=== PATIENT | male | born 1970 | race Caucasian/White ===

== ENCOUNTER 2023-09-22 14:09 | Outpatient (OUT) | payer OTHER, SELFPAY ==
[2023-09-22 15:26] LABS: Basophils Absolute Auto 0.1 10^3/uL (0.0-0.1); Basophils Percent Auto 1.6 % (0.2-2.0); Eosinophils Absolute Auto 0.1 10^3/uL (0.0-0.7); Hematocrit 41.6 % (42.0-54.0); Immature Granulocytes Abs Auto 0.01 10^3/uL (0.00-0.03); Immature Granulocytes Pct Auto 0.2 % (0.0-0.5); Lymphocytes Absolute Auto 1.7 10^3/uL (1.2-3.8); Lymphocytes Percent Auto 31.5 % (20.5-60.0); Mean Corpuscular HGB Conc 33.7 g/dL (29.9-35.2); Mean Corpuscular Volume 92.2 fL (80.0-94.0); Monocytes Absolute Auto 0.6 10^3/uL (0.3-0.8); Monocytes Percent Auto 10.1 % (1.7-12.0); Neutrophils Percent Auto 54.6 % (43.0-75.0); Platelet Count 180 10^3/uL (150-450); Red Blood Count 4.51 10^6/uL (4.70-6.10); White Blood Count 5.5 10^3/uL (4.0-11.0)
[2023-09-22 15:43] LABS: INR 1.05; Partial Thromboplastin Time 28.5 sec (22.3-36.2); Prothrombin Time 11.1 sec (9.0-11.6)
[2023-09-22 16:23] LABS: Anion Gap 13.4; BUN Creatinine Ratio 19.4; Calcium 9.2 mg/dL (8.5-10.1); Chloride 102 mmol/L (98-107); Estimated GFR (African America >60 (>=60); Estimated GFR (Non-African Ame >60 (>=60); Glucose 134 mg/dL (74-106); Potassium 4.4 mmol/L (3.5-5.1); Sodium 141 mmol/L (136-145)
== END 2023-09-22 14:10 | disposition home or self-care (01) ==
LOC: PST 14:12
PROVIDERS: PCP Nurse Practitioner Family; Visit Provider Urology
DX: Z01.812 Encounter for preprocedural laboratory examination (principal); N20.0 Calculus of kidney
CPT/HCPCS: 36415; 80048; 85025; 85610; 85730

== ENCOUNTER 2023-10-06 06:05 | Day surgery (SDC) | payer OTHER, SELFPAY ==
[2023-09-22 14:47] VITALS: BP 119/73; PULSE 74; TEMP 36.3; O2SAT 98; BMI 24.4
[2023-10-06] VITALS (15 sets, daily range): BP systolic 99–182; BP diastolic 46–88; PULSE 69–75; TEMP 36–36.2; O2SAT 95–100; BMI 24.3
--- OUTSIDE RECORDS SUMMARY | 2023-10-06 06:09 | XMS_ITS | CCD ---
Author Organization [facility] Care Team Providers Care Missing Persons Investigator Name Role Phone MARILIN, DR MARQUEZ Attending Unavailable MARILIN, DR MARQUEZ Admitting Unavailable REQUEST, NONE LISTED Primary Care Unavaila ble MARILIN, DR MARQUEZ Consulting Unavailable MARILIN, DR MARQUEZ Attending Unavailable MARILIN, DR MARQUEZ Admitting Unavailable REQUEST, NONE LISTED Primary Care Unavaila ble MARILIN, DR MARQUEZ Consulting Unavailable ZIEBER, DR YUDI Coyle Consulting Unavailable WALDEMARTIANA Consulting Unavailable JORDIN WEST Consulting Unavailable Elsy Cason Primary Care Physician Tawanna Bentley Primary Care Physician Jimmy GASTON Attending Unavailable Tawanna Bentley Attending Unavailab le Tawanna Bentley Attending Unavailab le Tawanna Bentley Attending Unavailab Cristina Madison Attending Unavailable Cristina Fan Admitting Unavailable Jimmy GSATON Attending Unavailable Jimmy GASTON Admitting Unavailable Tawanna Bentley Attending Unavailab le Tawanna Bentley Admitting Unavailab Jimmy Tinajero Admitting Unavailable Jimmy GASTON Attending Unavailable Rodrigo Gamboa Attending Unavailable Tawanna Bentley Attending Unavailab le Tawanna Bentley Attending Unavailab le Tawanna Bentley Referring Unavailab MD Geremias Gibbons Admitting Unavailable Geremias Jack Attending Unavailable Carmen Andrew Referring Unavailable Carmen Andrew Attending Unavailable Shirley Gaona Referring Unavailable Shirley Gaona Attending Unavailable Shirley Gaona Admitting Unavailable MD Geremias Jack Admitting Unavailable Geremias Jack Referring Unavailable Geremias Jack Attending Unavailable Geremias Jack Referring Unavailable Geremias Jack Attending Unavailable Geremias Jack Admitting Unavailable GASTON, Jimmy Coyle Attending Unavailable Andrew, Carmen Admitting Unavailable Andrew, Carmen Referring Unavailable Andrew, Carmen Attending Unavailable Missler, Tawanna Reilly Attending Unavailab le Missler, Tawanna Reilly Admitting Unavailab le Missler, Tawanna Reilly Attending Unavailab le Missler, Tawanna Reilly Admitting Unavailab le GASTON, Jimmy Coyle Attending Unavailable GASTON, Jimmy R Admitting Unavailable Missler, Tawanna Reilly Referring Unavailab le Andrew, Carmen Attending Unavailable Andrew, [place] Carmen Admitting Unavailabl e Missler, Tawanna Reilly Referring Unavailab le Andrew, Carmen Admitting Unavailable Andrew, Carmen Attending Unavailable Andrew, Carmen Attending Unavailable Missler, Tawanna Reilly Referring Unavailab le Andrew, [place] Carmen Admitting Unavailabl e Andrew, Carmen Attending Unavailable Missler, Tawanna Reilly Referring Unavailab le Andrew, [place] Morales Admitting Unavailabl e GASTON, Jimmy Coyle Attending Unavailable GASTON, Jimmy Coyle Admitting Unavailable Rodrigo Gamboa Attending Unavailable DO Elie Cueva Attending Unavailable Pocos, Shirley Workman Referring Unavailable Pocos, Shirley Workman Attending Unavailable GASTON, Jimmy Coyle Attending Unavailable GASTON, Jimmy Coyle Attending Unavailable GASTON, Jimmy Coyle Attending Unavailable POCOS, SHIRLEY Workman Attending Unavailable POCOS, SHIRLEY Workman Referring Unavailable POCOS, SHIRLEY Workman Attending Unavailable POCOS, SHIRLEY Workman Attending Unavailable POCOS, SHIRLEY Workman Attending Unavailable POCOS, SHIRLEY Workman Referring Unavailable POCOS, SHIRLEY Workman Attending Unavailable POCOS, SHIRLEY Workman Referring Unavailable POCOS, SHIRLEY Workman Referring Unavailable Medications Current Medications Medication Drug Class(es) Dates Sig (Normalized) Sig (Original) acetaminophen 325 mg / HYDROcodone bitartrate 5 mg oral tablet (1 source) Opioid Agonist Start: 04-06-2023 End: 04-09-2023 take 1 tablet by mouth every six hours for pain [place] 325 mg-5 mg oral tablet 1 tab(s), Oral, q6hr for pain for 3 day(s), 12 tab(s), Refill(s) 0, [facility], 165, cm, 04/06/23 6:51:00 EST, Height/Length Dosing, 67.4, kg, 04/06/23 6:51:00 EST, Weight Dosing Start Date: 04/06/23 Stop Date: 04/09/23 Status: Ordered acetaminophen 325 mg / oxyCODONE hydrochloride 5 mg oral tablet (1 source) Opioid Agonist Start: 06-29-2021 End: 07-02-2021 take 1 tablet by mouth every six hours as needed for pain Percocet 325 mg-5 mg Tab 1 tab(s), Oral, q6hr as needed for pain for 3 day(s), 15 tab(s), Refill(s) 0, [facility], 165, cm, 06/29/21 7:25:00 EDT, Height/Length Dosing, 72, kg, 06/29/21 7:25:00 EDT, Weight Dosing Start Date: 06/29/21 Stop Date: 07/02/21 Status: Ordered amitriptyline hydrochloride 50 mg oral tablet (20 sources) Tricyclic Antidepressant Start: 03-12-2023 take 1 tablet by mouth once daily at bedtime amitriptyline 50 mg Tab 50 mg = 1 tab(s), Oral, Once a day (at bedtime), # 30 tab(s), Refills(s) 5, Pharmacy: [facility], 165, cm, 03/09/23 11:01:00 EST, Height/Length Dosing, 60.8, kg, 03/09/23 11:01:00 EST, Weight Dosing Start Date: 03/12/23 Status: Ordered Start: 08-30-2022 take 1 tablet by allan th once daily at bedtime amitriptyline 50 mg Tab 50 mg = 1 tab(s), Oral, Once a day (at bedtime), # 30 tab(s), Refills(s) 5, Pharmacy: [facility] 1985, 165, cm, 08/27/22 14:08:00 EDT, Height/Length Dosing, 67.5, kg, 08/18/22 13:25:00 EDT, Weight Dosing Start Date: 08/30/22 Status: Ordered Start: 06-01-2022 take 1 tablet by allan th once daily at bedtime amitriptyline 50 mg Tab 50 mg = 1 tab(s), Oral, Once a day (at bedtime), # 30 tab(s), Refills(s) 2, Pharmacy: [facility] 1985, 165, cm, 05/07/22 14:50:00 EST, Height/Length Dosing, 69, kg, 03/22/22 14:06:00 EST, Weight Dosing Start Date: 06/01/22 Status: Ordered Start: 02-04-2022 take 1 tablet by allan th once daily at bedtime amitriptyline 50 mg Tab 50 mg = 1 tab(s), Oral, Once a day (at bedtime), # 30 tab(s), Refills(s) 2, Pharmacy: [facility] 1985, 165, cm, 02/04/22 14:49:00 EST, Height/Length Dosing, 69.2, kg, 02/04/22 14:49:00 EST, Weight Dosing Start Date: 02/04/22 Status: Ordered Start: 11-23-2021 amitriptyline 25 mg Tab 25 mg = 1 tab(s), Oral, Once a day (at bedtime), Titrate slowly. Max 150 mg/day. Taper slowly if discontinuing., # 90 tab(s), Refills(s) 3, Pharmacy: [facility] 1985, 165, cm, 08/19/21 14:35:00 EDT, Height/Length Dosing, 67.5, kg, 08/19/21 14:35... Start Date: 11/23/21 Status: Ordered Start: 12-24-2020 amitriptyline 25 mg Tab 25 mg = 1 tab(s), Oral, Once a day (at bedtime), Titrate slowly. Max 150 mg/day. Taper slowly if discontinuing., # 90 tab(s), Refills(s) 3, Pharmacy: [facility] 1985, 163, cm, 12/24/20 14:28:00 EDT, Height/Length Dosing, 66.3, kg, 12/24/20 14:28... Start Date: 12/24/20 Status: Ordered atorvastatin 20 mg oral tablet (20 sources) HMG-CoA Reductase Inhibitor Start: 02-26-2023 take 1 tablet by mouth at bedtime atorvastatin 20 mg Tab 20 mg = 1 tab(s), Oral, Bedtime, # 90 tab(s), Refills(s) 1, Pharmacy: [facility] 1985, 165, cm, 02/01/23 12:59:00 EST, Height/Length Dosing, 60.8, kg, 12/20/22 13:03:00 EDT, Weight Dosing Start Date: 02/26/23 Status: Ordered Start: 08-17-2022 take 1 tablet by allan th at bedtime atorvastatin 20 mg Tab 20 mg = 1 tab(s), Oral, Bedtime, # 30 tab(s), Refills(s) 5, Pharmacy: [facility] 1985, 165, cm, 07/27/22 12:50:00 EDT, Height/Length Dosing, 68.2, kg, 07/02/22 14:33:00 EDT, Weight Dosing Start Date: 08/17/22 Status: Ordered Start: 02-10-2022 take 1 tablet by allan th at bedtime atorvastatin 20 mg Tab 20 mg = 1 tab(s), Oral, Bedtime, # 30 tab(s), Refills(s) 5, Pharmacy: [facility] 1985, 165, cm, 02/04/22 14:49:00 EST, Height/Length Dosing, 69.2, kg, 02/04/22 14:49:00 EST, Weight Dosing Start Date: 02/10/22 Status: Ordered Start: 07-08-2021 take 1 tablet by allan th at bedtime atorvastatin 20 mg Tab 20 mg = 1 tab(s), Oral, Bedtime, # 30 tab(s), Refills(s) 6, Pharmacy: [facility] 1985, 165, cm, 06/29/21 7:25:00 EDT, Height/Length Dosing, 72, kg, 06/29/21 7:25:00 EDT, Weight Dosing Start Date: 07/08/21 Status: Ordered Start: 12-03-2020 take 1 tablet by allan th at bedtime atorvastatin 20 mg Tab 20 mg = 1 tab(s), Oral, Bedtime, # 30 tab(s), Refills(s) 6, Pharmacy: [facility] 1985, 163, cm, 12/01/20 13:45:00 EDT, Height/Length Dosing, 67.3, kg, 12/01/20 13:45:00 EDT, Weight Dosing Start Date: 12/03/20 Status: Ordered baclofen 10 mg oral tablet (5 sources) gamma-Aminobutyric Acid-ergic Agonist Start: 09-28-2022 End: 10-28-2022 take 5 mg by mouth three times daily baclofen 10 mg Tab 5 mg = 0.5 tab(s), Oral, TID, X 30 day(s), # 45 tab(s), Refills(s) 0, Pharmacy: [facility] 1985, 165, cm, 09/14/22 13:03:00 EDT, Height/Length Dosing, 66.7, kg, 09/14/22 13:03:00 EDT, Weight Dosing Start Date: 09/28/22 Stop Date: 10/28/22 Status: Ordered Start: 08-27-2022 take 5 mg by mouth t hree times daily baclofen 10 mg Tab 5 mg = 0.5 tab(s), Oral, TID, # 30 tab(s), Refills(s) 0, Pharmacy: [facility] 1985, 165, cm, 08/27/22 14:08:00 EDT, Height/Length Dosing, 67.5, kg, 08/18/22 13:25:00 EDT, Weight Dosing Start Date: 08/27/22 Status: Ordered cephalexin 500 mg oral capsule (6 sources) Cephalosporin Antibacterial Start: 03-09-2023 End: 03-16-2023 take 1 capsule by mouth every six hours cephalexin 500 mg Cap TAKE 1 CAPSULE BY MOUTH EVERY 6 HOURS FOR 7 DAYS Start Date: 03/16/23 Status: Ordered Start: 06-29-2021 End: 07-06-2021 take 1 capsule by mouth every twelve hours Keflex 500 mg Cap 500 mg = 1 cap(s), Oral, q12hr, X 7 day(s), # 14 cap(s), Refills(s) 0, Pharmacy: [facility] 1985, 165, cm, 06/29/21 7:25:00 EDT, Height/Length Dosing, 72, kg, 06/29/21 7:25:00 EDT, Weight Dosing Start Date: 06/29/21 Stop Date: 07/06/21 Status: Ordered cyclobenzaprine hydrochloride 10 mg oral tablet (20 sources) Muscle Relaxant Start: 04-04-2023 cyclobenzaprin e 10 mg Tab 10 mg = 1 tab(s), Oral, TID, PRN Spasm, If makes drowsy, cut in half and take [address] or work around heavy equipment nor ladders nor bathe if drowsy, # 30 tab(s), Refills(s) 0, Pharmacy: [facility], 165, cm, 03/28/23 13:42:00 EST, Height/Length Dosing, 63.8, kg, 03/28/23 13:42:00 EST, Weight Dosing Start Date: 04/04/23 Status: Ordered Start: 07-23-2022 cyclobenzaprin e 10 mg Tab 10 mg = 1 tab(s), Oral, TID, PRN Spasm, If makes drowsy, cut in half and take 5 mg[address] or work around heavy equipment nor ladders nor bathe if drowsy, # 30 tab(s), Refills(s) 0, Pharmacy: [facility] 1985, 165, cm, 03/16/23 13:10:00 EST, Height/Length Dosing, 67.6, kg, 03/16/23 13:10:00 EST, Weight Dosing Start Date: 03/16/23 Status: Ordered Start: 04-22-2022 cyclobenzaprin e 10 mg Tab 10 mg = 1 tab(s), Oral, TID, PRN Spasm, If makes drowsy, cut in half and take 5 mg[address] drive or work around heavy equipment nor ladders nor bathe if drowsy, # 30 tab(s), Refills(s) 0, Pharmacy: [facility] 1985, 165, cm, 04/20/22 13:17:0... Start Date: 04/22/22 Status: Ordered Start: 02-04-2022 End: 02-14-2022 cyclobenzaprine 10 mg Tab 10 mg = 1 tab(s), Oral, TID, If makes drowsy, cut in half and take 5 mg., X 10 day(s), # 30 tab(s), Refills(s) 0, Pharmacy: [facility] 1986, 165, cm, 02/04/22 14:49:00 EST, Height/Length Dosing, 69.2, kg, 02/04/22 14:49:00 EST, Weight Dosing Start Date: 02/04/22 Stop Date: 02/14/22 Status: Ordered Excedrin Migraine (20 sources) Start: 09-25-2020 take 2 tablets by mouth every eight hours Excedrin Migraine 2 tab(s), Oral, q8hr Headache, Refill(s) 0 Start Date: 09/25/20 Status: Ordered famotidine 20 mg oral tablet (7 sources) Histamine-2 Receptor Antagonist Start: 06-06-2023 End: 06-20-2023 take 1 tablet by mouth twice daily Pepcid 20 mg Tab 20 mg = 1 tab(s), Oral, BID, # 180 tab(s), Refills(s) 1, Pharmacy: [facility], alisa Lynne, 06/13/23 9:53:00 EDT, Height/Length Dosing, 67.8, kg, 06/13/23 9:53:00 EDT, Weight Dosing Start Date: 06/13/23 Status: Ordered gabapentin 600 mg oral tablet (12 sources) Anti-epileptic Agent Start: 06-13-2023 End: 09-25-2023 take 2 tablets by mouth three times daily gabapentin 600 mg Tab 1,200 mg = 2 tab(s), Oral, TID, X 30 day(s), # 180 tab(s), Refills(s) 2, Pharmacy: [facility], alisa Lynne, 06/13/23 9:53:00 EDT, Height/Length Dosing, 67.8, kg, 06/13/23 9:53:00 EDT, Weight Dosing Start Date: 06/27/23 Stop Date: 09/25/23 Status: Ordered Start: 03-28-2023 End: 05-27-2023 take 2 tablets by mouth three times daily gabapentin 600 mg Tab 1,200 mg = 2 tab(s), Oral, TID, increase as per tit[place] schedule given to pt, X 30 day(s), # 180 tab(s), Refills(s) 1, Pharmacy: [facility], alisa Lynne, 03/28/23 13:42:00 EST, Height/Length Dosing, 63.8, kg, 03/28/23 13:42:00 EST, Weight Dosing Start Date: 03/28/23 Stop Date: 05/27/23 Status: Ordered Glucometer (20 sources) Start: 09-24-2020 Glucometer Glucometer, Print Requisition, Supply Start Date: 09/24/20 Status: Ordered ibuprofen 600 mg oral tablet (20 sources) Nonsteroidal Anti-inflammatory Drug Start: 06-28-2022 take 1 tablet by mouth every six hours ibuprofen 600 mg Tab 600 mg = 1 tab(s), Oral, q6hr, # 40 tab(s), Refills(s) 0, Pharmacy: [facility], 165, cm, 10/01/22 14:13:00 EDT, Height/Length Dosing, 67.5, kg, 10/01/22 14:13:00 EDT, Weight Dosing Start Date: 11/04/22 Status: Ordered Start: 04-22-2022 take 1 tablet by allan th every six hours ibuprofen 600 mg Tab 600 mg = 1 tab(s), Oral, q6hr, # 40 tab(s), Refills(s) 0, Pharmacy: [facility] 1986, 165, cm, 04/20/22 13:17:00 EST, Height/Length Dosing, 69, kg, 03/22/22 14:06:00 EST, Weight Dosing Start Date: 04/22/22 Status: Ordered Start: 03-09-2022 take 1 tablet by allan th every six hours ibuprofen 600 mg Tab 600 mg = 1 tab(s), Oral, q6hr, # 40 tab(s), Refills(s) 0, Pharmacy: [facility] 1986, 165, cm, 03/09/22 13:48:00 EST, Height/Length Dosing, 69, kg, 03/09/22 13:48:00 EST, Weight Dosing Start Date: 03/09/22 Status: Ordered meloxicam 15 mg oral tablet (12 sources) Nonsteroidal Anti-inflammatory Drug Start: 03-28-2023 take 15 mg by mouth once daily meloxicam 15 mg, Oral, Daily, Refills(s) 0 Start Date: 03/28/23 Status: Ordered Start: 03-28-2023 meloxicam Refi lls(s) 0 Start Date: 03/28/23 Status: Ordered metFORMIN hydrochloride 1000 mg oral tablet (20 sources) Biguanide Start: 05-02-2023 take 1 tablet by mouth twice daily metformin 1000 mg Tab 1,000 mg = 1 tab(s), Oral, BID, # 180 tab(s), Refills(s) 3, Pharmacy: [facility], 165, cm, 04/29/23 14:03:00 EST, Height/Length Dosing, 63.6, kg, 04/29/23 14:03:00 EST, Weight Dosing Start Date: 05/02/23 Status: Ordered Start: 09-15-2022 [facility] 1000 mg Tab 1,000 mg = 1 tab(s), Oral, BID, # 180 tab(s), Refills(s) 3, Pharmacy: [facility] 1985, 165, cm, 09/14/22 13:03:00 EDT, Height/Length Dosing, 66.7, kg, 09/14/22 13:03:00 EDT, Weight Dosing Start Date: 09/15/22 Status: Ordered Start: 08-16-2022 take 2 tablets by [facility] once daily in the morning metformin 500 mg ER Tab 1,000 mg = 2 tab(s), Oral, qAM, # 180 tab(s), Refills(s) 0, Pharmacy: [facility], 165, cm, 07/27/22 12:50:00 EDT, Height/Length Dosing, 68.2, kg, 07/02/22 14:33:00 EDT, Weight Dosing Start Date: 08/16/22 Status: Ordered Start: 04-07-2022 take 2 tablets by [facility] once daily in the morning metformin 500 mg ER Tab 1,000 mg = 2 tab(s), Oral, qAM, # 90 tab(s), Refills(s) 2, Pharmacy: [facility] 1985, 165, cm, 03/22/22 14:06:00 EST, Height/Length Dosing, 69, kg, 03/22/22 14:06:00 EST, Weight Dosing Start Date: 04/07/22 Status: Ordered Start: 10-12-2021 take 2 tablets by [facility] once daily in the morning metformin 500 mg ER Tab 1,000 mg = 2 tab(s), Oral, qAM, # 60 tab(s), Refills(s) 5, Pharmacy: [facility], 165, cm, 08/19/21 14:35:00 EDT, Height/Length Dosing, 67.5, kg, 08/19/21 14:35:00 EDT, Weight Dosing Start Date: 10/12/21 Status: Ordered Start: 04-08-2021 take 2 tablets by [facility] once daily in the morning metformin 500 mg ER Tab 1,000 mg = 2 tab(s), Oral, qAM, # 60 tab(s), Refills(s) 5, Pharmacy: [facility] 1985, 165, cm, 03/09/21 14:18:00 EST, Height/Length Dosing, 69.7, kg, 03/09/21 14:18:00 EST, Weight Dosing Start Date: 04/08/21 Status: Ordered Multivitamin preparation (20 sources) Start: 03-22-2022 multivitamin See Instructions, Refill(s) 0, mens one a day Start Date: 03/22/22 Status: Ordered naproxen 500 mg oral tablet (13 sources) Nonsteroidal Anti-inflammatory Drug Start: 03-09-2023 take 1 tablet by mouth twice daily as needed for pain naproxen 500 mg Tab 500 mg = 1 tab(s), Oral, BID, PRN Pain, with food, # 20 tab(s), Refills(s) 0, Pharmacy: [facility] 1985, 165, cm, 03/09/23 11:01:00 EST, Height/Length Dosing, 60.8, kg, 03/09/23 11:01:00 EST, Weight Dosing Start Date: 03/09/23 Status: Ordered Start: 06-29-2021 take 1 tablet by [facility] twice daily as needed for pain Naprosyn 500 mg Tab 500 mg = 1 tab(s), Oral, BID, PRN for pain, # 20 tab(s), Refills(s) 0, Pharmacy: [facility], 165, cm, 06/29/21 7:25:00 EDT, Height/Length Dosing, 72, kg, 06/29/21 7:25:00 EDT, Weight Dosing Start Date: 06/29/21 Status: Ordered potassium bicarbonate 25 meq effervescent oral tablet (5 sources) Start: 08-24-2023 Klor-Con/EF 25 mEq oral tablet, effervescent Refills(s) 0 Start Date: 08/24/23 Status: Ordered Start: 08-19-2021 take 1 tablet by [facility] twice daily Effer-K 25 mEq oral tablet, effervescent 25 mEq = 1 tab(s), Oral, BID, # 60 tab(s), Refills(s) 11, Pharmacy: [facility], 165, cm, 08/19/21 14:35:00 EDT, Height/Length Dosing, 67.5, kg, 08/19/21 14:35:00 EDT, Weight Dosing Start Date: 08/19/21 Status: Ordered tamsulosin hydrochloride 0.4 mg oral capsule (13 sources) alpha-Adrenergic Sandi Start: 04-06-2023 take 1 capsule by mouth once daily Flomax 0.4 mg Cap 0.4 mg = 1 cap(s), Oral, Daily, # 30 cap(s), Refills(s) 0, Pharmacy: [facility] 1985, 165, cm, 04/06/23 6:51:00 EST, Height/Length Dosing, 67.4, kg, 04/06/23 6:51:00 EST, Weight Dosing Start Date: 04/06/23 Status: Ordered Start: 03-09-2023 take 1 capsule by [facility] once daily Flomax 0.4 mg Cap 0.4 mg = 1 cap(s), Oral, Daily, # 10 cap(s), Refills(s) 0, Pharmacy: [facility] 1985, 165, cm, 03/09/23 11:01:00 EST, Height/Length Dosing, 60.8, kg, 03/09/23 11:01:00 EST, Weight Dosing Start Date: 03/09/23 Status: Ordered Start: 06-29-2021 take 1 capsule by [facility] once daily Flomax 0.4 mg Cap 0.4 mg = 1 cap(s), Oral, Daily, # 10 cap(s), Refills(s) 0, Pharmacy: [facility] 1985, 165, cm, 06/29/21 7:25:00 EDT, Height/Length Dosing, 72, kg, 06/29/21 7:25:00 EDT, Weight Dosing Start Date: 06/29/21 Status: Ordered tiZANidine 4 mg oral tablet (4 sources) Central alpha-2 Adrenergic Agonist Start: 03-09-2022 take 1 tablet by mouth every six hours as needed for muscle spasms tiZANidine 4 mg Tab 4 mg = 1 tab(s), Oral, q6hr, PRN Spasm, # 30 tab(s), Refills(s) 0, Pharmacy: [facility] 1985, 165, cm, 03/09/22 13:48:00 EST, Height/Length Dosing, 69, kg, 03/09/22 13:48:00 EST, Weight Dosing Start Date: 03/09/22 Status: Ordered Zofran ODT 4 mg Tab-Dis (20 sources) Start: 06-13-2023 take 1 tablet by mouth every eight hours as needed for nausea Zofran ODT 4 mg Tab-Dis 4 mg = 1 tab(s), Oral, q8hr, PRN Nausea/Vomiting, # 30 tab(s), Refills(s) 0, Pharmacy: [facility], 165, cm, 06/13/23 9:53:00 EDT, Height/Length Dosing, 67.8, kg, 06/13/23 9:53:00 EDT, Weight Dosing Start Date: 06/13/23 Status: Ordered Start: 06-06-2023 take 1 tablet by allan th every eight hours as needed for nausea Zofran ODT 4 mg Tab-Dis 4 mg = 1 tab(s), Oral, q8hr, PRN Nausea/Vomiting, # 20 tab(s), Refills(s) 0, Pharmacy: [facility], 165, cm, 06/06/23 18:57:00 EDT, Height/Length Dosing, 64.8, kg, 06/06/23 18:57:00 EDT, Weight Dosing Start Date: 06/06/23 Status: Ordered Start: 04-06-2023 take 1 tablet by allan th every eight hours as needed for nausea Zofran ODT 4 mg Tab-Dis 4 mg = 1 tab(s), Oral, q8hr, PRN Nausea/Vomiting, # 12 tab(s), Refills(s) 0, Pharmacy: [facility] 1985, 165, cm, 04/06/23 6:51:00 EST, Height/Length Dosing, 67.4, kg, 04/06/23 6:51:00 EST, Weight Dosing Start Date: 04/06/23 Status: Ordered Start: 03-09-2023 take 1 tablet by allan th every eight hours as needed for nausea Zofran ODT 4 mg Tab-Dis 4 mg = 1 tab(s), Oral, q8hr, PRN Nausea/Vomiting, # 20 tab(s), Refills(s) 0, Pharmacy: [facility] 1985, 165, cm, 03/09/23 11:01:00 EST, Height/Length Dosing, 60.8, kg, 03/09/23 11:01:00 EST, Weight Dosing Start Date: 03/09/23 Status: Ordered Start: 06-29-2021 take 1 tablet by allan th three times daily Zofran ODT 4 mg Tab-Dis 4 mg = 1 tab(s), Oral, TID, # 15 tab(s), Refills(s) 0, Pharmacy: [facility], 165, cm, 06/29/21 7:25:00 EDT, Height/Length Dosing, 72, kg, 06/29/21 7:25:00 EDT, Weight Dosing Start Date: 06/29/21 Status: Ordered Completed/Discontinued Medications Medication Drug Class(es) Dates Sig (Normalized) Sig (Original) Effer-K 25 mEq oral tablet, effervescent (9 sources) Start: 08-19-2021 take 1 tablet by mouth twice daily Effer-K 25 mEq oral tablet, effervescent 25 mEq = 1 tab(s), Oral, BID, # 60 tab(s), Refills(s) 11, Pharmacy: [facility], 165, cm, 08/19/21 14:35:00 EDT, Height/Length Dosing, 67.5, kg, 08/19/21 14:35:00 EDT, Weight Dosing Start Date: 08/19/21 Status: Ordered K-Effervescent 25 mEq oral tablet, effervescent (20 sources) Start: 08-18-2022 End: 08-13-2023 take 1 tablet by mouth twice daily K-Effervescent 25 mEq oral tablet, effervescent 25 mEq = 1 tab(s), Oral, BID, X 90 day(s), # 180 tab(s), Refills(s) 3, Pharmacy: [facility] 1986, 165, cm, 08/18/22 13:25:00 EDT, Height/Length Dosing, 67.5, kg, 08/18/22 13:25:00 EDT, Weight Dosing Start Date: 08/18/22 Stop Date: 08/13/23 Status: Ordered Problems Problem Classification Problem Date Documented Date Episodic/Chronic Abdominal pain (1 source) Epigastric pain; Translations: [Epigastric pain] Onset: 06-06-2023 Episodic Calculus of urinary tract (20 sources) Calculus of kidney; Translations: [Calculus of ureter] Onset: 10-02-2020 Episodic Diabetes mellitus with complications (20 sources) Complication due to diabetes mellitus; Translations: [Type 2 diabetes mellitus with other specified complication] Onset: 06-08-2021 Chronic Diabetes mellitus without complication (20 sources) Type 2 diabetes mellitus without complications; Translations: [Diabetes mellitus] Onset: 10-06-2020 09-28-2020 Chronic Disorders of lipid metabolism (20 sources) Mixed hyperlipidemia; Translations: [Mixed hyperlipidemia] Onset: 06-08-2021 Chronic Esophageal disorders (11 sources) Gastroesophageal reflux disease 03-22-2022 Chronic Gastritis and duodenitis (7 sources) Gastritis; Translations: [Gastritis, unspecified, without bleeding] Onset: 06-12-2023 Episodic Genitourinary symptoms and ill-defined conditions (20 sources) Increased frequency of urination; Translations: [Nocturia] Onset: 08-18-2022 08-29-2019 Episodic Headache; including migraine (20 sources) Migraine 12-26-2017 Chronic Hyperplasia of prostate (20 sources) Benign prostatic hypertrophy without outflow obstruction; Translations: [Benign prostatic hyperplasia without lower urinary tract symptoms] Onset: 08-19-2021 02-18-2021 Chronic Immunizations and screening for infectious disease (1 source) Vaccination given; Translations: [Encounter for immunization] Onset: 12-20-2022 Episodic Nausea and vomiting (1 source) Nausea and vomiting; Translations: [Nausea with vomiting, unspecified] Onset: 06-06-2023 Episodic Osteoarthritis (1 source) Osteoarthritis of left acromioclavicular joint 07-13-2023 Chronic Other aftercare (1 source) long-term (current) use of oral hypoglycemic drugs; Translations: [ORE WASHER USE ORAL HYPOGLYCEMIC DX] Onset: 10-06-2020 Episodic Other aftercare (1 source) Other custodial (current) drug therapy; Translations: [OTH SKILLED NURSING CURRENT DRUG THERAPY] Onset: 10-06-2020 Episodic Other diseases of kidney and ureters (1 source) Urinary tract obstruction; Translations: [Other obstructive and reflux uropathy] Onset: 03-22-2023 Episodic Other nervous system disorders (20 sources) Bilateral carpal tunnel syndrome 08-12-2022 Chronic Other nervous system disorders (8 sources) Numbness 03-22-2022 Episodic Other non-traumatic joint disorders (1 source) Disorder of shoulder 07-13-2023 Episodic Other nutritional; endocrine; and metabolic disorders (20 sources) Overweight in adulthood with body mass index of 25 or more but less than 30; Translations: [Body mass index (BMI) 26.0-26.9, adult] Onset: 06-08-2021 Episodic Other nutritional; endocrine; and metabolic disorders (15 sources) Overweight; Translations: [Overweight] Onset: 06-08-2021 Episodic Residual codes; unclassified (3 sources) Patient encounter status; Translations: [Other specified health status] Onset: 06-08-2021 Episodic Residual codes; unclassified (4 sources) Body mass index 20-24 - normal; Translations: [Body mass index (BMI) 24.0-24.9, adult] Onset: 12-09-2021 Episodic Rheumatoid arthritis and related disease (20 sources) Rheumatoid arthritis; Translations: [Rheumatoid arthritis, unspecified] Onset: 09-07-2022 03-22-2022 Chronic Spondylosis; intervertebral disc disorders; other back problems (20 sources) Backache; Translations: [Dorsalgia, unspecified] Onset: 12-09-2021 Episodic Sprains and strains (15 sources) Lower back injury; Translations: [Strain of muscle, fascia and tendon of lower back, initial encounter] Onset: 03-09-2022 Episodic Unclassified (20 sources) Asymptomatic microscopic hematuria 08-29-2019 Unclassified (20 sources) Body mass index 20-24 - normal Onset: 12-09-2021 03-09-2021 Unclassified (20 sources) Non-smoker 12-01-2020 Unclassified (20 sources) Patient encounter status 12-01-2020 Unclassified (17 sources) Urine finding 08-18-2022 Unclassified (6 sources) Influenza vaccination given 12-20-2022 Urinary tract infections (1 source) Urinary tract infectious disease; Translations: [Urinary tract infection, site not specified] Onset: 03-09-2023 Episodic Results Test Name Value Interpretation Reference Range Facil ity Ambulatory Visit Summaryon 0 08-24-2023 Ambulatory Visit Summary CHRIS FREEMAN :1970 Visit Date:08/24/2023 Ambulatory Visit Instructions Your Diagnosis Kidney stones Hypocitraturia BPH with urinary obstruction Asymptomatic microscopic hematuria Your Care Team Attending Physician - Jimmy GASTON MD Primary Care Physician - Tawanna Rapp This Is Your Medications List Contact prescribing physician if questions or concerns Misc Prescription (lancets) Misc Prescription (test strips) amitriptyline (amitriptyline 50 mg Tab) atorvastatin (atorvastatin 20 mg Tab) famotidine (Pepcid 20 mg Tab) gabapentin (gabapentin 600 mg Tab) gabapentin (gabapentin 600 mg Tab) meloxicam metformin (metformin 1000 mg Tab) multivitamin ondansetron (Zofran ODT 4 mg Tab-Dis) potassium bicarbonate (Klor-Con/EF 25 mEq oral tablet, effervescent) Procedures Performed Epidural injection of cervical spine using fluoroscopic guidance (01/11/2023), Radiofrequency ablation of nerve root of lumbar spine using fluoroscopic guidance (08/10/2022), Injection of facet joint using fluoroscopic guidance (06/15/2022), Injection of facet joint using fluoroscopic guidance (04/20/2022), Cystoscopy (10/02/2020), ESWL - Extracorporeal shockwave lithotripsy for renal calculus (10/02/2020), Cystoscopy (09/23/2020), Cystoscopy (12/28/2017), Arthroscopy of shoulder. Discharge Vitals Heart Rate (Peripheral) 78 Respiratory Rate 18 Blood Pressure 132/88 Height 165 cm Height 65 in Weight 66.3 kg Weight 145.86 lb BMI 24.35 What to do next You Need to Schedule the Following Appointments Follow Up with MARILIN HINES, Jimmy Coyle, URL When: Where: [facility] [address] , [place] [address]- Medications What How Much When Why Instructions Unchanged amitriptyline (amitriptyline 50 mg Tab) 1 Tablets By Mouth Once a day (at bedtime) Neuropathy Contact prescribing physician if questions or concerns Unchanged atorvastatin (atorvastatin 20 mg Tab) 1 Tablets By Mouth At bedtime HLD (hyperlipidemia) Contact prescribing physician if questions or concerns Unchanged famotidine (Pepcid 20 mg Tab) 1 Tablets By Mouth 2 times a day Contact prescribing physician if questions or concerns Unchanged gabapentin (gabapentin 600 mg Tab) TAKE 2 TABLETS BY MOUTH THREE TIMES DAILY INCREASE PER TITRATION SCHEDULE GIVEN Contact prescribing physician if questions or concerns Unchanged gabapentin (gabapentin 600 mg Tab) 2 Tablets By Mouth 3 times a day Chronic pain Duration: 30 Days Contact prescribing physician if questions or concerns Unchanged meloxicam 15 Milligram By Mouth Every day Contact prescribing physician if questions or concerns Unchanged metformin (metformin 1000 mg Tab) 1 Tablets By Mouth 2 times a day Contact prescribing physician if questions or concerns Unchanged Misc Prescription (lancets) See instructions use to test BS BID dx E11.65 Contact prescribing physician if questions or concerns Unchanged Misc Prescription (test strips) See instructions use to test BS BID dx E11.65 Contact prescribing physician if questions or concerns Unchanged multivitamin See instructions mens one a day Contact prescribing physician if questions or concerns Unchanged ondansetron (Zofran ODT 4 mg Tab-Dis) 1 Tablets By Mouth Every 8 hours as needed for Nausea/Vomiting Contact prescribing physician if questions or concerns Unchanged potassium bicarbonate (Klor-Con/ EF 25 mEq oral tablet, effervescent) Contact prescribing physician if questions or concerns Allergies No Known Allergies Problems Ongoing - Any problem that you are currently receiving treatment for. 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 Please share your experience with us by completing your survey. We appreciate your feedback and thank you for choosing us for your care. Normal [facility] Urology Office/Clinic Noteon 08-24-2023 Urology Office/Clinic Note Chief Complaint 5 month follow up HPI Staff 5 month follow up w/PSA, metabolic work up, KUB Previous DX; Kidney stones * No prostate meds * . Hypocitraturia *Taking Effer-K 25 mEq BID PSA 08/10/21 - 0.3 Dysuria: denies pain or burning Incomplete bladder emptying: denies Hematuria: denies visible blood, UA shows LARGE Frequency: denies Urgency: denies Nocturia: denies Stream: denies hesitancy, denies weak stream Leaking: denies Post void dripping: denies Wearing pads/ Depends: denies Urge incontinence: denies Stress incontinence: denies Incontinence without Sensory Awareness: denies Abdominal pain: denies Flank pain: denies Sexual complaints: denies History of Present Illness Tests reviewed: reviewed UA, PSA, KUB, metabolic workup I have reviewed the previous health record information and history for this patient from Dr. Gaston. I have reviewed and verified the staff HPI to be accurate for this encounter. There have been no associated fever, chills, flank pain, or blood in the urine. Denies any urinary infections since last encounter. Review of Systems PHQ Score Initial Depression Screen Score: 0 SCORE ROS - Provider Constitutional: denies weight loss, denies hot flashes. Eyes: denies eye problems. Gastrointestinal: denies nausea, denies vomiting. Cardiovascular: denies chest pain or angina. Integumentary: no dryness Musculoskeletal: denies musculoskeletal symptoms. ENMT: denies otolaryngeal symptoms. Respiratory: no shortness of breath. Heme/Lymph: denies easy bleeding tendency, denies easy bruising tendency. Psychiatric: no confusion, no anxiety. Genitourinary: See HPI. Physical Exam Vitals & Measurements HR: 78(Peripheral) RR: 18 BP: 132/88 HT: 65 in HT: 165 cm WT: 66.3 kg WT: 145.86 lb BMI: 24.35 General Appearance: alert, no distress, well nourished, well developed male. Genitourinary: normal scrotum, normal testes, normal urethra, normal epididymis, normal vas deferens/spermatic cord. Flank Pain: none. Bladder: nonpalpable. Assessment/Plan 1. Kidney stones (N20.0: Calculus of kidney) Stone analyses: 12/11/20 - 90% [place] CaOx, 10% Di CaOx 09/08/21 - 100% [place] CaOx S/p ESWL 10/02/20. KUB 08/11/22 [facility] [place] - Tiny bilateral renal calculi are again identified and do not appear significantly changed. No definitive calculi identified along the expected course of either ureter. CT AP wo con 03/09/23 [facility] [place] - Multiple additional nonobstructing bilateral renal stones measuring 6mm at RLP, 5mm at LLP, and a few punctate 1-2 mm stones. KUB 03/15/23 [facility] [place] - Calcifications along R and L sides which may represent intrarenal stones. [facility] [place] ED 04/06/23 due to R flank pain radiating to lower abdomen. CT AP w con 06/06/23 [facility] [place] - 4 mm LLP stone. Punctate L interpolar stone. No hydro. KUB 06/23/23 [facility] [place] - Small stones L kidney largest 5 mm. Metabolic workup 06/24/23 - Volume 3,000 cc. U24 citrate 567 wnl. Reviewed metabolic workup and imaging with pt. Discussed proceeding with lithotripsy given largest stone size. Will schedule L Lithotrispy. The procedural risks, benefits, details, and treatment alternatives have been discussed with the patient. These include bleeding, infection, inability to break or retrieve all of the stone, injury to the ureter (the tube which connects the kidney to the bladder), injury to the kidney scarring of the ureter, and need for repeat procedures, among others. Full informed consent has been obtained. Will order General anesthesia. 2. 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 Metabolic workup 06/24/23 - U24 citrate 567 wnl. Taking Effer-K 25 mEq BID. Cont wo changes. 3. BPH with urinary obstruction (N40.1: Benign prostatic hyperplasia with lower urinary tract symptoms) PSA: 08/10/21 - 0.3 IPSS 6 (4). Voiding comfortably. No BPH meds. 4. Asymptomatic microscopic hematuria (R31.21: Asymptomatic microscopic hematuria) UA shows large blood, neg for infection. Denies gross hematuria. Has not passed any stones recently. Blood on UA likely from #2. Will cont to monitor UAs. Follow-up With When Contact Information MARILIN HINES, Jimmy Coyle, URL [facility] [address], [place] [address]- Additional Instructions: schedule L Lithotrispy Patient Education I, Jhoana Dias, personally scribed for Dr. Gaston on 08/24/2023 14:26:13. . Documentation recorded by the scribe, Jhoana Dias, accurately reflects the services(s) I performed and decisions made by me. Authenticated by Dr. Gaston on 08/24/2023 14:28:25. 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 Normal [facility] Comment on above: Result Comment: Elec tronically Signed By: Jimmy GASTON MD\.br\Date and Time Signed: 08/24/23 14:28 EDT\.br\Electronically Co-Signed By: Jhoana Dias.br\Date and Time Co-Signed: 08/24/23 14:26 EDT Consultation Noteon 07-13-19 Consultation Note [id number] Normal [facility] Outside Records Officeon Outside Records Office [id number]#1.00TIFF Normal [facility] U24 Calciumon 06-29-2023 Calcium (24H U) [Mass/Time] 96 mg/24hr Invalid Interpretation Code 0-320 [facility] Comment on above: Result Comment: Perf ormed at: [facility] [address] [id number] PhD An Medraon Performed By: #### 2 552176, 6541101, 6933323, 9744706, 8899165, 88228114, 5983027 #### [facility] [address] [place] [address] Calcium (24H U) [Mass/Vol] 3.2 mg/dL Invalid Interpretation Code Not Estab. [facility] Comment on above: Performed By: #### 2 914589, 9838379, 4807932, 4992616, 3770670, 43183186, 5669539 #### [facility] [address] [place] [address] U24 Citrateon 06-29-2023 Citrate (24H U) [Mass/Time] 567 mg/24hr Invalid Interpretation Code 320-1240 [facility] Comment on above: Result Comment: Perf ormed at: [facility] [id number] MD Kwabena Cabrera Performed By: #### 2 121269, 2273671, 2601498, 2353447, 4365531, 38099758, 8348825 #### [facility] [address] [place] [address] Citrate (24H U) [Mass/Vol] 189 mg/L Invalid Interpretation Code Undefined [facility] Comment on above: Result Comment: This test was developed and its performance characteristics determined by [facility] It has not been cleared or approved by the Food and Drug Administration. Performed By: #### 2 144454, 1691644, 6748391, 2523590, 1458651, 38359221, 7380646 #### [facility] [address] [place] [address] U24 Magnesiumon 06-29-2023 Magnesium (24H U) [Mass/Time] 120.0 mg/24hr Invalid Interpretation Code 12.0-293.0 [facility] Comment on above: Result Comment: Perf ormed at: [facility] [address] [id number] PhD An Medrano Performed By: #### 2 145645, 0351365, 5190435, 6711323, 4835541, 39204731, 4258367 #### [facility] [address] [place] [address] Magnesium (U) [Mass/Vol] 4.0 mg/dL Invalid Interpretation Code Not Estab. [facility] Comment on above: Performed By: #### 2 275354, 0354678, 0345908, 7208541, 2828645, 16563430, 8232853 #### [facility] [address] [place] [address] U24 Oxalateon 06-29-2023 Oxalate (24H U) [Mass/Time] 15 mg/24hr Invalid Interpretation Code [facility] Comment on above: Result Comment: Perf ormed at: [facility] [address] [id number] MD Kwabena Cabrera Performed By: #### 2 076284, 2550997, 9037989, 3834313, 0652129, 16413922, 5412592 #### [facility] [address] [place] [address] Oxalate (U) [Mass/Vol] 5 mg/L Invalid Interpretation Code Undefined [facility] Comment on above: Performed By: #### 2 920144, 2429901, 1357965, 9351101, 0832078, 38876103, 6067555 #### [facility] [address] [place] [address] U24 Phosphoruson 06-29-2023 Phosphate (24H U) [Mass/Time] 378 mg/24hr Low 390-1425 [facility] Comment on above: Result Comment: Perf ormed at: [facility] [address] [id number] PhD An Medrano Performed By: #### 2 031178, 9318460, 1183811, 0307620, 7489018, 01330264, 5122994 #### [facility] [address] [place] [address] Phosphate (U) [Mass/Vol] 12.6 mg/dL Invalid Interpretation Code Not Estab. [facility] Comment on above: Performed By: #### 2 857539, 5576665, 7512527, 7770508, 9951227, 51403987, 5105910 #### [facility] [address] [place] [address] U24 Uric Acidon 06-29-2023 Urate (24H U) [Mass/Time] 198.0 mg/24hr Invalid Interpretation Code 197.2-1078.7 [facility] Comment on above: Result Comment: Perf ormed at: [facility] [address] [id number] PhD An Medrano Performed By: #### 2 388076, 0993823, 5552457, 8899531, 8765576, 13462728, 9093669 #### [facility] [address] [place] [address] Urate (U) [Mass/Vol] 6.6 mg/dL Invalid Interpretation Code Not Estab. [facility] Comment on above: Performed By: #### 2 821615, 0058602, 1996801, 9494360, 4353338, 81847158, 7478211 #### [facility] [address] [place] [address] XR Abdomen 1 Viewon 06-25-19 24 XR Abdomen 1 View Exam Date/Time: 06/23/2023 11:40 EDT Reason for Exam: N20.0 Kidney stones Report IMPRESSION: Left-sided calculi, grossly unchanged. EXAMINATION/TECHNIQ UE: XR Abdomen 1 View HISTORY: Follow-up of kidney stones. COMPARISON: CT 06/06/2023. Radiographs 03/15/2023. RESULT: Small calcifications projecting over the left kidney with the largest measuring around 5 mm. Pelvic calcification near midline, probably phlebolith, unchanged. No distinct calcifications radiographically projecting over the ureters. Nonspecific nondilated bowel gas pattern. Feces throughout the colon. No acute osseous findings. Degenerative changes. No other significant abnormality. Ordering Provider: Jimmy GASTON FINAL REPORT Dictated: 06/25/2023 4:00 pm Richar Cornell MD. Signed (Electronic Signature): 06/25/2023 4:00 pm Signed by: Richar Cornell MD Transcribed by: SUSIE Technologist: JONEL Technical Comments Radiation Dose: Ka,r in mGy = na DAP = na Normal [facility] CHEMISTRYOrdered By: SYSTEM SYSTEM on 04-26-2024 Creatinine [Mass/Vol] 32.2 mg/dL Normal >=10.0mg/dL Re misol Chem CHEMISTRYOrdered By: Arline Nix on 06-24-2023 U24 Creatinine 966.0 mg/24hr Low 1000.0 - 200 0.0 mg/24hr [facility] [place] Chem S No Panel InformationOrdered By: Arline Nix on 06-24-2023 Hrs Tayo 24 1 Invalid Interpretation Code [facility] [place] Chem S Total Volume 3000 mL Invalid Interpretation Code [facility] [place] Chem S PTH Intacton 06-24-2023 Parathyrin.intact [Mass/Vol] 19 pg/mL Invalid Interpretation Code 15 [facility] Comment on above: Result Comment: Perf ormed at: [facility] [address] [id number] PhD An Medrano Performed By: #### 1 [id number] #### [facility] [address] [place] [address] Physician Orderon 06-24-2023 Physician Order [id number] Normal [facility] Reference Laboratory Testing Ordered By: Giselle Lynn on 06-24-2023 Hrs Tayo Ref Lab 24 h Invalid Interpretation Code [facility] [place] SendOutsSS U24 Creatinineon 06-24-2023 U24 Creatinine 966.0 mg/24hr Low 1000.0-2000.0 [facility] Comment on above: Performed By: #### 2 966523, [id number] ####[facility] [address] [place] [address] Creatinine [Mass/Vol] 32.2 mg/dL Normal >=10.0 [facility] Comment on above: Performed By: #### 2 456413, [id number] ####[facility] [address] [place] [address] U24 SodiumOrdered By: Rebeca Nix on 06-24-2023 U24 Sodium 129 mmol/24 hr Normal 40-220 [facility] [place] Chem S Comment on above: Performed By: #### 2 615010, 0923784, 8018560, 5940088, 8670785, 80602772, 1986922 #### [facility] [address] [place] [address] U24 SodiumOrdered By: SYSTEM SYSTEM on 06-24-2023 Sodium [Moles/Vol] 43 mmol/L Normal >=10 [facility] Comment on above: Performed By: #### 2 494735, 0086709, 9733687, 0235672, 3362950, 10675737, 9443706 #### [facility] [address] [place] [address] U24 Total Volon 06-24-2023 Hrs Tayo 24 Invalid Interpretation Code [facility] Comment on above: Order Comment: Order added by Discern Expert Performed By: #### 2 867398, [id number] ####[facility] [address] [place] [address] Total Volume 3000 mL Invalid Interpretation Code [facility] Comment on above: Order Comment: Order added by Discern Expert Performed By: #### 2 415253, [id number] ####[facility] [address] [place] [address] Hrs Tayo 24 Invalid Interpretation Code [facility] Comment on above: Order Comment: Order added by Discern Expert Performed By: #### 2 363416, 2784712, 9321323, 0965582, 4719558, 93694147, 3491686 #### [facility] [address] [place] [address] Total Volume 3000 mL Invalid Interpretation Code [facility] Comment on above: Order Comment: Order added by Discern Expert Performed By: #### 2 585274, 1263065, 9742450, 5945860, 1103570, 35797225, 6959602 #### [facility] [address] [place] [address] Urine Vol/Per Ref Labon 05-30 Hrs Tayo Ref Lab 24 hour(s) Invalid Interpretation Code [facility] Comment on above: Order Comment: Order added by Discern Expert Performed By: #### 2 581375, 4478117, 5183386, 8997220, 4457881, 61009302, 4798773 #### [facility] [address] [place] [address] Urine Vol/Per Ref LabOrdered By: Giselle Lynn on 06-24-2023 Specimen volume Unsp time (U) 3000 mL Invalid Interpretation Code [facility] [place] [employer] Comment on above: Order Comment: Order added by Discern Expert Performed By: #### 2 579953, 6639500, 9396563, 9960138, 7646250, 92153114, 5130471 #### [facility] [address] [place] [address] BUNon 06-23-2023 Urea nitrogen [Mass/Vol] 18 mg/dL Normal 5-21 [facility] Comment on above: Performed By: #### 2 609199, 7301022, 9048903, 1107619, 7909970, 79170069, 1824716 #### [facility] [address] [place] [address] CHEMISTRYOrdered By: SYSTEM SYSTEM on 06-23-2023 Anion gap [Moles/Vol] 10 mmol/L Normal 6 - 16 mEq/L R emisol Chem Calcium [Mass/Vol] 9.5 mg/dL Normal 8.9 - 11.1 mg/dL [facility] Chloride [Moles/Vol] 103 mmol/L Normal 101 - 111 mmol/ L [facility] Cholesterol [Mass/Vol] 127 mg/dL Normal 120 - 200 mg/dL [facility] Cholesterol in HDL [Mass/Vol] 44 mg/dL Invalid Interpretation Code [facility] Comment on above: Result Comment: '>= 60 LOW RISK' '<= 40 HIGH RISK' Cholesterol in LDL [Mass/Vol] 78 mg/dL Normal <=129mg/dL [facility] Cholesterol in VLDL [Mass/Vol] 23 mg/dL Normal 7 - 40 mg/dL [facility] CO2 [Moles/Vol] 29 mmol/L Normal 21 - 31 mmol/L [facility] Chem Creatinine [Mass/Vol] 1.0 mg/dL Normal 0.5 - 1.3 mg/d L [facility] eGFR 89 mL/min/1.73 m2 Normal >=59mL/min /1.73 m2 [facility] Phosphate [Mass/Vol] 3.4 mg/dL Normal 1.9 - 4.6 mg/dL [facility] Potassium [Moles/Vol] 4.3 mmol/L Normal 3.5 - 5.3 mmol /L [facility] Sodium [Moles/Vol] 138 mmol/L Normal 135 - 145 mmol/L [facility] Triglyceride [Mass/Vol] 115 mg/dL Normal <=149mg/dL [facility] Urate (U) [Mass/Vol] 4.2 mg/dL Normal 2.2 - 7.4 mg/dL [facility] Urea nitrogen [Mass/Vol] 18 mg/dL Normal 5 - 21 mg/dL [facility] CHEMISTRYOrdered By: Joanne Emmanuel on 06-23-2023 HbA1c (Bld) [Mass fraction] 6.2 % High <=5.9% [facility] [place] [facility]SS Calciumon 06-23-2023 Calcium [Mass/Vol] 9.5 mg/dL Normal 8.9-11.1 [facility] Comment on above: Performed By: #### 2 974505, 4766100, 9728886, 3974838, 6708346, 95592487, 2648813 #### [facility] [address] [place] [address] Consent for Treatmenton 05-30 Consent for Treatment [id number]#[id number] Normal [facility] [facility] Consent for Treatment [id number] FB#[id number] Normal [facility] Creatinineon 06-23-2023 Creatinine [Mass/Vol] 1.0 mg/dL Normal 0.5-1.3 [facility] Comment on above: Performed By: #### 2 042424, 1205581, 3632996, 7302089, 9675598, 45524531, 2751198 #### [facility] [address] [place] [address] [id number] 06-23-2023 HbA1c (Bld) [Mass fraction] 6.2 % High <=5.9 [facility] Comment on above: Performed By: #### 2 551016, 1733680, 4432227, 9139828, 6454830, 59385597, 5654713 #### [facility] [address] [place] [address] Lipid Panelon 06-23-2023 Cholesterol [Mass/Vol] 127 mg/dL Normal 120-200 [facility] Comment on above: Performed By: #### 2 493335, 9295378, 6283589, 9492611, 8658676, 06352998, 7058227 #### [facility] [address] [place] [address] Cholesterol in HDL [Mass/Vol] 44 mg/dL Invalid Interpretation Code [facility] Comment on above: Result Comment: '>= 60 LOW RISK' '<= 40 HIGH RISK' Performed By: #### 2 211147, 6806423, 7141150, 3099397, 9822907, 08960211, 5962832 #### [facility] [address] [place] [address] Cholesterol in LDL [Mass/Vol] 78 mg/dL Normal <=129 [facility] Comment on above: Performed By: #### 2 970194, 2952948, 1037296, 6127149, 5880063, 45874139, 2682409 #### [facility] [address] [place] [address] Cholesterol in VLDL [Mass/Vol] 23 mg/dL Normal 7-40 [facility] Comment on above: Performed By: #### 2 691882, 2391752, 3816958, 3804224, 5826763, 39962618, 1346083 #### [facility] [address] [place] [address] Triglyceride [Mass/Vol] 115 mg/dL Normal <=149 [facility] Comment on above: Performed By: #### 2 480201, 0715455, 5109351, 5615964, 5312592, 64736861, 3809380 #### [facility] [address] [place] [address] Lyteson 06-23-2023 Anion gap [Moles/Vol] 10 mmol/L Normal 6-16 [facility] Comment on above: Performed By: #### 2 220670, 8201762, 8289652, 0529232, 6344361, 37691392, 5604049 #### [facility] [address] [place] [address] Chloride [Moles/Vol] 103 mmol/L Normal 101-111 [facility] Comment on above: Performed By: #### 2 957716, 1556008, 2898704, 4910674, 2029079, 92701065, 6329556 #### [facility] [address] [place] [address] CO2 [Moles/Vol] 29 mmol/L Normal 21-31 [facility] Comment on above: Performed By: #### 2 736347, 4055104, 4786678, 9269217, 7459743, 73395184, 8875963 #### [facility] [address] [place] [address] Potassium [Moles/Vol] 4.3 mmol/L Normal 3.5-5.3 [facility] Comment on above: Performed By: #### 2 753799, 5717476, 4158101, 1963178, 6482015, 45505171, 6327348 #### [facility] [address] [place] [address] Sodium [Moles/Vol] 138 mmol/L Normal 135-145 [facility] Comment on above: Performed By: #### 2 252739, 0185758, 4212142, 4304264, 6821118, 38326186, 7717957 #### [facility] [address] [place] [address] Phosphoruson 06-23-2023 Phosphate [Mass/Vol] 3.4 mg/dL Normal 1.9-4.6 [facility] Comment on above: Performed By: #### 2 960859, 9981259, 5346371, 2170647, 0275185, 47470191, 9916454 #### [facility] [address] [place] [address] Physician Orderon 06-23-2023 Physician Order [id number] 60#1.00TIFF Normal [facility] Uric Acidon 06-23-2023 Urate (U) [Mass/Vol] 4.2 mg/dL Normal 2.2-7.4 [facility] Comment on above: Performed By: #### 2 505058, 5353838, 5201339, 7936395, 2503688, 00962950, 0252886 #### [facility] [address] [place] [address] eGFRon 06-23-2023 eGFR 89 mL/min/1.73 m2 Normal >=59 [facility] Comment on above: Order Comment: Order added by Discern Expert. Performed By: #### 2 875793, 5017907, 9552842, 9504514, 4934636, 86074100, 5190141 #### [facility] [address] [place] [address] Ambulatory Visit Summaryon 0 06-13-2023 Ambulatory Visit Summary CHRIS FREEMAN :1970 Visit Date:06/13/2023 Ambulatory Visit Instructions Your Diagnosis Gastritis DM type 2 with diabetic mixed hyperlipidemia Type 2 diabetes mellitus with diabetic neuropathy, without long-term current use of insulin Your Care Team Attending Physician - Tawanna Rapp Primary Care Physician - Tawanna Rapp This Is Your Medications List Mis Prescription (lancets) Mis Prescription (test strips) amitriptyline (amitriptyline 50 mg Tab) atorvastatin (atorvastatin 20 mg Tab) famotidine (Pepcid 20 mg Tab) gabapentin (gabapentin 600 mg Tab) meloxicam metformin (metformin 1000 mg Tab) multivitamin ondansetron (Zofran ODT 4 mg Tab-Dis) Procedures Performed Epidural injection of cervical spine using fluoroscopic guidance (01/11/2023), Radiofrequency ablation of nerve root of lumbar spine using fluoroscopic guidance (08/10/2022), Injection of facet joint using fluoroscopic guidance (06/15/2022), Injection of facet joint using fluoroscopic guidance (04/20/2022), Cystoscopy (10/02/2020), ESWL - Extracorporeal shockwave lithotripsy for renal calculus (10/02/2020), Cystoscopy (09/23/2020), Cystoscopy (12/28/2017), Arthroscopy of shoulder. Discharge Vitals Temperature (Oral) 36.4 ?C Heart Rate (Peripheral) 76 Blood Pressure 120/71 Height 165 cm Height 65 in Weight 67.8 kg Weight 149.16 lb BMI 24.9 What to do next Scheduled Follow-Up Appointments Tuesday 2:00 PM EDT With: Tawanna Rapp Where: [facility] Invalid Interpretation Code [address] [place] [address]- \.br\ You Need to Schedule the Following Appointments\.br\ Follow Up with Tawanna Rapp When: In 3 months\.br\ Comments:\.br\ f/u DM\.br\ Where:\.br\ [address]\ [place] [address]-\.br\ \.br\ You Need to Complete the Following\.br\ HgbA1c, Blood, Routine collect, *Est. 09/12/23 +/- 21 day(s), Order for future visit, Lab Collect, DM type 2 with diabetic mixed hyperlipidemia [facility] Family Medicine Office/Clini c Noteon 06-13-2023 Family Medicine Office/Clinic Note Chief Complaint pt here for ER f/u. HPI Staff Last routine labs: 06/06/23 smoker status: never colonoscopy/cologua rd (45-75yo): utd PSA (45-70yo): utd History of Present Illness Chris is a 53 yo male presenting today for ER f/u of abd pain, N/V CT abd pelvis shows no acute process. Pt treated with IVF, zofran and famotidine Dx with gastritis, d/c with Rx for Zofran and Pepcid. Today pt reports no further vomiting episodes and denies side effects with the Zofran or Pepcid Pt is also due for DM f/u Type 2 Diabetes follow up: Pt denies polydipsia, polyuria, polyphagia, vision changes, sexual dysfunction, n/v/d, bloating, lightheadedness, numbness/tingling (paresthesias), ulcerations/sore/no n-healing wounds, episodes of hypoglycemia at this time. Complications: Neuropathy, HLD Most Recent Diabetic Screenings: Hgb A1C %: 5.9 % (12/21/22 10:18:00) Hgb A1c POC: 5.2 % (03/16/23 13:26:00) UMACR: due now U protein/Cr: due now Foot Exam: due now Last Diabetic Eye Exam: pt due with ophthalmology Current regimen: Medications: Metformin 1000mg once daily BID Pt denies any medication side effects Pt uses simple glucose food followed by high protein food to correct for any hypoglycemia episodes - following 15:15 rule Diet/Exercise: Is having trouble sticking to diet and exercise as well as controlling weight. pumps/CGM: no Statin: yes Medical history includes: HLD - Pt is on atorvastatin 20 mg/d. Pt denies any muscle aches/cramps or dark urine. FLP WNL on 12/21/22. Due for recheck now RA -taking amitriptyline 50 mg once daily. Pt has pain in left shoulder and is going to PT for this and is seen by PM. Patient was referred to rheumatology on 09/14/2022. Pt is followed by PM and Dr. Jack did a cervical epidural for neck/arm pain. Migraines -taking Excedrin as needed Specialists: PM for back pain/muscle spasms PT for left shoulder pain Ortho - Dr. Saul Urology - Dr. Gaston Review of Systems PHQ Score Initial Depression Screen Score: 0 SCORE Physical Exam Vitals & Measurements T: 36.4 ?C(Oral) HR: 76(Peripheral) BP: 120/71 SpO2: 98% HT: 65 in HT: 165 cm WT: 67.8 kg WT: 149.16 lb BMI: 24.9 General: Well developed, well nourished, in no acute distress Eyes: Bilateral PERRLA, conjunctivae and sclerae wnl, EOMs intact, lids without stye, chalazion, ect/extropion, ptosis, xanthelasma, blepharitis. No discharge to inner canthi.Negative for corneal abrasion or foreign bodies. Ears: grossly normal hearing Nose: No deformity, discharge, inflammation, or lesions. No congestion, no erythema; pink & moist turbinates; clear rhinorrhea. Mouth: mucous membranes pink, moist and intact. Merom posterior oropharynx, no palatal inflammation, uvula midline, no cobble-stoning, no enlarged tonsils, no tonsillar exudate, no ulcers, no active post nasal drip. tongue midline and wnl. Good dentition. Neck: Neck supple. No lymphadenopathy. Trachea midline. No thyroid, masses, tenderness, or enlargement noted. No bruit. Lungs: Normal respiratory effort and clear to auscultation Cardio: Regular rate and rhythm, normal S1 and S2, no murmur, no rub Abdomen: not assessed Musculoskeletal: No deformity or scoliosis noted. No vertebral tenderness. Normal range of motion. No vertebral point tenderness. Joints normal. No erythema, edema, effusion, crepitus, or ecchymosis. Straight leg raise negative Extremity: No clubbing, cyanosis, edema, or deformity. Normal ROM with upper and lower extremities, bilaterally. Neurologic: Cranial nerves II-XII grossly intact. motor strength equal & normal bilaterally, sensation equal & normal bilaterally. Gait normal. Skin: No rashes, ulcerations, or suspicious lesions Mental Status: Alert and oriented x3. Normal mood and affect Assessment/Plan 1. Gastritis (K29.70: Gastritis, unspecified, without bleeding) continue zofran and pepcid stable Refilled Pepcid 20mg BID Encouraged to avoid large/late meals, hot/spicy foods, tight fitting clothing, excessive caffeine consumption and use of tobacco products. Discussed red flags/when to report to ED - pt verbalized understanding f/u PRN 2. DM type 2 with diabetic mixed hyperlipidemia (E11.69: Type 2 diabetes mellitus with other specified complication) The importance of the following were all reviewed with the patient: - Compliance with home glucose testing encouraged and using those readings to help improve diet or consider starting CGM - Consider ASA 81mg once daily - Continue BP control with medications as prescribed - Continue cholesterol control with statin therapy/diet/exerci se - Continue diet: low saturated fats/carbs - Exercise - 150min/wk - Eye exam (dilated) annually to prevent blindness - f/u with ophthalmology - Foot exam (self foot checks, protective foot behavior, sensory exam annually using a 10 g monofilament and vibration annually) to prevent sores/possible amputations - consider podiatry - annual monitoring o (more content not included)... Normal [facility] Comment on above: Result Comment: Elec tronically Signed By: Sheree REGALADO, Tawanna Reilly\.br\Date and Time Signed: 06/13/23 10:13 EDT Patient Educationon 06-13-19 Patient Education Endocrinology Blood Glucose Monitoring, Adult Monitoring your blood sugar (glucose) is an important part of managing your diabetes. Blood glucose monitoring involves checking your blood glucose as often as directed and keeping a log or record of your results over time. Checking your blood glucose regularly and keeping a blood glucose log can: ? Help you and your health care provider adjust your diabetes management plan as needed, including your medicines or insulin. ? Help you understand how food, exercise, illnesses, and medicines affect your blood glucose. ? Let you know what your blood glucose is at any time. You can quickly find out if you have low blood glucose (hypoglycemia) or high blood glucose (hyperglycemia). Your health care provider will set individualized treatment goals for you. Your goals will be based on your age, other medical conditions you have, and how you respond to diabetes treatment. Generally, the goal of treatment is to maintain the following blood glucose levels: ? Before meals (preprandial): 80?130 mg/dL (4.4?7.2 mmol/L). ? After meals (postprandial): below 180 mg/dL (10 mmol/L). ? A1C level: less than 7%. Supplies needed: ? Blood glucose meter. ? Test strips for your meter. Each meter has its own strips. You must use the strips that came with your meter. ? A needle to prick your finger (lancet). Do not use a lancet more than one time. ? A device that holds the lancet (lancing device). ? A journal or log book to write down your results. How to check your blood glucose Checking your blood glucose 1. Wash your hands for at least 20 seconds with soap and water. 2. Prick the side of your finger (not the tip) with the lancet. Do not use the same finger consecutively. 3. Gently rub the finger until a small drop of blood appears. 4. Follow instructions that come with your meter for inserting the test strip, applying blood to the strip, and using your blood glucose meter. 5. Write down your result and any notes in your log. Using alternative sites Some meters allow you to use areas of your body other than your finger (alternative sites) to test your blood. The most common alternative sites are the forearm, the thigh, and the palm of your hand. Alternative sites may not be as accurate as the fingers because blood flow is slower in those areas. This means that the result you get may be delayed, and it may be different from the result that you would get from your finger. Use the finger only, and do not use alternative sites, if: ? You think you have hypoglycemia. ? You sometimes do not know that your blood glucose is getting low (hypoglycemia unawareness). General tips and recommendations Blood glucose log ? Every time you check your blood glucose, write down your result. Also write down any notes about things that may be affecting your blood glucose, such as your diet and exercise for the day. This information can help you and your health care provider: ? Look for patterns in your blood glucose over time. ? Adjust your diabetes management plan as needed. ? Check if your meter allows you to download your records to a computer or if there is an amor for the meter. Most glucose meters store a record of glucose readings in the meter. If you have type 1 diabetes: ? Check your blood glucose 4 or more times a day if you are on intensive insulin therapy with multiple daily injections (MDI) or if you are using an insulin pump. Check your blood glucose: ? Before every meal and snack. ? Before bedtime. ? Also check your blood glucose: ? If you have symptoms of hypoglycemia. ? After treating low blood glucose. ? Before doing activities that create a risk for injury, like driving or using machinery. ? Before and after exercise. ? Two hours after a meal. ? Occasionally between 2:00 a.m. and 3:00 a.m., as directed. ? You may need to check your blood glucose more often, 6?10 times per day, if: ? You have diabetes that is not well controlled. ? You are ill. ? You have a history of severe hypoglycemia. ? You have hypoglycemia unawareness. If you have type 2 diabetes: ? Check your blood glucose 2 or more times a day if you take insulin or other diabetes medicines. ? Check your blood glucose 4 or more times a day if you are on intensive insulin therapy. Occasionally, you may also need to check your glucose between 2:00 a.m. and 3:00 a.m., as directed. ? Also check your blood glucose: ? Before and after exercise. ? Before doing activities that create a risk for injury, like driving or using machinery. ? You may need to check your blood glucose more often if: ? Your medicine is being adjusted. ? Your diabetes is not well controlled. ? You are ill. General tips ? Make sure you always have your supplies with you. ? After you use a few boxes of test strips, adjust (calibrate) your blood glucose meter by following in (more content not included)... Normal [facility] CT Abdomen/Pelvis w/ Contras ton 06-07-2023 CT Abdomen/Pelvis w/ Contrast Exam Date/Time: 06/06/2023 20:31 EDT Reason for Exam: Abdominal pain, acute, nonlocalized;Other (please specify) Report IMPRESSION: Mild diffuse nonspecific colitis, most likely infectious/inflamma tory etiology. Possible enteritis. No evidence for focal diverticulitis. No evidence for appendicitis. Nonobstructing left renal calculi. EXAMINATION: CT Abdomen/Pelvis w/ Contrast HISTORY: Abdominal pain, acute, nonlocalized. TECHNIQUE: CT of the abdomen and pelvis was performed using standard technique with intravenous contrast, scanning from just above the dome of the diaphragm to the symphysis pubis. Including delayed images through the kidneys. Including sagittal and coronal reconstructions on both phases. Unless otherwise stated, incidental findings identified in this report do not require routine follow-up imaging. All CT scans at this facility use dose modulation, iterative reconstruction, and/or weight based dosing when appropriate to reduce radiation dose to as low as reasonably achievable. COMPARISON: 04/06/2023. RESULT: Some limitations from motion. Liver: No mass or lesion. Biliary: Gallbladder unremarkable. No biliary ductal dilation. Pancreas: No mass or duct dilation. Spleen: No mass or splenomegaly. Adrenals: No mass. Kidneys: 4 mm left lower pole calculus. Punctate left interpolar calculus. No hydronephrosis. Subcentimeter lesion(s) that are too small to characterize but likely benign. Delayed phase imaging with normal excreted contrast in the renal collecting system, ureters, and bladder. GI tract: Fluid-filled loops of normal caliber small bowel. Normal appendix. Diffuse Report thickening throughout the colon, especially of the left colon, with mild areas of pericolonic stranding. No evidence for focal diverticulitis. Scattered colonic feces. No pneumatosis. Lymph nodes: No abdominal or pelvic lymphadenopathy. Mesentery/Peritoneu m/Retroperitoneum: No loculated collection. No pneumoperitoneum. Vasculature: The celiac axis and SMA are patent. The portal vein and branches, splenic vein, SMV, and hepatic veins are patent. Mild arterial atherosclerotic disease without aneurysm. Pelvis: No significant free fluid. Bladder partially decompressed. Trace periumbilical dehiscence containing fat. Bones: No acute osseous findings. Soft tissues: Unremarkable. Lower thorax: Unremarkable. Ordering Provider: Elie Cueva FINAL REPORT Dictated: 06/07/2023 9:02 am Richar Cornell MD Signed (Electronic Signature): 06/07/2023 9:02 am Signed by: Richar Cornell MD Transcribed by: SUSIE Technologist: MINDY Technical Comments GFR (mL/min/1/73m2) 101 Contrast: Isovue 300 Contrast amount in ml's: 100 Rectal Contrast Given? No Oral contrast amount in ml's: 0 Normal [facility] BMPon 06-06-2023 Anion gap [Moles/Vol] 21 mmol/L High 6-16 [facility] Comment on above: Performed By: #### 2 927525, 6992387, 9818056, 0259415, 7354329, 52861655, 1043821 #### [facility] [address] [place] [address] Calcium [Mass/Vol] 10.7 mg/dL Normal 8.9-11.1 [facility] Comment on above: Performed By: #### 2 829156, 2073308, 0185078, 6438085, 5514629, 15801138, 9906847 #### [facility] [address] [place] [address] Chloride [Moles/Vol] 100 mmol/L Low 101-111 [facility] Comment on above: Performed By: #### 2 239258, 1704238, 5495551, 0215627, 9983546, 79520751, 0290863 #### [facility] [address] [place] [address] CO2 [Moles/Vol] 22 mmol/L Normal 21-31 [facility] Comment on above: Performed By: #### 2 860005, 1715662, 7483036, 5349083, 3648510, 08940623, 4474829 #### [facility] [address] [place] [address] Creatinine [Mass/Vol] 0.9 mg/dL Normal 0.5-1.3 [facility] Comment on above: Performed By: #### 2 381264, 9312034, 6596638, 1110511, 9208517, 97293338, 9568524 #### [facility] [address] [place] [address] Glucose [Mass/Vol] 140 mg/dL Normal 55-199 [facility] Comment on above: Performed By: #### 2 465441, 9859431, 7106921, 4088041, 3723091, 93144063, 8817337 #### [facility] [address] [place] [address] Potassium [Moles/Vol] 4.0 mmol/L Normal 3.5-5.3 [facility] Comment on above: Performed By: #### 2 358305, 8457219, 8657887, 2929196, 4025944, 37355390, 4426080 #### [facility] [address] [place] [address] Sodium [Moles/Vol] 139 mmol/L Normal 135-145 [facility] Comment on above: Performed By: #### 2 819770, 5321482, 5309112, 8840760, 3283706, 33148481, 2713394 #### [facility] [address] [place] [address] Urea nitrogen [Mass/Vol] 21 mg/dL Normal 5-21 [facility] Comment on above: Performed By: #### 2 355859, 1923481, 0552768, 3985153, 1603395, 07290727, 8172150 #### [facility] [address] [place] [address] Urea nitrogen/Creatinine [Mass ratio] 23 No Units High 10-20 [facility] Comment on above: Performed By: #### 2 375433, 5688148, 4610510, 1775088, 5387526, 84249428, 4088376 #### [facility] [address] [place] [address] CBC w/ Auto Diffon 4 Basophils/100 WBC (Bld) 0.5 % Normal 0.0-2.0 [facility] Comment on above: Performed By: #### 2 620109, 6285231, 4118338, 5499447, 4727411, 70329888, 8623831 #### [facility] [address] [place] [address] Basophils/Leukocytes Auto (Bld) [Pure # fraction] 0.0 E9/L Normal 0.0-0.2 [facility] Comment on above: Performed By: #### 2 599699, 2487342, 5805165, 4958168, 5578838, 77320610, 8668709 #### [facility] [address] [place] [address] Eosinophils (Bld) [#/Vol] 0.1 E9/L Normal 0.0-0.5 [facility] Comment on above: Performed By: #### 2 163201, 1243677, 2666348, 4514364, 2272440, 75366265, 0803157 #### [facility] [address] [place] [address] Eosinophils/100 WBC (Bld) 0.8 % Normal 0.0-8.0 [facility] Comment on above: Performed By: #### 2 257297, 8696530, 7210041, 5030969, 1913899, 87630781, 4413084 #### [facility] [address] [place] [address] Erythrocyte distribution width (RBC) [Ratio] 13.2 % Normal 10.9-14.2 [facility] Comment on above: Performed By: #### 2 983035, 7734395, 5612035, 8933630, 3421728, 98178278, 0959291 #### [facility] [address] [place] [address] Hematocrit (Bld) [Volume fraction] 45.2 % Normal 37.7-49.0 [facility] Comment on above: Performed By: #### 2 975985, 7015872, 9296060, 2045170, 3251093, 86101962, 9536410 #### [facility] [address] [place] [address] Hemoglobin (Bld) [Mass/Vol] 14.8 g/dL Normal 13.5-17.5 [facility] Comment on above: Performed By: #### 2 969610, 0356911, 0424631, 1330985, 2195749, 07462581, 7000029 #### [facility] [address] [place] [address] Lymphocytes (Bld) [#/Vol] 1.6 E9/L Normal 1.0-4.0 [facility] Comment on above: Performed By: #### 2 143944, 0170014, 0493490, 7924497, [id number], [id number], [id number] #### [facility] [address] [place] [address] Lymphocytes/100 WBC (Bld) 15.2 % Normal 14.0-50.0 [facility] Comment on above: Performed By: #### 2 522228, 1648294, 1363986, 6266659, 1213735, [id number], [id number] #### [facility] [address] [place] [address] MCH (RBC) [Entitic mass] 29.6 pg Normal 27.0-34.0 [facility] Comment on above: Performed By: #### 2 348105, 9162870, 3830576, 2913313, 0123477, 14621555, 7312913 #### [facility] [address] [place] [address] MCHC (RBC) [Mass/Vol] 32.7 g/dL Normal 31.4-36.0 [facility] Comment on above: Performed By: #### 2 955467, 9948879, 0817331, 2881872, 9928845, 34413062, [id number] #### [facility] [address] [place] [address] MCV (RBC) [Entitic vol] 90.6 fL Normal 80.0-100.0 [facility] Comment on above: Performed By: #### 2 388124, 5404954, 4365258, 7201830, 1381108, 82952979, 1974997 #### [facility] [address] [place] [address] Monocytes (Bld) [#/Vol] 0.9 E9/L Normal 0.2-1.0 [facility] Comment on above: Performed By: #### 2 801985, 9485584, 0746572, 6725932, 2936503, 34266801, 0057296 #### [facility] [address] [place] [address] Neutrophils (Bld) [#/Vol] 7.7 E9/L High 2.0-7.5 [facility] Comment on above: Performed By: #### 2 216838, 2532910, 0853057, 7243793, 4489995, 85452308, 5773839 #### [facility] [address] [place] [address] Neutrophils/100 WBC (Bld) 75.2 % High 36.0-75.0 [facility] Comment on above: Performed By: #### 2 320711, 7995829, 1436747, 8722922, 0994284, 93660647, 3309074 #### [facility] [address] [place] [address] Platelet 249.0 E9/L Normal 150.0-500.0 [facility] Comment on above: Performed By: #### 2 564835, 1773517, 8785682, 5956746, 7516217, 06384016, 0557991 #### [facility] [address] [place] [address] Platelet mean volume (Bld) [Entitic vol] 8.0 fL Normal 6.4-10.8 [facility] Comment on above: Performed By: #### 2 484299, 4056287, 3468257, 4161176, 3282471, 99037457, 6477392 #### [facility] [address] [place], [place] [id number] RBC (Bld) [#/Vol] 5.0 E12/L Normal 4.3-5.9 [facility] Comment on above: Performed By: #### 2 177623, 0503713, 9128453, 8392603, 1648055, 97929995, 7845783 #### [facility] [address] [place] [address] WBC corrected for nucl RBC Auto (Bld) [#/Vol] 10.3 E9/L Normal 4.0-11.0 [facility] Comment on above: Performed By: #### 2 511405, 4221520, 3885221, 6405519, 9135327, 05895488, 1415161 #### [facility] [address] [place] [address] CHEMISTRYOrdered By: SYSTEM SYSTEM on 06-06-2023 Albumin [Mass/Vol] 5.4 g/dL High 3.3 - 5.0 gm/dL R emisol Chem Albumin/Globulin [Mass ratio] 1.9 {ratio} Normal 1.1 - 2.2 Remisol Chem ALP [Catalytic activity/Vol] 63 [iU]/d Normal 21 - 98 Int._Unit/L Remisol Chem ALT No additional P-5'-P [Catalytic activity/Vol] 27 [iU]/d Normal 6 - 46 Int._Unit/L Remisol Chem Anion gap [Moles/Vol] 21 mmol/L High 6 - 16 mEq/L R emisol Chem AST [Catalytic activity/Vol] 23 [iU]/d Normal 5 - 43 Int._Unit/L Remisol Chem Bilirubin [Mass/Vol] 1.6 mg/dL High 0.0 - 1.1 mg/dL Remisol Chem Bilirubin.direct [Mass/Vol] 0.3 mg/dL Normal 0.0 - 0.4 mg/dL Remisol Chem Bilirubin.indirect [Mass or moles/Vol] 1.3 mg/dL High 0.1 - 0.9 mg/dL Remisol Chem Calcium [Mass/Vol] 10.7 mg/dL Normal 8.9 - 11.1 mg/dL Remisol Chem Chloride [Moles/Vol] 100 mmol/L Low 101 - 111 mmol/ L Remisol Chem CO2 [Moles/Vol] 22 mmol/L Normal 21 - 31 mmol/L Remis ol Chem Creatinine [Mass/Vol] 0.9 mg/dL Normal 0.5 - 1.3 mg/d L Remisol Chem eGFR 101 mL/min/1.73 m2 Normal >=59mL/mi n/1.73 m2 Remisol Chem Globulin (S) [Mass/Vol] 2.9 g/dL Normal 1.4 - 4.0 gm/dL Remisol Chem Glucose [Mass/Vol] 140 mg/dL Normal 55 - 199 mg/dL Re misol Chem Lipase [Catalytic activity/Vol] 25 U/L Normal 13 - 58 unit/L Remisol Chem Potassium [Moles/Vol] 4.0 mmol/L Normal 3.5 - 5.3 mmol /L Remisol Chem Protein [Mass/Vol] 8.3 g/dL High 6.0 - 7.8 gm/dL R emisol Chem Sodium [Moles/Vol] 139 mmol/L Normal 135 - 145 mmol/L Remisol Chem Troponin 2.50 pg/mL Low 15.90 - 38.40 pg/mL Remisol Chem Comment on above: Interpretive Data: T he 95% CI (Confidence Interval) PPV (Positive Predictive Value) for myocardial infarction in females is 38 pg/mL, in males 51 pg/mL. The results should be used in conjunction with clinical conditions of myocardial infarction. (Access High Sensitivity Troponin I Instructions For Use, [employer], September 2017) Urea nitrogen [Mass/Vol] 21 mg/dL Normal 5 - 21 mg/dL Remisol Chem Urea nitrogen/Creatinine [Mass ratio] 23 mg/mg High 10 - 20 Remisol Chem Consent for Treatmenton Consent for Treatment [id number] Normal [facility] Discharge Instructionson Discharge Instructions [id number] Normal [facility] ED Clinical Summaryon 2023 ED Clinical Summary [place] [address] ED Clinical Summary Person Information Name: CHRIS FREEMAN [facility] Age: 53 Years : 1970 Sex: Male Language: Guamanian PCP: Tawanna Rapp Marital Status: Single Visit Id: Visit Reason: Vomiting; Epigastric Pain; Heartburn or indigestion; VOMITING Speciality: Acuity: 3 Enc Type: Emergency Med Service: Emergency Arrival: 06/06/2023 18:44:10 Discharge: 06/06/2023 21:28:59 LOS: 000 02:44 Checkin: 06/06/2023 18:44:10 Checkout: 06/06/2023 21:28:59 Dispo Type: Home (Routine DC) EVENTS: Event Name Event Status Request Date/Time Start Date/Time Complete Date/Time Arrive Complete 06/06/2023 18:44:10 06/06/2023 18:44:10 06/06/2023 18:44:10 Document Home Meds Request 06/06/2023 18:44:10 Triage Complete 06/06/2023 18:44:10 06/06/2023 18:57:05 06/06/2023 18:57:05 No Visitors Request 06/06/2023 18:49:20 Bed Assign Complete 06/06/2023 18:53:07 06/06/2023 18:53:07 06/06/2023 18:53:07 Dr Exam Complete 06/06/2023 18:53:07 06/06/2023 18:55:11 06/06/2023 18:55:11 RN Exam Complete 06/06/2023 18:53:07 06/06/2023 19:17:16 06/06/2023 19:17:16 Registration Complete 06/06/2023 18:55:11 06/06/2023 19:08:52 06/06/2023 19:08:52 EKG Complete 06/06/2023 18:55:59 06/06/2023 19:09:56 Meds Admin Complete 06/06/2023 18:59:49 06/06/2023 19:10:24 Pending Labs Complete 06/06/2023 18:59:49 06/06/2023 20:52:17 Lab Complete 06/06/2023 18:59:49 06/06/2023 19:29:45 Patient Care Complete 06/06/2023 18:59:49 06/06/2023 19:20:19 Reg Complete Request 06/06/2023 19:08:52 Reg Bed Request Complete 06/06/2023 19:08:52 06/06/2023 19:08:52 06/06/2023 19:08:52 Pending Labs Complete 06/06/2023 19:09:21 06/06/2023 19:09:21 06/06/2023 19:29:45 Lab Complete 06/06/2023 19:09:21 06/06/2023 19:09:21 06/06/2023 19:29:45 Meds Admin Complete 06/06/2023 19:12:31 06/06/2023 19:14:46 Meds Admin Request 06/06/2023 19:36:50 Pending Labs Complete 06/06/2023 20:04:02 06/06/2023 20:04:02 06/06/2023 20:04:03 Meds Admin Complete 06/06/2023 20:06:02 06/06/2023 20:38:21 CT Complete 06/06/2023 20:06:22 06/06/2023 20:07:54 06/06/2023 20:31:17 Discharge Complete 06/06/2023 21:19:21 06/06/2023 21:29:05 06/06/2023 21:29:05 Transfer Complete 06/06/2023 21:29:05 06/06/2023 21:29:05 06/06/2023 21:29:05 ADDRESS: [address] [place] [address] [address] [place] [id number] PHYS DOC NOTES: MEDICAL INFORMATION: Prescriptions Given: New Medications [facility], [address] [place], [place] [id number], [phone] famotidine (Pepcid 20 mg Tab) 1 Tablets By Mouth 2 times a day for 14 Days. Refills: 0. Medications to Continue Taking That Have Changed [facility], [address] [place], [place] [id number], [phone] START: ondansetron (Zofran ODT 4 mg Tab-Dis) 1 Tablets By Mouth every 8 hours as needed Nausea/Vomiting. Refills: 0. Other Medications START: ondansetron (Zofran ODT 4 mg Tab-Dis) 1 Tablets By Mouth every 8 hours as needed Nausea/Vomiting. Refills: 0. Medications to Continue with No Changes Other Medications amitriptyline (amitriptyline 50 mg Tab) 1 Tablets By Mouth once a day (at bedtime). Refills: 5. APAP/ASA/caffeine (Excedrin Migraine) 2 Tablets By Mouth every 8 hours as needed Headache. atorvastatin (atorvastatin 20 mg Tab) 1 Tablets By Mouth at bedtime. Refills: 1. cyclobenzaprine (cyclobenzaprine 10 mg Tab) 1 Tablets By Mouth 3 times a day as needed Spasm. If makes drowsy, cut in half and take [address] or work around heavy equipment nor ladders nor bathe if drowsy. Refills: 0. ibuprofen (ibuprofen 600 mg Tab) 1 Tablets By Mouth every 6 hours. Refills: 0. meloxicam 15 Milligram By Mouth every day. metformin (metformin 1000 mg Tab) 1 Tablets By Mouth 2 times a day. Refills: 3. Misc Prescription (Glucometer) 0. Refills: 0. Misc Prescription (lancets) use to test BS BID dx E11.65. Refills: 3. Misc Prescription (test strips) use to test BS BID dx E11.65. Refills: 2. multivitamin mens one a day. naproxen (naproxen 500 mg Tab) 1 Tablets By Mouth 2 times a day as needed Pain. with food. Refills: 0. potassium bicarbonate (K-Effervescent 25 mEq oral tablet, effervescent) 1 Tablets By Mouth 2 times a day for 90 Days. Refills: 3. tamsulosin (Flomax 0.4 mg Cap) 1 Capsules By Mouth every day. Refills: 0. PATIENT EDUCATION INFORMATION: Instructions: Nausea and Vomiting, Adult; Abdominal Pain, Adult Follow up: With: Address: When: Tawanna Bentley [address] [place] [address] [place] [id number] Business (1) In 3 days DIAGNOSIS: Abdominal pain, epigastric; N&V (nausea and vomiting) Normal [facility] ED Note-Physicianon 06-06-19 ED Note-Physician Basic Information Time Seen: Hammad Elie 06/06/2023 18:55 Chief Complaint pt to ED with c/o heartburn/acid reflux since yesterday. states hx of DM and is unable to keep anything down, concerned for food posioning. took Pepto with no relief. states mid epigastric pain. dry heaving in triage. History of Present Illness HPI: Patient is a 53-year-old male with past medical history of BPH, diabetes, kidney stones, hyperlipidemia, rheumatoid arthritis who presents the ED for abdominal pain nausea and vomiting. Patient states this for started yesterday has been continuous since then. He states that he has discomfort in his epigastric region of his abdomen that does not radiate. He states it feels like the worst heartburn he has ever had. He has also had nausea and vomiting and is unable to keep anything down even small amounts of liquids. He denies any constipation or diarrhea. He denies any urinary symptoms. He denies any fevers that he is aware of. ROS: Pertinent review of systems conducted and is negative except as noted above. Physical exam: General: nontoxic appearing and in no distress HEENT: Mucous membranes moist Neuro: awake and alert Neck: supple, trachea midline Card: Heart regular rate and rhythm no murmur Resp: Lungs clear to auscultation no wheeze or rhonchi Abd: Soft and nondistended. Tenderness across all areas of the upper abdomen. No rebound or guarding. Ext: No gross deformity or edema Physical Exam Vitals & Measurements T: 36.9 ?C(Tympanic) HR: 100(Peripheral) RR: 18 BP: 140/88 SpO2: 100% HT: 165 cm WT: 64.8 kg BMI: 23.8 Medical Decision Making MEDICAL DECISION MAKING Number and Complexity of Problems Differential Diagnosis: [] [facility] Data External documents reviewed: N/A My EKG interpretation: Noted in chart if applicable My CT interpretation: N/A My X-ray interpretation: Noted in chart if applicable My Ultrasound interpretation: N/A Decision rules/scores evaluated: N/A Discussed with: N/A Treatment and Disposition ED Course: Experienced no distress. Does have some significant upper abdominal tenderness will obtain a CT of the abdomen pelvis in addition to blood work and urinalysis. Patient was given IV fluids as well as Zofran and Pepcid. Blood work is significant for mild bump in his indirect bilirubin but is otherwise overall reassuring. On reassessment he is still having some abdominal discomfort so he was given a dose of Toradol as well as a GI cocktail. CT of the abdomen pelvis shows no acute process. On my reexam he does feel that the medications are now helping him. We discussed the results of his workup and that I suspect he may have a gastritis versus a upper gastro enteritis. We discussed the plan of discharge with prescriptions for Zofran and Pepcid. We discussed avoiding any spicy or acidic foods. We discussed the need for close follow-up with his primary care physician on outpatient basis. We discussed return precautions. Patient states understanding agreement's plan was discharged stable condition. Shared decision making: As above Code status: N/A Assessment/Plan Abdominal pain, epigastric (R10.13: Epigastric pain) N&V (nausea and vomiting) (R11.2: Nausea with vomiting, unspecified) Orders: Al hydroxide/Mg hydroxide/simethico ne, 30 mL, Susp-Oral, Oral, Once, Stop date 06/06/23 20:05:00 EDT, STAT, Start date 06/06/23 20:05:00 EDT famotidine, 20 mg = 1 tab(s), Oral, BID, X 14 day(s), # 28 tab(s), Refills(s) 0, Pharmacy: [facility], 165, cm, 06/06/23 18:57:00 EDT, Height/Length Dosing, 64.8, kg, 06/06/23 18:57:00 EDT, Weight Dosing famotidine, 20 mg = 2 mL, Soln-IV, IV Push, Once, Stop date 06/06/23 19:12:00 EDT, STAT, Start date 06/06/23 19:12:00 EDT, 06/06/23 19:12:00 EDT ketorolac, 15 mg = 1 mL, Injection, IV Push, Once, Stop date 06/06/23 20:05:00 EDT, STAT, Start date 06/06/23 20:05:00 EDT, 06/06/23 20:05:00 EDT lidocaine topical, 200 mg, 10 mL, Soln-Oral, Oral, Once, Stop date 06/06/23 20:05:00 EDT, STAT, Start date 06/06/23 20:05:00 EDT ondansetron, 4 mg = 1 tab(s), Oral, q8hr, PRN Nausea/Vomiting, # 20 tab(s), Refills(s) 0, Pharmacy: [facility], 165, cm, 06/06/23 18:57:00 EDT, Height/Length Dosing, 64.8, kg, 06/06/23 18:57:00 EDT, Weight Dosing ondansetron, 4 mg = 2 mL, Injection, IV Push, Once, Stop date 06/06/23 18:59:00 EDT, STAT, Start date 06/06/23 18:59:00 EDT, 06/06/23 18:59:00 EDT Sodium Chloride 0.9% intravenous solution, 1,000 mL, Soln-IV, IV, Once, Stop date 06/06/23 18:59:00 EDT, STAT, Start date 06/06/23 18:59:00 EDT, Infuse over 61, minute(s) Sodium Chloride 0.9% intravenous solution 500 mL, 500 mL, IV, 500 mL/hr, STAT, Start date 06/06/23 19:36:00 EDT, 1 hour(s), Total volume (mL): 500, Bolus Dose: 500 mL, 64.8 kg, 1.72, m2 Basic Metabolic Panel CBC w/ Auto Diff CT Abdomen/Pelvis w/ Contrast eGFR Extra Blue Tube Extra SST Tube Hepatic Function Panel Lipase Level Saline Lock Insert Troponin 0 Hr. UA w (more content not included)... Normal [facility] Comment on above: Result Comment: Elec tronically Signed By: Elie Cueva DO\.br\Date and Time Signed: 06/06/23 21:22 EDT\.br\Electronically Co-Signed By: Sheree REGALADO, Tawanna Reilly\.br\Date and Time Co-Signed: 06/13/23 09:09 EDT ED Patient Education Noteon 06-06-2023 ED Patient Education Note Gastroenterology Nausea and Vomiting, Adult Nausea is the feeling that you have an upset stomach or that you are about to vomit. As nausea gets worse, it can lead to vomiting. Vomiting is when stomach contents forcefully come out of your mouth as a result of nausea. Vomiting can make you feel weak and cause you to become dehydrated. Dehydration can make you feel tired and thirsty, cause you to have a dry mouth, and decrease how often you urinate. Older adults and people with other diseases or a weak disease-fighting system (immune system) are at higher risk for dehydration. It is important to treat your nausea and vomiting as told by your health care provider. Follow these instructions at home: Watch your symptoms for any changes. Tell your health care provider about them. Eating and drinking ? Take an oral rehydration solution (ORS). This is a drink that is sold at pharmacies and retail stores. ? Drink clear fluids slowly and in small amounts as you are able. Clear fluids include water, ice chips, low-calorie sports drinks, and fruit juice that has water added (diluted fruit juice). ? Eat bland, dyqd-xr-kxykpp foods in small amounts as you are able. These foods include bananas, applesauce, rice, lean meats, toast, and crackers. ? Avoid fluids that contain a lot of sugar or caffeine, such as energy drinks, sports drinks, and soda. ? Avoid alcohol. ? Avoid spicy or fatty foods. General instructions ? Take mgha-swr-dbygmkv and prescription medicines only as told by your health care provider. ? Drink enough fluid to keep your urine pale yellow. ? Wash your hands often using soap and water for at least 20 seconds. If soap and water are not available, use hand communications programmer. ? Make sure that everyone in your household washes their hands well and often. ? Rest at home while you recover. ? Watch your condition for any changes. ? Take slow and deep breaths when you feel nauseous. ? Keep all follow-up visits. This is important. Contact a health care provider if: ? Your symptoms get worse. ? You have new symptoms. ? You have a fever. ? You cannot drink fluids without vomiting. ? Your nausea does not go away after 2 days. ? You feel light-headed or dizzy. ? You have a headache. ? You have muscle cramps. ? You have a rash. ? You have pain while urinating. Get help right away if: ? You have pain in your chest, neck, arm, or jaw. ? You feel extremely weak or you faint. ? You have persistent vomiting. ? You have vomit that is bright red or looks like black coffee grounds. ? You have bloody or black stools (feces) or stools that look like tar. ? You have a severe headache, a stiff neck, or both. ? You have severe pain, cramping, or bloating in your abdomen. ? You have difficulty breathing, or you are breathing very quickly. ? Your heart is beating very quickly. ? Your skin feels cold and clammy. ? You feel confused. ? You have signs of dehydration, such as: ? Dark urine, very little urine, or no urine. ? Cracked lips. ? Dry mouth. ? Sunken eyes. ? Sleepiness. ? Weakness. These symptoms may be an emergency. Get help right away. Call 911. ? Do not wait to see if the symptoms will go away. ? Do not drive yourself to the hospital. Summary ? Nausea is the feeling that you have an upset stomach or that you are about to vomit. As nausea gets worse, it can lead to vomiting. Vomiting can make you feel weak and cause you to become dehydrated. ? Follow instructions from your health care provider about eating and drinking to prevent dehydration. ? Take jpqm-tep-iotivgf and prescription medicines only as told by your health care provider. ? Contact your health care provider if your symptoms get worse, or you have new symptoms. ? Keep all follow-up visits. This is important. This information is not intended to replace advice given to you by your health care provider. Make sure you discuss any questions you have with your health care provider. Document Revised: 08/21/2021 Document Reviewed: 08/21/2021 [employer] Patient Education ? 2022 [employer] Abdominal Pain, Adult Pain in the abdomen (abdominal pain) can be caused by many things. Often, abdominal pain is not serious and it gets better with no treatment or by being treated at home. However, sometimes abdominal pain is serious. Your health care provider will ask questions about your medical history and do a physical exam to try to determine the cause of your abdominal pain. Follow these instructions at home: Medicines ? Take pycm-nci-sqkiewp and prescription medicines only as told by your health care provider. ? Do not take a laxative unless told by your health care provider. General instructions ? Watch your condition for any changes. ? Drink enough fluid to keep your urine pale yellow. ? Keep all follow-up visits as told by your h (more content not included)... Normal [facility] ED Patient Summaryon 024 ED Patient Summary [place] [id number] Patient Discharge Instructions Person Information Name: CHRIS FREEMAN Age: 53 Years Arrival Date: 06/06/2023 18:44:10 Discharge Diagnosis: Abdominal pain, epigastric; N&V (nausea and vomiting) Primary Care Physician: Shreee REGALADO, Tawanna Reilly Provider Information Primary Provider: Elie Cueva DO Advanced Physician Recruiter:None The exam and treatment you received in the Emergency Department were for an urgent problem and are not intended as complete care. It is important that you follow up with a doctor, nurse practitioner, or physician?s miner assistant for ongoing care. If your symptoms become worse or you do not improve as expected and you are unable to reach your usual health care provider, you should return to the Emergency Department. We are available 24 hours a day. CHRIS FREEMAN has been given the following list of patient education materials, prescriptions and follow-up instructions: Follow-up Instructions: With: Address: When: Tawanna Bentley [address], [place] [address] Business (1) In 3 days In the event that this physician does not participate in your insurance network, please consult with your insurance company to find a nearby participating provider. Patient Education Materials: Nausea and Vomiting, Adult; Abdominal Pain, Adult A MESSAGE TO ALL PATIENTS REGARDING OPIOIDS PRESCRIPTION OPIOIDS: WHAT YOU NEED TO KNOW Prescription opioids can be used to help relieve ewfweqmr-ra-pouftd pain and are often prescribed following a surgery or injury, or for certain health conditions. These medications can be an important part of the treatment but also come with serious risks. It is important to work with your healthcare provider to make sure you are getting the safest, most effective care. WHAT ARE THE RISKS AND SIDE EFFECTS OF OPIOID USE? Prescription opioids carry serious risks of addiction and overdose, especially with prolonged use. An opioid overdose, often marked by slowed breathing, can cause sudden . The use of prescription opioids can have a number of side effects as well, even when taken as directed: ? Tolerance?meaning you might need to take more of the medication for the same pain relief ? Physical dependence?meaning you have symptoms of withdrawal when a medication is stopped ? Increased sensitivity to pain ? Constipation ? Nausea, vomiting, and dry mouth ? Sleepiness and dizziness ? Confusion ? Depression ? Low levels of testosterone that can result in lower sex drive, energy, and strength ? Itching and sweating RISKS ARE GREATER WITH: ? History of drug misuse, substance use disorder, or overdose ? Mental health conditions (such as depression or anxiety) ? Sleep apnea ? Older age (65 years and older) ? Avoid alcohol while taking prescription opioids. Also, unless specifically advised by your health care provider, medications to avoid include: ? Benzodiazepines (such as Xanax or Valium) ? Muscle relaxants (such as Soma or Flexeril) ? Hypnotics (such as Ambien or Lunesta) ? Other prescription opioids KNOW YOUR OPTIONS Talk to your health care provider about ways to manage your pain that don?t involve prescription opioids. Some of these options may actually work better and have fewer risks and side effects. Options may include: ? Pain relievers such as acetaminophen, ibuprofen, and naproxen ? Some medication that are also used for depression or seizures ? Physical therapy and exercise ? Cognitive behavioral therapy, a psychological, goal-directed approach, in which patients learn how to modify physical, behavioral, and emotional triggers of pain and stress. IF YOU ARE PRESCRIBED OPIOIDS FOR PAIN: ? Never take opioids in greater amounts or more often than prescribed. ? Follow up with your primary health care provider. o Work together to create a plan on how to manage your pain. o Talk about ways to help manage your pain that don?t involve prescription opioids. o Talk about any and all concerns and side effects. ? Help prevent misuse and abuse o Never sell or share prescription opioids. o Never use another person?s prescription opioids. ? Store prescription opioids in a secure place and out of reach of others (this may include visitors, children, friends, and family). ? Safely dispose of unused prescription opioids: Find your community drug take-back program or your pharmacy mail-back program, or flush them down the toilet, following guidance from the Food and Drug Administration (www.fda.gov/Drugs/ ResourcesForYou). ? Visit www.cdc.gov/drugove rdose to learn about the risks of opioids abuse and overdose. ? If you believe you may be struggling with addiction, tell your health health care technician and ask for guidance or call [facility]?S Na (more content not included)... Normal [facility] HEMATOLOGYOrdered By: SYSTEM SYSTEM on 06-06-2023 Basophils/100 WBC (Bld) 0.5 % Normal 0.0 - 2.0 % Remisol Heme Basophils/Leukocytes Auto (Bld) [Pure # fraction] 0.0 E9/L Normal 0.0 - 0.2 E9/L Rem[facility] Heme Eosinophils (Bld) [#/Vol] 0.1 E9/L Normal 0.0 - 0.5 E9/L [facility]e Eosinophils/100 WBC (Bld) 0.8 % Normal 0.0 - 8.0 % [facility] Heme Erythrocyte distribution width (RBC) [Ratio] 13.2 % Normal 10.9 - 14.2 % [facility] Hematocrit (Bld) [Volume fraction] 45.2 % Normal 37.7 - 49.0 % [facility] Hemoglobin (Bld) [Mass/Vol] 14.8 g/dL Normal 13.5 - 17.5 gm/dL [facility] Lymphocytes (Bld) [#/Vol] 1.6 E9/L Normal 1.0 - 4.0 E9/L [facility]e Lymphocytes/100 WBC (Bld) 15.2 % Normal 14.0 - 50.0 % Rem[facility] Heme MCH (RBC) [Entitic mass] 29.6 pg Normal 27.0 - 34.0 pg Remisol Heme MCHC (RBC) [Mass/Vol] 32.7 g/dL Normal 31.4 - 36.0 gm /dL [facility] Heme MCV (RBC) [Entitic vol] 90.6 fL Normal 80.0 - 100.0 fL [facility]e Monocytes (Bld) [#/Vol] 0.9 E9/L Normal 0.2 - 1.0 E9/L [facility] Heme Monocytes/100 WBC (Bld) 8.3 % Normal 4.0 - 14.0 % [facility] Heme Neutrophils (Bld) [#/Vol] 7.7 E9/L High 2.0 - 7.5 E9/L [facility] Neutrophils/100 WBC (Bld) 75.2 % High 36.0 - 75.0 % [facility] Heme Platelet 249.0 E9/L Normal 150.0 - 500.0 E9/L [facility] Platelet mean volume (Bld) [Entitic vol] 8.0 fL Normal 6.4 - 10.8 fL [facility] Heme RBC (Bld) [#/Vol] 5.0 E12/L Normal 4.3 - 5.9 E12/L Re misol Heme WBC corrected for nucl RBC Auto (Bld) [#/Vol] 10.3 E9/L Normal 4.0 - 11.0 E9/L [facility] Heme Hep Func Panelon 06-06-2023 Albumin [Mass/Vol] 5.4 g/dL High 3.3-5.0 [facility] Comment on above: Performed By: #### 2 447144, 8996682, 8607286, 2297324, 2291279, 35585264, 3019136 #### [facility] [address] [place] [address] Albumin/Globulin (S) [Mass conc ratio] 1.9 Normal 1.1-2.2 [facility] Comment on above: Performed By: #### 2 878812, 2123049, 9256060, 4138725, 8786764, 19365792, 1419977 #### [facility] [address] [place] [address] ALP [Catalytic activity/Vol] 63 Int._Unit/L Normal 21-98 [facility] Comment on above: Performed By: #### 2 279270, 6979644, 1609695, 6757470, 8150687, 57836301, 0045930 #### [facility] [address] [place], [place] [id number] ALT No additional P-5'-P [Catalytic activity/Vol] 27 Int._Unit/L Normal 6-46 [facility] Comment on above: Performed By: #### 2 204856, 3216058, 7737364, 5924010, 6997189, 68865970, 7130595 #### [facility] [address] [place] [address] 51815 AST [Catalytic activity/Vol] 23 Int._Unit/L Normal 5-43 [facility] Comment on above: Performed By: #### 2 095706, 3262823, 2135104, 7911129, 2103025, 01532455, 1472974 #### [facility] [address] [place] [address] 14584 Bilirubin [Mass/Vol] 1.6 mg/dL High 0.0-1.1 [facility] Comment on above: Performed By: #### 2 177855, 8480466, 4327295, 0460074, 1567162, 13009868, 8044075 #### [facility] [address] [place] [address] Bilirubin.direct [Mass/Vol] 0.3 mg/dL Normal 0.0-0.4 [facility] Comment on above: Performed By: #### 2 700898, 8784005, 9542317, 6718461, 0639226, 84544518, 8924999 #### [facility] [address] [place] [address] Bilirubin.indirect [Mass or moles/Vol] 1.3 mg/dL High 0.1-0.9 [facility] Comment on above: Performed By: #### 2 889538, 7231670, 1984951, 7906899, 6284128, 45835251, 7560431 #### [facility] [address] [place] [address] Globulin (S) [Mass/Vol] 2.9 g/dL Normal 1.4-4.0 [facility] Comment on above: Performed By: #### 2 619006, 4284651, 3758713, 0977566, 1100939, 62047681, 3043573 #### [facility] [address] [place] [address] Protein [Mass/Vol] 8.3 g/dL High 6.0-7.8 [facility] Comment on above: Performed By: #### 2 959684, 4706462, 5561760, 1739406, 3075822, 48598782, 2665254 #### [facility] [address] [place] [address] Lipase Levelon 06-06-2023 Lipase [Catalytic activity/Vol] 25 U/L Normal 13-58 [facility] Comment on above: Performed By: #### 2 464992, 1653920, 3203963, 5338849, 3780554, 43105489, 0892919 #### [facility] [address] [place] [address] Monitor Recordon 06-06-2023 Monitor Record [id number]#[id number] Normal [facility] Patient Educationon 06-06-19 24 Patient Education Endocrinology Diabetes Mellitus and Foot Care Foot care is an important part of your health, especially when you have diabetes. Diabetes may cause you to have problems because of poor blood flow (circulation) to your feet and legs, which can cause your skin to: ? Become thinner and drier and pulverizer tender. ? Break more easily. ? Heal more slowly. ? Peel and crack. You may also have nerve damage (neuropathy) in your legs and feet, causing decreased feeling in them. This means that you may not notice minor injuries to your feet that could lead to more serious problems. Noticing and addressing any potential problems early is the best way to prevent future foot problems. How to care for your feet Foot hygiene ? Wash your feet daily with warm water and mild soap. Do not use hot water. Then, pat your feet and the areas between your toes until they are completely dry. Do not soak your feet as this can dry your skin. ? Trim your toenails straight across. Do not dig under them or around the cuticle. File the edges of your nails with an emery board or nail file. ? Apply a moisturizing lotion or petroleum jelly to the skin on your feet and to dry, brittle toenails. Use lotion that does not contain alcohol and is unscented. Do not apply lotion between your toes. Shoes and socks ? Wear clean socks or stockings every day. Make sure they are not too tight. Do not wear knee-high stockings since they may decrease blood flow to your legs. ? Wear shoes that fit properly and have enough cushioning. Always look in your shoes before you put them on to be sure there are no objects inside. ? To break in new shoes, wear them for just a few hours a day. This prevents injuries on your feet. Wounds, scrapes, corns, and calluses ? Check your feet daily for blisters, cuts, bruises, sores, and redness. If you cannot see the bottom of your feet, use a mirror or ask someone for help. ? Do not cut corns or calluses or try to remove them with medicine. ? If you find a minor scrape, cut, or break in the skin on your feet, keep it and the skin around it clean and dry. You may clean these areas with mild soap and water. Do not clean the area with peroxide, alcohol, or iodine. ? If you have a wound, scrape, corn, or callus on your foot, look at it several times a day to make sure it is healing and not infected. Check for: ? Redness, swelling, or pain. ? Fluid or blood. ? Warmth. ? Pus or a bad smell. General tips ? Do not cross your legs. This may decrease blood flow to your feet. ? Do not use heating pads or hot water bottles on your feet. They may burn your skin. If you have lost feeling in your feet or legs, you may not know this is happening until it is too late. ? Protect your feet from hot and cold by wearing shoes, such as at the beach or on hot pavement. ? Schedule a complete foot exam at least once a year (annually) or more often if you have foot problems. Report any cuts, sores, or bruises to your health care provider immediately. Where to find more information ? [place] [employer]: www.diabetes.org ? Association of Diabetes [employer] Education Specialists: www.diabeteseducato r.org Contact a health care provider if: ? You have a medical condition that increases your risk of infection and you have any cuts, sores, or bruises on your feet. ? You have an injury that is not healing. ? You have redness on your legs or feet. ? You feel burning or tingling in your legs or feet. ? You have pain or cramps in your legs and feet. ? Your legs or feet are numb. ? Your feet always feel cold. ? You have pain around any toenails. Get help right away if: ? You have a wound, scrape, corn, or callus on your foot and: ? You have pain, swelling, or redness that gets worse. ? You have fluid or blood coming from the wound, scrape, corn, or callus. ? Your wound, scrape, corn, or callus feels warm to the touch. ? You have pus or a bad smell coming from the wound, scrape, corn, or callus. ? You have a fever. ? You have a red line going up your leg. Summary ? Check your feet every day for blisters, cuts, bruises, sores, and redness. ? Apply a moisturizing lotion or petroleum jelly to the skin on your feet and to dry, brittle toenails. ? Wear shoes that fit properly and have enough cushioning. ? If you have foot problems, report any cuts, sores, or bruises to your health care provider immediately. ? Schedule a complete foot exam at least once a year (annually) or more often if you have foot problems. This information is not intended to replace advice given to you by your health care provider. Make sure you discuss any questions you have with your health care provider. Document Revised: 09/04/2020 Document Reviewed: 09/04/2020 [employer] Patient Education ? 2022 [employer]. Diabetes Mellitus and Sick Day Management Blood sugar (glucose) can be difficult to control when you are sick (more content not included)... Normal [facility] RAD - Preliminary Cat Scan R eporton 06-06-2023 RAD - Preliminary Cat Scan Report [id number]#1.00TIFF Normal [facility] Troponin 0 Hr.on 06-06-2023 Troponin 2.50 pg/mL Low 15.90-38.40 [facility] Comment on above: Result Comment: The 95% CI (Confidence Interval) PPV (Positive Predictive Value) for myocardial infarction in females is 38 pg/mL, in males 51 pg/mL. The results should be used in conjunction with clinical conditions of myocardial infarction. (Access High Sensitivity Troponin I Instructions For Use, [place], September 2017) Performed By: #### 2 197912, 6345727, 1362314, 5428963, 3353183, 70365994, 2657466 #### [facility] [address] [place] [address] UA with Cult Rflxon 06-06-19 24 Color (U) Light-Yellow Normal Yellow [facility] Comment on above: Result Comment: Micr oscopic readings are only performed on those samples that meet specific criteria set forth by [facility]. Performed By: #### 4 [id number] ####[facility] [address] [place] [address] Glucose (U) [Mass/Vol] Negative Normal Negative [facility] Comment on above: Performed By: #### 4 [id number] ####[facility] [address] [place] [address] Ketones Ql (U) 3+ mg/dL Abnormal Negative [facility] Comment on above: Performed By: #### 4 [id number] ####[facility] [address] [place] [address] UA Blood Negative Normal Negative [facility] Comment on above: Performed By: #### 4 [id number] ####[facility] [address] [place] [address] UA Clarity Clear Normal Clear [facility] Comment on above: Performed By: #### 4 [id number] ####[facility] [address] [facility] [place] [address] UA Leuk Est Negative Normal Negative [facility] Comment on above: Performed By: #### 4 [id number] ####[facility] [address] [place] [address] UA Nitrite Negative Normal Negative [facility] Comment on above: Performed By: #### 4 [id number] ####[facility] [address] [place] [address] UA pH 6.0 Invalid Interpretation Code 5.0-9.0 [facility] Comment on above: Performed By: #### 4 [id number] ####[facility] [address] [place] [address] UA Protein Trace Abnormal Negative [facility] Comment on above: Performed By: #### 4 [id number] ####[facility] [address] [place] [address] UA Spec Grav 1.039 Invalid Interpretation Code 1.005-1.030 [facility] Comment on above: Performed By: #### 4 [id number] ####[facility] [address] [place] [address] UA Urobilinogen Negative Normal Negative [facility] Comment on above: Performed By: #### 4 [id number] ####[facility] [address] [place] [address] Urobilinogen (U) [Mass/Vol] Negative Normal Negative [facility] Comment on above: Performed By: #### 4 [id number] ####[facility] [address] [place] [address] UA Spec Desc Clean Catch Normal [facility] Comment on above: Performed By: #### 4 [id number] ####[facility] [address] [place] [address] URINALYSISOrdered By: SYSTEM SYSTEM on 06-06-2023 Color (U) Light-Yellow 1 (06/06/23 8:38 PM) Normal Yellow [facility] UA Auto SS Comment on above: Interpretive Data: M icroscopic readings are only performed on those samples that meet specific criteria set forth by [facility]. Glucose (U) [Mass/Vol] Negative Normal Negativemg/dL FT UA Auto SS Ketones Ql (U) 3+ mg/dL Invalid Interpretation Code Negativemg/dL FT UA Auto SS UA Blood Negative Normal Negativemg/dL FT UA Aut o SS UA Clarity Clear (06/06/23 8:38 PM) Normal Clear [facility] UA Auto SS UA Leuk Est Negative Normal NegativeLeu/uL [facility] UA A uto SS UA Nitrite Negative Normal Negativemg/dL FT UA Aut o SS UA pH 6.0 *NA* (06/06/23 8:38 PM) Invalid Interpretation Code 5.0 - 9.0 [facility] UA Auto SS UA Protein Trace mg/dL Invalid Interpretation Code Negativemg/dL [facility] UA Auto SS UA Spec Grav 1.039 *NA* (06/06/23 8:38 PM) Invalid Interpretation Code 1.005 - 1.030 [facility] UA Auto SS UA Urobilinogen Negative Normal Negativemg/dL [facility] U A Auto SS Urobilinogen (U) [Mass/Vol] Negative Normal Negativemg/dL [facility] UA Auto SS URINALYSISOrdered By: Elie wilhelm on 06-06-2023 UA Spec Desc Clean Catch (06/06/23 8:38 PM) Normal [facility] UA Auto SS Work Phone: eGFRon 06-06-2023 eGFR 101 mL/min/1.73 m2 Normal >=59 [facility] Comment on above: Order Comment: Order added by Discern Expert. Performed By: #### 2 499517, 4600158, 7794192, 8608480, 4962503, 58228411, 8028966 #### [facility] [address] [place] [address] PT - Assessmentson 4 PT - Assessments [id number]#1.00TIFF Normal [facility] JHON w/Reflex if POSon 2023 Nuclear Ab Ql (S) Negative Invalid Interpretation Code Negative [facility] Comment on above: Result Comment: Perf ormed at: [address] [id number] PhD An Medrano Performed By: #### 2 238623, 0715897, 8231722, 4013414, 9554928, 91547026, 3272444 #### [facility] [address] [place] [address] RF Quanton 05-20-2023 Rheumatoid factor Qn [IU]/mL Invalid Interpretation Code <14.0 [facility] Comment on above: Result Comment: Perf ormed at: [address] [id number] PhD An Medrano Performed By: #### 2 941887, 5388216, 1808414, 0388883, 3442956, 62151527, 2156912 #### [facility] [address] [place] [address] BMPon 05-19-2023 Anion gap [Moles/Vol] 12 mmol/L Normal 6-16 [facility] Comment on above: Performed By: #### 2 923622, 5934117, 8070475, 8002841, 8958531, 25204945, 7876184 #### [facility] [address] [place] [address] Calcium [Mass/Vol] 9.5 mg/dL Normal 8.9-11.1 [facility] Comment on above: Performed By: #### 2 992919, 4665483, 1397156, 6447769, 7034906, 77813378, 2912187 #### [facility] [address] [place] [address] Chloride [Moles/Vol] 103 mmol/L Normal 101-111 [facility] Comment on above: Performed By: #### 2 732631, 3412928, 4331763, 8145482, 8987331, 33310381, 8676880 #### [facility] [address] [place] [address] CO2 [Moles/Vol] 29 mmol/L Normal 21-31 [facility] Comment on above: Performed By: #### 2 622334, 4566139, 4187478, 0853047, 4034995, 46725278, 0995657 #### [facility] [address] [place] [address] Creatinine [Mass/Vol] 0.9 mg/dL Normal 0.5-1.3 [facility] Comment on above: Performed By: #### 2 594292, 1219383, 1957938, 0706073, 9273918, 79228717, 6645452 #### [facility] [address] [place] [address] Glucose [Mass/Vol] 91 mg/dL Normal 55-199 [facility] Comment on above: Performed By: #### 2 362537, 3496617, 1364310, 6569902, 0348357, 36868039, 5231034 #### [facility] [address] [place] [address] Potassium [Moles/Vol] 4.7 mmol/L Normal 3.5-5.3 [facility] Comment on above: Performed By: #### 2 653623, 4983588, 2410795, 6602266, 4510863, 71627277, 5370431 #### [facility] [address] [place] [address] Sodium [Moles/Vol] 139 mmol/L Normal 135-145 [facility] Comment on above: Performed By: #### 2 176538, 2370721, 3708468, 6705078, 2957454, 53566193, 8418452 #### [facility] [address] [place] [address] Urea nitrogen [Mass/Vol] 23 mg/dL High 5-21 [facility] Comment on above: Performed By: #### 2 294280, 8254517, 5137738, 8445473, 0703464, 75517345, 4113359 #### [facility] [address] [place] [address] Urea nitrogen/Creatinine [Mass ratio] 26 No Units High 10-20 [facility] Comment on above: Performed By: #### 2 961744, 7762648, 9827596, 6556426, 4943549, 38294136, 7969294 #### [facility] [address] [place] [address] CBC w/ Auto Diffon 4 Basophils/100 WBC (Bld) 1.2 % Normal 0.0-2.0 [facility] Comment on above: Performed By: #### 2 948926, 7765466, 6972073, 4932249, 9284555, 67149205, 1406142 #### [facility] [address] [place] [address] Basophils/Leukocytes Auto (Bld) [Pure # fraction] 0.1 E9/L Normal 0.0-0.2 [facility] Comment on above: Performed By: #### 2 015326, 6981532, 1679606, 9222417, 2820505, 65986524, 8676316 #### [facility] [address] [place] [address] Eosinophils (Bld) [#/Vol] 0.3 E9/L Normal 0.0-0.5 [facility] Comment on above: Performed By: #### 2 217084, 9487893, 7610841, 2521972, 7844527, 00690826, 4680490 #### [facility] [address] [place] [address] Eosinophils/100 WBC (Bld) 4.0 % Normal 0.0-8.0 [facility] Comment on above: Performed By: #### 2 820527, 1533450, 2462172, 5771242, 5921779, 95733980, 7028127 #### [facility] [address] [place] [address] Erythrocyte distribution width (RBC) [Ratio] 12.9 % Normal 10.9-14.2 [facility] Comment on above: Performed By: #### 2 364722, 0449051, 6542597, 9610819, 7215900, 70659243, 0089608 #### [facility] [address] [place] [address] Hematocrit (Bld) [Volume fraction] 40.5 % Normal 37.7-49.0 [facility] Comment on above: Performed By: #### 2 187207, 1094004, 8456331, 5749524, 6460714, 16705089, 0472874 #### [facility] [address] [place] [address] Hemoglobin (Bld) [Mass/Vol] 13.6 g/dL Normal 13.5-17.5 [facility] Comment on above: Performed By: #### 2 177632, 4066838, 1436108, 7031454, 2460076, 46065352, 6479987 #### [facility] [address] [place] [address] Lymphocytes (Bld) [#/Vol] 2.1 E9/L Normal 1.0-4.0 [facility] Comment on above: Performed By: #### 2 179489, 2504724, 0794289, 5342948, 8748433, 10993597, 6766887 #### [facility] [address] [place] [address] Lymphocytes/100 WBC (Bld) 24.5 % Normal 14.0-50.0 [facility] Comment on above: Performed By: #### 2 982808, 5206074, 9088871, 8558891, 8140735, 56788728, 3163008 #### [facility] [address] [place] [address] MCH (RBC) [Entitic mass] 30.3 pg Normal 27.0-34.0 [facility] Comment on above: Performed By: #### 2 179231, 3301155, 4118770, 0674049, 3434143, 07078912, 0154136 #### [facility] [address] [place] [address] MCHC (RBC) [Mass/Vol] 33.6 g/dL Normal 31.4-36.0 [facility] Comment on above: Performed By: #### 2 243636, 7115564, 1136036, 4986316, 9165001, 65752569, 2296521 #### [facility] [address] [place] [address] MCV (RBC) [Entitic vol] 90.2 fL Normal 80.0-100.0 [facility] Comment on above: Performed By: #### 2 172765, 5186525, 0336662, 6965568, 4281622, 48342017, 3345553 #### [facility] [address] [place] [address] Monocytes (Bld) [#/Vol] 0.8 E9/L Normal 0.2-1.0 [facility] Comment on above: Performed By: #### 2 445364, 8427568, 8062331, 3028624, 9966823, 22639529, 6210016 #### [facility] [address] [place] [address] Neutrophils (Bld) [#/Vol] 5.1 E9/L Normal 2.0-7.5 [facility] Comment on above: Performed By: #### 2 365259, 2553781, 2897077, 9584329, 9094922, 91354345, 9743053 #### [facility] [address] [place] [address] Neutrophils/100 WBC (Bld) 60.3 % Normal 36.0-75.0 [facility] Comment on above: Performed By: #### 2 476246, 1570463, 0290790, 4355322, 6596386, 53070589, 9747398 #### [facility] [address] [place] [address] Platelet mean volume (Bld) [Entitic vol] 8.4 fL Normal 6.4-10.8 [facility] Comment on above: Performed By: #### 2 589030, 6875679, 1765519, 2239543, 0961296, 67210162, 6971320 #### [facility] [address] [place] [address] Platelets (Bld) [#/Vol] 202.0 E9/L Normal 150.0-500.0 [facility] Comment on above: Performed By: #### 2 738717, 4286159, 8695351, 5013869, 7258344, 14759921, 8660212 #### [facility] [address] [place] [address]393 RBC (Bld) [#/Vol] 4.5 E12/L Normal 4.3-5.9 [facility] Comment on above: Performed By: #### 2 422908, 1435968, 0246026, 8022254, 7390572, 37895745, 4587158 #### [facility] [address] [place] [address] 36362 WBC corrected for nucl RBC Auto (Bld) [#/Vol] 8.4 E9/L Normal 4.0-11.0 [facility] Comment on above: Performed By: #### 2 830402, 1605731, 7640911, 0695367, 2768603, 37712841, 6655307 #### [facility] [address] [place] [address]999 CHEMISTRYOrdered By: SYSTEM SYSTEM on 05-19-2023 Anion gap [Moles/Vol] 12 mmol/L Normal 6 - 16 mEq/L R emisol Chem Calcium [Mass/Vol] 9.5 mg/dL Normal 8.9 - 11.1 mg/dL Remisol Chem Chloride [Moles/Vol] 103 mmol/L Normal 101 - 111 mmol/ L Remisol Chem CO2 [Moles/Vol] 29 mmol/L Normal 21 - 31 mmol/L Remis ol Chem Creatinine [Mass/Vol] 0.9 mg/dL Normal 0.5 - 1.3 mg/d L Remisol Chem CRP [Mass/Vol] mg/dL Normal <=1.9mg/dL Remisol Ch em eGFR 101 mL/min/1.73 m2 Normal >=59mL/mi n/1.73 m2 Remisol Chem Glucose [Mass/Vol] 91 mg/dL Normal 55 - 199 mg/dL Re misol Chem Potassium [Moles/Vol] 4.7 mmol/L Normal 3.5 - 5.3 mmol /L Remisol Chem Sodium [Moles/Vol] 139 mmol/L Normal 135 - 145 mmol/L Remisol Chem Urea nitrogen [Mass/Vol] 23 mg/dL High 5 - 21 mg/dL Remisol Chem Urea nitrogen/Creatinine [Mass ratio] 26 mg/mg High 10 - 20 Remisol Chem CRPon 05-19-2023 CRP [Mass/Vol] mg/L Normal <=1.9 [facility] Comment on above: Performed By: #### 2 849481, 3977298, 7466389, 7097550, 5197135, 94114851, 9795306 #### [facility] [address] [place] [address] Consent for Treatmenton 04-29 Consent for Treatment [id number] CD#1.00TIFF Normal [facility] HEMATOLOGYOrdered By: SYSTEM SYSTEM on 05-19-2023 Basophils/100 WBC (Bld) 1.2 % Normal 0.0 - 2.0 % Remisol Heme Basophils/Leukocytes Auto (Bld) [Pure # fraction] 0.1 E9/L Normal 0.0 - 0.2 E9/L Remisol Heme Eosinophils (Bld) [#/Vol] 0.3 E9/L Normal 0.0 - 0.5 E9/L Remisol Heme Eosinophils/100 WBC (Bld) 4.0 % Normal 0.0 - 8.0 % Remisol Heme Erythrocyte distribution width (RBC) [Ratio] 12.9 % Normal 10.9 - 14.2 % Remisol Heme Hematocrit (Bld) [Volume fraction] 40.5 % Normal 37.7 - 49.0 % Remisol Heme Hemoglobin (Bld) [Mass/Vol] 13.6 g/dL Normal 13.5 - 17.5 gm/dL Remisol Heme Lymphocytes (Bld) [#/Vol] 2.1 E9/L Normal 1.0 - 4.0 E9/L Remisol Heme Lymphocytes/100 WBC (Bld) 24.5 % Normal 14.0 - 50.0 % Remisol Heme MCH (RBC) [Entitic mass] 30.3 pg Normal 27.0 - 34.0 pg Remisol Heme MCHC (RBC) [Mass/Vol] 33.6 g/dL Normal 31.4 - 36.0 gm /dL Remisol Heme MCV (RBC) [Entitic vol] 90.2 fL Normal 80.0 - 100.0 fL Remisol Heme Monocytes (Bld) [#/Vol] 0.8 E9/L Normal 0.2 - 1.0 E9/L Remisol Heme Monocytes/100 WBC (Bld) 10.0 % Normal 4.0 - 14.0 % Remisol Heme Neutrophils (Bld) [#/Vol] 5.1 E9/L Normal 2.0 - 7.5 E9/L Remisol Heme Neutrophils/100 WBC (Bld) 60.3 % Normal 36.0 - 75.0 % Remisol Heme Platelet mean volume (Bld) [Entitic vol] 8.4 fL Normal 6.4 - 10.8 fL Remisol Heme Platelets (Bld) [#/Vol] 202.0 E9/L Normal 150.0 - 500.0 E9/L Remisol Heme RBC (Bld) [#/Vol] 4.5 E12/L Normal 4.3 - 5.9 E12/L Re misol Heme WBC corrected for nucl RBC Auto (Bld) [#/Vol] 8.4 E9/L Normal 4.0 - 11.0 E9/L Remisol Heme HEMATOLOGYOrdered By: Rebeca Nix on 05-19-2023 ESR (Bld) [Velocity] 9 mm/h Normal 0 - 19 mm/hr [facility] HemeAutoSS Physician Orderon 05-19-2023 Physician Order [id number]#1.00TIFF Normal [facility] Physician Order [id number] 14#1.00TIFF Normal [facility] Sed Rate Automatedon 024 ESR (Bld) [Velocity] 9 mm/h Normal 0-19 [facility] Comment on above: Performed By: #### 2 486446, 8789736, 5378356, 6803086, 6333991, 62721004, 5549549 #### [facility] [address] [place] [address] eGFRon 05-19-2023 eGFR 101 mL/min/1.73 m2 Normal >=59 [facility] Comment on above: Order Comment: Order added by Discern Expert. Performed By: #### 2 386614, 3020481, 7169800, 5781265, 6216176, 10248360, 1287671 #### [facility] [address] [place] [address] Consent for Treatmenton Consent for Treatment [id number] 99#1.00TIFF Normal [facility] Consultation Noteon 04-29-19 24 Consultation Note Patient: CHRIS FREEMAN Age: 53 years Sex: Male : 1970 Associated Diagnoses: None Author: Carmen Andrew PA-C Subjective Chief complaint 04/29/2023 13:56 EST low back pain . Patient is a 53-year-old male. He has a past medical history significant for shoulder pain, cervical neuritis, chronic pain, and lumbar spondylosis. At this time, patient has pain in multiple places. He rates it a 5/10 but he is somewhat confused today about his medications. He states that he does have some new medications and he cannot member the names any Member when he supposed to take him and he is not sure if he is taking the gabapentin. He originally stated he was not sure if he was taking it at all. Then he stated he was taking it twice a day. Then he said that maybe he is taking it 3 times a day. He states that he has a list at home and he forgot it today. At this time, he jackson his neck, mid back, lower back and hands on his visual analog scale. He did start some therapy for his shoulder and has an upcoming appointment with Ortho as well as his primary care but he is not sure when these are either. Health Status Allergies: Allergic Reactions (Selected) No Known Allergies, Allergies (1) Active Severity Reaction No Known Allergies None Documented Current medications: (Selected) Prescriptions Prescribed Flomax 0.4 mg Cap: 0.4 mg = 1 cap(s), Oral, Daily, # 30 cap(s), Refills(s) 0, Pharmacy: [facility], 165, cm, 04/06/23 6:51:00 EST, Height/Length Dosing, 67.4, kg, 04/06/23 6:51:00 EST, Weight Dosing Glucometer: Glucometer, Print Requisition, Supply K-Effervescent 25 mEq oral tablet, effervescent: 25 mEq = 1 tab(s), Oral, BID, X 90 day(s), # 180 tab(s), Refills(s) 3, Pharmacy: [facility], 165, cm, 08/18/22 13:25:00 EDT, Height/Length Dosing, 67.5, kg, 08/18/22 13:25:00 EDT, Weight Dosing Zofran ODT 4 mg Tab-Dis: 4 mg = 1 tab(s), Oral, q8hr, PRN Nausea/Vomiting, # 12 tab(s), Refills(s) 0, Pharmacy: [facility], 165, cm, 04/06/23 6:51:00 EST, Height/Length Dosing, 67.4, kg, 04/06/23 6:51:00 EST, Weight Dosing amitriptyline 50 mg Tab: 50 mg = 1 tab(s), Oral, Once a day (at bedtime), # 30 tab(s), Refills(s) 5, Pharmacy: [place] [address], 165, cm, 03/09/23 11:01:00 EST, Height/Length Dosing, 60.8, kg, 03/09/23 11:01:00 EST, Weight Dosing atorvastatin 20 mg Tab: 20 mg = 1 tab(s), Oral, Bedtime, # 90 tab(s), Refills(s) 1, Pharmacy: [place] [address], 165, cm, 02/01/23 12:59:00 EST, Height/Length Dosing, 60.8, kg, 12/20/22 13:03:00 EDT, Weight Dosing cyclobenzaprine 10 mg Tab: 10 mg = 1 tab(s), Oral, TID, PRN Spasm, If makes drowsy, cut in half and take [address] or work around heavy equipment nor ladders nor bathe if drowsy, # 30 tab(s), Refills(s) 0, Pharmacy: [place] [address], 165, cm, 03/28/23 13:42:0... gabapentin 600 mg Tab: 1,200 mg = 2 tab(s), Oral, TID, increase as per titraton schedule given to pt, X 30 day(s), # 180 tab(s), Refills(s) 1, Pharmacy: [place] [address], 165, cm, 03/28/23 13:42:00 EST, Height/Length Dosing, 63.8, kg, 03/28/23 13:42:00 EST, Weight Dosing... ibuprofen 600 mg Tab: 600 mg = 1 tab(s), Oral, q6hr, # 40 tab(s), Refills(s) 0, Pharmacy: [place] [address], 165, cm, 10/01/22 14:13:00 EDT, Height/Length Dosing, 67.5, kg, 10/01/22 14:13:00 EDT, Weight Dosing lancets: lancets, See Instructions, 200 EA, 3, use to test BS BID dx E11.65, [facility], Supply, 165, cm, 08/18/22 13:25:00 EDT, Height/Length Dosing, 67.5, kg, 08/18/22 13:25:00 EDT, Weight Dosing metformin 1000 mg Tab: 1,000 mg = 1 tab(s), Oral, BID, # 180 tab(s), Refills(s) 3, Pharmacy: [facility], 165, cm, 09/14/22 13:03:00 EDT, Height/Length Dosing, 66.7, kg, 09/14/22 13:03:00 EDT, Weight Dosing naproxen 500 mg Tab: 500 mg = 1 tab(s), Oral, BID, PRN Pain, with food, # 20 tab(s), Refills(s) 0, Pharmacy: [facility], 165, cm, 03/09/23 11:01:00 EST, Height/Length Dosing, 60.8, kg, 03/09/23 11:01:00 EST, Weight Dosing test strips: test strips, See Instructions, 100 EA, 2, use to test BS BID dx E11.65, [facility], Supply, 165, cm, 04/06/23 6:51:00 EST, Height/Length Dosing, 67.4, kg, 04/06/23 6:51:00 EST, Weight Dosing Documented Medications Documented Excedrin Migraine: 2 tab(s), Oral, q8hr Headache, Refill(s) 0 meloxicam: Refills(s) 0 multivitamin: See Instructions, Refill(s) 0, mens one a day Problem list: All Problems Migraines / SNOMED CT 48489872 / Confirmed DM type 2 with diabetic mixed hyperlipidemia / SNOMED CT 9612732574 / Confirmed Non-smoker / SNOMED CT 61788630 / Confirmed Type 2 diabetes mellitus with diabetic neuropathy, without long-term current use of insulin / SNOMED CT 394034100 / Confirmed Lumbar radiculopathy / SNOMED CT 781011003 / Confirmed Rheumatoid arthritis / SNOMED CT 163712897 / Confirmed Mixed hyperlipidemia / SNOMED CT 593676667 / Confirmed Bilateral carpal tunnel syndrome / SNOMED CT 7 (more content not included)... Normal [facility] Comment on above: Result Comment: Elec tronically Signed By: Lorrie PERRY, Carmen\.br\Date and Time Signed: 04/29/23 14:59 EST Office/Clinic Note-Physician on 04-29-2023 Office/Clinic Note-Physician [id number] 779#1.00TIFF Normal [facility] Patient Correspondenceon Patient Correspondence [id number]#1.00TIFF Normal [facility] Patient Correspondence [id number] 595#1.00TIFF Normal [facility] Patient History Officeon Patient History Office [id number] 735#1.00TIFF [facility] Consent for Treatmenton 04-01 Consent for Treatment [id number] EB#1.00TIFF Normal [facility] Outside Recordson 04-28-2023 Outside Records [id number] 501#1.00TIFF [facility] PT - Assessmentson PT - Assessments [id number] 95#1.00TIFF Normal [facility] PT - Consentson 04-28-2023 PT - Consents [id number] 73#1.00TIFF [facility] PT - Home Exercise Programon 04-28-2023 PT - Home Exercise Program [id number] 43#1.00TIFF [facility] PT - Orderson 04-28-2023 PT - Orders [id number] 693#1.00TIFF [facility] Calculus Analysison 04-23-19 Calcium oxalate monohydrate (Stone) [Mass fraction] 100 % Invalid Interpretation Code [facility] Comment on above: Performed By: #### 1 [id number] ####[facility] [address] [place] [address] Color (Stone) Brown Invalid Interpretation Code [facility] Comment on above: Performed By: #### 1 [id number] ####[facility] [address] [place] [address] Composition Comment Invalid Interpretation Code [facility] Comment on above: Result Comment: Perc entage (Represents the % composition) Performed By: #### 1 [id number] ####[address] [address] Disclaimer: Comment Invalid Interpretation Code [facility] Comment on above: Result Comment: This test was developed and its performance characteristics determined by [employer]. It has not been cleared or approved by the Food and Drug Administration. Performed at: [facility] [employer] [employer] [id number] Melyssa Everett Performed By: #### 1 [id number] ####[facility] [address] [place] [address] Laboratory comment René (Report) Comment Invalid Interpretation Code [facility] Comment on above: Result Comment: Didier callahan questions regarding Calculi Analysis contact [employer] at: [phone]. Performed By: #### 1 7420764 ####[facility] [address] [place] [address] Please Note: Comment Invalid Interpretation Code [facility] Comment on above: Result Comment: Calc mustapha report will follow via computer, mail or incident coordinator delivery. Performed By: #### 1 [id number] ####[facility] [address] [place] [address] Size (Stone) [Entitic vol] 4x5 Invalid Interpretation Code [facility] Comment on above: Result Comment: Mult iple pieces received. Dimensions of the largest piece reported. Performed By: #### 1 [id number] ####[facility] [address] [place] [address] Specimen source subject Nom Comment Invalid Interpretation Code [facility] Comment on above: Result Comment: Not provided Performed By: #### 1 [id number] ####[facility] [address] [place] [address] Stone Photo Comment Invalid Interpretation Code [facility] Comment on above: Result Comment: Phot ograph will follow under a separate cover Performed By: #### 1 8763226 ####[facility] [address] [place] [address] Weight (Stone) 77 mg Invalid Interpretation Code [facility] Comment on above: Performed By: #### 1 [id number] ####[facility] [address] [place] [address] BMPon 04-06-2023 Anion gap [Moles/Vol] 11 mmol/L Normal 6-16 [facility] Comment on above: Performed By: #### 2 691597, 3007611, 3439734, 4731800, 6707055, 89680584, 6052416 #### [facility] [address] [place] [address] BUN/Creat Ratio 20 No Units Normal 10-20 [facility] Comment on above: Performed By: #### 2 940332, 6021809, 5368698, 8454318, 2033839, 18307528, 3711551 #### [facility] [address] [place] [address] Calcium [Mass/Vol] 9.4 mg/dL Normal 8.9-11.1 [facility] Comment on above: Performed By: #### 2 619200, 1456064, 6696911, 9405042, 9258124, 21614642, 3663700 #### [facility] [address] [place] [address] Chloride [Moles/Vol] 104 mmol/L Normal 101-111 [facility] Comment on above: Performed By: #### 2 418783, 9025983, 3572571, 2959701, 3590771, 24630868, 2933355 #### [facility] [address] [place] [address] CO2 [Moles/Vol] 29 mmol/L Normal 21-31 [facility] Comment on above: Performed By: #### 2 924664, 4551059, 8676886, 7308236, 0138119, 25644541, 0239108 #### [facility] [address] [place] [address] Creatinine [Mass/Vol] 1.0 mg/dL Normal 0.5-1.3 [facility] Comment on above: Performed By: #### 2 934071, 1923945, 7154882, 5645279, 6453108, 27008506, 3716182 #### [facility] [address] [place] [address] Glucose [Mass/Vol] 130 mg/dL Normal 55-199 [facility] Comment on above: Performed By: #### 2 961620, 0027441, 8511072, 5501176, 7421887, 62596181, 7299944 #### [facility] [address] [place] [address] Potassium [Moles/Vol] 4.5 mmol/L Normal 3.5-5.3 [facility] Comment on above: Performed By: #### 2 651636, 6328012, 8029455, 4643533, 5687471, 49702679, 1916632 #### [facility] [address] [place] [address] Sodium [Moles/Vol] 139 mmol/L Normal 135-145 [facility] Comment on above: Performed By: #### 2 927852, 4580226, 8418327, 0941819, 0181988, 03975783, 5246557 #### [facility] [address] [place] [address] Urea nitrogen [Mass/Vol] 20 mg/dL Normal 5-21 [facility] Comment on above: Performed By: #### 2 708991, 6364883, 4876531, 4319099, 7960422, 42458271, 6281010 #### [facility] [address] [place] [address] CBC w/ Auto Diffon 4 Basophil Absolute 0.1 E9/L Normal 0.0-0.2 [facility] Comment on above: Performed By: #### 2 433308, 6555038, 3391789, 9661371, 7007201, 82530021, 4682721 #### [facility] [address] [place] [address] Basophils/100 WBC (Bld) 0.8 % Normal 0.0-2.0 [facility] Comment on above: Performed By: #### 2 026403, 1592960, 9280322, 0185008, 6271104, 84412602, 6893972 #### [facility] [address] [place] [address] Eos Absolute 0.2 E9/L Normal 0.0-0.5 [facility] Comment on above: Performed By: #### 2 518426, 2435911, 4584241, 2409608, 5238037, 01765776, 3361369 #### [facility] [address] [place] [address] Eosinophils/100 WBC (Bld) 1.5 % Normal 0.0-8.0 [facility] Comment on above: Performed By: #### 2 171159, 3513719, 1885717, 3967350, 1888779, 41681746, 8763117 #### [facility] [address] [place] [address] Erythrocyte distribution width (RBC) [Ratio] 13.6 % Normal 10.9-14.2 [facility] Comment on above: Performed By: #### 2 478790, 9391931, 0388769, 8980388, 6247610, 73321910, 8768321 #### [facility] [address] [place] [address] Hematocrit (Bld) [Volume fraction] 41.0 % Normal 37.7-49.0 [facility] Comment on above: Performed By: #### 2 788503, 9116410, 9454279, 1320929, 1417350, 11195591, 8137837 #### [facility] [address] [place] [address] Hemoglobin (Bld) [Mass/Vol] 13.8 g/dL Normal 13.5-17.5 [facility] Comment on above: Performed By: #### 2 212570, 9624586, 8039613, 2395364, 7795641, 12880395, 5589708 #### [facility] [address] [place] [address] Lymph Absolute 1.4 E9/L Normal 1.0-4.0 [facility] Comment on above: Performed By: #### 2 228754, 8785925, 2753910, 3087834, 5273148, 64566808, 4128830 #### [facility] [address] [place] [address] Lymphocytes/100 WBC (Bld) 13.7 % Low 14.0-50.0 [facility] Comment on above: Performed By: #### 2 620749, 9061042, 8474778, 8705848, 5766904, 12937453, 2467254 #### [facility] [address] [place] [address] MCH (RBC) [Entitic mass] 30.4 pg Normal 27.0-34.0 [facility] Comment on above: Performed By: #### 2 573629, 7574513, 1506248, 7776049, 6934523, 71333848, 2689840 #### [facility] [address] [place] [address] MCHC (RBC) [Mass/Vol] 33.5 g/dL Normal 31.4-36.0 [facility] Comment on above: Performed By: #### 2 725721, 8047784, 0134458, 7327800, 5400456, 09142289, 0510674 #### [facility] [address] [place] [address] MCV (RBC) [Entitic vol] 90.7 fL Normal 80.0-100.0 [facility] Comment on above: Performed By: #### 2 857368, 4916573, 8968562, 0307853, 9804466, 95417319, 1212715 #### [facility] [address] [place] [address] [place] Absolute 0.7 E9/L Normal 0.2-1.0 [facility] Comment on above: Performed By: #### 2 729283, 7764413, 7666918, 7608593, 7007344, 72148297, 9951392 #### [facility] [address] [place] [address] Monocytes/100 WBC (Bld) 6.5 % Normal 4.0-14.0 [facility] Comment on above: Performed By: #### 2 096139, 5474846, 4491962, 7992063, 7407353, 13627891, 7091696 #### [facility] [address] [place] [address] Neutro Absolute 8.1 E9/L High 2.0-7.5 [facility] Comment on above: Performed By: #### 2 022137, 8814262, 3053095, 5083741, 9830538, 47858242, 3610845 #### [facility] [address] [place] [address] Neutro Auto 77.5 % High 36.0-75.0 [facility] Comment on above: Performed By: #### 2 129416, 5640669, 8357921, 8258027, 0297412, 49271892, 6995251 #### [facility] [address] [place] [address] Platelet 197.0 E9/L Normal 150.0-500.0 [facility] Comment on above: Performed By: #### 2 878650, 0698331, 6873181, 0895883, 0981998, 23030381, 5509229 #### [facility] [address] [place] [address] Platelet mean volume (Bld) [Entitic vol] 8.4 fL Normal 6.4-10.8 [facility] Comment on above: Performed By: #### 2 605150, 1598820, 2615115, 5407127, 3536881, 91776123, 5214832 #### [facility] [address] [place] [address] RBC 4.6 E12/L Normal 4.3-5.9 [facility] Comment on above: Performed By: #### 2 117838, 0882872, 9726754, 7069859, 5377508, 99126609, 1304462 #### [facility] [address] [place] [address] WBC 10.4 E9/L Normal 4.0-11.0 [facility] Comment on above: Performed By: #### 2 521230, 0103562, 4960168, 1195551, 9794221, 17185650, 1354561 #### [facility] [address] [place] [address] CHEMISTRYOrdered By: SYSTEM SYSTEM on 04-06-2023 Albumin [Mass/Vol] 4.6 g/dL Normal 3.3 - 5.0 gm/dL R emisol Chem Albumin/Globulin [Mass ratio] 2.1 {ratio} Normal 1.1 - 2.2 Remisol Chem Alk Phos 61 [iU]/d Normal 21 - 98 Int._Unit/L Remisol Chem ALT 21 [iU]/d Normal 6 - 46 Int._Unit/L Remisol Chem Anion gap [Moles/Vol] 11 mmol/L Normal 6 - 16 mEq/L R emisol Chem AST 17 [iU]/d Normal 5 - 43 Int._Unit/L Remisol Chem Bili Direct 0.1 mg/dL Normal 0.0 - 0.4 mg/dL Remisol Chem Bili Indirect 0.4 mg/dL Normal 0.1 - 0.9 mg/dL Remiso l Chem Bili Total 0.5 mg/dL Normal 0.0 - 1.1 mg/dL Remisol C hem Calcium [Mass/Vol] 9.4 mg/dL Normal 8.9 - 11.1 mg/dL Remisol Chem Chloride [Moles/Vol] 104 mmol/L Normal 101 - 111 mmol/ L Remisol Chem CO2 [Moles/Vol] 29 mmol/L Normal 21 - 31 mmol/L Remis ol Chem Creatinine [Mass/Vol] 1.0 mg/dL Normal 0.5 - 1.3 mg/d L Remisol Chem eGFR 89 mL/min/1.73 m2 Normal >=59mL/min /1.73 m2 Remisol Chem Globulin (S) [Mass/Vol] 2.2 g/dL Normal 1.4 - 4.0 gm/dL Remisol Chem Glucose [Mass/Vol] 130 mg/dL Normal 55 - 199 mg/dL Re misol Chem Lipase Lvl 23 unit/L Normal 13 - 58 unit/L Remisol Ch em Potassium [Moles/Vol] 4.5 mmol/L Normal 3.5 - 5.3 mmol /L Remisol Chem Protein [Mass/Vol] 6.8 g/dL Normal 6.0 - 7.8 gm/dL R emisol Chem Sodium [Moles/Vol] 139 mmol/L Normal 135 - 145 mmol/L Remisol Chem Urea nitrogen [Mass/Vol] 20 mg/dL Normal 5 - 21 mg/dL Remisol Chem Urea nitrogen/Creatinine [Mass ratio] 20 mg/mg Normal 10 - [address] Abdomen/Pelvis w/o Contra ston 04-06-2023 CT Abdomen/Pelvis w/o Contrast Exam Date/Time: 04/06/2023 08:06 EST Reason for Exam: Right flank pain;Other (please specify) Report IMPRESSION: MODERATELY OBSTRUCTING APPROXIMATELY 5 MM UVJ CALCULUS. A FEW OTHER BILATERAL RENAL CALCULI AND OTHER CHRONIC FINDINGS. CLINICAL HISTORY: Right flank pain. COMPARISON: 03/09/2023. TECHNIQUE: Spiral unenhanced images were obtained from above the kidneys through the urinary bladder without contrast. All CT scans at this facility use dose modulation, iterative reconstruction, and/or weight based dosing when appropriate to reduce radiation dose to as low as reasonably achievable. Unless otherwise stated, incidental findings identified in this report do not require routine follow-up imaging. FINDINGS: Liver: No enlargement, fatty infiltration, or suspicious lesion identified without contrast. Biliary: The gallbladder is unremarkable. No bile duct dilation. Pancreas: Unremarkable. No mass or duct dilation identified without contrast. Spleen: Not enlarged. No mass identified without contrast. Adrenals: Unremarkable. Kidneys: 5 mm UVJ calculus with right hydronephrosis and ill-defined surrounding perinephric edema. A few other bilateral renal calculi, measuring up to approximately 6 to 7 mm within the left lower pole. No left hydronephrosis, left ureteral or bladder calculi. Both unenhanced kidneys are otherwise unremarkable. GI tract: No abnormal dilation or wall thickening. Normal appendix. Lymph nodes: No pathologically enlarged lymph nodes. Mesentery/peritoneu m: No organized fluid collection, ascites, focal inflammatory changes, or mass. Retroperitoneum: No organized fluid collection, focal inflammatory changes or mass. Vasculature: No aneurysm. Mild atherosclerotic plaquing. Pelvis: The urinary bladder is unremarkable. No mass, organized fluid collection, or ascites. Bones/soft tissue: No acute osseous findings identified. Lower thorax: Noncontributory. Report Ordering Provider: Rodrigo Gamboa FINAL REPORT Dictated: 04/06/2023 8:30 am Timo Cottrell MD Signed (Electronic Signature): 04/06/2023 8:30 am Signed by: Timo Cottrell MD Transcribed by: SUSIE Technologist: SANDRO Technical Comments Rectal Contrast Given? No Oral contrast amount in ml's: 0 Normal [facility] Consent for Treatmenton Consent for Treatment [id number] Normal [facility] Discharge Instructionson Discharge Instructions [id number]#[id number] Normal [facility] ED Clinical Summaryon 2023 ED Clinical Summary [address] [address] ED Clinical Summary Person Information Name: CHRIS FREEMAN Allison/[facility] Age: 53 Years : 1970 Sex: Male Language: Guamanian PCP: Tawanan Rapp Marital Status: Single Visit Id: Visit Reason: Flank pain; Abdominal pain; lower back pain, Speciality: Acuity: 3 Enc Type: Emergency Med Service: Emergency Arrival: 04/06/2023 06:39:53 Discharge: 04/06/2023 09:29:53 LOS: 000 02:50 Checkin: 04/06/2023 06:39:53 Checkout: 04/06/2023 09:29:53 Dispo Type: Home (Routine DC) EVENTS: Event Name Event Status Request Date/Time Start Date/Time Complete Date/Time Arrive Complete 04/06/2023 06:39:53 04/06/2023 06:39:53 04/06/2023 06:39:53 Document Home Meds Request 04/06/2023 06:39:53 Triage Complete 04/06/2023 06:39:53 04/06/2023 06:51:48 04/06/2023 06:51:48 Bed Assign Complete 04/06/2023 06:48:10 04/06/2023 06:48:10 04/06/2023 06:48:10 Dr Exam Complete 04/06/2023 06:48:10 04/06/2023 07:06:16 04/06/2023 07:06:16 RN Exam Complete 04/06/2023 06:48:10 04/06/2023 06:53:22 04/06/2023 06:53:22 Registration Complete 04/06/2023 07:06:16 04/06/2023 07:12:54 04/06/2023 08:38:06 Meds Admin Complete 04/06/2023 07:11:41 04/06/2023 07:34:08 Pending Labs Complete 04/06/2023 07:11:41 04/06/2023 09:07:24 Lab Complete 04/06/2023 07:11:41 04/06/2023 09:07:24 Urine Collect Complete 04/06/2023 07:11:41 04/06/2023 09:07:24 Patient Care Request 04/06/2023 07:11:41 CT Complete 04/06/2023 07:11:41 04/06/2023 07:53:25 04/06/2023 08:06:43 Pending Labs Complete 04/06/2023 07:29:40 04/06/2023 07:29:40 04/06/2023 07:57:45 Lab Complete 04/06/2023 07:29:40 04/06/2023 07:29:40 04/06/2023 07:57:45 Pending Labs Complete 04/06/2023 07:30:13 04/06/2023 07:30:13 04/06/2023 07:30:13 Reg Complete Request 04/06/2023 08:38:06 Reg Bed Request Complete 04/06/2023 08:38:06 04/06/2023 08:38:06 04/06/2023 08:38:06 Discharge Complete 04/06/2023 09:20:58 04/06/2023 09:32:08 04/06/2023 09:32:08 Patient Care Complete 04/06/2023 09:22:44 04/06/2023 09:30:14 Transfer Complete 04/06/2023 09:32:08 04/06/2023 09:32:08 04/06/2023 09:32:08 ADDRESS: [address] [place] [address] [address] [facility] [phone] PHYS DOC NOTES: MEDICAL INFORMATION: Prescriptions Given: New Medications [facility], [address] [facility] [place], [place] [id number], [phone] acetaminophen-hydro codone ([place] 325 mg-5 mg oral tablet) 1 Tablets By Mouth every 6 hours as needed for pain for 3 Days. Refills: 0. ondansetron (Zofran ODT 4 mg Tab-Dis) 1 Tablets By Mouth every 8 hours as needed Nausea/Vomiting. Refills: 0. tamsulosin (Flomax 0.4 mg Cap) 1 Capsules By Mouth every day. Refills: 0. Medications to Continue with No Changes Other Medications amitriptyline (amitriptyline 50 mg Tab) 1 Tablets By Mouth once a day (at bedtime). Refills: 5. atorvastatin (atorvastatin 20 mg Tab) 1 Tablets By Mouth at bedtime. Refills: 1. cyclobenzaprine (cyclobenzaprine 10 mg Tab) 1 Tablets By Mouth 3 times a day as needed Spasm. If makes drowsy, cut in half and take [address] or work around heavy equipment nor ladders nor bathe if drowsy. Refills: 0. gabapentin (gabapentin 600 mg Tab) 2 Tablets By Mouth 3 times a day for 30 Days. increase as per titraton schedule given to pt. Refills: 1. ibuprofen (ibuprofen 600 mg Tab) 1 Tablets By Mouth every 6 hours. Refills: 0. meloxicam metformin (metformin 1000 mg Tab) 1 Tablets By Mouth 2 times a day. Refills: 3. Misc Prescription (Glucometer) 0. Refills: 0. Misc Prescription (lancets) use to test BS BID dx E11.65. Refills: 3. Misc Prescription (test strips) use to test BS BID dx E11.65. Refills: 2. multivitamin mens one a day. naproxen (naproxen 500 mg Tab) 1 Tablets By Mouth 2 times a day as needed Pain. with food. Refills: 0. potassium bicarbonate (K-Effervescent 25 mEq oral tablet, effervescent) 1 Tablets By Mouth 2 times a day for 90 Days. Refills: 3. PATIENT EDUCATION INFORMATION: Instructions: Renal Colic Follow up: With: Address: When: Jimmy GASTON [facility], [address], [place] [address] Business (1) In 3 days 04/09/2023 Comments: Call Dr for diagnosis based follow up With: Address: When: Tawanna Bentley [address] [facility] [place] [id number] [facility] (1) In 3 days 04/09/2023 Comments: Call the office of your primary care doctor to arrange for follow-up within the above-stated timeframe. Follow-up with your primary care doctor about this ED visit. You should review your labs, imaging, and diagnoses from this ED visit with your primary care physician. There are occasionally non-emergent findings that require additional follow-up after your ED visit. If you were prescribed medications you should discuss possible side-effects and drug interactions with your pharmacist. Call 911 or go to the nearest Emergency Department if you develop any new or worsening symptoms. Seek immedi (more content not included)... Normal [facility] ED Note-Physicianon 04-06-19 ED Note-Physician Basic Information Time Seen: Cooper RICO Rodrigo CabelloRamesh 04/06/2023 07:06 Chief Complaint Pt states known kidney stones, c/o abd pain and flank pain on the right side. Denies nausea, fever, chills. Been taking at home medications. History of Present Illness 53-year-old male to the emergency department chief complaint of right-sided flank pain rating into his lower abdomen. He reports similar to past kidney stone. Denies any fever, sweats, chills. Denies any nausea or vomiting. Increased pain at site. Denies any hematuria or dysuria. Otherwise at baseline health. Follows with Dr. Gaston. Review of Systems A 10 point review of systems is negative except as noted above. Medical and Surgical History: Reviewed and noted Social history: Lives at home Tobacco: Denies Physical Exam Vitals & Measurements T: 36.2 ?C(Tympanic) HR: 97(Monitored) RR: 18 BP: 167/100 SpO2: 98% HT: 165 cm WT: 67.4 kg BMI: 24.76 VITALS: I have reviewed the triage vital signs. GENERAL: Well developed, well appearing adult in no acute distress. NEURO: Alert and oriented. Moves all extremities. Face is symmetric and expressive. EYES: PERRL. No scleral icterus or conjunctival injection. No discharge. HENT: Normocephalic, atraumatic. Hearing is grossly intact. Nares grossly patent and without discharge. Mucous membranes moist. NECK: No JVD. Patient moves neck without restriction. CARDIO: Rhythm regular. Normal rate. No murmur, rub, or gallop. Pulses equal bilaterally in the upper and lower extremity. No lower extremity edema. PULM: Lungs clear to auscultation in all fowler. No wheezes, rales, or rhonchi. No conversational dyspnea. No splinting, stridor, or accessory muscle use. GI/: Abdomen is soft and non-tender. Normoactive bowel sounds. Mild right flank tenderness. EXTREMITIES: Symmetric muscle bulk. No joint swelling. No clubbing, cyanosis, or deformity. SKIN: Warm and dry. Normal turgor. No rash or lesions appreciated. PSYCH: Mood, affect, and interaction is appropriate to the setting. Medical Decision Making 53-year-old male with right flank pain similar to past kidney stones. Vital stable, the patient is afebrile. Lab work is unremarkable. He has normal renal function. Urinalysis without evidence of infection. His pain was controlled with Toradol. He is able to tolerate oral intake. CT scan showed a 5 mm obstructing stone at the right UVJ. Flomax, [place] for acute pain, Zofran. Urine strainer to go. Follow-up with his established urologist. Return precautions were discussed. All questions were answered. Patient agrees with this plan. Patient was discharged home. Assessment/Plan Colic, ureteral (N23: Unspecified renal colic) Ordered: acetaminophen-hydro codone, 1 tab(s), Oral, q6hr for pain for 3 day(s), 12 tab(s), Refill(s) 0, [facility], 165, cm, 04/06/23 6:51:00 EST, Height/Length Dosing, 67.4, kg, 04/06/23 6:51:00 EST, Weight Dosing Kidney stone on right side (N20.0: Calculus of kidney) Orders: ketorolac, 30 mg = 1 mL, Injection, IV Push, Once, Stop date 04/06/23 7:11:00 EST, STAT, Start date 04/06/23 7:11:00 EST, 04/06/23 7:11:00 EST ondansetron, 4 mg = 2 mL, Injection, IV Push, Once, Stop date 04/06/23 7:11:00 EST, STAT, Start date 04/06/23 7:11:00 EST, 04/06/23 7:11:00 EST ondansetron, 4 mg = 1 tab(s), Oral, q8hr, PRN Nausea/Vomiting, # 12 tab(s), Refills(s) 0, Pharmacy: [facility] 1985, 165, cm, 04/06/23 6:51:00 EST, Height/Length Dosing, 67.4, kg, 04/06/23 6:51:00 EST, Weight Dosing Sodium Chloride 0.9% intravenous solution, 1,000 mL, Soln-IV, IV, Once, Stop date 04/06/23 7:11:00 EST, STAT, Start date 04/06/23 7:11:00 EST, Infuse over 61, minute(s) tamsulosin, 0.4 mg = 1 cap(s), Oral, Daily, # 30 cap(s), Refills(s) 0, Pharmacy: [facility] 1986, 165, cm, 04/06/23 6:51:00 EST, Height/Length Dosing, 67.4, kg, 04/06/23 6:51:00 EST, Weight Dosing Basic Metabolic Panel CBC w/ Auto Diff CT Abdomen/Pelvis w/o Contrast eGFR Extra Blue Tube Extra SST Tube Hepatic Function Panel Lipase Level Saline Lock Insert UA With Cult Reflex Urine Strainer to go Medications Administered Given ketorolac 30 mg/mL Inj 1 mL, 30 mg, IV Push NS 1000 ml Bolus, 1000 mL, IV ondansetron 4 mg/2 mL Inj, 4 mg, IV Push Disposition Plan Patient Discharge Condition Stable Discharge Disposition Home Discharge Prescription List Prescriptions Flomax 0.4 mg Cap, 0.4 mg= 1 cap(s), Oral, Daily [place] 325 mg-5 mg oral tablet, 1 tab(s), Oral, q6hr, PRN Zofran ODT 4 mg Tab-Dis, 4 mg= 1 tab(s), Oral, q8hr, PRN Follow-up With When Contact Information Jimmy MARILIN In 3 days 04/09/2023 EST [facility] [address], [place] [address]- Business (1) Additional Instructions: Follow-up with urology. Strain urine. Take pain medication as prescribed. Tawanna Misslivia In 3 days 04/09/2023 EST [address], [place] [address]- Business (1) Additional Instructions: Call (more content not included)... Normal [facility] Comment on above: Result Comment: Elec tronically Signed By: Rodrigo Gamboa DO.br\Date and Time Signed: 04/06/23 09:31 EST ED Patient Education Noteon 04-06-2023 ED Patient Education Note Urology Renal Colic Renal colic is pain that is caused by passing a kidney stone. The pain can be sharp and severe. It may be felt in the back, abdomen, side (flank), or groin. It can cause nausea. Renal colic can come and go. Follow these instructions at home: Watch your condition for any changes. The following actions may help to lessen any discomfort that you are feeling: Medicines ? Take upsq-sxd-hjdwsjd and prescription medicines only as told by your health care provider. ? Do not drive or use heavy machinery while taking prescription pain medicine. Eating and drinking ? Drink enough fluid to keep your urine pale yellow. You may be instructed to drink at least 8?10 glasses of water each day. Follow instructions from your health care provider. ? If directed, change your diet. This may include: ? Limiting how much sodium you eat. You may need to eat less than 2 grams (2,000 mg) per day. ? Eating more fruits and vegetables. ? Limiting how much animal protein, such as red meat, poultry, fish, and eggs, you eat. ? Avoiding foods such as spinach, rhubarb, sweet potatoes, and nuts. These make kidney stones more likely to form. ? Follow instructions from your health care provider about eating or drinking restrictions. General instructions ? Keep all follow-up visits as told by your health care provider. This is important. ? Collect urine samples as told by your health care provider. You may need to collect a urine sample: ? 24 hours after you pass the stone. ? 8?12 weeks after passing the kidney stone, and every 6?12 months after that. ? Strain your urine every time you urinate, for as long as directed. Use the strainer that your health care provider recommends. ? Do not throw out the kidney stone after passing it. Keep the stone so it can be tested by your health care provider. Testing the makeup of your kidney stone may help understand how to prevent you from getting kidney stones in the future. Contact a health care provider if: ? You have a fever or chills. ? Your urine smells bad or looks cloudy. ? You have pain or burning when you pass urine. Get help right away if: ? Your flank pain or groin pain suddenly worsens. ? You become confused or disoriented or you lose consciousness. Summary ? Renal colic is pain that is caused by passing a kidney stone. ? Take ufhi-hgn-avdarpa and prescription medicines only as told by your health care provider. ? Drink enough fluid to keep your urine pale yellow. You may be instructed to drink at least 8?10 glasses of water each day. Follow instructions from your health care provider. ? Strain your urine every time you urinate, for as long as directed. Use the strainer that your health care provider recommends. ? Do not throw out the kidney stone after passing it. Keep the stone so it can be tested by your health care provider. This information is not intended to replace advice given to you by your health care provider. Make sure you discuss any questions you have with your health care provider. Document Revised: 10/19/2021 Document Reviewed: 10/19/2021 Elsevier Patient Education ? 2022 Soundtracker. Normal [facility] ED Patient Summaryon 024 ED Patient Summary [address] [address] Patient Discharge Instructions Person Information Name: CHRIS FREEMAN Age: 53 Years Arrival Date: 04/06/2023 06:39:53 Discharge Diagnosis: Colic, ureteral; Kidney stone on right side Primary Care Physician: Sheree REGALADO, Tawanna Reilly Provider Information Primary Provider: Rodrigo Gamboa DO Advanced Physician Recruiter:None The exam and treatment you received in the Emergency Department were for an urgent problem and are not intended as complete care. It is important that you follow up with a doctor, nurse practitioner, or physician?s miner assistant for ongoing care. If your symptoms become worse or you do not improve as expected and you are unable to reach your usual health care provider, you should return to the Emergency Department. We are available 24 hours a day. CHRIS FREEMAN has been given the following list of patient education materials, prescriptions and follow-up instructions: Follow-up Instructions: With: Address: When: Jimmy GASTON [facility], [address] , [place] [address] [facility] (1) In 3 days 04/09/2023 Comments: Call for diagnosis based follow up With: Address: When: Tawanna Bentley [address] [facility], [place] [address] Business (1) In 3 days 04/09/2023 Comments: Call the office of your primary care doctor to arrange for follow-up within the above-stated timeframe. Follow-up with your primary care doctor about this ED visit. You should review your labs, imaging, and diagnoses from this ED visit with your primary care physician. There are occasionally non-emergent findings that require additional follow-up after your ED visit. If you were prescribed medications you should discuss possible side-effects and drug interactions with your pharmacist. Call 911 or go to the nearest Emergency Department if you develop any new or worsening symptoms. Seek immediate medical attention if you develop: worsening abdominal pain, new or worsening nausea, new or worsening vomiting, new or worsening diarrhea, chest pain, shortness of breath, pain with urination, problems urinating, fever, chills, weakness, or any new or worsening symptoms. In the event that this physician does not participate in your insurance network, please consult with your insurance company to find a nearby participating provider. Patient Education Materials: Renal Colic A MESSAGE TO ALL PATIENTS REGARDING OPIOIDS PRESCRIPTION OPIOIDS: WHAT YOU NEED TO KNOW Prescription opioids can be used to help relieve amgscixe-nl-lrwutt pain and are often prescribed following a surgery or injury, or for certain health conditions. These medications can be an important part of the treatment but also come with serious risks. It is important to work with your healthcare provider to make sure you are getting the safest, most effective care. WHAT ARE THE RISKS AND SIDE EFFECTS OF OPIOID USE? Prescription opioids carry serious risks of addiction and overdose, especially with prolonged use. An opioid overdose, often marked by slowed breathing, can cause sudden . The use of prescription opioids can have a number of side effects as well, even when taken as directed: ? Tolerance?meaning you might need to take more of the medication for the same pain relief ? Physical dependence?meaning you have symptoms of withdrawal when a medication is stopped ? Increased sensitivity to pain ? Constipation ? Nausea, vomiting, and dry mouth ? Sleepiness and dizziness ? Confusion ? Depression ? Low levels of testosterone that can result in lower sex drive, energy, and strength ? Itching and sweating RISKS ARE GREATER WITH: ? History of drug misuse, substance use disorder, or overdose ? Mental health conditions (such as depression or anxiety) ? Sleep apnea ? Older age (65 years and older) ? Avoid alcohol while taking prescription opioids. Also, unless specifically advised by your health care provider, medications to avoid include: ? Benzodiazepines (such as Xanax or Valium) ? Muscle relaxants (such as Soma or Flexeril) ? Hypnotics (such as Ambien or Lunesta) ? Other prescription opioids KNOW YOUR OPTIONS Talk to your health care provider about ways to manage your pain that don?t involve prescription opioids. Some of these options may actually work better and have fewer risks and side effects. Options may include: ? Pain relievers such as acetaminophen, ibuprofen, and naproxen ? Some medication that are also used for depression or seizures ? Physical therapy and exercise ? Cognitive behavioral therapy, a psychological, goal-directed approach, in which patients learn how to modify physical, behavioral, and emotional triggers of pain and stress. IF YOU ARE PRESCRIBED OPIOIDS FOR PAIN: ? Never take opi (more content not included)... Normal [facility] HEMATOLOGYOrdered By: SYSTEM SYSTEM on 04-06-2023 Basophil Absolute 0.1 E9/L Normal 0.0 - 0.2 E9/L Rem isol Heme Basophils/100 WBC (Bld) 0.8 % Normal 0.0 - 2.0 % Remisol Heme Eos Absolute 0.2 E9/L Normal 0.0 - 0.5 E9/L Remisol Heme Eosinophils/100 WBC (Bld) 1.5 % Normal 0.0 - 8.0 % Remisol Heme Erythrocyte distribution width (RBC) [Ratio] 13.6 % Normal 10.9 - 14.2 % Remisol Heme Hematocrit (Bld) [Volume fraction] 41.0 % Normal 37.7 - 49.0 % Remisol Heme Hemoglobin (Bld) [Mass/Vol] 13.8 g/dL Normal 13.5 - 17.5 gm/dL Remisol Heme Lymph Absolute 1.4 E9/L Normal 1.0 - 4.0 E9/L Remiso l Heme Lymphocytes/100 WBC (Bld) 13.7 % Low 14.0 - 50.0 % Remisol Heme MCH (RBC) [Entitic mass] 30.4 pg Normal 27.0 - 34.0 pg Remisol Heme MCHC (RBC) [Mass/Vol] 33.5 g/dL Normal 31.4 - 36.0 gm /dL Remisol Heme MCV (RBC) [Entitic vol] 90.7 fL Normal 80.0 - 100.0 fL Remisol Heme [place] Absolute 0.7 E9/L Normal 0.2 - 1.0 E9/L Remisol Heme Monocytes/100 WBC (Bld) 6.5 % Normal 4.0 - 14.0 % Remisol Heme Neutro Absolute 8.1 E9/L High 2.0 - 7.5 E9/L Remis ol Heme Neutro Auto 77.5 % High 36.0 - 75.0 % Remisol He me Platelet 197.0 E9/L Normal 150.0 - 500.0 E9/L Remisol Heme Platelet mean volume (Bld) [Entitic vol] 8.4 fL Normal 6.4 - 10.8 fL Remisol Heme RBC 4.6 E12/L Normal 4.3 - 5.9 E12/L Remisol H clarence WBC 10.4 E9/L Normal 4.0 - 11.0 E9/L Remisol H clarence Hep Func Panelon 04-06-2023 Albumin [Mass/Vol] 4.6 g/dL Normal 3.3-5.0 [facility] Comment on above: Performed By: #### 2 [id number], [id number], 5152857, 8676543, 2325413, [id number], [id number] #### [facility] [address] [place] [address] Albumin/Globulin [Mass ratio] 2.1 {ratio} Normal 1.1-2.2 [facility] Comment on above: Performed By: #### 2 624644, 9249678, 2473200, 5657320, 2111387, [id number], [id number] #### [facility] [address] [place] [address] Alk Phos 61 Int._Unit/L Normal 21-98 [facility] Comment on above: Performed By: #### 2 601014, 6957259, 2621887, 2900844, 6009592, 74330277, 7326395 #### [facility] [address] [place] [address] ALT 21 Int._Unit/L Normal 6-46 [facility] Comment on above: Performed By: #### 2 464298, 6844751, 2997355, 3540725, 9800354, [id number], [id number] #### [facility] [address] [place] [address] AST 17 Int._Unit/L Normal 5-43 [facility] Comment on above: Performed By: #### 2 120166, 6122287, 8019744, 8188734, 9336916, 80974685, 5110161 #### [facility] [address] [place] [address] Bili Direct 0.1 mg/dL Normal 0.0-0.4 [facility] Comment on above: Performed By: #### 2 415355, 2602340, 5518680, 8045043, 8192807, [id number], 7953131 #### [facility] [address] [place] [address] Bili Indirect 0.4 mg/dL Normal 0.1-0.9 [facility] Comment on above: Performed By: #### 2 888222, 9846265, 2486718, 6201538, 8425032, 50125951, 3014147 #### [facility] [address] [place] [address] Bili Total 0.5 mg/dL Normal 0.0-1.1 [facility] Comment on above: Performed By: #### 2 846850, 9647785, 2998204, 0132495, 4569918, 86924174, 6492079 #### [facility] [address] [place] [address] Globulin (S) [Mass/Vol] 2.2 g/dL Normal 1.4-4.0 [facility] Comment on above: Performed By: #### 2 490556, 0854523, 2004560, 6381606, 1128612, 83040114, 2936419 #### [facility] [address] [place] [address] Protein [Mass/Vol] 6.8 g/dL Normal 6.0-7.8 [facility] Comment on above: Performed By: #### 2 596796, 0461985, 0651547, 5478036, 8877993, 01174344, 1464363 #### [facility] [address] [place] [address] Lipase Levelon 04-06-2023 Lipase Lvl 23 unit/L Normal 13-58 [facility] Comment on above: Performed By: #### 2 931374, 2181392, 4174404, 0278352, 3402008, 89766290, 2748123 #### [facility] Laboratory [address] [place] [address] UA With Cult Reflexon 2023 Bilirubin Ql (U) Negative Normal Negative [facility] Comment on above: Performed By: #### 2 283049, 8600421, 8964314, 4000580, 9516561, 90086424, 6375455 #### [facility] Laboratory [address] [place] [address] Clarity (U) CLEAR Normal Clear [facility] Comment on above: Performed By: #### 2 809694, 3384823, 8664991, 6889372, 5123901, 91823821, 7932137 #### [facility] Laboratory [address] [place] [address] Color (U) YELLOW Normal Yellow [facility] Comment on above: Performed By: #### 2 653343, 9544371, 2512445, 7181059, 6543823, 47237055, 5242087 #### [facility] Laboratory [address] [place] [address] Epithelial cells.squamous LM.HPF (Urine sed) [#/Area] 0-2 Normal 0-2 [facility] Comment on above: Performed By: #### 2 714993, 5503037, 1404410, 6318638, 0104319, 24378437, 9092887 #### [facility] Laboratory [address] [place] [address] Glucose Test strip (U) [Mass/Vol] Negative Normal Negative [facility] Comment on above: Performed By: #### 2 628745, 0033599, 8189939, 9837702, 9777788, 28648460, 1436259 #### [facility] Laboratory [address] [place] [address] Hemoglobin Ql (U) 2+ Abnormal Negative [facility] Comment on above: Performed By: #### 2 782505, 9988761, 1395991, 0880802, 9984595, 30493282, 5956713 #### [facility] Laboratory [address] [place] [address] Ketones (U) [Mass/Vol] Negative Normal Negative [facility] Comment on above: Performed By: #### 2 895322, 3311410, 2584183, 9740061, 9541533, 46442547, 9369369 #### [facility] Laboratory [address] [place] [address] 13378 [place].plasma/Lithiu m.RBC (Bld) [Mass ratio] 4-20 Normal 0-3 [facility] Comment on above: Performed By: #### 2 147984, 6897720, 0816968, 1179484, 6907850, 66835007, 6487944 #### [facility] [address] [place] [address] Nitrite Ql (U) Negative Normal Negative [facility] Comment on above: Performed By: #### 2 781063, 7534010, 7283092, 3607218, 8141521, 66656269, 7894386 #### [facility] Laboratory [address] [place] [address] pH (U) 7.5 [pH] Invalid Interpretation Code 5.0-9.0 [facility] Comment on above: Performed By: #### 2 551570, 8752318, 1723816, 5324721, 6067021, 01217891, 0275155 #### [facility] [address] [place] [address] Protein (U) [Mass/Vol] Negative Normal Negative [facility] Comment on above: Performed By: #### 2 725291, 9612386, 9165131, 5379548, 3216648, 28921758, 7118383 #### [facility] [address] [place] [address] Specific gravity (U) [Rel density] 1.015 Invalid Interpretation Code 1.005-1.030 [facility] Comment on above: Performed By: #### 2 759268, 4233019, 0895123, 5062543, 4739379, 56812371, 9110623 #### [facility] Laboratory [address] [place] [address] Type of Urine collection method Clean Catch Normal [facility] Comment on above: Performed By: #### 2 437378, 0850823, 2636808, 6318121, 3547758, 13763083, 0291053 #### [facility] [address] [place] [address] Urobilinogen Qn (U) 0.2 {Alexi'U}/dL Normal 0.0-1.0 [facility] Comment on above: Performed By: #### 2 534859, 4899762, 8480455, 3032425, 2743941, 60177847, 2057391 #### [facility] Laboratory [address] [place] [address] WBC Auto Ql (U) Negative Normal Negative [facility] Comment on above: Performed By: #### 2 077079, 5969944, 4890605, 3950165, 9103430, 01862261, 3228242 #### [facility] Laboratory [address] [place] [address] 13376 WBC LM.HPF (Urine sed) [#/Area] 0-5 Normal 0-5 [facility] Comment on above: Performed By: #### 2 479148, 0453743, 6541603, 2112527, 4690551, 60830222, 4040400 #### [facility] [address] [place] [address] URINALYSISOrdered By: Han Rodriguez on 04-06-2023 Bilirubin Ql (U) Negative (04/06/23 8:45 AM) Normal Negative [facility] UA Auto SS Clarity (U) Clear (04/06/23 8:45 AM) Normal Clear [facility] UA Auto SS Color (U) Yellow (04/06/23 8:45 AM) Normal Yellow [facility] UA Auto SS Epithelial cells.squamous LM.HPF (Urine sed) [#/Area] 0-2 /HPF Normal 0-2/HPF [facility] UA Aut o SS Glucose Test strip (U) [Mass/Vol] Negative (04/06/23 8:45 AM) Normal Negative [facility] UA Auto SS Hemoglobin Ql (U) 2+ *ABN* (04/06/23 8:45 AM) Invalid Interpretation Code Negative [facility] UA Auto SS Ketones (U) [Mass/Vol] Negative (04/06/23 8:45 AM) Normal Negative [facility] UA Auto SS [place].plasma/Lithiu m.RBC (Bld) [Mass ratio] 4-20 /HPF Normal 0-3/HPF [facility] UA Auto SS Nitrite Ql (U) Negative (04/06/23 8:45 AM) Normal Negative [facility] UA Auto SS pH (U) 7.5 *NA* (04/06/23 8:45 AM) Invalid Interpretation Code 5.0 - 9.0 [facility] UA Auto SS Protein (U) [Mass/Vol] Negative (04/06/23 8:45 AM) Normal Negative [facility] UA Auto SS Specific gravity (U) [Rel density] 1.015 *NA* (04/06/23 8:45 AM) Invalid Interpretation Code 1.005 - 1.030 [facility] UA Auto SS UA Spec Desc Clean Catch (04/06/23 8:45 AM) Normal [facility] UA Auto SS Urobilinogen Qn (U) 0.6875121 {Alexi'U}/dL Normal 0.0 - 1.0 EU/dL [facility] UA Auto SS WBC Auto Ql (U) Negative (04/06/23 8:45 AM) Normal Negative [facility] UA Auto SS WBC LM.HPF (Urine sed) [#/Area] 0-5 /HPF Normal 0-5/HPF [facility] UA Auto SS eGFRon 04-06-2023 eGFR 89 mL/min/1.73 m2 Normal >=59 [facility] Comment on above: Order Comment: Order added by Discern Expert. Performed By: #### 2 578650, 6256892, 9897896, 3394613, 7979043, 52055068, 6556894 #### [facility] Laboratory [address] [place] [address] Outside Records Officeon Outside Records Office [id number] 364#1.00TIFF Normal [facility] Calculus Analysison 03-30-19 24 Calcium oxalate monohydrate (Stone) [Mass fraction] 100 % Invalid Interpretation Code [facility] Comment on above: Performed By: #### 2 117467, 4605893, 5489938, 6472845, 7153881, 04015014, 5665773 #### [facility] Laboratory [address] [place] [address] Color (Stone) Brown Invalid Interpretation Code [facility] Comment on above: Performed By: #### 2 381700, 9014755, 7206306, 1491897, 8181853, 46713649, 1985738 #### [facility] Laboratory [address] [place] [address] Composition Comment Invalid Interpretation Code [facility] Comment on above: Result Comment: Perc entage (Represents the % composition) Performed By: #### 2 575542, 0198746, 7627961, 7479006, 7726302, 04116908, 1347276 #### [facility] Laboratory [address] [place] [address] Disclaimer: Comment Invalid Interpretation Code [facility] Comment on above: Result Comment: This test was developed and its performance characteristics determined by [employer]. It has not been cleared or approved by the Food and Drug Administration. Performed at: [address] [id number] PhD An Medrano Performed By: #### 2 092464, 3277165, 3903448, 4796716, 2991997, 63557043, 8693444 #### [facility] Laboratory [address] [place] [address] Laboratory comment René (Report) Comment Invalid Interpretation Code [facility] Comment on above: Result Comment: Didier callahan questions regarding Calculi Analysis contact [facility] at: [phone]. Performed By: #### 2 845453, 3135378, 5757987, 8938481, 3538944, 92341618, 1190626 #### [facility] Laboratory [address] [place] [address] Please Note: Comment Invalid Interpretation Code [facility] Comment on above: Result Comment: Calc mustapha report will follow via computer, mail or incident coordinator delivery. Performed By: #### 2 777651, 7230786, 0491702, 2301228, 9075385, 57618181, 3684629 #### [facility] Laboratory [address] [place] [address] Size (Stone) [Entitic vol] 3x3 Invalid Interpretation Code [facility] Comment on above: Result Comment: Sing le piece received. Performed By: #### 2 088823, 8049128, 4449646, 2083956, 3124215, 03236524, 3328143 #### [facility] Laboratory [address] [place] [address] Specimen source subject Nom Comment Invalid Interpretation Code [facility] Comment on above: Result Comment: Not provided Performed By: #### 2 409125, 8315466, 5509661, 0454542, 9193686, 19065496, 4015643 #### [facility] Laboratory [address] [place] [address] Stone Photo Comment Invalid Interpretation Code [facility] Comment on above: Result Comment: Phot ograph will follow under a separate cover Performed By: #### 2 868911, 4393010, 3200749, 0865695, 1418071, 51822340, 3482673 #### [facility] Laboratory [address] [place] [address] Weight (Stone) 25 mg Invalid Interpretation Code [facility] Comment on above: Performed By: #### 2 927082, 2924434, 4071199, 3923729, 4544421, 52446298, 1716418 #### [facility] Laboratory [address] [place] [address] Consent for Treatmenton 03-01 Consent for Treatment [id number] 105#1.00TIFF Normal [facility] Consultation Noteon 03-28-19 24 Consultation Note Patient: CHRIS FREEMAN Age: 53 years Sex: Male : 1970 Associated Diagnoses: None Author: Carmen Andrew PA-C Subjective Chief complaint 03/28/2023 13:27 EST Shoulder pain . Patient is a 53-year-old male. He has a past medical history significant for shoulder pain, cervical neuritis, chronic pain, and lumbar spondylosis. Patient states that he just has aches and pains all over his body. If he is up on his feet too much things just hurt him. This affects his quality of life. This affects his activities. This affects his ability to do things he wants to do. Unfortunately, patient does not feel that the injections have given him any long-term relief. He states that the RFA helped for maybe a day or 2 and the epidural also help for short period of time but nothing long-term like he wants. He states that he just wants a fix for all of this. In regards to his shoulder he saw Dr. Gaona. 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 He was started on meloxicam. He is using this. Patient has a history of ibuprofen, Excedrin and naproxen use. He uses Flexeril given to him by his PCP. Health Status Allergies: Allergic Reactions (Selected) No Known Allergies, Allergies (1) Active Reaction No Known Allergies None Documented Current medications: (Selected) Prescriptions Prescribed Glucometer: Glucometer, Print Requisition, Supply K-Effervescent 25 mEq oral tablet, effervescent: 25 mEq = 1 tab(s), Oral, BID, X 90 day(s), # 180 tab(s), Refills(s) 3, Pharmacy: [facility], 165, cm, 08/18/22 13:25:00 EDT, Height/Length Dosing, 67.5, kg, 08/18/22 13:25:00 EDT, Weight Dosing amitriptyline 50 mg Tab: 50 mg = 1 tab(s), Oral, Once a day (at bedtime), # 30 tab(s), Refills(s) 5, Pharmacy: [place] [address], 165, cm, 03/09/23 11:01:00 EST, Height/Length Dosing, 60.8, kg, 03/09/23 11:01:00 EST, Weight Dosing atorvastatin 20 mg Tab: 20 mg = 1 tab(s), Oral, Bedtime, # 90 tab(s), Refills(s) 1, Pharmacy: [place] [address], 165, cm, 02/01/23 12:59:00 EST, Height/Length Dosing, 60.8, kg, 12/20/22 13:03:00 EDT, Weight Dosing cyclobenzaprine 10 mg Tab: 10 mg = 1 tab(s), Oral, TID, PRN Spasm, If makes drowsy, cut in half and take [address] or work around heavy equipment nor ladders nor bathe if drowsy, # 30 tab(s), Refills(s) 0, Pharmacy: [place] [address], 165, cm, 03/16/23 13:10:0... gabapentin 600 mg Tab: 1,200 mg = 2 tab(s), Oral, TID, increase as per titraton schedule given to pt, X 30 day(s), # 180 tab(s), Refills(s) 1, Pharmacy: [facility], 165, cm, 03/28/23 13:42:00 EST, Height/Length Dosing, 63.8, kg, 03/28/23 13:42:00 EST, Weight Dosing... ibuprofen 600 mg Tab: 600 mg = 1 tab(s), Oral, q6hr, # 40 tab(s), Refills(s) 0, Pharmacy: [facility], 165, cm, 10/01/22 14:13:00 EDT, Height/Length Dosing, 67.5, kg, 10/01/22 14:13:00 EDT, Weight Dosing lancets: lancets, See Instructions, 200 EA, 3, use to test BS BID dx E11.65, [facility], Supply, 165, cm, 08/18/22 13:25:00 EDT, Height/Length Dosing, 67.5, kg, 08/18/22 13:25:00 EDT, Weight Dosing metformin 1000 mg Tab: 1,000 mg = 1 tab(s), Oral, BID, # 180 tab(s), Refills(s) 3, Pharmacy: [facility], 165, cm, 09/14/22 13:03:00 EDT, Height/Length Dosing, 66.7, kg, 09/14/22 13:03:00 EDT, Weight Dosing naproxen 500 mg Tab: 500 mg = 1 tab(s), Oral, BID, PRN Pain, with food, # 20 tab(s), Refills(s) 0, Pharmacy: [facility], 165, cm, 03/09/23 11:01:00 EST, Height/Length Dosing, 60.8, kg, 03/09/23 11:01:00 EST, Weight Dosing test strips: test strips, See Instructions, 100 EA, 2, use to test BS BID dx E11.65, [facility], Supply, 165, cm, 10/01/22 14:13:00 EDT, Height/Length Dosing, 67.5, kg, 10/01/22 14:13:00 EDT, Weight Dosing Documented Medications Documented Excedrin Migraine: 2 tab(s), Oral, q8hr Headache, Refill(s) 0 meloxicam: Refills(s) 0 multivitamin: See Instructions, Refill(s) 0, mens one a day Problem list: All Problems Migraines / SNOMED CT 32189638 / Confirmed DM type 2 with diabetic mixed hyperlipidemia / SNOMED CT 6304429853 / Confirmed Non-smoker / SNOMED CT 72647282 / Confirmed Type 2 diabetes mellitus with diabetic neuropathy, without long-term current use of insulin / SNOMED CT 977005416 / Confirmed Lumbar radiculopathy / SNOMED CT 876270800 / Confirmed Rheumatoid arthritis / SNOMED CT 402316211 / Confirmed Mixed hyperlipidemia / SNOMED CT 442649612 / Confirmed Bilateral carpal tunnel syndrome / SNOMED CT 293527563191774 / Confirmed BPH with urinary obstruction / SNOMED CT 6282021041 / Confirmed BMI 24.0-24.9, adult / SNOMED CT 8791098373 / Confirmed Kidney stones / SNOMED CT 986694575 / Confirmed 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 Normal [facility] Comment on above: Result Comment: Elec tronically Signed By: Lorrie PERRY, Carmen\.br\Date and Time Signed: 03/28/23 14:07 EST Legal Correspondence Officeo n 03-28-2023 Legal Correspondence Office [id number]#1.00TIFF Normal [facility] Office/Clinic Note-Physician on 03-28-2023 Office/Clinic Note-Physician [id number]#1.00TIFF Normal [facility] Office/Clinic Note-Physician [id number]#1.00TIFF Normal [facility] Patient Correspondenceon Patient Correspondence [id number]#1.00TIFF Normal [facility] Patient Correspondence [id number]#1.00TIFF Normal [facility] Patient Correspondence [id number]#1.00TIFF Normal [facility] Patient Correspondence [id number]#1.00TIFF Normal [facility] Patient History Officeon Patient History Office [id number]#1.00TIFF Normal [facility] Screenson 03-23-2023 Screens [id number]#1.00TIFF [facility] Ambulatory Visit Summaryon 0 03-22-2023 Ambulatory Visit Summary CHRIS FREEMAN :1970 Visit Date:03/22/2023 Ambulatory Visit Instructions Your Diagnosis Ureteral stone Kidney stones Hypocitraturia BPH with urinary obstruction Tests Performed XR Abdomen 1 View -- Results Pending -- Please visit your patient portal for your results or contact your primary care physician. Your Care Team Attending Physician - MARILIN HINES, Jimmy Coyle Primary Care Physician - Sheree REGALADO, Tawanna Reilly This Is Your Medications List Contact prescribing physician if questions or concerns APAP/ASA/caffeine (Excedrin Migraine) Misc Prescription (Glucometer) Misc Prescription (lancets) Misc Prescription (test strips) amitriptyline (amitriptyline 50 mg Tab) atorvastatin (atorvastatin 20 mg Tab) cephalexin (cephalexin 500 mg Cap) cyclobenzaprine (cyclobenzaprine 10 mg Tab) ibuprofen (ibuprofen 600 mg Tab) metformin (metformin 1000 mg Tab) multivitamin naproxen (naproxen 500 mg Tab) ondansetron (Zofran ODT 4 mg Tab-Dis) potassium bicarbonate (K-Effervescent 25 mEq oral tablet, effervescent) tamsulosin (Flomax 0.4 mg Cap) Procedures Performed Epidural injection of cervical spine using fluoroscopic guidance (01/11/2023), Radiofrequency ablation of nerve root of lumbar spine using fluoroscopic guidance (08/10/2022), Injection of facet joint using fluoroscopic guidance (06/15/2022), Injection of facet joint using fluoroscopic guidance (04/20/2022), Cystoscopy (10/02/2020), ESWL - Extracorporeal shockwave lithotripsy for renal calculus (10/02/2020), Cystoscopy (09/23/2020), Cystoscopy (12/28/2017), Arthroscopy of shoulder. Discharge Vitals Blood Pressure 122/84 Height 165 cm Height 65 in Weight 68.3 kg Weight 150.26 lb BMI 25.09 What to do next Scheduled Follow-Up Appointments Tuesday 1:15 PM EST With: Carmen Andrew PA-C Where: [facility] Tuesday 1:45 PM EDT With: Jimmy GASTON MD Where: [facility] Raman Baldwin [facility] Patient Educationon 03-22-19 Patient Education Nephrology Dietary Guidelines to Help Prevent Kidney Stones Kidney stones are deposits of minerals and salts that form inside your kidneys. Your risk of developing kidney stones may be greater depending on your diet, your lifestyle, the medicines you take, and whether you have certain medical conditions. Most people can lower their risks of developing kidney stones by following these dietary guidelines. Your dietitian may give you more specific instructions depending on your overall health and the type of kidney stones you tend to develop. What are tips for following this plan? Reading food labels ? Choose foods with no salt added or low-salt labels. Limit your salt (sodium) intake to less than 1,500 mg a day. ? Choose foods with calcium for each meal and snack. Try to eat about 300 mg of calcium at each meal. Foods that contain 200?500 mg of calcium a serving include: ? 8 oz (237 mL) of milk, calcium-fortifiedno n-dairy milk, and calcium-fortifiedfr uit juice. Calcium-fortified means that calcium has been added to these drinks. ? 8 oz (237 mL) of kefir, yogurt, and soy yogurt. ? 4 oz (114 g) of tofu. ? 1 oz (28 g) of cheese. ? 1 cup (150 g) of dried figs. ? 1 cup (91 g) of cooked broccoli. ? One 3 oz (85 g) can of sardines or mackerel. Most people need 1,000?1,500 mg of calcium a day. Talk to your dietitian about how much calcium is recommended for you. Shopping ? Buy plenty of fresh fruits and vegetables. Most people do not need to avoid fruits and vegetables, even if these foods contain nutrients that may contribute to kidney stones. ? When shopping for convenience foods, choose: ? Whole pieces of fruit. ? Pre-made salads with dressing on the side. ? Low-fat fruit and yogurt smoothies. ? Avoid buying frozen meals or prepared deli foods. These can be high in sodium. ? Look for foods with live cultures, such as yogurt and kefir. ? Choose high-fiber grains, such as whole-wheat breads, oat bran, and wheat cereals. Cooking ? Do not add salt to food when cooking. Place a salt shaker on the table and allow each person to add their own salt to taste. ? Use vegetable protein, such as beans, textured vegetable protein (TVP), or tofu, instead of meat in pasta, casseroles, and soups. Meal planning ? Eat less salt, if told by your dietitian. To do this: ? Avoid eating processed or pre-made food. ? Avoid eating fast food. ? Eat less animal protein, including cheese, meat, poultry, or fish, if told by your dietitian. To do this: ? Limit the number of times you have meat, poultry, fish, or cheese each week. Eat a diet free of meat at least 2 days a week. ? Eat only one serving each day of meat, poultry, fish, or seafood. ? When you prepare animal proteins, cut pieces into small portion sizes. For most meat and fish, one serving is about the size of the palm of your hand. ? Eat at least five servings of fresh fruits and vegetables each day. To do this: ? Keep fruits and vegetables on hand for snacks. ? Eat one piece of fruit or a handful of berries with breakfast. ? Have a salad and fruit at lunch. ? Have two kinds of vegetables at dinner. ? You may be told to limit foods that are high in a substance called oxalate. These include: ? Spinach (cooked), rhubarb, beets, sweet potatoes, and German chard. ? Peanuts. ? Potato chips, zambian fries, and baked potatoes with skin on. ? Nuts and nut products. ? Chocolate. ? If you regularly take a diuretic medicine, make sure to eat at least 1 or 2 servings of fruits or vegetables that are high in potassium each day. These include: ? Avocado. ? Banana. ? Zapata, prune, carrot, or tomato juice. ? Baked potato. ? Cabbage. ? Beans and split peas. Lifestyle ? Drink enough fluid to keep your urine pale yellow. This is the most important thing you can do. Spread your fluid intake throughout the day. ? If you drink alcohol: ? Limit how much you have to: ? 0?1 drink a day for women who are not . ? 0?2 drinks a day for men. ? Know how much alcohol is in your drink. In the [place] one drink equals one 12 oz bottle of beer (355 mL), one 5 oz glass of wine (148 mL), or one 1? oz glass of hard liquor (44 mL). ? Lose weight if told by your health care provider. Work with your dietitian to find an eating plan and weight loss strategies that work best for you. General information ? Talk to your health care provider and dietitian about taking daily supplements. Depending on your health and the cause of your kidney stones, you may be told: ? Do not take high-dose supplements of vitamin C (1,000 mg a day or more). ? To take a calcium supplement. ? To take a daily probiotic supplement. ? To take other supplements such as magnesium, fish oil, or vitamin B6. ? Take azsm-oxy-mxwqfqu and prescription medicines only as told by your health care provider. These include supplements. What foods sh (more content not included)... Normal [facility] Urology Office/Clinic Noteon 03-22-2023 Urology Office/Clinic Note Chief Complaint F/U to kidney stone HPI Staff Pt is here for a F/U to [facility] [place] on 03/09/23 for kidney stones KUB done @ [facility] [place] on 03/15/23 Last OV was 08/18/22 Previous DX; Kidney stones KUB 08/11/22 [facility] [place] - Tiny bilateral renal calculi are again identified and do not appear significantly changed. No definitive calculi identified along the expected course of either ureter. BPH * No prostate meds * . Hypocitraturia * Taking Effer-K 25 mEq BID- He is still taking no issues with this IPSS 4 He did bring his stone with him- He passed this 1-2 days after the ER Dysuria: _denies Incomplete bladder emptying: denies Hematuria: denies visible blood Frequency: every couple hours Urgency: denies Nocturia: once nightly Stream: denies hesitation, normal stream Leaking: _denies Post void dripping: denies Wearing pads/ Depends: denies Urge incontinence: denies Stress incontinence: denies Incontinence without Sensory Awareness: denies Abdominal pain: denies Flank pain: denies Sexual complaints: denies History of Present Illness Tests reviewed: reviewed UA, ER notes, KUB, CT scan I have reviewed the previous health record information and history for this patient from Dr. Gaston. I have reviewed and verified the staff HPI to be accurate for this encounter. Review of Systems PHQ Score Initial Depression Screen Score: 0 SCORE ROS - Provider Constitutional: denies weight loss, denies hot flashes. Eyes: denies eye problems. Gastrointestinal: denies nausea, denies vomiting. Cardiovascular: denies chest pain or angina. Integumentary: no dryness Musculoskeletal: denies musculoskeletal symptoms. ENMT: denies otolaryngeal symptoms. Respiratory: no shortness of breath. Heme/Lymph: denies easy bleeding tendency, denies easy bruising tendency. Psychiatric: no confusion, no anxiety. Genitourinary: See HPI. Physical Exam Vitals & Measurements BP: 122/84 HT: 65 in HT: 165 cm WT: 68.3 kg WT: 150.26 lb BMI: 25.09 General Appearance: alert, no distress, well nourished, well developed male. Genitourinary: normal scrotum, normal testes, normal urethra, normal epididymis, normal vas deferens/spermatic cord. Flank Pain: none. Bladder: nonpalpable. Assessment/Plan 1. Ureteral stone (N20.1: Calculus of ureter) [facility] [place] visit 03/09/23 due to dysuria and gross hematuria. Was given Flomax and Keflex. Had ureteral stone CT AP wo con 03/09/23 [facility] [place] - mildly obstructing 4mm L UVJ stone with mild L hydroureteronephros is. Multiple additional nonobstructing bilateral renal stones measuring 6mm at RLP, 5mm at LLP, and a few punctate 1-2 mm stones. Passed the L UVJ stone 2 days after ER visit. Brought stone in with him today. Will send this for analysis. 2. Kidney stones (N20.0: Calculus of kidney) S/p ESWL 10/02/20. Stone analyses: 12/11/20 - 90% [place] CaOx, 10% Di CaOx 09/08/21 - 100% [place] CaOx KUB 08/11/22 [facility] – [place] - Tiny bilateral renal calculi are again identified and do not appear significantly changed. No definitive calculi identified along the expected course of either ureter. CT AP wo con 03/09/23 [facility] – [place] - Multiple additional nonobstructing bilateral renal stones measuring 6mm at RLP, 5mm at LLP, and a few punctate 1-2 mm stones. KUB 03/15/23 [facility] – [place] - calcifications along R and L sides which may represent intrarenal stones. Discussed imaging results with pt, has bilateral stones. States he drinks about one glass of gatorade at each meal. Discussed this is likely contributing to continued stone formation. Recommended pt to increase fluid intake to ten to twelve 16oz bottles a day; preferably water, clear pop, and sugar free lemonade. -KUB and repeat metabolic workup in 6 mos -Increase fluid intake 3. 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 Taking Effer-K 25 mEq bid. We discussed the etiology of kidney stone formation, including genetic predisposition, dietary factors, and different metabolism in patients. Due to continued stone formation, will order repeat 24 hour urine for analysis, as well as repeat blood work. Follow-up will then be arranged to discuss the results and, perhaps, recommend either dietary changes or medical management. -Repeat metabolic workup prior to next appt 08/24/23 4. BPH with urinary obstruction (N40.1: Benign prostatic hyperplasia with lower urinary tract symptoms) IPSS 4 (4). Not currently taking any BPH meds. UA today negative for blood and infection. Denies any bothersome urinary habits at this time. PSA 08/10/21 - 0.3 -Has f/u scheduled 08/24/23 for PSA f/u Follow-up With When Contact Information MARILIN HINES, Jimmy Coyle, [facility] [address], [place] [address]- [phone] Additional Instructions: f/u scheduled 08/24/23 w/ PSA, metabolic workup, and KUB Patient Education Dietary Guidelines to Help Prevent Kidney Stones I, Sandra Thompson, personally scribed for Dr. Gaston on 03/22/2023 11:41:56. Electron (more content not included)... Normal [facility] Comment on above: Result Comment: Elec tronically Signed By: Jimmy GASTON MD\.br\Date and Time Signed: 03/22/23 11:46 EST\.br\Electronically Co-Signed By: Sandra Thompson\.br\Date and Time Co-Signed: 03/22/23 11:42 EST Family Medicine Office/Clini c Noteon 03-16-2023 Family Medicine Office/Clinic Note Chief Complaint pt here for 6 month f/u. HPI Staff Last routine labs: 03/09/23 smoker status: never colonoscopy/cologua rd (45-75yo): utd PSA (45-70yo): utd flu vaccine status: utd covid vaccine: utd History of Present Illness Chris is a 53 yo male presenting today for f/u Type 2 Diabetes follow up: Pt denies polydipsia, polyuria, polyphagia, vision changes, sexual dysfunction, n/v/d, bloating, lightheadedness, numbness/tingling (paresthesias), ulcerations/sore/no n-healing wounds, episodes of hypoglycemia at this time. Complications: Neuropathy, HLD Most Recent Diabetic Screenings: Hgb A1C %: 5.9 % (12/21/22 10:18:00) UMACR: due now U protein/Cr: due now Foot Exam: due now Last Diabetic Eye Exam: pt due with ophthalmology Current regimen: Medications: Metformin 1000mg once daily BID (increased to BID after last appt) Pt denies any medication side effects Pt uses simple glucose food followed by high protein food to correct for any hypoglycemia episodes - following 15:15 rule Diet/Exercise: Is having trouble sticking to diet and exercise as well as controlling weight. pumps/CGM: no Statin: yes Medical history includes: HLD - Pt is on atorvastatin 20 mg/d. Pt denies any muscle aches/cramps or dark urine. RA -taking amitriptyline 50 mg once daily. Pt has pain in left shoulder and is going to PT for this and is seen by PM. Patient was referred to rheumatology on 09/14/2022. Pt is followed by PM and Dr. Jack did a cervical epidural for neck/arm pain. Migraines -taking Excedrin as needed Specialists: PM for back pain/muscle spasms PT for left shoulder pain Ortho - Dr. Saul [facility] - Dr. Gaston Review of Systems PHQ Score Initial Depression Screen Score: 0 SCORE Physical Exam Vitals & Measurements T: 36.4 ?C(Oral) HR: 73(Peripheral) BP: 128/72 SpO2: 98% HT: 65 in HT: 165 cm WT: 67.6 kg WT: 148.72 lb BMI: 24.83 General: Well developed, well nourished, in no acute distress Eyes: Bilateral PERRLA, conjunctivae and sclerae wnl, EOMs intact, lids without stye, chalazion, ect/extropion, ptosis, xanthelasma, blepharitis. No discharge to inner canthi.Negative for corneal abrasion or foreign bodies. Ears: grossly normal hearing Nose: No deformity, discharge, inflammation, or lesions. No congestion, no erythema; pink & moist turbinates; clear rhinorrhea. Mouth: mucous membranes pink, moist and intact. Merom posterior oropharynx, no palatal inflammation, uvula midline, no cobble-stoning, no enlarged tonsils, no tonsillar exudate, no ulcers, no active post nasal drip. tongue midline and wnl. Good dentition. Neck: Neck supple. No lymphadenopathy. Trachea midline. No thyroid, masses, tenderness, or enlargement noted. No bruit. Lungs: Normal respiratory effort and clear to auscultation Cardio: Regular rate and rhythm, normal S1 and S2, no murmur, no rub Abdomen: not assessed Musculoskeletal: No deformity or scoliosis noted. No vertebral tenderness. Normal range of motion. No vertebral point tenderness. Joints normal. No erythema, edema, effusion, crepitus, or ecchymosis. Straight leg raise negative Extremity: No clubbing, cyanosis, edema, or deformity. Normal ROM with upper and lower extremities, bilaterally. Neurologic: Cranial nerves II-XII grossly intact. motor strength equal & normal bilaterally, sensation equal & normal bilaterally. Gait normal. Skin: No rashes, ulcerations, or suspicious lesions Mental Status: Alert and oriented x3. Normal mood and affect Assessment/Plan 1. Type 2 diabetes mellitus with diabetic neuropathy, without long-term current use of insulin (E11.40: Type 2 diabetes mellitus with diabetic neuropathy, unspecified) The importance of the following were all reviewed with the patient: - Compliance with home glucose testing encouraged and using those readings to help improve diet or consider starting CGM - Consider ASA 81mg once daily - Continue BP control with medications as prescribed - Continue cholesterol control with statin therapy/diet/exerci se - Continue diet: low saturated fats/carbs - Exercise - 150min/wk - Eye exam (dilated) annually to prevent blindness - f/u with ophthalmology - Foot exam (self foot checks, protective foot behavior, sensory exam annually using a 10 g monofilament and vibration annually) to prevent sores/possible amputations - consider podiatry - annual monitoring of urine microalbumin regularly to check for kidney damage. - adherence to medications as prescribed to keep glucose levels under control. A1c POC today: 5.2% Continue medications: Metformin 1000mg BID Pt due for labwork: A1c q3mo, lipids f/u 3 mo Ordered: A1c POC 05031 2. DM type 2 with diabetic mixed hyperlipidemia (E11.69: Type 2 diabetes mellitus with other specified complication) see #1 and 3 Ordered: A1c POC 63804 3. Mixed hyperlipidemia (E78.2: Mixed hyperlipidemia) Chol: 120 mg/dL (12/21/22 10:18:00) HDL: 31 mg/dL (12/21/22 10:18:00) LDL Direc (more content not included)... Normal [facility] Comment on above: Result Comment: Elec tronically Signed By: Sheree REGALADO, Tawanna Reilly\.br\Date and Time Signed: 03/16/23 13:37 EST Consent for Treatmenton 02-28 Consent for Treatment [id number] #[id number] Normal [facility] XR Abdomen 1 Viewon 03-15-19 24 XR Abdomen 1 View Exam Date/Time: 03/15/2023 12:24 EST Reason for Exam: N20.0 Calculus of kidney;Kidney stone Report IMPRESSION: THERE ARE NO ACUTE CHANGES CLINICAL HISTORY: Kidney stone, N20.0 Calculus of kidney COMPARISON: KUB from 08/10/2022 KUB FINDINGS: There are no distended loops of bowel. There is no evidence of obstruction. There are calcifications along both right and left sides which may represent intrarenal stones. There are no acute osseous changes. Ordering Provider: Jimmy GASTON FINAL REPORT Dictated: 03/15/2023 2:47 pm PalacioLeonardo sandoval MD, V. Signed (Electronic Signature): 03/15/2023 2:47 pm Signed by: Leonardo Palacio MD, V. Transcribed by: SUSIE Technologist: LUX Technical Comments Radiation Dose: kelechi Obrien in mGy = na DAP = na Normal [facility] Patient Educationon 03-12-19 Patient Education Endocrinology Blood Glucose Monitoring, Adult Monitoring your blood sugar (glucose) is an important part of managing your diabetes. Blood glucose monitoring involves checking your blood glucose as often as directed and keeping a log or record of your results over time. Checking your blood glucose regularly and keeping a blood glucose log can: ? Help you and your health care provider adjust your diabetes management plan as needed, including your medicines or insulin. ? Help you understand how food, exercise, illnesses, and medicines affect your blood glucose. ? Let you know what your blood glucose is at any time. You can quickly find out if you have low blood glucose (hypoglycemia) or high blood glucose (hyperglycemia). Your health care provider will set individualized treatment goals for you. Your goals will be based on your age, other medical conditions you have, and how you respond to diabetes treatment. Generally, the goal of treatment is to maintain the following blood glucose levels: ? Before meals (preprandial): 80?130 mg/dL (4.4?7.2 mmol/L). ? After meals (postprandial): below 180 mg/dL (10 mmol/L). ? A1C level: less than 7%. Supplies needed: ? Blood glucose meter. ? Test strips for your meter. Each meter has its own strips. You must use the strips that came with your meter. ? A needle to prick your finger (lancet). Do not use a lancet more than one time. ? A device that holds the lancet (lancing device). ? A journal or log book to write down your results. How to check your blood glucose Checking your blood glucose 1. Wash your hands for at least 20 seconds with soap and water. 2. Prick the side of your finger (not the tip) with the lancet. Do not use the same finger consecutively. 3. Gently rub the finger until a small drop of blood appears. 4. Follow instructions that come with your meter for inserting the test strip, applying blood to the strip, and using your blood glucose meter. 5. Write down your result and any notes in your log. Using alternative sites Some meters allow you to use areas of your body other than your finger (alternative sites) to test your blood. The most common alternative sites are the forearm, the thigh, and the palm of your hand. Alternative sites may not be as accurate as the fingers because blood flow is slower in those areas. This means that the result you get may be delayed, and it may be different from the result that you would get from your finger. Use the finger only, and do not use alternative sites, if: ? You think you have hypoglycemia. ? You sometimes do not know that your blood glucose is getting low (hypoglycemia unawareness). General tips and recommendations Blood glucose log ? Every time you check your blood glucose, write down your result. Also write down any notes about things that may be affecting your blood glucose, such as your diet and exercise for the day. This information can help you and your health care provider: ? Look for patterns in your blood glucose over time. ? Adjust your diabetes management plan as needed. ? Check if your meter allows you to download your records to a computer or if there is an amor for the meter. Most glucose meters store a record of glucose readings in the meter. If you have type 1 diabetes: ? Check your blood glucose 4 or more times a day if you are on intensive insulin therapy with multiple daily injections (MDI) or if you are using an insulin pump. Check your blood glucose: ? Before every meal and snack. ? Before bedtime. ? Also check your blood glucose: ? If you have symptoms of hypoglycemia. ? After treating low blood glucose. ? Before doing activities that create a risk for injury, like driving or using machinery. ? Before and after exercise. ? Two hours after a meal. ? Occasionally between 2:00 a.m. and 3:00 a.m., as directed. ? You may need to check your blood glucose more often, 6?10 times per day, if: ? You have diabetes that is not well controlled. ? You are ill. ? You have a history of severe hypoglycemia. ? You have hypoglycemia unawareness. If you have type 2 diabetes: ? Check your blood glucose 2 or more times a day if you take insulin or other diabetes medicines. ? Check your blood glucose 4 or more times a day if you are on intensive insulin therapy. Occasionally, you may also need to check your glucose between 2:00 a.m. and 3:00 a.m., as directed. ? Also check your blood glucose: ? Before and after exercise. ? Before doing activities that create a risk for injury, like driving or using machinery. ? You may need to check your blood glucose more often if: ? Your medicine is being adjusted. ? Your diabetes is not well controlled. ? You are ill. General tips ? Make sure you always have your supplies with you. ? After you use a few boxes of test strips, adjust (calibrate) your blood glucose meter by following in (more content not included)... Normal [facility] C Urineon 03-11-2023 Bacteria identified Cx Nom (U) Microbiology PROCEDURE: Urine Culture [R1] SOURCE: U CleanCatch BODY SITE: COLLECTED DATE/TIME: 03/09/2023 11:47 EST RECEIVED DATE/TIME: 03/09/2023 12:11 EST START DATE/TIME: 03/09/2023 12:11 EST FREE TEXT SOURCE: Jemal PERRY, Tono Petty. Jemal PERRY, Tono Petty. FINAL REPORTS Final Report [] Verified Date/Time: 03/11/2023 10:59 EST No growth at 2 days. Performing Locations R1: This test was performed at: [facility], [address] [place] [address], [facility]- , , [facility] Comment on above: Performed By: #### 2 [id number], [id number] ####[facility] [address] [place] [address] Auto Diffon 03-09-2023 Basophils/100 WBC (Bld) 1.2 % Normal 0.0-2.0 [facility] Comment on above: Order Comment: Order Added by Discern Expert. Performed By: #### 2 [id number], 5578599, 4721524, 7100192, 6074326, 84786843, 3713940 #### [facility] [address] [place] [address] Basophils/Leukocytes Auto (Bld) [Pure # fraction] 0.1 E9/L Normal 0.0-0.2 [facility] Comment on above: Order Comment: Order Added by Discern Expert. Performed By: #### 2 456566, 0454849, 6730445, 1814930, 6687373, 63847220, 5659865 #### [facility] [address] [place] [address] Eosinophils/100 WBC (Bld) 2.9 % Normal 0.0-8.0 [facility] Comment on above: Order Comment: Order Added by Discern Expert. Performed By: #### 2 163069, 3544349, 5811828, 8995759, 2328508, 53783638, 5056376 #### [facility] [address] [place] [address] Eosinophils/Leukocyte s Auto (Bld) [Pure # fraction] 0.2 E9/L Normal 0.0-0.5 [facility] Comment on above: Order Comment: Order Added by Discern Expert. Performed By: #### 2 076110, 7664021, 1846027, 7937068, 5507367, 69247767, 3201449 #### [facility] [address] [place] [address] Lymphocytes/100 WBC (Bld) 23.4 % Normal 14.0-50.0 [facility] Comment on above: Order Comment: Order Added by Discern Expert. Performed By: #### 2 590812, 3358658, 0491363, 2751949, 5953453, 55080491, 8509265 #### [facility] [address] [place] [address] Lymphocytes/Leukocyte s Auto (Bld) [Pure # fraction] 1.9 E9/L Normal 1.0-4.0 [facility] Comment on above: Order Comment: Order Added by Discern Expert. Performed By: #### 2 460465, 2237351, 4119417, 7185501, 6718553, 49167341, 0548895 #### [facility] [address] [place] [address] Monocytes/100 WBC (Bld) 8.3 % Normal 4.0-14.0 [facility] Comment on above: Order Comment: Order Added by Discern Expert. Performed By: #### 2 824592, 7038498, 9704200, 7224815, 7472003, 20650278, 6412354 #### [facility] [address] [place] [address] Monocytes/Leukocytes Auto (Bld) [Pure # fraction] 0.7 E9/L Normal 0.2-1.0 [facility] Comment on above: Order Comment: Order Added by Discern Expert. Performed By: #### 2 034180, 4192479, 3412042, 2282176, 7637328, 72408135, 6479584 #### [facility] [address] [place] [address] Neutrophils/100 WBC (Bld) 64.2 % Normal 36.0-75.0 [facility] Comment on above: Order Comment: Order Added by Discern Expert. Performed By: #### 2 803271, 8894301, 2035003, 0200382, 9653189, 90666245, 0511753 #### [facility] [address] [place] [address] Neutrophils/Leukocyte s Auto (Bld) [Pure # fraction] 5.3 E9/L Normal 2.0-7.5 [facility] Comment on above: Order Comment: Order Added by Discern Expert. Performed By: #### 2 127277, 4849914, 8685148, 9165084, 4958798, 33665353, 8316559 #### [facility] [address] [place] [address] BMPon 03-09-2023 Anion gap [Moles/Vol] 12 mmol/L Normal 6-16 [facility] Comment on above: Performed By: #### 2 817254, 7247853, 8456359, 9043319, 8932658, 06951479, 8373516 #### [facility] [address] [place] [address] BUN/Creat Ratio 19 No Units Normal 10-20 [facility] Comment on above: Performed By: #### 2 178561, 6177477, 8539602, 2024616, 6925487, 76941182, 0198660 #### [facility] [address] [place] [address] Calcium [Mass/Vol] 10.0 mg/dL Normal 8.9-11.1 [facility] Comment on above: Performed By: #### 2 947200, 7050384, 9671411, 5554510, 8758226, 26018509, 7789024 #### [facility] [address] [place] [address] Chloride [Moles/Vol] 101 mmol/L Normal 101-111 [facility] Comment on above: Performed By: #### 2 090271, 2604467, 7534076, 8482884, 4607939, 93113094, 5965785 #### [facility] [address] [place] [address] CO2 [Moles/Vol] 31 mmol/L Normal 21-31 [facility] Comment on above: Performed By: #### 2 068999, 2490052, 2607525, 8929340, 6583328, 10589108, 5233556 #### [facility] [address] [place] [address] Creatinine [Mass/Vol] 0.8 mg/dL Normal 0.5-1.3 [facility] Comment on above: Performed By: #### 2 284518, 1744384, 6392620, 8596152, 9759969, 59937218, 9330090 #### [facility] [address] [place] [address] Glucose [Mass/Vol] 192 mg/dL Normal 55-199 [facility] Comment on above: Performed By: #### 2 921579, 8021979, 1352445, 6084425, 6006518, 68365039, 8558767 #### [facility] [address] [place] [address] Potassium [Moles/Vol] 4.5 mmol/L Normal 3.5-5.3 [facility] Comment on above: Performed By: #### 2 537941, 2138568, 0452453, 4061196, 0166629, 56159919, 5037416 #### [facility] [address] [place] [address] Sodium [Moles/Vol] 139 mmol/L Normal 135-145 [facility] Comment on above: Performed By: #### 2 858673, 4112140, 8242156, 8168095, 0951249, 23726804, 3186210 #### [facility] [address] [place] [address] Urea nitrogen [Mass/Vol] 15 mg/dL Normal 5-21 [facility] Comment on above: Performed By: #### 2 536535, 4497633, 5201338, 8289748, 5047668, 57216341, 9643554 #### [facility] [address] [id number] CBC w/ Auto Diffon 4 Erythrocyte distribution width (RBC) [Ratio] 13.6 % Normal 10.9-14.2 [facility] Comment on above: Performed By: #### 2 992669, 0421388, 4744323, 5706017, 5914797, 35594066, 4426400 #### [facility] [address] [place] [address] Hematocrit (Bld) [Volume fraction] 44.8 % Normal 37.7-49.0 [facility] Comment on above: Performed By: #### 2 215431, 9757415, 5601770, 5037585, 6050578, 50150023, 5560929 #### [facility] [address] [place] [address] Hemoglobin (Bld) [Mass/Vol] 14.9 g/dL Normal 13.5-17.5 [facility] Comment on above: Performed By: #### 2 459721, 7235905, 5414500, 1906252, 5604340, 92700227, 4644677 #### [facility] [address] [place] [address] MCH (RBC) [Entitic mass] 30.2 pg Normal 27.0-34.0 [facility] Comment on above: Performed By: #### 2 436825, 0129427, 9211562, 2889107, 5285723, 84706080, 9681149 #### [facility] [address] [place], [place] [address] MCHC (RBC) [Mass/Vol] 33.3 g/dL Normal 31.4-36.0 [facility] Comment on above: Performed By: #### 2 775833, 7233209, 4481713, 0788326, 1388283, 80090828, 7946256 #### [facility] [address] [place] [address] MCV (RBC) [Entitic vol] 90.7 fL Normal 80.0-100.0 [facility] Comment on above: Performed By: #### 2 849867, 2739140, 2222898, 4606853, 0591804, 09308070, 4227088 #### [facility] [address] [place] [id number] Platelet mean volume (Bld) [Entitic vol] 8.0 fL Normal 6.4-10.8 [facility] Comment on above: Performed By: #### 2 [id number], [id number], [id number], [id number], [id number], [id number], [id number] #### [facility] [address] [place] [address] Platelets (Bld) [#/Vol] 234.0 E9/L Normal 150.0-500.0 [facility] Comment on above: Performed By: #### 2 [id number], [id number], [id number], [id number], [id number], [id number], [id number] #### [facility] [address] [place] [address] RBC (Bld) [#/Vol] 5.0 E12/L Normal 4.3-5.9 [facility] Comment on above: Performed By: #### 2 [id number], [id number], [id number], [id number], [id number], [id number], [id number] #### [facility] [address] [place] [address] WBC corrected for nucl RBC Auto (Bld) [#/Vol] 8.2 E9/L Normal 4.0-11.0 [facility] Comment on above: Performed By: #### 2 [id number], [id number], [id number], [id number], [id number], [id number], [id number] #### [facility] [address] [place] [address] CHEMISTRYOrdered By: SYSTEM SYSTEM on 03-09-2023 Albumin [Mass/Vol] 5.0 g/dL Normal 3.3 - 5.0 gm/dL R emisol Chem Albumin/Globulin [Mass ratio] 1.8 {ratio} Normal 1.1 - 2.2 Remisol Chem Alk Phos 74 [iU]/d Normal 21 - 98 Int._Unit/L Remisol Chem ALT 25 [iU]/d Normal 6 - 46 Int._Unit/L Remisol Chem Anion gap [Moles/Vol] 12 mmol/L Normal 6 - 16 mEq/L R emisol Chem AST 19 [iU]/d Normal 5 - 43 Int._Unit/L Remisol Chem Bili Direct 0.1 mg/dL Normal 0.0 - 0.4 mg/dL Remisol Chem Bili Indirect 0.5 mg/dL Normal 0.1 - 0.9 mg/dL Remiso l Chem Bili Total 0.6 mg/dL Normal 0.0 - 1.1 mg/dL Remisol C hem Calcium [Mass/Vol] 10.0 mg/dL Normal 8.9 - 11.1 mg/dL Remisol Chem Chloride [Moles/Vol] 101 mmol/L Normal 101 - 111 mmol/ L Remisol Chem CO2 [Moles/Vol] 31 mmol/L Normal 21 - 31 mmol/L Remis ol Chem Creatinine [Mass/Vol] 0.8 mg/dL Normal 0.5 - 1.3 mg/d L Remisol Chem eGFR mL/min/1.73 m2 Normal >=59mL/min/1. 73 m2 Remisol Chem Globulin (S) [Mass/Vol] 2.8 g/dL Normal 1.4 - 4.0 gm/dL Remisol Chem Glucose [Mass/Vol] 192 mg/dL Normal 55 - 199 mg/dL Re misol Chem Lipase Lvl 32 unit/L Normal 13 - 58 unit/L Remisol Ch em Potassium [Moles/Vol] 4.5 mmol/L Normal 3.5 - 5.3 mmol /L Remisol Chem Protein [Mass/Vol] 7.8 g/dL Normal 6.0 - 7.8 gm/dL R emisol Chem Sodium [Moles/Vol] 139 mmol/L Normal 135 - 145 mmol/L Remisol Chem Urea nitrogen [Mass/Vol] 15 mg/dL Normal 5 - 21 mg/dL Remisol Chem Urea nitrogen/Creatinine [Mass ratio] 19 mg/mg Normal 10 - [address] Abdomen/Pelvis w/o Contra ston 03-09-2023 CT Abdomen/Pelvis w/o Contrast Exam Date/Time: 03/09/2023 11:46 EST Reason for Exam: Abdominal pain, acute, nonlocalized;Other (please specify) Report IMPRESSION: Mildly obstructing 4 mm calculus at the left ureterovesicular junction. Additional nonobstructing bilateral renal calculi. EXAMINATION: CT Abdomen/Pelvis w/o Contrast HISTORY: Abdominal pain, acute, nonlocalized. Hematuria. Burning with urination. History of kidney stones. History of cystoscopy and stent. TECHNIQUE: Non-IV contrast imaging of the abdomen and pelvis was performed using standard technique, scanning from just above the dome of the diaphragm to the symphysis pubis. Unenhanced imaging is limited for the evaluation of some intra-abdominal and pelvic pathology. All CT scans at this facility use dose modulation, iterative reconstruction, and/or weight based dosing when appropriate to reduce radiation dose to as low as reasonably achievable. COMPARISON: CT from 06/29/2021. RESULT: Abdomen / Pelvis: Liver: Visualized liver unremarkable. Biliary: Gallbladder unremarkable. Pancreas: Unremarkable. Spleen: No splenomegaly. Adrenals: No mass. Kidneys: 4 mm calculus at the left ureterovesicular junction with mild upstream left hydroureteronephros is. Multiple additional nonobstructing bilateral renal calculi including 6 mm calculus right lower pole, 5 mm calculus left lower pole, and a few additional punctate 1 to 2 mm calculi. No right hydronephrosis. No suspicious lesions in the unenhanced kidneys. GI Tract: No bowel dilation. Appendix unremarkable. Scattered colonic feces. No evidence for diverticulitis. Report Lymph Nodes: No lymphadenopathy. Mesentery/peritoneu m/retroperitoneum: No ascites or mass. Vasculature: Mild arterial atherosclerotic disease without aneurysm. Pelvis: No significant free fluid. Bladder partially decompressed. Trace fat in the inguinal rings bilaterally. Trace periumbilical dehiscence containing fat. Left UVJ calculus as above. Bones/Soft Tissues: No acute osseous findings. Degenerative changes. Lower thorax: Bibasilar atelectasis/scarrin g. Ordering Provider: Tono Joaquin FINAL REPORT Dictated: 03/09/2023 11:59 am Richar Cornell MD Signed (Electronic Signature): 03/09/2023 11:59 am Signed by: Richar Cornell MD Transcribed by: SUSIE Technologist: SANDRO Technical Comments Rectal Contrast Given? No Oral contrast amount in ml's: 0 Normal [facility] Consent for Treatmenton 02-28 Consent for Treatment [id number]#1.00TIFF [facility] Discharge Instructionson Discharge Instructions [id number]#[id number] Normal [facility] ED Clinical Summaryon 2023 ED Clinical Summary [place] [id number] ED Clinical Summary Person Information Name: CHRIS FREEMAN[place] Age: 53 Years : 1970 Sex: Male Language: Guamanian PCP: Tawanna Rapp Marital Status: Single Phone: [phone] Visit Id: Visit Reason: Hematuria; Dysuria; BLOOD IN URINE Speciality: Acuity: 3 Enc Type: Emergency Med Service: Emergency Arrival: 03/09/2023 10:54:05 Discharge: 03/09/2023 13:20:31 LOS: 000 02:26 Checkin: 03/09/2023 10:54:05 Checkout: 03/09/2023 13:20:31 Dispo Type: Home (Routine DC) EVENTS: Event Name Event Status Request Date/Time Start Date/Time Complete Date/Time Arrive Complete 03/09/2023 10:54:05 03/09/2023 10:54:05 03/09/2023 10:54:05 Document Home Meds Request 03/09/2023 10:54:05 Triage Complete 03/09/2023 10:54:05 03/09/2023 11:01:34 03/09/2023 11:01:34 Bed Assign Complete 03/09/2023 10:57:33 03/09/2023 10:57:33 03/09/2023 10:57:33 Dr Exam Complete 03/09/2023 10:57:33 03/09/2023 11:00:52 03/09/2023 11:00:52 RN Exam Complete 03/09/2023 10:57:33 03/09/2023 12:01:41 03/09/2023 12:01:41 Registration Complete 03/09/2023 11:00:52 03/09/2023 11:35:11 03/09/2023 11:35:11 Meds Admin Complete 03/09/2023 11:13:15 03/09/2023 11:51:49 Pending Labs Complete 03/09/2023 11:13:15 03/09/2023 13:07:56 Lab Complete 03/09/2023 11:13:15 03/09/2023 13:07:56 Urine Collect Complete 03/09/2023 11:13:15 03/09/2023 12:08:39 CT Complete 03/09/2023 11:13:15 03/09/2023 11:32:52 03/09/2023 11:46:18 Dr Exam Complete 03/09/2023 11:13:18 03/09/2023 11:13:18 03/09/2023 11:13:18 Pending Labs Complete 03/09/2023 11:34:41 03/09/2023 11:34:41 03/09/2023 12:03:47 Lab Complete 03/09/2023 11:34:41 03/09/2023 11:34:41 03/09/2023 12:03:47 Pending Labs Complete 03/09/2023 11:35:00 03/09/2023 11:35:00 03/09/2023 11:35:01 Reg Complete Request 03/09/2023 11:35:11 Reg Bed Request Complete 03/09/2023 11:35:11 03/09/2023 11:35:11 03/09/2023 11:35:11 Pending Labs Complete 03/09/2023 11:38:44 03/09/2023 11:38:44 03/09/2023 11:38:51 Lab Complete 03/09/2023 11:38:44 03/09/2023 11:38:44 03/09/2023 11:38:51 Pending Labs Inlab 03/09/2023 11:57:01 03/09/2023 11:57:01 Lab Inlab 03/09/2023 11:57:01 03/09/2023 11:57:01 Meds Admin Complete 03/09/2023 12:16:22 03/09/2023 12:23:22 Discharge Complete 03/09/2023 12:18:59 03/09/2023 13:20:42 03/09/2023 13:20:42 Transfer Complete 03/09/2023 13:20:42 03/09/2023 13:20:42 03/09/2023 13:20:42 ADDRESS: [address] [place] [address] [address] [place] [id number] PHYS DOC NOTES: MEDICAL INFORMATION: Prescriptions Given: New Medications [facility], [address] [place], [place] [id number], [phone] cephalexin (Keflex 500 mg Cap) 1 Capsules By Mouth every 6 hours for 7 Days. Refills: 0. naproxen (naproxen 500 mg Tab) 1 Tablets By Mouth 2 times a day as needed Pain. with food. Refills: 0. ondansetron (Zofran ODT 4 mg Tab-Dis) 1 Tablets By Mouth every 8 hours as needed Nausea/Vomiting. Refills: 0. tamsulosin (Flomax 0.4 mg Cap) 1 Capsules By Mouth every day. Refills: 0. Medications to Continue with No Changes Other Medications amitriptyline (amitriptyline 50 mg Tab) 1 Tablets By Mouth once a day (at bedtime). Refills: 5. APAP/ASA/caffeine (Excedrin Migraine) 2 Tablets By Mouth every 8 hours as needed Headache. atorvastatin (atorvastatin 20 mg Tab) 1 Tablets By Mouth at bedtime. Refills: 1. cyclobenzaprine (cyclobenzaprine 10 mg Tab) 1 Tablets By Mouth 3 times a day as needed Spasm. If makes drowsy, cut in half and take [address] or work around heavy equipment nor ladders nor bathe if drowsy. Refills: 0. ibuprofen (ibuprofen 600 mg Tab) 1 Tablets By Mouth every 6 hours. Refills: 0. metformin (metformin 1000 mg Tab) 1 Tablets By Mouth 2 times a day. Refills: 3. Misc Prescription (Glucometer) 0. Refills: 0. Misc Prescription (lancets) use to test BS BID dx E11.65. Refills: 3. Misc Prescription (test strips) use to test BS BID dx E11.65. Refills: 2. multivitamin mens one a day. potassium bicarbonate (K-Effervescent 25 mEq oral tablet, effervescent) 1 Tablets By Mouth 2 times a day for 90 Days. Refills: 3. PATIENT EDUCATION INFORMATION: Instructions: Urosepsis, Adult; Urinary Tract Infection, Adult, Yren-yo-Ifrl; Kidney Stones, Tvas-dv-Aamk Follow up: With: Address: When: Jimmy GASTON [address], [address], [facility] [address] [place] [address] Business (1) [facility], [address] [place] [address] Business (1) In 3 days 03/12/2023 Comments: Follow-up immediately with urology for further evaluation of your kidney stones. With: Address: When: Tawanna Bentley [address], [place] [address] Business (1) In 3 days 03/12/2023 Comments: Follow-up with your primary care provider in 3 to 5 days. If symptoms worsen, do not improve, or new symptoms arise please report back to emergency department (more content not included)... Normal [facility] ED Note-Physicianon 03-09-19 ED Note-Physician Basic Information Time Seen: Tono Joaquin PA-C 03/09/2023 11:00 Chief Complaint Pt believes has another kidney stone. States burning and pain with urination. Blood in urine. States looks like tea. Denies any flank pain. History of Present Illness 53-year-old male reports to the emergency department with chief complaint of dysuria, as well as blood in his urine. He reports that looks like tea. He reports every time he has this happen, he has a kidney stone. He states he is not in any pain. States that at this time he is not having any pain with the symptoms. Reports that otherwise has been doing well. Reports low bit nausea. Denies any known allergies. States he does follow-up with urology. Denies any fevers chills or vomiting. Review of Systems A 10 point review of systems is negative except as noted above. Medical and Surgical History: Reviewed and noted Social history: Lives at home Family History: Reviewed. Tobacco: denies. Physical Exam Vitals & Measurements T: 36.4 ?C(Oral) HR: 89(Peripheral) RR: 16 BP: 153/92 SpO2: 98% HT: 165 cm WT: 60.8 kg BMI: 22.33 General: The patient appears well and in no apparent distress. Patient is resting comfortably on bed. Afebrile Skin: Warm, dry, no pallor noted. Head: Normocephalic, atraumatic Neck: No JVD Eye: PERRLA, EOMI ENT: Moist mucus membranes Cardiovascular: Regular rate normal peripheral perfusion Respiratory: No respiratory distress no accessory muscle use no obvious audible wheezing Chest Wall: no deformity Musculoskeletal: normal ROM, no deformity, no swelling GI: No obvious distention soft nontender nondistended no guarding rebounding or rigidity. No CVA tenderness Neurological: A&O moves all extremities equal strength and symmetry Psychiatric: Cooperative and appropriate Medical Decision Making MEDICAL DECISION MAKING Number and Complexity of Problems Differential Diagnosis: [] [facility] Data External documents reviewed: [] My EKG interpretation: [] My CT interpretation: Reviewed My X-ray interpretation: [] My Ultrasound interpretation: [] Decision rules/scores evaluated: [] Discussed with: [] Treatment and Disposition ED Course: 53-year-old male reports to the emergency department with chief complaint of possible kidney stone. He reports that he is having blood in his urine, as well as burning with urination. Reports has happened before with kidney stones. States he does follow-up with Dr. Gaston. Denies any fevers chills vomiting or belly pain. Denies any back pain. Physical exam the patient is rather benign. No acute findings. Due to concerns we did do lab work as well as a CT of his abdomen. Lab work reviewed and noted. No white count elevation, no elevation of his creatinine. Patient was nitrate positive UTI. CT of the abdomen did show a mildly obstructing 4 mm calculus at the left UVJ. Patient is not ill-appearing, and no elevation of his white blood cell count, as well as no elevation of his creatinine. Patient has not having any pain. Not ill-appearing. Due to this, discussed that we can send him home on antibiotics. We did give him a dose of IV Rocephin here. Patient also started on Keflex. Discussed strict return precautions. Will be given naproxen for pain as well as Zofran for nausea and Flomax. Discussed follow-up with urology. Discussed strict return precautions, including increasing pain, unable to tolerate fluids, or fevers that arise. Follow-up with your primary care provider in 3 to 5 days. If symptoms worsen, do not improve, or new symptoms arise please report back to emergency department for further evaluation. The patient was understanding and agreeable to plan moving forward. Shared decision making: [] Code status: [] Assessment/Plan Kidney stone on left side (N20.0: Calculus of kidney) UTI (urinary tract infection) (N39.0: Urinary tract infection, site not specified) Orders: ceftriaxone + Sodium Chloride 0.9% intravenous solution 50 mL, 1,000 mg = 1 EA, IV Piggyback, Once, Stop date 03/09/23 12:16:00 EST, STAT, Start date 03/09/23 12:16:00 EST, 100 mL/hr, Infuse over 30 minute(s), 03/09/23 12:16:00 EST cephalexin, 500 mg = 1 cap(s), Oral, q6hr, X 7 day(s), # 28 cap(s), Refills(s) 0, Pharmacy: [facility] 1985, 165, cm, 03/09/23 11:01:00 EST, Height/Length Dosing, 60.8, kg, 03/09/23 11:01:00 EST, Weight Dosing ketorolac, 30 mg = 1 mL, Injection, IV Push, Once, Stop date 03/09/23 11:12:00 EST, STAT, Start date 03/09/23 11:12:00 EST, 03/09/23 11:12:00 EST naproxen, 500 mg = 1 tab(s), Oral, BID, PRN Pain, with food, # 20 tab(s), Refills(s) 0, Pharmacy: [facility] 1985, 165, cm, 03/09/23 11:01:00 EST, Height/Length Dosing, 60.8, kg, 03/09/23 11:01:00 EST, Weight Dosing ondansetron, 4 mg = 1 tab(s), Oral, q8hr, PRN Nausea/Vomiting, # 20 tab(s), Refills(s) 0, Pharmacy: [facility], 165, cm, 03/09/23 11:01:00 EST, Height/Length Dosing, 60.8, kg, 03/09/23 11:01:00 EST, Weight Dosi (more content not included)... Normal [facility] Comment on above: Result Comment: Elec tronically Signed By: Tono Joaquin PA-C\.br\Date and Time Signed: 03/09/23 14:55 EST\.br\Electronically Co-Signed By: Rodrigo Gamboa DO\.br\Date and Time Co-Signed: 03/09/23 15:55 EST ED Patient Education Noteon 03-09-2023 ED Patient Education Note Infectious Disease Urosepsis, Adult Urosepsis is a type of sepsis. Sepsis is a severe bodily reaction to an infection. Urosepsis is caused by a bacterial infection that starts in the urinary tract and spreads to the blood. The urinary tract is the system where urine is made, stored, and passed out of the body. It includes the kidneys, ureters, bladder, and urethra. This may also be called the urinary system. In severe cases, sepsis can lead to septic shock. Septic shock can weaken your heart and cause your blood pressure to drop. This can make the body's central nervous system and other organs stop working. Urosepsis is a medical emergency that requires immediate treatment in a hospital. What are the causes? Common causes of this condition include: ? A urinary tract infection (UTI) that spreads to your blood. ? A urinary tract blockage due to kidney stones. ? Swelling and inflammation of the prostate (prostatitis) or prostate infection, in males. What increases the risk? You are more likely to develop this condition if you: ? Are female, especially if you are sexually active. ? Are age 65 or older. ? Have a long-term disease, such as kidney disease or diabetes. ? Have a weak disease-fighting system (immune system). ? Have a condition that lessens or changes urine flow, such as a kidney or bladder stone, prostate disease, or a tumor in the urinary tract. ? Have had surgery in an area of the urinary tract. ? Have a small, thin tube in your urethra that drains urine from your bladder for a period of time (indwelling urinary catheter). ? Have lost feeling below the waist or are in a wheelchair. What are the signs or symptoms? Early symptoms of this condition are similar to symptoms of a severe UTI. They include: ? Pain in your side, back, or lower abdomen. ? Fever and chills. ? Nausea and vomiting. ? Frequent need to pass urine. ? Burning pain when passing urine. ? Bloody or cloudy urine. ? Bad-smelling urine. ? Trouble passing urine or not being able to pass urine at all. ? Fatigue. Once the infection has spread to the blood and a sepsis reaction starts, symptoms may include: ? Chills with shaking. ? Cold and clammy skin. ? A fever of 101.3?F (38.5?C) or higher. ? Low body temperature of 96.8?F (36?C) or lower. ? Fast breathing or trouble breathing. ? Fast heartbeat. ? Severe pain in the abdomen. ? Muscle aches. ? Anxiety or confusion. ? Problems staying awake. ? Fainting. How is this diagnosed? This condition is diagnosed based on your symptoms, your medical history, and a physical exam. You may also have: ? Urine tests or blood tests to check kidney function and to look for infection. ? Imaging tests such as a CT scan or ultrasound to check for blockages in the urinary system. How is this treated? This condition is a medical emergency that needs to be treated right away in the hospital. This condition may be treated with: ? An IV so that you can quickly receive: ? Antibiotic medicines. ? Fluids. ? Medicines to support your blood pressure. ? Oxygen and breathing support, if needed. ? Removing a urinary catheter, if you have one, if it is the source of the infection, if this applies. ? Filtering your blood with a machine (dialysis). This process cleans your blood if your kidneys have failed. ? Surgery to drain infected areas or restore urine flow. This is rare. Follow these instructions at home: Medicines ? Take lboz-kev-wprqdml and prescription medicines only as told by your health care provider. ? If you were prescribed an antibiotic medicine, take it as told by your health care provider. Do not stop using the antibiotic even if you start to feel better. General instructions ? Drink enough fluid to keep your urine pale yellow. ? Return to your normal activities as told by your health care provider. Ask your health care provider what activities are safe for you. ? Keep all follow-up visits. This is important. Contact a health care provider if: ? You have symptoms that get worse or do not get better with treatment. ? You have new UTI symptoms. Get help right away if: ? You have new or continued symptoms of sepsis after hospitalization, such as: ? A fever of 101.3?F (38.5?C) or higher. ? Low body temperature of 96.8?F (36?C) or lower. ? Chills. ? Severe pain. ? Difficulty breathing. ? Confusion. ? Sleepiness. ? Nausea and vomiting. These symptoms may represent a serious problem that is an emergency. Do not wait to see if the symptoms will go away. Get medical help right away. Call your local emergency services (911 in the [place] Do not drive yourself to the hospital. Summary ? Urosepsis is a type of sepsis. Sepsis is a severe bodily reaction to an infection. ? Urosepsis is a medical emergency that requires immediate treatment in a hospital. ? Possible causes of urosepsis includ (more content not included)... Normal [facility] ED Patient Summaryon 024 ED Patient Summary [address] [address] Patient Discharge Instructions Person Information Name: CHRIS FREEMAN Age: 53 Years Arrival Date: 03/09/2023 10:54:05 Discharge Diagnosis: Kidney stone on left side; UTI (urinary tract infection) Primary Care Physician: Sheree REGALADO, Tawanna Reilly Provider Information Primary Provider: Rodrigo Gamboa DO Advanced Physician Recruiter:None The exam and treatment you received in the Emergency Department were for an urgent problem and are not intended as complete care. It is important that you follow up with a doctor, nurse practitioner, or physician?s miner assistant for ongoing care. If your symptoms become worse or you do not improve as expected and you are unable to reach your usual health care provider, you should return to the Emergency Department. We are available 24 hours a day. CHRIS FREEMAN has been given the following list of patient education materials, prescriptions and follow-up instructions: Follow-up Instructions: With: Address: When: Jimmy GASTON [address], [address] [address] [place] [address] Business (1) [facility], [address] [place] [address] Business (1) In 3 days 03/12/2023 Comments: Follow-up immediately with urology for further evaluation of your kidney stones. With: Address: When: Tawanna Bentley [address] [place] [address] Business (1) In 3 days 03/12/2023 Comments: Follow-up with your primary care provider in 3 to 5 days. If symptoms worsen, do not improve, or new symptoms arise please report back to emergency department for further evaluation. In the event that this physician does not participate in your insurance network, please consult with your insurance company to find a nearby participating provider. Patient Education Materials: Urosepsis, Adult; Urinary Tract Infection, Adult, Ogeh-rx-Ugjk; Kidney Stones, Lrfy-xk-Wpnr A MESSAGE TO ALL PATIENTS REGARDING OPIOIDS PRESCRIPTION OPIOIDS: WHAT YOU NEED TO KNOW Prescription opioids can be used to help relieve nycpmggx-lh-trqish pain and are often prescribed following a surgery or injury, or for certain health conditions. These medications can be an important part of the treatment but also come with serious risks. It is important to work with your healthcare provider to make sure you are getting the safest, most effective care. WHAT ARE THE RISKS AND SIDE EFFECTS OF OPIOID USE? Prescription opioids carry serious risks of addiction and overdose, especially with prolonged use. An opioid overdose, often marked by slowed breathing, can cause sudden . The use of prescription opioids can have a number of side effects as well, even when taken as directed: ? Tolerance?meaning you might need to take more of the medication for the same pain relief ? Physical dependence?meaning you have symptoms of withdrawal when a medication is stopped ? Increased sensitivity to pain ? Constipation ? Nausea, vomiting, and dry mouth ? Sleepiness and dizziness ? Confusion ? Depression ? Low levels of testosterone that can result in lower sex drive, energy, and strength ? Itching and sweating RISKS ARE GREATER WITH: ? History of drug misuse, substance use disorder, or overdose ? Mental health conditions (such as depression or anxiety) ? Sleep apnea ? Older age (65 years and older) ? Avoid alcohol while taking prescription opioids. Also, unless specifically advised by your health care provider, medications to avoid include: ? Benzodiazepines (such as Xanax or Valium) ? Muscle relaxants (such as Soma or Flexeril) ? Hypnotics (such as Ambien or Lunesta) ? Other prescription opioids KNOW YOUR OPTIONS Talk to your health care provider about ways to manage your pain that don?t involve prescription opioids. Some of these options may actually work better and have fewer risks and side effects. Options may include: ? Pain relievers such as acetaminophen, ibuprofen, and naproxen ? Some medication that are also used for depression or seizures ? Physical therapy and exercise ? Cognitive behavioral therapy, a psychological, goal-directed approach, in which patients learn how to modify physical, behavioral, and emotional triggers of pain and stress. IF YOU ARE PRESCRIBED OPIOIDS FOR PAIN: ? Never take opioids in greater amounts or more often than prescribed. ? Follow up with your primary health care provider. o Work together to create a plan on how to manage your pain. o Talk about ways to help manage your pain that don?t involve prescription opioids. o Talk about any and all concerns and side effects. ? Help prevent misuse and abuse o Never sell or share prescription opioids. o Never use another person?s prescription opioids. ? Store prescription opio (more content not included)... Normal [facility] HEMATOLOGYOrdered By: onefinestay SYSTEM on 03-09-2023 Basophils/100 WBC (Bld) 1.2 % Normal 0.0 - 2.0 % [facility]eAutoSS Basophils/Leukocytes Auto (Bld) [Pure # fraction] 0.1 E9/L Normal 0.0 - 0.2 E9/L [facility] Eosinophils/100 WBC (Bld) 2.9 % Normal 0.0 - 8.0 % [facility] Eosinophils/Leukocyte s Auto (Bld) [Pure # fraction] 0.2 E9/L Normal 0.0 - 0.5 E9/L [facility] Lymphocytes/100 WBC (Bld) 23.4 % Normal 14.0 - 50.0 % [facility] Lymphocytes/Leukocyte s Auto (Bld) [Pure # fraction] 1.9 E9/L Normal 1.0 - 4.0 E9/L [facility] Monocytes/100 WBC (Bld) 8.3 % Normal 4.0 - 14.0 % [facility] Monocytes/Leukocytes Auto (Bld) [Pure # fraction] 0.7 E9/L Normal 0.2 - 1.0 E9/L [facility] Neutrophils/100 WBC (Bld) 64.2 % Normal 36.0 - 75.0 % [facility] Neutrophils/Leukocyte s Auto (Bld) [Pure # fraction] 5.3 E9/L Normal 2.0 - 7.5 E9/L [facility] HEMATOLOGYOrdered By: Shanna Wright on 03-09-2023 Erythrocyte distribution width (RBC) [Ratio] 13.6 % Normal 10.9 - 14.2 % [facility] Hematocrit (Bld) [Volume fraction] 44.8 % Normal 37.7 - 49.0 % [facility] Hemoglobin (Bld) [Mass/Vol] 14.9 g/dL Normal 13.5 - 17.5 gm/dL [facility] MCH (RBC) [Entitic mass] 30.2 pg Normal 27.0 - 34.0 pg [facility] MCHC (RBC) [Mass/Vol] 33.3 g/dL Normal 31.4 - 36.0 gm /dL [facility] MCV (RBC) [Entitic vol] 90.7 fL Normal 80.0 - 100.0 fL [facility] Platelet mean volume (Bld) [Entitic vol] 8.0 fL Normal 6.4 - 10.8 fL [facility] Platelets (Bld) [#/Vol] 234.0 E9/L Normal 150.0 - 500.0 E9/L [facility] RBC (Bld) [#/Vol] 5.0 E12/L Normal 4.3 - 5.9 E12/L [facility] WBC corrected for nucl RBC Auto (Bld) [#/Vol] 8.2 E9/L Normal 4.0 - 11.0 E9/L [facility] [place] Heme[facility] Hep Func Panelon 03-09-2023 Albumin/Globulin [Mass ratio] 1.8 {ratio} Normal 1.1-2.2 [facility] Comment on above: Performed By: #### 2 214528, 6265721, 1989434, 4590033, 6557123, 76697041, 5940724 #### [facility] [address] [place] [address] Globulin (S) [Mass/Vol] 2.8 g/dL Normal 1.4-4.0 [facility] Comment on above: Performed By: #### 2 329230, 5181969, 7915186, 4437970, 9191558, 12362523, 1219369 #### [facility] [address] [place] [address] Protein [Mass/Vol] 7.8 g/dL Normal 6.0-7.8 [facility] Comment on above: Performed By: #### 2 823711, 9383303, 9821079, 3280389, 7612137, 29013813, 4974412 #### [facility] [address] [place] [address] Albumin [Mass/Vol] 5.0 g/dL Normal 3.3-5.0 [facility] Comment on above: Performed By: #### 2 402623, 5423689, 3879230, 2431649, 2564640, 37660955, 3069003 #### [facility] [address] [place], [place] [address] Alk Phos 74 Int._Unit/L Normal 21-98 [facility] Comment on above: Performed By: #### 2 507732, 9108592, 5969580, 6098586, 5900690, 58500012, 7764690 #### [facility] [address] [place], [place] [address] ALT 25 Int._Unit/L Normal 6-46 [facility] Comment on above: Performed By: #### 2 036658, 1481579, 5521762, 1260469, 2253472, 78511695, 4322710 #### [facility] [address] [place], [place] [address] AST 19 Int._Unit/L Normal 5-43 [facility] Comment on above: Performed By: #### 2 773422, 9018956, 6051521, 5398216, 0076794, 28391550, 6872832 #### [facility] [address] [place] [address] Bili Direct 0.1 mg/dL Normal 0.0-0.4 [facility] Comment on above: Performed By: #### 2 697580, 6740943, 9418887, 7632590, 0634496, 16852810, 6079430 #### [facility] [address] [place] [address] Bili Indirect 0.5 mg/dL Normal 0.1-0.9 [facility] Comment on above: Performed By: #### 2 342711, 7218380, 0907223, 2548237, 7283021, 26323539, 3640419 #### [facility] [address] [place] [address] Bili Total 0.6 mg/dL Normal 0.0-1.1 [facility] Comment on above: Performed By: #### 2 873230, 0618188, 9754715, 7391856, 7169656, 79646372, 5449997 #### [facility] [address] [place] [address] Lipase Levelon 03-09-2023 Lipase Lvl 32 unit/L Normal 13-58 [facility] Comment on above: Performed By: #### 2 160430, 2270922, 2677274, 9671289, 3548872, 97422268, 7468902 #### [facility] [address] [place] [address] UA With Cult Reflexon 2023 Bacteria LM Ql (Urine sed) 1+ /HPF Abnormal Trace [facility] Comment on above: Performed By: #### 2 070131, 59960222 ####[facility] [address] [place] [address] Bilirubin Ql (U) 1+ Abnormal Negative [facility] Comment on above: Performed By: #### 2 837890, 92684625 ####[facility] [address] [place] [address] Clarity (U) CLOUDY Abnormal Clear [facility] Comment on above: Performed By: #### 2 637402, 30171074 ####[facility] [address] [place] [address] Color (U) BROWN Abnormal Yellow [facility] Comment on above: Performed By: #### 2 307277, 40481756 ####[facility] [address] [place] [address] Epithelial cells.squamous LM.HPF (Urine sed) [#/Area] 3-4 Normal 0-2 [facility] Comment on above: Performed By: #### 2 464263, 85330678 ####[facility] [address] [place] [address] Glucose Test strip (U) [Mass/Vol] Negative Normal Negative [facility] Comment on above: Performed By: #### 2 071110, 10526919 ####[facility] [address] [place] [address] Hemoglobin Ql (U) 3+ Abnormal Negative [facility] Comment on above: Performed By: #### 2 694289, 74546536 ####[facility] [address] [place] [address] Ketones (U) [Mass/Vol] TRACE Abnormal Negative [facility] Comment on above: Performed By: #### 2 432292, 79370412 ####[facility] [address] [place] [address] [place].plasma/Lithiu m.RBC (Bld) [Mass ratio] >75 Abnormal 0-3 [facility] Comment on above: Performed By: #### 2 572179, 27101490 ####[facility] [address] [place] [address] Nitrite Ql (U) Positive Abnormal Negative [facility] Comment on above: Performed By: #### 2 479776, 62325940 ####[facility] [address] [place] [address] pH (U) 6.5 [pH] Invalid Interpretation Code 5.0-9.0 [facility] Comment on above: Performed By: #### 2 559191, 43495984 ####[facility] [address] [place] [address] Protein (U) [Mass/Vol] 2+ Abnormal Negative [facility] Comment on above: Performed By: #### 2 113086, 27009633 ####[facility] [address] [place] [address] Specific gravity (U) [Rel density] 1.025 Invalid Interpretation Code 1.005-1.030 [facility] Comment on above: Performed By: #### 2 754800, 36298945 ####[facility] [address] [place] [address] Type of Urine collection method Clean Catch Normal [facility] Comment on above: Performed By: #### 2 621179, 65000187 ####[facility] [address] [place] [address] Urobilinogen Qn (U) 1.0 {Alexi'U}/dL Normal 0.0-1.0 [facility] Comment on above: Performed By: #### 2 804083, 86994499 ####[facility] [address] [place] [address] WBC Auto Ql (U) Negative Normal Negative [facility] Comment on above: Performed By: #### 2 847023, 79073223 ####[facility] [address] [place] [address] WBC LM.HPF (Urine sed) [#/Area] 6-15 Abnormal 0-5 [facility] Comment on above: Performed By: #### 2 632453, 40548883 ####[facility] [address] [place], [place] [address] URINALYSISOrdered By: Umer Zeng on 03-09-2023 Bacteria LM Ql (Urine sed) 1+ /HPF Invalid Interpretation Code Trace/HPF [facility]A Auto SS Bilirubin Ql (U) 1+ *ABN* (03/09/23 11:47 AM) Invalid Interpretation Code Negative [facility] Auto SS Clarity (U) Cloudy *ABN* (03/09/23 11:47 AM) Invalid Interpretation Code Clear [facility] Color (U) Brown *ABN* (03/09/23 11:47 AM) Invalid Interpretation Code Yellow [facility]A Auto [facility] Epithelial cells.squamous LM.HPF (Urine sed) [#/Area] 3-4 /HPF Normal 0-2/HPF [facility] UA Aut o SS Glucose Test strip (U) [Mass/Vol] Negative (03/09/23 11:47 AM) Normal Negative [facility]A Auto SS Hemoglobin Ql (U) 3+ *ABN* (03/09/23 11:47 AM) Invalid Interpretation Code Negative [facility]A Auto SS Ketones (U) [Mass/Vol] Trace *ABN* (03/09/23 11:47 AM) Invalid Interpretation Code Negative [facility] UA Auto SS [place].plasma/Lithiu m.RBC (Bld) [Mass ratio] >75 /HPF Invalid Interpretation Code 0-3/HPF [facility] Auto SS Nitrite Ql (U) Positive *ABN* (03/09/23 11:47 AM) Invalid Interpretation Code Negative [facility]A Auto SS pH (U) 6.5 *NA* (03/09/23 11:47 AM) Invalid Interpretation Code 5.0 - 9.0 [facility]A Auto SS Protein (U) [Mass/Vol] 2+ *ABN* (03/09/23 11:47 AM) Invalid Interpretation Code Negative [facility]A Auto SS Specific gravity (U) [Rel density] 1.025 *NA* (03/09/23 11:47 AM) Invalid Interpretation Code 1.005 - 1.030 [facility]A Auto SS UA Spec Desc Clean Catch (03/09/23 11:47 AM) Normal [facility]A Auto SS Urobilinogen Qn (U) 1.5107350 {Alexi'U}/dL Normal 0.0 - 1.0 EU/dL [facility]A Auto SS WBC Auto Ql (U) Negative (03/09/23 11:47 AM) Normal Negative [facility]A Auto SS WBC LM.HPF (Urine sed) [#/Area] 6-15 /HPF Invalid Interpretation Code 0-5/HPF [facility]A Auto SS eGFRon 03-09-2023 GFR/1.73 sq M.predicted among non-blacks MDRD (S/P/Bld) [Vol rate/Area] mL/min/{1.73_m2} Normal >=59 [facility] Comment on above: Order Comment: Order added by Discern Expert. Performed By: #### 2 994769, 1800735, 7351283, 4163192, 0011539, 47389406, 7515886 #### [facility] [address] [place] [address] Referrals Officeon 4 Referrals Office [id number] 280#1.00TIFF Normal [facility] MRI Shoulder w/o Contrast [place] f[place] 03-03-2023 MRI Shoulder w/o Contrast Left Exam Date/Time: 03/02/2023 14:25 EST Reason for Exam: M75.10 Report IMPRESSION: Rotator cuff tendinosis, without tear. Findings associated with adhesive capsulitis. Benign-appearing 1.5 cm cystic lesion within the proximal humerus with differential including simple bone cyst, enchondroma, fibrous dysplasia, etc. No associated pathologic fracture or suspicious features. EXAMINATION: MRI Shoulder w/o Contrast Left HISTORY: Left shoulder pain with limited range of motion. No recent injury. TECHNIQUE: Routine non-contrast MRI of the shoulder , left side COMPARISON: Radiographs 08/27/2022. RESULT: Rotator Cuff Tendons: Mild tendinosis of supraspinatus, infraspinatus, and subscapularis, without tear. Teres minor appears intact. Long Head Biceps Tendon: Appears intact with appropriate location. Muscle: Muscle bulk and signal intensity are within normal limits. Labrum: Diffuse fraying and/or tearing. Bones and Marrow: Rounded well-circumscribed cystic appearing lesion within the proximal humerus near the head neck junction, measuring approximately 1.5 x 1.5 x 1.5 cm. No associated pathologic fracture, cortical breakthrough, or other suspicious features. No evidence for fracture elsewhere. Glenohumeral Joint: Osteophytes without measurable full-thickness chondral defect. Thickening of the joint capsule with increased signal, associated with adhesive capsulitis. No joint effusion. Acromioclavicular Joint: Mild to moderate degenerative changes. Other: Mild subacromial-subdelt oid bursal thickening/fluid. Report Ordering Provider: Geremias Jack FINAL REPORT Dictated: 03/03/2023 10:40 am Richar Cornell MD Signed (Electronic Signature): 03/03/2023 10:40 am Signed by: Richar Cornell MD Transcribed by: SUSIE Technologist: USHA Technical Comments None Normal [facility] Consent for Treatmenton Consent for Treatment [id number] 78#1.00TIFF Normal [facility] RAD - MRI Screening Formon 0 03-02-2023 RAD - MRI Screening Form [id number] 63#1.00TIFF [facility] Physician Orderon 02-17-2023 Physician Order [id number] DD#1.00TIFF [facility] Insurance Correspondence Off iceon 02-15-2023 Insurance Correspondence Office [id number] 407#2.00TIFF [facility] Physician Orderon 02-15-2023 Physician Order [id number] 142#1.00TIFF [facility] Consent for Treatmenton Consent for Treatment [id number] 521#1.00TIFF [facility] Consultation Noteon 02-02-20 Consultation Note Patient: CHRIS FREEMAN Age: 53 years Sex: Male : 1970 Associated Diagnoses: None Author: Guero HINES, Geremias Mosquera Subjective Chief complaint 02/01/2023 12:51 EST neck pain . 53-year-old gentleman with a history of cervical radiculopathy following up from cervical epidural steroid injection 01/11/2023 at C6-7. He reports 70% relief directly following the procedure for 2 to 3 days. Majority of his pain now is in the left shoulder and bicep region. He has some achiness in his neck, but it is not too terrible. He rates the left arm pain as an 8 out of 10 on the visual analog scale. He can hardly move his arm at times. STEPHANIE is 46. He uses ibuprofen and Excedrin. These are of mild benefit. He does have a history of right shoulder issues with the rotator cuff. He recently had shoulder arthroscopy on the right. He has had x-ray of the left shoulder with, which was negative. No advanced imaging of the left shoulder. Health Status Allergies: Allergic Reactions (All) No Known Allergies Current medications: (Selected) Prescriptions Prescribed Glucometer: Glucometer, Print Requisition, Supply K-Effervescent 25 mEq oral tablet, effervescent: 25 mEq = 1 tab(s), Oral, BID, X 90 day(s), # 180 tab(s), Refills(s) 3, Pharmacy: [facility], 165, cm, 08/18/22 13:25:00 EDT, Height/Length Dosing, 67.5, kg, 08/18/22 13:25:00 EDT, Weight Dosing amitriptyline 50 mg Tab: 50 mg = 1 tab(s), Oral, Once a day (at bedtime), # 30 tab(s), Refills(s) 5, Pharmacy: [place] [address], 165, cm, 08/27/22 14:08:00 EDT, Height/Length Dosing, 67.5, kg, 08/18/22 13:25:00 EDT, Weight Dosing atorvastatin 20 mg Tab: 20 mg = 1 tab(s), Oral, Bedtime, # 30 tab(s), Refills(s) 5, Pharmacy: [facility], 165, cm, 07/27/22 12:50:00 EDT, Height/Length Dosing, 68.2, kg, 07/02/22 14:33:00 EDT, Weight Dosing cyclobenzaprine 10 mg Tab: 10 mg = 1 tab(s), Oral, TID, PRN Spasm, If makes drowsy, cut in half and take [address] or work around heavy equipment nor ladders nor bathe if drowsy, # 30 tab(s), Refills(s) 0, Pharmacy: [facility], 165, cm, 10/01/22 14:13:0... ibuprofen 600 mg Tab: 600 mg = 1 tab(s), Oral, q6hr, # 40 tab(s), Refills(s) 0, Pharmacy: [facility], 165, cm, 10/01/22 14:13:00 EDT, Height/Length Dosing, 67.5, kg, 10/01/22 14:13:00 EDT, Weight Dosing lancets: lancets, See Instructions, 200 EA, 3, use to test BS BID dx E11.65, [facility], Supply, 165, cm, 08/18/22 13:25:00 EDT, Height/Length Dosing, 67.5, kg, 08/18/22 13:25:00 EDT, Weight Dosing metformin 1000 mg Tab: 1,000 mg = 1 tab(s), Oral, BID, # 180 tab(s), Refills(s) 3, Pharmacy: [facility], 165, cm, 09/14/22 13:03:00 EDT, Height/Length Dosing, 66.7, kg, 09/14/22 13:03:00 EDT, Weight Dosing test strips: test strips, See Instructions, 100 EA, 2, use to test BS BID dx E11.65, [facility], Supply, 165, cm, 10/01/22 14:13:00 EDT, Height/Length Dosing, 67.5, kg, 10/01/22 14:13:00 EDT, Weight Dosing Documented Medications Documented Excedrin Migraine: 2 tab(s), Oral, q8hr Headache, Refill(s) 0 multivitamin: See Instructions, Refill(s) 0, mens one a day Problem list: All Problems Bilateral carpal tunnel syndrome / SNOMED CT 724102388022396 / Confirmed BMI 22.0-22.9, adult / SNOMED CT 0723528310 / Confirmed BPH with urinary obstruction / SNOMED CT 8916214649 / Confirmed Diabetes mellitus / SNOMED CT 976293675 / Confirmed DM type 2 with diabetic mixed hyperlipidemia / SNOMED CT 5476809753 / Confirmed Influenza vaccine administered / SNOMED CT 8973273995 / Confirmed Lumbar radiculopathy / SNOMED CT 069145895 / Confirmed Migraines / SNOMED CT 47473495 / Confirmed Mixed hyperlipidemia / SNOMED CT 364668458 / Confirmed Non-smoker / SNOMED CT 81128754 / Confirmed Rheumatoid arthritis / SNOMED CT 110372148 / Confirmed Type 2 diabetes mellitus with diabetic neuropathy, without long-term current use of insulin / SNOMED CT 831427045 / Confirmed Objective Vital Signs 02/01/2023 12:51 EST Peripheral Pulse Rate 86 bpm Respiratory Rate 14 br/min Systolic Blood Pressure 104 mmHg Diastolic Blood Pressure 62 mmHg Mean Arterial Pressure, Cuff 76 mmHg General: No acute distress. Alert and oriented x 3. Well-nourished. Well-developed. Musculoskeletal: Pain with abduction of the left arm. He can only abduct the left arm approximately 30 degrees. There is some tenderness in the left shoulder girdle. No gross deformity or asymmetry. There is full range of motion of the cervical spine with mild pain on extension of the cervical spine. Spurling's test negative bilaterally. Neuro: 5/5 strength distal upper extremities. There is giveaway weakness in the left deltoid. Noelle sign negative bilaterally. Normal gait. Impression and Plan 53-year-old gentleman with severe left-sided shoulder pain, likely rotator cuff related based on physical exam and history. I recommend an MRI of the left shoulder con (more content not included)... Normal [facility] Comment on above: Result Comment: Elec tronically Signed By: Guero HINES, Geremias Mosquera\.br\Date and Time Signed: 02/01/23 13:27 EST Office/Clinic Note-Physician on 02-01-2023 Office/Clinic Note-Physician [id number] 751#1.00TIFF Normal [facility] Patient Correspondenceon Patient Correspondence [id number] 274#1.00TIFF Normal [facility] Patient Correspondence [id number]#1.00TIFF Normal [facility] Patient History Officeon Patient History Office [id number]#1.00TIFF Normal [facility] CHEMISTRYOrdered By: Lab ROP User on 01-11-2023 Glucose [Mass/Vol] 69 mg/dL Normal 55 - 99 mg/dL [facility] C POC Subsection POC Device SN [id number] Invalid Interpretation Code [facility] [place] POC Subsection POC Username SHENA PATTEN Invalid Interpretation Code [facility] [place] POC Subsection Sodium [Moles/Vol] 392400233 mmol/L Invalid Interpretation Code [facility] [place] POC Subsection Capillary Glucose POCon 12-29 Glucose [Mass/Vol] 69 mg/dL Normal 55-99 [facility] Comment on above: Performed By: #### 2 627922, 1204651, 5274341, 1113215, 5032582, 91966243, 1520991 #### [facility] [address] [place] [address] Consent for Procedure/Surger yon 01-11-2023 Consent for Procedure/Surgery [id number] 32#1.00TIFF Normal [facility] Consent for Treatmenton 12-29 Consent for Treatment [id number] 142#1.00TIFF Normal [facility] Discharge Instructionson Discharge Instructions [id number] 63#1.00TIFF Normal [facility] IntraOperative Documentson 03-13-2022 IntraOperative Documents [id number] 07#1.00TIFF Normal [facility] Main OR Intraoperative Recor don 01-11-2023 Main OR Intraoperative Record IntraOp Document Type [facility] Summary Primary Physician: Geremias Jack MD Finalized Date/Time: 01/11/23 15:06:45 Pt. Name: CHRIS FREEMAN D.O.B./Sex: 1970 Male Med Rec #: [id number] Physician: Geremias Jack MD Financial #: [id number] Pt. Type: P Room/Bed: / Admit/Disch: 01/11/23 14:14:04 - Institution: Case Times FT[facility] Entry 1 Patient Times In Room 01/11/23 15:01:00 Out Room 01/11/23 15:07:00 Procedure Times Start 01/11/23 15:04:00 Stop 01/11/23 15:06:00 Anesthesia Times Last Modified By: Zakia Oro RN 01/11/23 15:06:39 Case Attendance [facility] Entry 1 Entry 2 Entry 3 Case Attendee Guero HINES, Geremias Oro RN, Zakia Jacobo RN, Margarita Role Performed Surgeon - Primary Software Consultant - Primary Scrub - Primary Time In 01/11/23 15:01:00 01/11/23 15:01:00 01/11/23 15:01:00 Time Out 01/11/23 15:07:00 01/11/23 15:07:00 01/11/23 15:07:00 Procedure CERVICAL EPIDURAL CERVICAL EPIDURAL CERVICAL EPIDURAL STEROID INJECTION(.) STEROID INJECTION(.) STEROID INJECTION(.) Comments Last Modified By: Zakia Oro RN, RN, Zakia Anaya RN 01/11/23 15:06:40 01/11/23 15:06:40 01/11/23 15:06:40 Entry 4 Case Attendee Shavonne Juarez (R) Role Performed Bag Shop Worker Time In 01/11/23 15:01:00 Time Out 01/11/23 15:07:00 Procedure CERVICAL EPIDURAL STEROID INJECTION(.) Comments Last Modified By: Zakia Oro RN 01/11/23 15:06:40 Perioperative Protocols [facility] Pre-Care Text: Implements protective measures prior to operative or invasive procedure, confirms identity before the operative or invasive procedure, verifies operative procedure, surgical site, and laterality Entry 1 Procedure(s) CERVICAL EPIDURAL Patient Identity Birthday, ID Band STEROID INJECTION(.) Verified (select at Check, Patient least 2): Participation Consents / H and P HandP, Surgery/Procedure Operative Site Present Verified Consent Marking Verified Surgical Site Yes Laterality Verified Yes Verified Procedure Verified Yes Correct Patient Yes Position Verified Availability Equipment, Medication, Prep Dry Yes Verified (If X-ray Applicable) PreOp Antibiotic No Time Out Zakia Oro RN, Given Participants Donnell MARTINI, Guero Avila MD, Isis Sim Carrie (R) Time Out Complete 01/11/23 15:01:00 Outcomes Met? Yes Last Modified By: Zakia Oro RN 01/11/23 15:03:06 Post-Care Text: The patient is free from signs and symptoms of injury caused by extraneous objects Allergy Information [facility] Pre-Care Text: Verifies allergies Entry 1 Allergies Reviewed? Yes Allergies Reviewed Self/Patient With Outcomes Met? Yes Last Modified By: Zakia Oro RN 01/11/23 15:02:42 Post-Care Text: The patient received appropriate medication(s) safely administered during the perioperative period Surgical Procedures [facility] Entry 1 Procedure Description Procedure CERVICAL EPIDURAL Modifiers . STEROID INJECTION Surgeon Description C5-6 KELLEY Primary Procedure Yes Primary Surgeon Geremias Jack MD Start 01/11/23 15:04:00 Stop 01/11/23 15:06:00 Anesthesia Type None Surgical Service Pain Management Wound Class 1 - Clean Last Modified By: Zakia Oro RN 01/11/23 15:06:42 General Case Data [facility] Pre-Care Text: Classifies surgical wound, implements aseptic technique, initiates traffic control Entry 1 Case Information OR Pain Proc Room Case Level Level 2 Wound Class 1 - Clean Specialty Pain Management Preop Diagnosis M54.2 Postop Same As Preop Yes Postop Diagnosis M54.2 Outcomes Met? Yes Last Modified By: Zakia Oro RN 01/11/23 15:03:19 Post-Care Text: The patient is free from signs and symptoms of infection Skin Assessment (Pre Procedure) [facility] Pre-Care Text: Implements protective measures to prevent skin/ tissue injury due to thermal or mechanical sources Evaluates for signs and symptoms of physical injury to skin and tissue Entry 1 Skin Integrity Intact, Merom, Warm, and Skin Abnormality No Dry Outcomes Met? Yes Last Modified By: Zakia Oro RN 01/11/23 15:03:55 Post-Care Text: The patient is free from signs and symptoms of injury caused by extraneous objects Patient Positioning [facility] Pre-Care Text: Identifies physical alterations that require additional precautions for procedure-specific positioning, verifies presence of prosthetics or corrective devices, positions the patient, evaluates the patient for signs and symptoms of injury as a result of positioning Entry 1 Procedure CERVICAL EPIDURAL Body Position Prone STEROID INJECTION(.) Feet Uncrossed? Yes Left Arm Position Resting at Side Right Arm Position Resting at Side Left Leg Position Extended Right Leg Position Extended Positioning Device Pillow Under Head Large, Safety Strap, Pillow Large Under Knees Press Points Checked Yes By Zakia Oro RN Outcomes Met? Yes Last Modified By: (more content not included)... Normal [facility] Main OR Preoperative Recordo n 01-11-2023 Main OR Preoperative Record Holding Area Document Type FT Summary Primary Physician: Geremias Jack MD Finalized Date/Time: 01/11/23 14:38:31 Pt. Name: CHRIS FREEMANO.B./Sex: 1970 Male [facility] Rec #: [id number] Physician: Geremias Jack MD Financial #: [id number] Pt. Type: P Room/Bed: / Admit/Disch: 01/11/23 14:14:04 - Institution: Case Times Holding [facility] Pre-Care Text: Verifies consent for planned procedure, identifies individual values and wishes concerning care, includes family members in perioperative teaching Secures patient's records' belongings, and valuables, maintains patient's dignity and privacy, and maintains patient confidentiality Entry 1 In Holding 01/11/23 14:36:00 Outcomes Met? Yes Last Modified By: Sasha Walker RN 01/11/23 14:37:01 Post-Care Text: The patient participates in decisions affecting his or her perioperative plan of care The patient's right to privacy is maintained Surgery Checklist FT[facility] Entry 1 Patient Birthday, ID Band Procedure History and Physical, Identification: Check, Patient Verification: Surgical Consent, With Participation Patient NPO after Midnight: No Date/Time: 01/11/23 14:37:00 Results Reviewed 0900 bowl of cereal Personal Items: Jewelry Comments: Personal Items Pt. wearing a watch. Complaints of Pain: Yes Comment: Pain Comment: 11/07 left shoulder Operative Site Yes Marking: Marked By: Dr. Jack Location: C5-C6 Availability Equipment, X-Ray Verified: Does Patient Smoke No Patient states Yes Comment - Adult friend-Shirley postop adult Supervision supervision available Case Cancelled in No Holding Area see comments below for reason Last Modified By: Sasha Walker RN 01/11/23 14:38:27 Finalized By: Sasha Walker RN Document Signatures Signed By: Sasha Walker RN 01/11/23 14:38 Normal [facility] Operative Reporton 3 Operative Report Patient: CHRIS FREEMAN Age: 53 years Sex: Male : 1970 Associated Diagnoses: None Author: Geremias Jack MD Procedure Procedure: Cervical Epidural Steroid Injection with Fluoroscopic Guidance at C6/7 Diagnosis: Cervical Radiculitis Anesthesia: local The patient was identified in the pre-op area. The procedure, including risks benefits and alternatives was discussed with the patient. The patient agreed to proceed. Informed consent was obtained and the site(s) marked. The patient was brought to the procedure room and placed in the prone position with the neck flexed. Time out was taken. The neck was prepped and draped in sterile fashion with Chloraprep. Skin and subcutaneous tissues were anesthetized with 6 mL of Lidocaine 2% through a 25G needle. An 18G Touhy needle was then advanced under fluoroscopic guidance (AP and contralateral oblique views) to the inferior lamina and then advanced cephalad into the C6/7 epidural space using loss of resistance technique with a plastic KAMERON syringe. Isovue 2mL was injected under live fluoroscopy which demonstrated appropriate epidural spread without vascular uptake. After confirmation of negative aspiration, 4 mL of PF normal saline, and 10mg (in 1 mL) of PF dexamethasone were injected. The needle was removed and a bandage applied. The patient was brought to the recovery area in stable condition and then monitored for an appropriate period of time. The patient was discharged home in good condition with post-procedure instructions. No apparent complications. Epidural injection procedure Physical Exam: vital signs. Normal [facility] Comment on above: Result Comment: Elec tronically Signed By: Guero HINES, Geremias Mosquera\.br\Date and Time Signed: 01/11/23 15:06 EST CHEMISTRYOrdered By: SYSTEM SYSTEM on 12-21-2022 Albumin [Mass/Vol] 4.3 g/dL Normal 3.3 - 5.0 gm/dL [facility] Albumin/Globulin [Mass ratio] 1.3 {ratio} Normal 1.1 - 2.2 [facility] ALP [Catalytic activity/Vol] 66 [iU]/d Normal 21 - 98 Int._Unit/L [facility] ALT No additional P-5'-P [Catalytic activity/Vol] 30 [iU]/d Normal 6 - 46 Int._Unit/L [facility] Anion gap [Moles/Vol] 13 mmol/L Normal 6 - 16 mEq/L [facility] AST [Catalytic activity/Vol] 28 [iU]/d Normal 5 - 43 Int._Unit/L [facility] Bilirubin [Mass/Vol] 0.8 mg/dL Normal 0.0 - 1.1 mg/dL [facility] Calcium [Mass/Vol] 9.6 mg/dL Normal 8.9 - 11.1 mg/dL [facility] Chloride [Moles/Vol] 102 mmol/L Normal 101 - 111 mmol/ L [facility] Cholesterol [Mass/Vol] 120 mg/dL Normal 120 - 200 mg/dL [facility] Cholesterol in HDL [Mass/Vol] 31 mg/dL Invalid Interpretation Code [facility] Comment on above: Interpretive Data: H DL > or equal to 60 mg/dL: Low cardiovascular risk HDL < 40 mg/dL : High cardiovascular risk Cholesterol in LDL [Mass/Vol] 72 mg/dL Normal <=129mg/dL [facility] Cholesterol in VLDL [Mass/Vol] 24 mg/dL Normal 7 - 40 mg/dL [facility] CO2 [Moles/Vol] 29 mmol/L Normal 21 - 31 mmol/L [facility] Creatinine [Mass/Vol] 0.9 mg/dL Normal 0.5 - 1.3 mg/d L [facility] Remisol GFR/1.73 sq M.predicted among non-blacks MDRD (S/P/Bld) [Vol rate/Area] 102 mL/min/1.73 m2 Normal >=59mL/min/1.73 m2 [facility] [place] Chem S Comment on above: Interpretive Data: C hronic kidney disease could be indicated at eGFR's of less than 60 mL/min/1.73m2. Kidney failure is indicated at less than 15 mL/min/1.73m2. Globulin (S) [Mass/Vol] 3.4 g/dL Normal 1.4 - 4.0 gm/dL [facility] Glucose [Mass/Vol] 111 mg/dL Normal 55 - 199 mg/dL [facility] Comment on above: Interpretive Data: I f this glucose result represents a fasting glucose, interpretation should refer to the following reference range: 55-99 mg/dL Potassium [Moles/Vol] 4.2 mmol/L Normal 3.5 - 5.3 mmol /L [facility] Protein [Mass/Vol] 7.7 g/dL Normal 6.0 - 7.8 gm/dL F C Remisol Sodium [Moles/Vol] 140 mmol/L Normal 135 - 145 mmol/L [facility] Triglyceride [Mass/Vol] 120 mg/dL Normal <=149mg/dL [facility] [place] Remisol Urea nitrogen [Mass/Vol] 30 mg/dL High 5 - 21 mg/dL [facility] [place] Remisol Urea nitrogen/Creatinine [Mass ratio] 33 mg/mg High 10 - 20 [facility] [place] [facility] CHEMISTRYOrdered By: Joanne Gonzalez on 12-21-2022 HbA1c (Bld) [Mass fraction] 5.9 % Normal <=5.9% [facility] [place] ChemAutoSS CMPon 12-21-2022 Albumin [Mass/Vol] 4.3 g/dL Normal 3.3-5.0 [facility] Comment on above: Performed By: #### 2 168031, 8746850, 9982795, 0139907, 2627619, 55235530, 5051256 #### [facility] [address] [place] [address] Albumin/Globulin (S) [Mass conc ratio] 1.3 Normal 1.1-2.2 [facility] Comment on above: Performed By: #### 2 618675, 3584378, 6651855, 7165589, 2548539, 28831249, 7585456 #### [facility] [address] [place] [address] ALP [Catalytic activity/Vol] 66 Int._Unit/L Normal 21-98 [facility] Comment on above: Performed By: #### 2 402908, 8301886, 5660701, 7073972, 5043537, 08130043, 7735121 #### [facility] [address] [place] [address] ALT No additional P-5'-P [Catalytic activity/Vol] 30 Int._Unit/L Normal 6-46 [facility] Comment on above: Performed By: #### 2 565569, 3546018, 7485415, 4820246, 3418259, 93095142, 5130655 #### [facility] [address] [place] [address] Anion gap [Moles/Vol] 13 mmol/L Normal 6-16 [facility] Comment on above: Performed By: #### 2 630806, 3638388, 8548753, 9853527, 2706671, 10208137, 3776899 #### [facility] [address] [place] [address] AST [Catalytic activity/Vol] 28 Int._Unit/L Normal 5-43 [facility] Comment on above: Performed By: #### 2 375543, 3633654, 6427797, 6400658, 1288731, 40838754, 3590129 #### [facility] [address] [place] [address] Bilirubin [Mass/Vol] 0.8 mg/dL Normal 0.0-1.1 [facility] Comment on above: Performed By: #### 2 576010, 4837438, 4397949, 0395395, 5447601, 72798140, 4637579 #### [facility] [address] [place] [address] Calcium [Mass/Vol] 9.6 mg/dL Normal 8.9-11.1 [facility] Comment on above: Performed By: #### 2 791710, 6950937, 5655322, 3667691, 3947311, 12461122, 9914089 #### [facility] [address] [place] [address] Chloride [Moles/Vol] 102 mmol/L Normal 101-111 [facility] Comment on above: Performed By: #### 2 432390, 8621019, 0777676, 5542198, 2374805, 99369403, 3520374 #### [facility] [address] [place] [address] CO2 [Moles/Vol] 29 mmol/L Normal 21-31 [facility] Comment on above: Performed By: #### 2 576077, 2024791, 4815866, 7643410, 2646324, 90192926, 7288942 #### [facility] [address] [place] [address] Creatinine [Mass/Vol] 0.9 mg/dL Normal 0.5-1.3 [facility] Comment on above: Performed By: #### 2 988355, 1327776, 0630271, 5891790, 1990575, 62820651, 9206816 #### [facility] [address] [place] [address] Globulin (S) [Mass/Vol] 3.4 g/dL Normal 1.4-4.0 [facility] Comment on above: Performed By: #### 2 588788, 6836024, 4143338, 9606211, 2541250, 22441209, 8738888 #### [facility] [address] [place] [address] Glucose [Mass/Vol] 111 mg/dL Normal 55-199 [facility] Comment on above: Result Comment: If t his glucose result represents a fasting glucose, interpretation should refer to the following reference range: 55-99 mg/dL Performed By: #### 2 826047, 5477339, 9320465, 0807096, 4851855, 50266421, 8698281 #### [facility] [address] [place] [address] Potassium [Moles/Vol] 4.2 mmol/L Normal 3.5-5.3 [facility] Comment on above: Performed By: #### 2 943088, 1536673, 5601304, 1557695, 9425867, 92644418, 4340899 #### [facility] [address] [place] [address] Protein [Mass/Vol] 7.7 g/dL Normal 6.0-7.8 [facility] Comment on above: Performed By: #### 2 186649, 9236543, 8644830, 6291277, 1272555, 80026451, 2032718 #### [facility] [address] [place] [address] Sodium [Moles/Vol] 140 mmol/L Normal 135-145 [facility] Comment on above: Performed By: #### 2 829110, 7919920, 1579083, 9566824, 6833755, 90279317, 1305361 #### [facility] [address] [place] [address] Urea nitrogen [Mass/Vol] 30 mg/dL High 5- [facility] Comment on above: Performed By: #### 2 750792, 3144597, 5940583, 3650192, 1732338, 29895201, 8386817 #### [facility] [address] [place] [address] Urea nitrogen/Creatinine [Mass ratio] 33 No Units High - [facility] Comment on above: Performed By: #### 2 784777, 6667118, 1407637, 9123215, 0790287, 71640240, 6971797 #### [facility] [address] [place] [address] Consent for Treatmenton 11-29 Consent for Treatment [id number] Normal [facility] [id number] 12-21-2022 HbA1c (Bld) [Mass fraction] 5.9 % Normal <=5.9 [facility] Comment on above: Performed By: #### 2 650084, 0885739, 9024048, 0572591, 6208022, 80632676, 6161392 #### [facility] [address] [place] [address] Lipid Panelon 12-21-2022 Cholesterol [Mass/Vol] 120 mg/dL Normal 120-200 [facility] Comment on above: Performed By: #### 2 175488, 0680472, 3392911, 9487336, 4270499, 53934666, 8880592 #### [facility] [address] [place] [address] Cholesterol in HDL [Mass/Vol] 31 mg/dL Invalid Interpretation Code [facility] Comment on above: Result Comment: HDL > or equal to 60 mg/dL: Low cardiovascular risk HDL < 40 mg/dL : High cardiovascular risk Performed By: #### 2 736366, 2641315, 6475415, 0427625, 4160120, 35514787, 8861884 #### [facility] [address] [place] [address] Cholesterol in LDL [Mass/Vol] 72 mg/dL Normal <=129 [facility] Comment on above: Performed By: #### 2 481105, 3074812, 2124120, 9795939, 5657865, 37563635, 0924902 #### [facility] [address] [place] [address] Cholesterol in VLDL [Mass/Vol] 24 mg/dL Normal 7-40 [facility] Comment on above: Performed By: #### 2 620655, 6611389, 4882981, 4055580, 3231888, 41119711, 2315270 #### [facility] [address] [place] [address] Triglyceride [Mass/Vol] 120 mg/dL Normal <=149 [facility] Comment on above: Performed By: #### 2 756834, 6161384, 1782146, 8748203, 7265272, 19251974, 2537006 #### [facility] [address] [place] [address] eGFRon 12-21-2022 GFR/1.73 sq M.predicted among non-blacks MDRD (S/P/Bld) [Vol rate/Area] 102 mL/min/1.73 m2 Normal >=59 [facility] Comment on above: Order Comment: Order added by Discern Expert. Result Comment: Chief Load Dispatcher willem kidney disease could be indicated at eGFR's of less than 60 mL/min/1.73m2. Kidney failure is indicated at less than 15 mL/min/1.73m2. Performed By: #### 2 180157, 8713394, 1921778, 4495912, 9540441, 19064598, 6240536 #### [facility] [address] [place] [address] Ambulatory Visit Summaryon Ambulatory Visit Summary CHRIS FREEMAN :1970 Visit Date:12/20/2022 Ambulatory Visit Instructions Your Diagnosis Diabetes mellitus BMI 22.0-22.9, adult Influenza vaccine administered Your Care Team Attending Physician - Tawanna Rapp Primary Care Physician - Tawanna Rapp This Is Your Medications List APAP/ASA/caffeine (Excedrin Migraine) Misc Prescription (Glucometer) Misc Prescription (lancets) Misc Prescription (test strips) amitriptyline (amitriptyline 50 mg Tab) atorvastatin (atorvastatin 20 mg Tab) cyclobenzaprine (cyclobenzaprine 10 mg Tab) ibuprofen (ibuprofen 600 mg Tab) metformin (metformin 1000 mg Tab) multivitamin potassium bicarbonate (K-Effervescent 25 mEq oral tablet, effervescent) Procedures Performed Radiofrequency ablation of nerve root of lumbar spine using fluoroscopic guidance (08/10/2022), Injection of facet joint using fluoroscopic guidance (06/15/2022), Injection of facet joint using fluoroscopic guidance (04/20/2022), Cystoscopy (10/02/2020), ESWL - Extracorporeal shockwave lithotripsy for renal calculus (10/02/2020), Cystoscopy (09/23/2020), Cystoscopy (12/28/2017), Arthroscopy of shoulder. Discharge Vitals Temperature (Oral) 36.7 ?C Heart Rate (Peripheral) 87 Blood Pressure 130/78 Height 165 cm Height 65 in Weight 60.8 kg Weight 133.76 lb BMI 22.33 What to do next Scheduled Follow-Up Appointments Tuesday 3:30 PM EST With: Where: [facility] Pain Management Tuesday 1:00 PM EST With: Geremias Jack MD Where: [facility] Tuesday 1:40 PM EST With: Tawanna Rapp Where: [facility] Primary Care Normal [address] [place] [address]- \.br\ You Need to Schedule the Following Appointments\.br\ Follow Up with Tawanna Rapp When: In 3 months\.br\ Comments:\.br\ f/u DM, HLD\.br\ Where:\.br\ [address], [address]\.br\ [place] [address]-\.br\ \.br\ You Need to Complete the Following\.br\ Comprehensive Metabolic Panel, Blood, Routine collect, 12/20/22, Order for future visit, Lab Collect, Diabetes mellitus, Print Label By Order Location\.br\ HgbA1c, Blood, Routine collect, 12/20/22, Order for future visit, Lab Collect, Diabetes mellitus, Print Label By Order Location\.br\ Lipid Panel, Blood, Routine collect, 12/20/22, Order for future visit, Lab Collect, Diabetes mellitus, Print Label By Order Location\.br\ Medications\.br\ What How Much When Why Instructions\.br\ Unchanged amitriptyline (amitriptyline 50 mg Tab) 1 Tablets By Mouth Once a day (at bedtime) Neuropathy\.br\ Unchanged APAP/ ASA/ caffeine (Excedrin Migraine) 2 Tablets By Mouth Every 8 hours as needed for Headache\.br\ Unchanged atorvastatin (atorvastatin 20 mg Tab) 1 Tablets By Mouth At bedtime HLD (hyperlipidemia)\ .br\ Unchanged cyclobenzaprine (cyclobenzaprine 10 mg Tab) 1 Tablets By Mouth 3 times a day as needed for Spasm Lumbar radiculopathy Back pain If makes drowsy, cut in half and take [address] or work around heavy equipment nor ladders nor bathe if drowsy \.br\ Unchanged ibuprofen (ibuprofen 600 mg Tab) 1 Tablets By Mouth Every 6 hours\.br\ Unchanged metformin (metformin 1000 mg Tab) 1 Tablets By Mouth 2 times a day\.br\ Unchanged Misc Prescription (Glucometer) 0 New onset type 2 diabetes mellitus\.br\ Unchanged Misc Prescription (lancets) See instructions use to test BS BID dx E11.65 \.br\ Unchanged Misc Prescription (test strips) See instructions use to test BS BID dx E11.65 \.br\ Unchanged multivitamin See instructions mens one a day \.br\ Unchanged potassium bicarbonate (K-Effervescent 25 mEq oral tablet, effervescent) 1 Tablets By Mouth 2 times a day Duration: 90 Days\.br\ Medications and Immunizations Administered\.br\ Given\.br\ influenza virus vaccine, inactivated preservative-free quadrivalent intramuscular suspension, 0.5 mL, IntraMuscular. For: Influenza vaccine administered\.br\ influenza virus vaccine, inactivated, IntraMuscular\.br \ Allergies\.br\ No Known Allergies\.br\ Problems\.br\ Ongoing - Any problem that you are currently receiving treatment for.\.br\ Bilateral carpal tunnel syndrome\.br\ BMI 22.0-22.9, adult\.br\ BPH with urinary obstruction\.br\ Diabetes mellitus\.br\ DM type 2 with diabetic mixed hyperlipidemia\.b r\ Influenza vaccine administered\.br\ Lumbar radiculopathy\.br \ Mixed hyperlipidemia\.b r\ Non-smoker\.br\ Rheumatoid arthritis\.br\ Type 2 diabetes mellitus with diabetic neuropathy, without long-term current use of insulin\.br\ Education Materials\.br\ Diabetes Mellitus and Nutrition, Adult\.br\ When you have diabetes, or diabetes mellitus, it is very important to have healthy eating habits because your blood sugar (glucose) levels are greatly affected by what you eat and drink. Eating healthy foods in the right amounts, at about the same times every day, can help you:\.br\ ? \.br\ Manage your blood glucose.\.br\ ? \.br\ Lower your risk of heart disease.\.br\ ? \.br\ Improve your blood pressure.\.br\ ? \.br\ Reach or maintain a healthy weight.\.br\ What can affect my meal plan?\.br\ Every person with diabetes is different, and each person has different needs for a meal plan. Your health care provider may recommend that you work with a dietitian to make a meal plan that is best for you. Your meal plan may vary depending on factors such as:\.br\ ? \.br\ The calories you need.\.br\ ? \.br\ The medicines you take.\.br\ ? \.br\ Your weight.\.br\ ? \.br\ Your blood glucose, blood pressure, and cholesterol levels.\.br\ ? \.br\ Your activity level.\.br\ ? \.br\ Other health conditions you have, such as heart or kidney disease.\.br\ How do carbohydrates affect me?\.br\ Carbohydrates, also called carbs, affect your blood glucose level more than any other type of food. Eating carbs raises the amount of glucose in your blood.\.br\ It is important to know how many carbs you can safely have in each meal. This is different for every person. Your dietitian can help you calculate how many carbs you should have at each meal and for each snack.\.br\ How does alcohol affect me?\.br\ Alcohol can cause a decrease in blood glucose (hypoglycemia), especially if you use insulin or take certain diabetes medicines by mouth. Hypoglycemia can be a life-threatening condition. Symptoms of hypoglycemia, such as sleepiness, dizziness, and confusion, are similar to symptoms of having too much alcohol.\.br\ ? \.br\ Do not drink alcohol if:\.br\ ? \.br\ Your health care provider tells you not to drink.\.br\ ? \.br\ You are , may be , or are planning to become .\.br\ ? \.br\ If you drink alcohol:\.br\ ? \.br\ Limit how much you have to:\.br\ ? \.br\ 0?1 drink a day for women.\.br\ ? \.br\ 0?2 drinks a day for men.\.br\ ? \.br\ Know how much alcohol is in your drink. In the [place] one drink equals one 12 oz bottle of beer (355 mL), one 5 oz glass of wine (148 mL), or one 1? oz glass of hard liquor (44 mL).\.br\ ? \.br\ Keep yourself hydrated with water, diet soda, or unsweetened iced tea. Keep in mind that regular soda, juice, and other mixers may contain a lot of sugar and must be counted as carbs.\.br\ What are tips for following this plan?\.br\ \.br\ Reading food labels\.br\ ? \.br\ Start by checking the serving size on the Nutrition Facts label of packaged foods and drinks. The number of calories and the amount of carbs, fats, and other nutrients listed on the label are based on one serving of the item. Many items contain more than one serving per package.\.br\ ? \.br\ Check the total grams (g) of carbs in one serving.\.br\ ? \.br\ Check the number of grams of saturated fats and trans fats in one serving. Choose foods that have a low amount or none of these fats.\.br\ ? \.br\ Check the number of milligrams (mg) of salt (sodium) in one serving. Most people should limit total sodium intake to less than 2,300 mg per day.\.br\ ? \.br\ Always check the nutrition information of foods labeled as low-fat or nonfat. These foods may be higher in added sugar or refined carbs and should be avoided.\.br\ ? \.br\ Talk to your dietitian to identify your daily goals for nutrients listed on the label.\.br\ Shopping\.br\ ? \.br\ Avoid buying canned, pre-made, or processed foods. These foods tend to be high in fat, sodium, and added sugar.\.br\ ? \.br\ Shop around the outside edge of the grocery store. This is where you will most often find fresh fruits and vegetables, bulk grains, fresh meats, and fresh dairy products.\.br\ Cooking\.br\ ? \.br\ Use low-heat cooking methods, such as baking, instead of high-heat cooking methods, such as deep frying.\.br\ ? \.br\ Cook using healthy oils, such as olive, canola, or sunflower oil.\.br\ ? \.br\ Avoid cooking with butter, cream, or high-fat meats.\.br\ Meal planning\.br\ ? \.br\ Eat meals and snacks regularly, preferably at the same times every day. Avoid going long periods of time without eating.\.br\ ? \.br\ Eat foods that are high in fiber, such as fresh fruits, vegetabl [facility] Consent for Flu Vaccineon Consent for Flu Vaccine [id number] 83#1.00TIFF Normal [facility] Family Medicine Office/Clini c Noteon 12-20-2022 Family Medicine Office/Clinic Note Chief Complaint pt here for 3 month f/u. HPI Staff Last routine labs: 09/15/21 smoker status: never colonoscopy/cologua rd (45-75yo): utd PSA (45-70yo): utd flu vaccine status: due due for foot exam History of Present Illness Chris is a 52-year-old male presenting today for 3-month follow-up DM Type 2 Diabetes follow up: Pt denies polydipsia, polyuria, polyphagia, vision changes, sexual dysfunction, n/v/d, bloating, lightheadedness, numbness/tingling (paresthesias), ulcerations/sore/no n-healing wounds, episodes of hypoglycemia at this time. Complications: Neuropathy, HLD Most Recent Diabetic Screenings: Hgb A1C %: 6.4 % High (09/15/22 09:31:00) -previously 5.8% on 06/01/2021 UMACR: due now U protein/Cr: due now Foot Exam: due now Last Diabetic Eye Exam: pt due with ophthalmology Current regimen: Medications: Metformin 1000mg once daily BID (increased to BID after last appt) Pt denies any medication side effects Pt uses simple glucose food followed by high protein food to correct for any hypoglycemia episodes - following 15:15 rule Diet/Exercise: Is having trouble sticking to diet and exercise as well as controlling weight. pumps/CGM: no Statin: yes Medical history includes: Pt has high cholesterol. Pt is monitoring diet and exercise to help. Pt is on atorvastatin 20 mg once daily at this time. Pt denies any muscle aches/cramps or dark urine. RA -taking amitriptyline 50 mg once daily. Pt has pain in left shoulder and is going to PT for this and is seen by PM. Patient was referred to rheumatology on 09/14/2022 Migraines -taking Excedrin as needed Specialists: PM for back pain/muscle spasms PT for left shoulder pain Ortho - Dr. Clark Urology - Dr. Gaston Review of Systems PHQ Score Initial Depression Screen Score: 0 Physical Exam Vitals & Measurements T: 36.7 ?C(Oral) HR: 87(Peripheral) BP: 130/78 SpO2: 97% HT: 65 in HT: 165 cm WT: 60.8 kg WT: 133.76 lb BMI: 22.33 General: Well developed, well nourished, in no acute distress Eyes: Bilateral PERRLA, conjunctivae and sclerae wnl, EOMs intact, lids without stye, chalazion, ect/extropion, ptosis, xanthelasma, blepharitis. No discharge to inner canthi.Negative for corneal abrasion or foreign bodies. Ears: grossly normal hearing Nose: No deformity, discharge, inflammation, or lesions. No congestion, no erythema; pink & moist turbinates; clear rhinorrhea. Mouth: mucous membranes pink, moist and intact. Mer[place] posterior oropharynx, no palatal inflammation, uvula midline, no cobble-stoning, no enlarged tonsils, no tonsillar exudate, no ulcers, no active post nasal drip. tongue midline and wnl. Good dentition. Neck: Neck supple. No lymphadenopathy. Trachea midline. No thyroid, masses, tenderness, or enlargement noted. No bruit. Lungs: Normal respiratory effort and clear to auscultation Cardio: Regular rate and rhythm, normal S1 and S2, no murmur, no rub Abdomen: not assessed Musculoskeletal: No deformity or scoliosis noted. No vertebral tenderness. Normal range of motion. No vertebral point tenderness. Joints normal. No erythema, edema, effusion, crepitus, or ecchymosis. Straight leg raise negative Extremity: No clubbing, cyanosis, edema, or deformity. Normal ROM with upper and lower extremities, bilaterally. Neurologic: Cranial nerves II-XII grossly intact. motor strength equal & normal bilaterally, sensation equal & normal bilaterally. Gait normal. Skin: No rashes, ulcerations, or suspicious lesions Mental Status: Alert and oriented x3. Normal mood and affect Diabetic Foot Exam Decreased Monofilament Sensation Foot: Left - Normal, Right - Normal Bunions/Foot Deformity: Left - Normal, Right - Normal Abnormal Pulse Foot: Left - Normal, Right - Normal Skin Lesions Foot: Left - Normal, Right - Normal Vibratory Sensation Foot: Left - Normal, Right - Normal Foot Exam Result: Normal foot exam Assessment/Plan 1. Diabetes mellitus (E11.9: Type 2 diabetes mellitus without complications) The importance of the following were all reviewed with the patient: - Compliance with home glucose testing encouraged and using those readings to help improve diet or consider starting CGM - Consider ASA 81mg once daily - Continue BP control with medications as prescribed - Continue cholesterol control with statin therapy/diet/exerci se - Continue diet: low saturated fats/carbs - Exercise - 150min/wk - Eye exam (dilated) annually to prevent blindness - f/u with ophthalmology - Foot exam (self foot checks, protective foot behavior, sensory exam annually using a 10 g monofilament and vibration annually) to prevent sores/possible amputations - consider podiatry - annual monitoring of urine microalbumin regularly to check for kidney damage. - adherence to medications as prescribed to keep glucose levels under control. Last Hgb A1C %: 6.4 % High (09/15/22 09:31:00) Continue medications: Metformin 1000mg BID Pt due for labwork: CMP (BUN, Cr, K) q (more content not included)... Normal [facility] Comment on above: Result Comment: Elec tronically Signed By: Sheree REGALADO, Tawanna Reilly\.br\Date and Time Signed: 12/20/22 13:25 EDT Patient Correspondenceon Patient Correspondence [id number] 12#1.00TIFF [facility] Patient Educationon 12-15-19 Patient Education Endocrinology Diabetes Mellitus and Nutrition, Adult When you have diabetes, or diabetes mellitus, it is very important to have healthy eating habits because your blood sugar (glucose) levels are greatly affected by what you eat and drink. Eating healthy foods in the right amounts, at about the same times every day, can help you: ? Manage your blood glucose. ? Lower your risk of heart disease. ? Improve your blood pressure. ? Reach or maintain a healthy weight. What can affect my meal plan? Every person with diabetes is different, and each person has different needs for a meal plan. Your health care provider may recommend that you work with a dietitian to make a meal plan that is best for you. Your meal plan may vary depending on factors such as: ? The calories you need. ? The medicines you take. ? Your weight. ? Your blood glucose, blood pressure, and cholesterol levels. ? Your activity level. ? Other health conditions you have, such as heart or kidney disease. How do carbohydrates affect me? Carbohydrates, also called carbs, affect your blood glucose level more than any other type of food. Eating carbs raises the amount of glucose in your blood. It is important to know how many carbs you can safely have in each meal. This is different for every person. Your dietitian can help you calculate how many carbs you should have at each meal and for each snack. How does alcohol affect me? Alcohol can cause a decrease in blood glucose (hypoglycemia), especially if you use insulin or take certain diabetes medicines by mouth. Hypoglycemia can be a life-threatening condition. Symptoms of hypoglycemia, such as sleepiness, dizziness, and confusion, are similar to symptoms of having too much alcohol. ? Do not drink alcohol if: ? Your health care provider tells you not to drink. ? You are , may be , or are planning to become . ? If you drink alcohol: ? Limit how much you have to: ? 0?1 drink a day for women. ? 0?2 drinks a day for men. ? Know how much alcohol is in your drink. In the [place] one drink equals one 12 oz bottle of beer (355 mL), one 5 oz glass of wine (148 mL), or one 1? oz glass of hard liquor (44 mL). ? Keep yourself hydrated with water, diet soda, or unsweetened iced tea. Keep in mind that regular soda, juice, and other mixers may contain a lot of sugar and must be counted as carbs. What are tips for following this plan? Reading food labels ? Start by checking the serving size on the Nutrition Facts label of packaged foods and drinks. The number of calories and the amount of carbs, fats, and other nutrients listed on the label are based on one serving of the item. Many items contain more than one serving per package. ? Check the total grams (g) of carbs in one serving. ? Check the number of grams of saturated fats and trans fats in one serving. Choose foods that have a low amount or none of these fats. ? Check the number of milligrams (mg) of salt (sodium) in one serving. Most people should limit total sodium intake to less than 2,300 mg per day. ? Always check the nutrition information of foods labeled as low-fat or nonfat. These foods may be higher in added sugar or refined carbs and should be avoided. ? Talk to your dietitian to identify your daily goals for nutrients listed on the label. Shopping ? Avoid buying canned, pre-made, or processed foods. These foods tend to be high in fat, sodium, and added sugar. ? Shop around the outside edge of the grocery store. This is where you will most often find fresh fruits and vegetables, bulk grains, fresh meats, and fresh dairy products. Cooking ? Use low-heat cooking methods, such as baking, instead of high-heat cooking methods, such as deep frying. ? Cook using healthy oils, such as olive, canola, or sunflower oil. ? Avoid cooking with butter, cream, or high-fat meats. Meal planning ? Eat meals and snacks regularly, preferably at the same times every day. Avoid going long periods of time without eating. ? Eat foods that are high in fiber, such as fresh fruits, vegetables, beans, and whole grains. ? Eat 4?6 oz (112?168 g) of lean protein each day, such as lean meat, chicken, fish, eggs, or tofu. One ounce (oz) (28 g) of lean protein is equal to: ? 1 oz (28 g) of meat, chicken, or fish. ? 1 egg. ? ? cup (62 g) of tofu. ? Eat some foods each day that contain healthy fats, such as avocado, nuts, seeds, and fish. What foods should I eat? Fruits Berries. Apples. Oranges. Peaches. Apricots. Plums. Grapes. Mangoes. Papayas. Pomegranates. Kiwi. Cherries. Vegetables Leafy greens, including lettuce, spinach, kale, chard, pete greens, mustard greens, and cabbage. Beets. Cauliflower. Broccoli. Carrots. Green beans. Tomatoes. Peppers. Onions. Cucumbers. [place] sprouts. Grains Whole grains, such as whole-wheat or whole-grain bread, crackers, tortillas, cereal, and pasta. Unsweetened oatmeal. (more content not included)... Normal [facility] Insurance Correspondence Off iceon 12-13-2022 Insurance Correspondence Office [id number] 60#2.00TIFF Normal [facility] Consent for Treatmenton Consent for Treatment [id number] 572#1.00TIFF [facility] Consultation Noteon 12-07-19 Consultation Note Patient: CHRIS FREEMAN Age: 52 years Sex: Male : 1970 Associated Diagnoses: None Author: Carmen Andrew PA-C Subjective Chief complaint 12/06/2022 14:02 EDT left arm and occ. neck . Patient is a 52-year-old male. He presents today for follow-up after undergoing a cervical MRI scan. He continues to have neck pain with left radiating arm pain that goes down into his bicep and then intermittently causes numbness and tingling down into his fingers. He rates it a 10/10 when he is trying to use his arm. It is a 0/10 when he is not moving his arm but if he tries to do anything he has the arm pain that is very bothersome to him. He underwent a full course of physical therapy without improvement. He has trialed Medrol Dosepak, anti-inflammatory medications, aquatic therapy, massage therapy and nothing has given him any long-term relief of this. For his lower back pain he states that it still bugs him to but states that using tizanidine at nighttime gives him relief and he can get rest and using ibuprofen during the day makes it that he can do the things he needs to do. Now he just wants to get his arm feeling better so he can be more active. He shared with me that his mother on November 12. I gave him our condolences. Health Status Allergies: Allergic Reactions (Selected) No Known Allergies, Allergies (1) Active Reaction No Known Allergies None Documented Current medications: (Selected) Prescriptions Prescribed Glucometer: Glucometer, Print Requisition, Supply K-Effervescent 25 mEq oral tablet, effervescent: 25 mEq = 1 tab(s), Oral, BID, X 90 day(s), # 180 tab(s), Refills(s) 3, Pharmacy: [facility], 165, cm, 08/18/22 13:25:00 EDT, Height/Length Dosing, 67.5, kg, 08/18/22 13:25:00 EDT, Weight Dosing amitriptyline 50 mg Tab: 50 mg = 1 tab(s), Oral, Once a day (at bedtime), # 30 tab(s), Refills(s) 5, Pharmacy: [facility], 165, cm, 08/27/22 14:08:00 EDT, Height/Length Dosing, 67.5, kg, 08/18/22 13:25:00 EDT, Weight Dosing atorvastatin 20 mg Tab: 20 mg = 1 tab(s), Oral, Bedtime, # 30 tab(s), Refills(s) 5, Pharmacy: [place] [address], 165, cm, 07/27/22 12:50:00 EDT, Height/Length Dosing, 68.2, kg, 07/02/22 14:33:00 EDT, Weight Dosing cyclobenzaprine 10 mg Tab: 10 mg = 1 tab(s), Oral, TID, PRN Spasm, If makes drowsy, cut in half and take [address] mg[address] or work around heavy equipment nor ladders nor bathe if drowsy, # 30 tab(s), Refills(s) 0, Pharmacy: [facility], 165, cm, 10/01/22 14:13:0... ibuprofen 600 mg Tab: 600 mg = 1 tab(s), Oral, q6hr, # 40 tab(s), Refills(s) 0, Pharmacy: [place] [address], 165, cm, 10/01/22 14:13:00 EDT, Height/Length Dosing, 67.5, kg, 10/01/22 14:13:00 EDT, Weight Dosing lancets: lancets, See Instructions, 200 EA, 3, use to test BS BID dx E11.65, [facility], Supply, 165, cm, 08/18/22 13:25:00 EDT, Height/Length Dosing, 67.5, kg, 08/18/22 13:25:00 EDT, Weight Dosing metformin 1000 mg Tab: 1,000 mg = 1 tab(s), Oral, BID, # 180 tab(s), Refills(s) 3, Pharmacy: [place] [address], 165, cm, 09/14/22 13:03:00 EDT, Height/Length Dosing, 66.7, kg, 09/14/22 13:03:00 EDT, Weight Dosing test strips: test strips, See Instructions, 100 EA, 2, use to test BS BID dx E11.65, [facility], Supply, 165, cm, 10/01/22 14:13:00 EDT, Height/Length Dosing, 67.5, kg, 10/01/22 14:13:00 EDT, Weight Dosing Documented Medications Documented Excedrin Migraine: 2 tab(s), Oral, q8hr Headache, Refill(s) 0 multivitamin: See Instructions, Refill(s) 0, mens one a day Problem list: All Problems Migraines / SNOMED CT 20922476 / Confirmed DM type 2 with diabetic mixed hyperlipidemia / SNOMED CT 0337776262 / Confirmed Non-smoker / SNOMED CT 59160309 / Confirmed Type 2 diabetes mellitus with diabetic neuropathy, without long-term current use of insulin / SNOMED CT 741875642 / Confirmed Lumbar radiculopathy / SNOMED CT 041121579 / Confirmed Rheumatoid arthritis / SNOMED CT 699127182 / Confirmed Mixed hyperlipidemia / SNOMED CT 483922930 / Confirmed Diabetes mellitus / SNOMED CT 055344803 / Confirmed Bilateral carpal tunnel syndrome / SNOMED CT 863940697291764 / Confirmed BPH with urinary obstruction / SNOMED CT 6765896997 / Confirmed Routine check-up / SNOMED CT 323506401 / Confirmed BMI 24.0-24.9, adult / SNOMED CT 5051023864 / Confirmed Canceled: Kidney stone / SNOMED CT [id number] Canceled: Frequency of urination / SNOMED CT 751070962 Canceled: Urgency of urination / SNOMED CT 448031064 Canceled: Nocturia / SNOMED CT 768938059 Canceled: Kidney stone / SNOMED CT 824083065 Canceled: Asymptomatic microscopic hematuria / SNOMED CT 0493731059 Canceled: Prostate cancer screening / SNOMED CT 443798164 Canceled: Diabetes mellitus with hyperglycemia / SNOMED CT 875344974 Canceled: Combined hyperlipidemia / SNOMED CT 555211074 Canceled: BMI 26.0-26.9,adult / SNOMED CT 27 (more content not included)... Normal [facility] Comment on above: Result Comment: Elec tronically Signed By: Carmen Andrew PA-C\.br\Date and Time Signed: 12/06/22 14:24 EDT\.br\Electronically Co-Signed By: Geremias Jack MD\.br\Date and Time Co-Signed: 12/14/22 13:14 EDT Office/Clinic Note-Physician on 12-06-2022 Office/Clinic Note-Physician [id number]#1.00TIFF Normal [facility] Patient Correspondenceon Patient Correspondence [id number]#1.00TIFF Normal [facility] Patient Correspondence [id number]#1.00TIFF Normal [facility] Patient History Officeon Patient History Office [id number] 0452#1.00TIFF Normal [facility] MRI Spine Cervical w/o Contr candice 11-04-2022 MRI Spine Cervical w/o Contrast Exam Date/Time: 11/04/2022 06:45 EDT Reason for Exam: M54.12 M54.2 Report IMPRESSION: THERE IS MILD SPONDYLOSIS OF THE CERVICAL SPINE EXAM: MRI Spine Cervical w/o Contrast DATE: 11/03/2022 7:02 PM CLINICAL HISTORY: M54.12 M54.2. M54.12 M54.2 TECHNIQUE: Multiplanar multisequence images of cervical spine were obtained without IV contrast. COMPARISON: None available. FINDINGS: The spine is in anatomic alignment. There is no acute fracture. There is preservation of the vertebral body heights. There is disc desiccation and intervertebral disc space narrowing at every level. The bone marrow signal is within normal limits. The cervical cord is normal in course and caliber without signal abnormality. The visualized portions of the posterior fossa are within normal limits There is no prevertebral soft tissue swelling. C2-C3: There is no disc herniation, central canal narrowing or neural foraminal narrowing. C3-C4: There is a 2 mm disc bulge flattening the thecal sac without abutting the cord. There is no narrowing of central canal. There is mild right facet and uncovertebral joint hypertrophy with mild right neural foraminal narrowing. The left neural foramen is unremarkable. C4-C5: There is a 2 mm central disc bulge indenting the thecal sac but not abutting the cord, there is no central canal narrowing or neural foraminal narrowing. There is mild right facet arthrosis. C5-C6: There is a 3 mm disc bulge flattening the thecal sac without central canal narrowing. There is no neural foraminal narrowing. C6-C7: There is no disc herniation, central canal narrowing or neural foraminal Report narrowing. C7-T1: There is no disc herniation, central canal narrowing or neural foraminal narrowing. Ordering Provider: Carmen Andrew FINAL REPORT Dictated: 11/04/2022 1:14 pm Leonardo Palacio MD, V. Signed (Electronic Signature): 11/04/2022 1:14 pm Signed by: Leonardo Palacio MD, V. Transcribed by: SUSIE Technologist: SEBAS Technical Comments None [facility] Consent for Treatmenton 09-0 Consent for Treatment [id number] E9#1.00CD:127 [facility] RAD - MRI Screening Formon 0 11-03-2022 RAD - MRI Screening Form [id number] 95#1.00CD:127 [facility] Insurance Correspondence Off iceon 10-28-2022 Insurance Correspondence Office [id number] 185#2.00CD:127 [facility] Physician Orderon 10-28-2022 Physician Order [id number]#1.00CD:127 [facility] Physician Order [id number]#1.00CD:127 [facility] Physician Referralon 023 Physician Referral [id number] C4#1.00CD:127 Normal [facility] PT - Assessmentson 3 PT - Assessments [id number] 520#1.00CD:127 [facility] Physician Referralon 023 Physician Referral [id number] 138#1.00CD:127 [facility] Consent for Treatmenton Consent for Treatment [id number] 326#1.00CD:127 [facility] Consultation Noteon 10-02-19 Consultation Note Patient: CHRIS FREEMAN Age: 52 years Sex: Male : 1970 Associated Diagnoses: None Author: Carmen Andrew PA-C Subjective Chief complaint 10/01/2022 14:02 EDT Low back pain, radiates to anterior left groin, left shoulder pain (Modified) . Patient is a 52-year-old male. He presents today for follow-up after undergoing a cervical and left shoulder x-ray as well as a full course of physical therapy. He is still undergoing the physical therapy but he states that has not made any improvement. He continues have neck pain with left shoulder pain. He rates it a 10/10. He states that he also continues to have spasms in his back. He underwent previous bilateral L4-5 and L5-S1 facet RFA. This was done on 07/27/2022 and at this time he states has given him 50% relief he is not where he wants to be in regards to his pain. He states that he needs to have something done. Previously he has used Medrol Dosepaks, anti-inflammatories , multiple rounds of physical therapy, aquatic therapy, and massage therapy. None of these have given him the relief he is looking for. He was told to switch from tizanidine to baclofen at his last appointment. He has been using the baclofen half of a tablet throughout the day?twice a day without improvement but then has been using the tizanidine at night. I told him that he should pick 1 muscle relaxer and stick to it. We discussed possibly increasing the baclofen to see if it gives him better control of the pain. He states that anytime he tries to reach out and use his arm he has terrible pain that goes down into his bicep. It then intermittently goes down to his fingers causing a numbness and tingling type discomfort. Health Status Allergies: Allergic Reactions (Selected) No Known Allergies, Allergies (1) Active Reaction No Known Allergies None Documented Current medications: (Selected) Prescriptions Prescribed Glucometer: Glucometer, Print Requisition, Supply K-Effervescent 25 mEq oral tablet, effervescent: 25 mEq = 1 tab(s), Oral, BID, X 90 day(s), # 180 tab(s), Refills(s) 3, Pharmacy: [facility], 165, cm, 08/18/22 13:25:00 EDT, Height/Length Dosing, 67.5, kg, 08/18/22 13:25:00 EDT, Weight Dosing amitriptyline 50 mg Tab: 50 mg = 1 tab(s), Oral, Once a day (at bedtime), # 30 tab(s), Refills(s) 5, Pharmacy: [facility], 165, cm, 08/27/22 14:08:00 EDT, Height/Length Dosing, 67.5, kg, 08/18/22 13:25:00 EDT, Weight Dosing atorvastatin 20 mg Tab: 20 mg = 1 tab(s), Oral, Bedtime, # 30 tab(s), Refills(s) 5, Pharmacy: [facility], 165, cm, 07/27/22 12:50:00 EDT, Height/Length Dosing, 68.2, kg, 07/02/22 14:33:00 EDT, Weight Dosing baclofen 10 mg Tab: 5 mg = 0.5 tab(s), Oral, TID, X 30 day(s), # 45 tab(s), Refills(s) 0, Pharmacy: [place] [address], 165, cm, 09/14/22 13:03:00 EDT, Height/Length Dosing, 66.7, kg, 09/14/22 13:03:00 EDT, Weight Dosing cyclobenzaprine 10 mg Tab: 10 mg = 1 tab(s), Oral, TID, PRN Spasm, If makes drowsy, cut in half and take 5 mg[address] or work around heavy equipment nor ladders nor bathe if drowsy, # 30 tab(s), Refills(s) 0, Pharmacy: [facility], 165, cm, 07/02/22 14:33:0... ibuprofen 600 mg Tab: 600 mg = 1 tab(s), Oral, q6hr, # 40 tab(s), Refills(s) 0, Pharmacy: [facility] 1986, 165, cm, 06/15/22 11:59:00 EDT, Height/Length Dosing, 69, kg, 03/22/22 14:06:00 EST, Weight Dosing lancets: lancets, See Instructions, 200 EA, 3, use to test BS BID dx E11.65, [place] [address], Supply, 165, cm, 08/18/22 13:25:00 EDT, Height/Length Dosing, 67.5, kg, 08/18/22 13:25:00 EDT, Weight Dosing metformin 1000 mg Tab: 1,000 mg = 1 tab(s), Oral, BID, # 180 tab(s), Refills(s) 3, Pharmacy: [facility] 1986, 165, cm, 09/14/22 13:03:00 EDT, Height/Length Dosing, 66.7, kg, 09/14/22 13:03:00 EDT, Weight Dosing test strips: test strips, See Instructions, 100 EA, 2, use to test BS BID dx E11.65, [facility] 1986, Supply, 165, cm, 07/02/22 14:33:00 EDT, Height/Length Dosing, 68.2, kg, 07/02/22 14:33:00 EDT, Weight Dosing Documented Medications Documented Excedrin Migraine: 2 tab(s), Oral, q8hr Headache, Refill(s) 0 multivitamin: See Instructions, Refill(s) 0, mens one a day Problem list: All Problems Migraines / SNOMED CT 09822712 / Confirmed DM type 2 with diabetic mixed hyperlipidemia / SNOMED CT 7737138537 / Confirmed Non-smoker / SNOMED CT 02889775 / Confirmed Type 2 diabetes mellitus with diabetic neuropathy, without long-term current use of insulin / SNOMED CT 741690606 / Confirmed Lumbar radiculopathy / SNOMED CT 055742107 / Confirmed Rheumatoid arthritis / SNOMED CT 092168774 / Confirmed Mixed hyperlipidemia / SNOMED CT 452014652 / Confirmed Diabetes mellitus / SNOMED CT 873427750 / Confirmed Bilateral carpal tunnel syndrome / SNOMED CT 066084539588859 / Confirmed BPH with urinary obstruction / SNOMED CT 6622887262 / Confirmed Routine check-up / SNOMED CT 794557391 / Confirmed BMI 24.0-2 (more content not included)... Normal [facility] Comment on above: Result Comment: Elec tronically Signed By: Carmen Andrew PA-C\.br\Date and Time Signed: 10/01/22 14:28 EDT\.br\Electronically Co-Signed By: Guero HINES, Geremias Mosquera\.br\Date and Time Co-Signed: 10/05/22 14:20 EDT Office/Clinic Note-Physician on 10-01-2022 Office/Clinic Note-Physician [id number] 47#1.00CD:127 [facility] Patient Correspondenceon Patient Correspondence [id number] 12#1.00CD:127 [facility] Patient Correspondence [id number] 40#1.00CD:127 [facility] Patient History Officeon Patient History Office [id number] 92#1.00CD:127 [facility] PT - Home Exercise Programon 09-23-2022 PT - Home Exercise Program [id number] 240#1.00CD:127 [facility] Auto Diffon 09-15-2022 Basophils/100 WBC (Bld) 2.6 % High 0.0-2.0 [facility] Comment on above: Order Comment: Order Added by Discern Expert. Performed By: #### 2 178884, 4991320, 1785474, 9117741, 4808015, 03168470, 3074598 #### [facility] [address] [place] [address] Basophils/Leukocytes Auto (Bld) [Pure # fraction] 0.2 E9/L Normal 0.0-0.2 [facility] Comment on above: Order Comment: Order Added by Discern Expert. Performed By: #### 2 746140, 3804112, 8421224, 3701072, 4527331, 04392809, 2858942 #### [facility] [address] [place] [address] Eosinophils/100 WBC (Bld) 2.1 % Normal 0.0-8.0 [facility] Comment on above: Order Comment: Order Added by Discern Expert. Performed By: #### 2 977186, 5418679, 6799947, 7133569, 5887344, 06107092, 1305850 #### [facility] [address] [place] [address] Eosinophils/Leukocyte s Auto (Bld) [Pure # fraction] 0.1 E9/L Normal 0.0-0.5 [facility] Comment on above: Order Comment: Order Added by Discern Expert. Performed By: #### 2 814081, 8870667, 3421623, 5216188, 6972665, 20377962, 9350218 #### [facility] [address] [place] [address] Lymphocytes/100 WBC (Bld) 35.1 % Normal 14.0-50.0 [facility] Comment on above: Order Comment: Order Added by Discern Expert. Performed By: #### 2 503000, 6078177, 4836158, 9543584, 6917347, 44805690, 4602213 #### [facility] [address] [place] [address] Lymphocytes/Leukocyte s Auto (Bld) [Pure # fraction] 2.4 E9/L Normal 1.0-4.0 [facility] Comment on above: Order Comment: Order Added by Discern Expert. Performed By: #### 2 218331, 8585531, 2825114, 5460596, 2274699, 00220752, 6473282 #### [facility] [address] [place] [address] Monocytes/100 WBC (Bld) 10.2 % Normal 4.0-14.0 [facility] Comment on above: Order Comment: Order Added by Discern Expert. Performed By: #### 2 166770, 0419567, 4986211, 7287198, 5663775, 43709275, 1889584 #### [facility] [address] [place] [address] Monocytes/Leukocytes Auto (Bld) [Pure # fraction] 0.7 E9/L Normal 0.2-1.0 [facility] Comment on above: Order Comment: Order Added by Discern Expert. Performed By: #### 2 530041, 5320708, 0031152, 3780554, 6403338, 56224653, 2420417 #### [facility] [address] [place] [address] Neutrophils/100 WBC (Bld) 50.0 % Normal 36.0-75.0 [facility] Comment on above: Order Comment: Order Added by Discern Expert. Performed By: #### 2 677123, 1688718, 6197892, 2930753, 7288546, 04937522, 1375332 #### [facility] [address] [place] [address] Neutrophils/Leukocyte s Auto (Bld) [Pure # fraction] 3.4 E9/L Normal 2.0-7.5 [facility] Comment on above: Order Comment: Order Added by Discern Expert. Performed By: #### 2 922363, 5794262, 2772506, 8596728, 2819149, 65254658, 9726448 #### [facility] [address] [place] [address] CBC w/ Auto Diffon 3 Erythrocyte distribution width (RBC) [Ratio] 12.9 % Normal 10.9-14.2 [facility] Comment on above: Performed By: #### 2 269285, 4660821, 3508878, 5577561, 3178313, 42563329, 4224279 #### [facility] [address] [place] [address] Hematocrit (Bld) [Volume fraction] 40.3 % Normal 37.7-49.0 [facility] Comment on above: Performed By: #### 2 849995, 1327978, 7026078, 6676698, 0129049, 50915254, 5241046 #### [facility] [address] [place] [address] Hemoglobin (Bld) [Mass/Vol] 14.0 g/dL Normal 13.5-17.5 [facility] Comment on above: Performed By: #### 2 117631, 3724285, 9587707, 8714863, 8807068, 82934326, 8261208 #### [facility] [address] [place] [address] 14780 MCH (RBC) [Entitic mass] 30.6 pg Normal 27.0-34.0 [facility] Comment on above: Performed By: #### 2 406574, 5751083, 6033294, 8093186, 1730234, 07761669, 9912375 #### [facility] [address] [place] [address] MCHC (RBC) [Mass/Vol] 34.6 g/dL Normal 31.4-36.0 [facility] Comment on above: Performed By: #### 2 076522, 3599346, 8519022, 5431882, 8877051, 25054646, 9434253 #### [facility] [address] [place] [address] MCV (RBC) [Entitic vol] 88.4 fL Normal 80.0-100.0 [facility] Comment on above: Performed By: #### 2 800859, 1519696, 7474973, 4002812, 1326712, 24271651, 4405771 #### [facility] [address] [place] [address] Platelet mean volume (Bld) [Entitic vol] 8.4 fL Normal 6.4-10.8 [facility] Comment on above: Performed By: #### 2 434751, 0899799, 5462384, 4111726, 0569933, 60345144, 5269467 #### [facility] [address] [place] [address] Platelets (Bld) [#/Vol] 201.0 E9/L Normal 150.0-500.0 [facility] Comment on above: Performed By: #### 2 044639, 3518360, 1656022, 6192549, 5365785, 69892208, 1841790 #### [facility] [address] [place] [address] RBC (Bld) [#/Vol] 4.6 E12/L Normal 4.3-5.9 [facility] Comment on above: Performed By: #### 2 877391, 7875862, 0982433, 7044993, 2218888, 83281053, 4495468 #### [facility] [address] [place] [address] WBC corrected for nucl RBC Auto (Bld) [#/Vol] 6.9 E9/L Normal 4.0-11.0 [facility] Comment on above: Performed By: #### 2 202264, 3401940, 0250947, 3438452, 2797862, 94089795, 9688022 #### [facility] [address] [place] [address] CHEMISTRYOrdered By: Crescencio Rodriguez on 09-15-2022 Albumin DL <= 20 mg/L (U) [Mass/Vol] 5.3 microgram/mL Normal 0.0 - 19.0 mcg/mL [facility] Albumin Elph (U) [Mass fraction] 6.4 mg/dL Invalid Interpretation Code [facility] Creatinine (U) [Mass/Vol] 126.0 mg/dL Invalid Interpretation Code [facility] U Prot/Creat Ratio 50.80 mg/gm Cr Normal 0.00 - 200.00 mg/gm Cr [facility] CHEMISTRYOrdered By: SYSTEM SYSTEM on 09-15-2022 Albumin [Mass/Vol] 4.3 g/dL Normal 3.3 - 5.0 gm/dL F [facility] Albumin/Globulin [Mass ratio] 1.3 {ratio} Normal 1.1 - 2.2 [facility] ALP [Catalytic activity/Vol] 62 [iU]/d Normal 21 - 98 Int._Unit/L [facility] ALT No additional P-5'-P [Catalytic activity/Vol] 23 [iU]/d Normal 6 - 46 Int._Unit/L [facility] Anion gap [Moles/Vol] 9 mmol/L Normal 6 - 16 mEq/L [facility] AST [Catalytic activity/Vol] 20 [iU]/d Normal 5 - 43 Int._Unit/L [facility] Bilirubin [Mass/Vol] 1.0 mg/dL Normal 0.0 - 1.1 mg/dL [facility] Calcium [Mass/Vol] 9.4 mg/dL Normal 8.9 - 11.1 mg/dL [facility] Chloride [Moles/Vol] 106 mmol/L Normal 101 - 111 mmol/ L [facility] Cholesterol [Mass/Vol] 105 mg/dL Low 120 - 200 mg/dL [facility] Cholesterol in HDL [Mass/Vol] 37 mg/dL Invalid Interpretation Code [facility] Cholesterol in LDL [Mass/Vol] 34 mg/dL Normal <=129mg/dL [facility] Cholesterol in VLDL [Mass/Vol] 14 mg/dL Normal 7 - 40 mg/dL [facility] CO2 [Moles/Vol] 29 mmol/L Normal 21 - 31 mmol/L [facility] Creatinine [Mass/Vol] 0.9 mg/dL Normal 0.5 - 1.3 mg/d L [facility] GFR/1.73 sq M.predicted among non-blacks MDRD (S/P/Bld) [Vol rate/Area] 102 mL/min/1.73 m2 Normal >=59mL/min/1.73 m2 [facility] Chem S Globulin (S) [Mass/Vol] 3.2 g/dL Normal 1.4 - 4.0 gm/dL [facility] Glucose [Mass/Vol] 119 mg/dL Normal 55 - 199 mg/dL [facility] Potassium [Moles/Vol] 4.1 mmol/L Normal 3.5 - 5.3 mmol /L [facility] Protein [Mass/Vol] 7.5 g/dL Normal 6.0 - 7.8 gm/dL [facility] [place] [facility] Sodium [Moles/Vol] 140 mmol/L Normal 135 - 145 mmol/L [facility] Triglyceride [Mass/Vol] 71 mg/dL Normal <=149mg/dL [facility] TSH Qn 1.00 m[IU]/L Normal 0.34 - 5.60 mcIU/mL [facility] Urea nitrogen [Mass/Vol] 19 mg/dL Normal 5 - 21 mg/dL [facility] Urea nitrogen/Creatinine [Mass ratio] 21 mg/mg High 10 - 20 [facility] [place] [facility] CHEMISTRYOrdered By: Elsy Ruffin on 09-15-2022 HbA1c (Bld) [Mass fraction] 6.4 % High <=5.9% [facility] [place] ChemAutoSS CMPon 09-15-2022 Albumin [Mass/Vol] 4.3 g/dL Normal 3.3-5.0 [facility] Comment on above: Performed By: #### 2 230804, 2666149, 6764024, 5564694, 1976426, 32191017, 1107190 #### [facility] [address] [place] [address] Albumin/Globulin (S) [Mass conc ratio] 1.3 Normal 1.1-2.2 [facility] Comment on above: Performed By: #### 2 614102, 9182827, 8619870, 1178948, 0161090, 61890589, 6475602 #### [facility] [address] [place] [address] ALP [Catalytic activity/Vol] 62 Int._Unit/L Normal 21-98 [facility] Comment on above: Performed By: #### 2 242301, 6884818, 2138216, 9847097, 6570915, 45574062, 7981180 #### [facility] [address] [place] [address] ALT No additional P-5'-P [Catalytic activity/Vol] 23 Int._Unit/L Normal 6-46 [facility] Comment on above: Performed By: #### 2 994999, 5765882, 1912323, 9842012, 3268785, 54678366, 1498663 #### [facility] [address] [place] [address] Anion gap [Moles/Vol] 9 mmol/L Normal 6-16 [facility] Comment on above: Performed By: #### 2 879327, 8684625, 6618943, 6944368, 7570638, 56497742, 8813585 #### [facility] [address] [place] [address] AST [Catalytic activity/Vol] 20 Int._Unit/L Normal 5-43 [facility] Comment on above: Performed By: #### 2 163003, 9845931, 0001767, 4428299, 0421157, 94208824, 2728021 #### [facility] [address] [place] [address] Bilirubin [Mass/Vol] 1.0 mg/dL Normal 0.0-1.1 [facility] Comment on above: Performed By: #### 2 092701, 2550178, 7234674, 3016474, 4898804, 64643056, 3323820 #### [facility] [address] [place] [address] Calcium [Mass/Vol] 9.4 mg/dL Normal 8.9-11.1 [facility] Comment on above: Performed By: #### 2 525920, 4654588, 3683254, 8743599, 2972891, 20985787, 1732307 #### [facility] [address] [place] [address] Chloride [Moles/Vol] 106 mmol/L Normal 101-111 [facility] Comment on above: Performed By: #### 2 472226, 4534426, 1656641, 5365176, 1769866, 96018111, 3975363 #### [facility] [address] [place] [address] CO2 [Moles/Vol] 29 mmol/L Normal 21-31 [facility] Comment on above: Performed By: #### 2 122003, 7423609, 2889015, 1133567, 9759789, 18486079, 5461675 #### [facility] [address] [place] [address] Creatinine [Mass/Vol] 0.9 mg/dL Normal 0.5-1.3 [facility] Comment on above: Performed By: #### 2 504826, 2654484, 2825336, 6067613, 6058096, 24071435, 8614534 #### [facility] [address] [place] [address] Globulin (S) [Mass/Vol] 3.2 g/dL Normal 1.4-4.0 [facility] Comment on above: Performed By: #### 2 843688, 9733440, 6235624, 5734496, 6620606, 09366783, 8878651 #### [facility] [address] [place] [address] Glucose [Mass/Vol] 119 mg/dL Normal 55-199 [facility] Comment on above: Result Comment: If t his glucose result represents a fasting glucose, interpretation should refer to the following reference range: 55-99 mg/dL Performed By: #### 2 878944, 9940466, 9453682, 1825749, 8292945, 70006321, 6730465 #### [facility] [address] [place] [address] Potassium [Moles/Vol] 4.1 mmol/L Normal 3.5-5.3 [facility] Comment on above: Performed By: #### 2 991716, 0569327, 9895621, 2739545, 8512222, 93638802, 0665868 #### [facility] [address] [place] [address] Protein [Mass/Vol] 7.5 g/dL Normal 6.0-7.8 [facility] Comment on above: Performed By: #### 2 279249, 1371258, 1099653, 4047476, 4463670, 24430746, 9520281 #### [facility] [address] [place] [address] Sodium [Moles/Vol] 140 mmol/L Normal 135-145 [facility] Comment on above: Performed By: #### 2 155489, 2030924, 5417988, 5719764, 1760047, 44853512, 4746283 #### [facility] [address] [place] [address] Urea nitrogen [Mass/Vol] 19 mg/dL Normal 5-21 [facility] Comment on above: Performed By: #### 2 036764, 1323714, 7542098, 2291410, 6604339, 09422960, 1655527 #### [facility] [address] [place] [address] Urea nitrogen/Creatinine [Mass ratio] 21 No Units High 10-20 [facility] Comment on above: Performed By: #### 2 851447, 2760764, 1709280, 5720410, 7419900, 22363278, 6303299 #### [facility] [address] [place] [address] Consent for Treatmenton 08-28 Consent for Treatment [id number]#1.00CD:127 Normal [facility] HEMATOLOGYOrdered By: SYSTEM SYSTEM on 09-15-2022 Basophils/100 WBC (Bld) 2.6 % High 0.0 - 2.0 % [facility] Basophils/Leukocytes Auto (Bld) [Pure # fraction] 0.2 E9/L Normal 0.0 - 0.2 E9/L [facility] Eosinophils/100 WBC (Bld) 2.1 % Normal 0.0 - 8.0 % [facility] Eosinophils/Leukocyte s Auto (Bld) [Pure # fraction] 0.1 E9/L Normal 0.0 - 0.5 E9/L [facility] Lymphocytes/100 WBC (Bld) 35.1 % Normal 14.0 - 50.0 % [facility] Lymphocytes/Leukocyte s Auto (Bld) [Pure # fraction] 2.4 E9/L Normal 1.0 - 4.0 E9/L [facility] Monocytes/100 WBC (Bld) 10.2 % Normal 4.0 - 14.0 % [facility] Monocytes/Leukocytes Auto (Bld) [Pure # fraction] 0.7 E9/L Normal 0.2 - 1.0 E9/L [facility] Neutrophils/100 WBC (Bld) 50.0 % Normal 36.0 - 75.0 % [facility] Neutrophils/Leukocyte s Auto (Bld) [Pure # fraction] 3.4 E9/L Normal 2.0 - 7.5 E9/L [facility] HEMATOLOGYOrdered By: Yobany Emmanuel on 09-15-2022 Erythrocyte distribution width (RBC) [Ratio] 12.9 % Normal 10.9 - 14.2 % [facility] Hematocrit (Bld) [Volume fraction] 40.3 % Normal 37.7 - 49.0 % [facility] Hemoglobin (Bld) [Mass/Vol] 14.0 g/dL Normal 13.5 - 17.5 gm/dL [facility] MCH (RBC) [Entitic mass] 30.6 pg Normal 27.0 - 34.0 pg [facility] MCHC (RBC) [Mass/Vol] 34.6 g/dL Normal 31.4 - 36.0 gm /dL [facility] MCV (RBC) [Entitic vol] 88.4 fL Normal 80.0 - 100.0 fL [facility] Platelet mean volume (Bld) [Entitic vol] 8.4 fL Normal 6.4 - 10.8 fL [facility] Platelets (Bld) [#/Vol] 201.0 E9/L Normal 150.0 - 500.0 E9/L [facility] RBC (Bld) [#/Vol] 4.6 E12/L Normal 4.3 - 5.9 E12/L [facility] WBC corrected for nucl RBC Auto (Bld) [#/Vol] 6.9 E9/L Normal 4.0 - 11.0 E9/L [facility] [place] HemeAutoSS [id number] 09-15-2022 HbA1c (Bld) [Mass fraction] 6.4 % High <=5.9 [facility] Comment on above: Performed By: #### 2 661267, 7236967, 9949316, 2628578, 6838302, 58901011, 9113946 #### [facility] [address] [place] [address] Lipid Panelon 09-15-2022 Cholesterol [Mass/Vol] 105 mg/dL Low 120-200 [facility] Comment on above: Performed By: #### 2 813864, 6133542, 3042790, 9298832, 4713002, 26506733, 1387375 #### [facility] [address] [place] [address] Cholesterol in HDL [Mass/Vol] 37 mg/dL Invalid Interpretation Code [facility] Comment on above: Result Comment: HDL > or equal to 60 mg/dL: Low cardiovascular risk HDL < 40 mg/dL : High cardiovascular risk Performed By: #### 2 305655, 6136212, 7277295, 1652375, 9316804, 27930654, 6049303 #### [facility] [address] [place] [address] Cholesterol in LDL [Mass/Vol] 34 mg/dL Normal <=129 [facility] Comment on above: Performed By: #### 2 335129, 4986657, 7277516, 2451344, 4457034, 78129627, 8954832 #### [facility] [address] [place] [address] Cholesterol in VLDL [Mass/Vol] 14 mg/dL Normal 7-40 [facility] Comment on above: Performed By: #### 2 085001, 2817982, 5390704, 4944616, 3417463, 91269656, 8123311 #### [facility] [address] [place] [address] Triglyceride [Mass/Vol] 71 mg/dL Normal <=149 [facility] Comment on above: Performed By: #### 2 574962, 2637421, 9520025, 3822625, 8304873, 09014481, 2082599 #### [facility] [address] [place] [address] TSH With T4fr Reflexon 09-15 TSH Qn 1.00 m[IU]/L Normal 0.34-5.60 [facility] Comment on above: Performed By: #### 2 284125, 7630218, 0487392, 1354578, 4738016, 97023225, 4622128 #### [facility] [address] [place] [address] U Microalbon 09-15-2022 Albumin DL <= 20 mg/L (U) [Mass/Vol] 5.3 microgram/mL Normal 0.0-19.0 [facility] Comment on above: Performed By: #### 1 [id number], 65046327 ####[facility] [address] [place] [address] U Protein/Creat Ratioon 08-28 Albumin Elph (U) [Mass fraction] 6.4 mg/dL Invalid Interpretation Code [facility] Comment on above: Result Comment: The reference range and other method performance specifications have not been established for this test; results should be integrated into the clinical context for interpretation. Performed By: #### 1 [id number], 89453554 ####[facility] [address] [place] [address] Creatinine (U) [Mass/Vol] 126.0 mg/dL Invalid Interpretation Code [facility] Comment on above: Result Comment: The reference range and other method performance specifications have not been established for this test; results should be integrated into the clinical context for interpretation. Performed By: #### 1 [id number], 92445570 ####[facility] [address] [place] [address] U Prot/Creat Ratio 50.80 mg/gm Cr Normal .00-200.00 [facility] Comment on above: Performed By: #### 1 [id number], 15119279 ####[facility] [address] [place] [address] eGFRon 09-15-2022 GFR/1.73 sq M.predicted among non-blacks MDRD (S/P/Bld) [Vol rate/Area] 102 mL/min/1.73 m2 Normal >=59 [facility] Comment on above: Order Comment: Order added by Discern Expert. Result Comment: Chief Load Dispatcher willem kidney disease could be indicated at eGFR's of less than 60 mL/min/1.73m2. Kidney failure is indicated at less than 15 mL/min/1.73m2. Performed By: #### 2 505004, 2027962, 1230948, 6192179, 0000232, 34641174, 1831408 #### [facility] [address] [place] [address] Ambulatory Visit Summaryon 0 09-14-2022 Ambulatory Visit Summary CHRIS FREEMAN :1970 Visit Date:09/14/2022 Ambulatory Visit Instructions Your Diagnosis Diabetes mellitus DM type 2 with diabetic mixed hyperlipidemia Type 2 diabetes mellitus with diabetic neuropathy, without long-term current use of insulin Mixed hyperlipidemia Rheumatoid arthritis Routine check-up BMI 24.0-24.9, adult Your Care Team Attending Physician - Tawanna Rapp Primary Care Physician - Sheree REGALADO, Tawanna Reilly This Is Your Medications List APAP/ASA/caffeine (Excedrin Migraine) Misc Prescription (Glucometer) Misc Prescription (lancets) Misc Prescription (test strips) amitriptyline (amitriptyline 50 mg Tab) atorvastatin (atorvastatin 20 mg Tab) baclofen (baclofen 10 mg Tab) cyclobenzaprine (cyclobenzaprine 10 mg Tab) ibuprofen (ibuprofen 600 mg Tab) metformin (metformin 500 mg ER Tab) multivitamin potassium bicarbonate (K-Effervescent 25 mEq oral tablet, effervescent) Procedures Performed Radiofrequency ablation of nerve root of lumbar spine using fluoroscopic guidance (08/10/2022), Injection of facet joint using fluoroscopic guidance (06/15/2022), Injection of facet joint using fluoroscopic guidance (04/20/2022), Cystoscopy (10/02/2020), ESWL - Extracorporeal shockwave lithotripsy for renal calculus (10/02/2020), Cystoscopy (09/23/2020), Cystoscopy (12/28/2017), Arthroscopy of shoulder. Discharge Vitals Temperature (Oral) 36.3 ?C Heart Rate (Peripheral) 83 Blood Pressure 132/68 Height 165 cm Height 65 in Weight 66.7 kg Weight 146.74 lb BMI 24.5 What to do next Scheduled Follow-Up Appointments 2022 2:00 PM EDT With: Where: [facility] Tuesday 12:15 PM EDT With: Where: [facility] 2022 1:30 PM EDT With: Where: [facility] Tuesday 1:30 PM EDT With: Where: [facility] 2022 2:15 PM EDT With: Where: [facility] Tuesday 2:15 PM EDT With: Carmen Andrew PA-C Where: [facility] Tuesday 1:00 PM EDT With: Where: [facility] Tuesday 1:40 PM EST With: Tawanna Rapp Where: [facility] Invalid Interpretation Code [address] [place] [address]- \.br\ You Need to Complete the Following\.br\ CBC w/ Auto Diff, Blood, Routine collect, 09/14/22, Order for future visit, Lab Collect, Routine check-up, Print Label By Order Location\.br\ Comprehensive Metabolic Panel, Blood, Routine collect, 09/14/22, Order for future visit, Lab Collect, DM type 2 with diabetic mixed hyperlipidemia [facility] Medicine Office/Clini c Noteon 09-14-2022 Family Medicine Office/Clinic Note Chief Complaint pt here for 6 month f/u. HPI Staff colonoscopy/cologua rd (45-75yo): UTD, Cologuard 12/17/21 PSA (45-70yo): last one 08/10/21 0.3 History of Present Illness Pt is 52 yo male presenting today for f/u Overall, pt reports feeling okay but deals with chronic pain related to his shoulders and rheumatoid arthritis. Pt is seen by PM, PT and Ortho for these concerns. Otherwise pt denies any concerns today. Medical history includes: Type 2 Diabetes follow up: Pt denies polydipsia, polyuria, polyphagia, vision changes, sexual dysfunction, n/v/d, bloating, lightheadedness, numbness/tingling (paresthesias), ulcerations/sore/no n-healing wounds, episodes of hypoglycemia at this time. Most Recent Diabetic Screenings: HgbA1c: 5.8% on 06/01/2021 UMACR: due now U protein/Cr: due now Foot Exam: due now Last Diabetic Eye Exam: pt due with ophthalmology Current regimen: Medications: Metformin 1000mg once daily Pt denies any medication side effects Pt uses simple glucose food followed by high protein food to correct for any hypoglycemia episodes - following 15:15 rule Diet/Exercise: Is having trouble sticking to diet and exercise as well as controlling weight. pumps/CGM: no Statin: yes Pt has high cholesterol. Pt is monitoring diet and exercise to help. Pt is on atorvastatin 20 mg once daily at this time. Pt denies any muscle aches/cramps or dark urine. RA -taking amitriptyline 50 mg once daily. Pt has pain in left shoulder and is going to PT for this and is seen by PM Migraines -taking Excedrin as needed Specialists: PM for back pain/muscle spasms PT for left shoulder pain Ortho - Dr. Clark Urology - Dr. Gaston Review of Systems PHQ Score Initial Depression Screen Score: 0 Physical Exam Vitals & Measurements T: 36.3 ?C(Oral) HR: 83(Peripheral) BP: 132/68 SpO2: 99% HT: 65 in HT: 165 cm WT: 66.7 kg WT: 146.74 lb BMI: 24.5 General: Well developed, well nourished, in no acute distress Eyes: Bilateral PERRLA, conjunctivae and sclerae wnl, EOMs intact, lids without stye, chalazion, ect/extropion, ptosis, xanthelasma, blepharitis. No discharge to inner canthi.Negative for corneal abrasion or foreign bodies. Ears: TM clear, grossly normal hearing Nose: No deformity, discharge, inflammation, or lesions. No congestion, no erythema; pink & moist turbinates; clear rhinorrhea. Mouth: mucous membranes pink, moist and intact. Merom posterior oropharynx, no palatal inflammation, uvula midline, no cobble-stoning, no enlarged tonsils, no tonsillar exudate, no ulcers, no active post nasal drip. tongue midline and wnl. Good dentition. Neck: Neck supple. No lymphadenopathy. Trachea midline. No thyroid, masses, tenderness, or enlargement noted. No bruit. Lungs: Normal respiratory effort and clear to auscultation Cardio: Regular rate and rhythm, normal S1 and S2, no murmur, no rub Abdomen: not assessed Musculoskeletal: No deformity or scoliosis noted. No vertebral tenderness. Normal range of motion. No vertebral point tenderness. Joints normal. No erythema, edema, effusion, crepitus, or ecchymosis. Straight leg raise negative Extremity: No clubbing, cyanosis, edema, or deformity. Normal ROM with upper and lower extremities, bilaterally. Neurologic: Cranial nerves II-XII grossly intact. motor strength equal & normal bilaterally, sensation equal & normal bilaterally. Gait normal. Skin: No rashes, ulcerations, or suspicious lesions Mental Status: Alert and oriented x3. Normal mood and affect Assessment/Plan 1. Diabetes mellitus (E11.9: Type 2 diabetes mellitus without complications) The importance of the following were all reviewed with the patient: - Compliance with home glucose testing encouraged and using those readings to help improve diet or consider starting CGM - Consider ASA 81mg once daily - Continue BP control with medications as prescribed - Continue cholesterol control with statin therapy/diet/exerci se - Continue diet: low saturated fats/carbs - Exercise - 150min/wk - Eye exam (dilated) annually to prevent blindness - f/u with ophthalmology - Foot exam (self foot checks, protective foot behavior, sensory exam annually using a 10 g monofilament and vibration annually) to prevent sores/possible amputations - consider podiatry - annual monitoring of urine microalbumin regularly to check for kidney damage. - adherence to medications as prescribed to keep glucose levels under control. Last A1c: 5.8% Continue medications: Metformin 1000mg once daily Pt due for labwork: CMP (BUN, Cr, K) q 3mo, A1c q3mo, lipids qyr, TSH qyr, urine microalbumin qyr, Uprotein/Cr qyr, B12 qyr if on metformin f/u 3 mo 2. DM type 2 with diabetic mixed hyperlipidemia (E11.69: Type 2 diabetes mellitus with other specified complication) See #1 and 4 Ordered: Comprehensive Metabolic Panel HgbA1c Microalbumin Level Urine U Protein/Creat Ratio 3. Type 2 diabetes mellitus with diabetic neuropathy, without (more content not included)... [facility] Comment on above: Result Comment: Elec tronically Signed By: Sheree REGALADO, Tawanna Reilly\.br\Date and Time Signed: 09/14/22 13:34 EDT PT - Orderson 09-14-2022 PT - Orders [id number]#1.00CD:127 [facility] PT - Home Exercise Programon 09-13-2022 PT - Home Exercise Program [id number] 90#1.00CD:127 [facility] PT - Home Exercise Programon 09-09-2022 PT - Home Exercise Program [id number]#1.00CD:127 [facility] Patient Educationon 09-08-19 Patient Education Endocrinology Diabetes Mellitus and Nutrition, Adult When you have diabetes, or diabetes mellitus, it is very important to have healthy eating habits because your blood sugar (glucose) levels are greatly affected by what you eat and drink. Eating healthy foods in the right amounts, at about the same times every day, can help you: ? Manage your blood glucose. ? Lower your risk of heart disease. ? Improve your blood pressure. ? Reach or maintain a healthy weight. What can affect my meal plan? Every person with diabetes is different, and each person has different needs for a meal plan. Your health care provider may recommend that you work with a dietitian to make a meal plan that is best for you. Your meal plan may vary depending on factors such as: ? The calories you need. ? The medicines you take. ? Your weight. ? Your blood glucose, blood pressure, and cholesterol levels. ? Your activity level. ? Other health conditions you have, such as heart or kidney disease. How do carbohydrates affect me? Carbohydrates, also called carbs, affect your blood glucose level more than any other type of food. Eating carbs raises the amount of glucose in your blood. It is important to know how many carbs you can safely have in each meal. This is different for every person. Your dietitian can help you calculate how many carbs you should have at each meal and for each snack. How does alcohol affect me? Alcohol can cause a decrease in blood glucose (hypoglycemia), especially if you use insulin or take certain diabetes medicines by mouth. Hypoglycemia can be a life-threatening condition. Symptoms of hypoglycemia, such as sleepiness, dizziness, and confusion, are similar to symptoms of having too much alcohol. ? Do not drink alcohol if: ? Your health care provider tells you not to drink. ? You are , may be , or are planning to become . ? If you drink alcohol: ? Limit how much you have to: ? 0?1 drink a day for women. ? 0?2 drinks a day for men. ? Know how much alcohol is in your drink. In the [place] one drink equals one 12 oz bottle of beer (355 mL), one 5 oz glass of wine (148 mL), or one 1? oz glass of hard liquor (44 mL). ? Keep yourself hydrated with water, diet soda, or unsweetened iced tea. Keep in mind that regular soda, juice, and other mixers may contain a lot of sugar and must be counted as carbs. What are tips for following this plan? Reading food labels ? Start by checking the serving size on the Nutrition Facts label of packaged foods and drinks. The number of calories and the amount of carbs, fats, and other nutrients listed on the label are based on one serving of the item. Many items contain more than one serving per package. ? Check the total grams (g) of carbs in one serving. ? Check the number of grams of saturated fats and trans fats in one serving. Choose foods that have a low amount or none of these fats. ? Check the number of milligrams (mg) of salt (sodium) in one serving. Most people should limit total sodium intake to less than 2,300 mg per day. ? Always check the nutrition information of foods labeled as low-fat or nonfat. These foods may be higher in added sugar or refined carbs and should be avoided. ? Talk to your dietitian to identify your daily goals for nutrients listed on the label. Shopping ? Avoid buying canned, pre-made, or processed foods. These foods tend to be high in fat, sodium, and added sugar. ? Shop around the outside edge of the grocery store. This is where you will most often find fresh fruits and vegetables, bulk grains, fresh meats, and fresh dairy products. Cooking ? Use low-heat cooking methods, such as baking, instead of high-heat cooking methods, such as deep frying. ? Cook using healthy oils, such as olive, canola, or sunflower oil. ? Avoid cooking with butter, cream, or high-fat meats. Meal planning ? Eat meals and snacks regularly, preferably at the same times every day. Avoid going long periods of time without eating. ? Eat foods that are high in fiber, such as fresh fruits, vegetables, beans, and whole grains. ? Eat 4?6 oz (112?168 g) of lean protein each day, such as lean meat, chicken, fish, eggs, or tofu. One ounce (oz) (28 g) of lean protein is equal to: ? 1 oz (28 g) of meat, chicken, or fish. ? 1 egg. ? ? cup (62 g) of tofu. ? Eat some foods each day that contain healthy fats, such as avocado, nuts, seeds, and fish. What foods should I eat? Fruits Berries. Apples. Oranges. Peaches. Apricots. Plums. Grapes. Mangoes. Papayas. Pomegranates. Kiwi. Cherries. Vegetables Leafy greens, including lettuce, spinach, kale, chard, pete greens, mustard greens, and cabbage. Beets. Cauliflower. Broccoli. Carrots. Green beans. Tomatoes. Peppers. Onions. Cucumbers. [place] sprouts. Grains Whole grains, such as whole-wheat or whole-grain bread, crackers, tortillas, cereal, and pasta. Unsweetened oatmeal. (more content not included)... Normal [facility] PT - Consentson 09-06-2022 PT - Consents [id number] 75#1.00CD:127 [facility] PT - Consents [id number]#1.00CD:127 [facility] PT - Home Exercise Programon 09-06-2022 PT - Home Exercise Program [id number] 85#1.00CD:127 [facility] Consent for Treatmenton Consent for Treatment [id number] DD#1.00CD:127 [facility] PT - Orderson 09-03-2022 PT - Orders [id number]#1.00CD:127 [facility] CHEMISTRYOrdered By: Lab ROP User on 07-27-2022 Glucose [Mass/Vol] 168 mg/dL High 55 - 99 mg/dL [facility] C POC Subsection POC Device SN [id number] Invalid Interpretation Code [facility] [place] POC Subsection POC User ID [id number] Invalid Interpretation Code [facility] [place] POC Subsection POC Username ANNIE BROWN Invalid Interpretation Code [facility] [place] POC Subsection CHEMISTRYOrdered By: SYSTEM SYSTEM on 10-19-2021 Anion gap [Moles/Vol] 12 mmol/L Normal 6 - 16 mEq/L [facility] [place]isol Chloride [Moles/Vol] 100 mmol/L Low 101 - 111 mmol/ L [facility] [place] Remisol CO2 [Moles/Vol] 29 mmol/L Normal 21 - 31 mmol/L [facility] [place] Remisol Potassium [Moles/Vol] 4.7 mmol/L Normal 3.5 - 5.3 mmol /L [facility] [place] Remisol Sodium [Moles/Vol] 136 mmol/L Normal 135 - 145 mmol/L [facility] [place] Remisol CHEMISTRYOrdered By: SYSTEM SYSTEM on 08-10-2021 Prostate specific Ag [Mass/Vol] 0.3 ng/mL Normal 0.1 - 3.5 ng/mL [facility] [place] Remisol CHEMISTRYOrdered By: SYSTEM SYSTEM on 06-29-2021 Anion gap [Moles/Vol] 12 mmol/L Normal 6 - 16 mEq/L F [facility] [place] Remisol Calcium [Mass/Vol] 9.1 mg/dL Normal 8.9 - 11.1 mg/dL [facility] Chloride [Moles/Vol] 102 mmol/L Normal 101 - 111 mmol/ L [facility] CO2 [Moles/Vol] 27 mmol/L Normal 21 - 31 mmol/L [facility] Creatinine [Mass/Vol] 1.0 mg/dL Normal 0.5 - 1.3 mg/d L [facility] GFR/1.73 sq M.predicted among blacks MDRD (S/P/Bld) [Vol rate/Area] mL/min/1.73 m2 Normal >=59mL/min/1.73 m2 [facility] [place] Chem S GFR/1.73 sq M.predicted among non-blacks MDRD (S/P/Bld) [Vol rate/Area] mL/min/1.73 m2 Normal >=59mL/min/1.73 m2 [facility] [place] Chem S Glucose [Mass/Vol] 191 mg/dL Normal 55 - 199 mg/dL [facility] Potassium [Moles/Vol] 3.8 mmol/L Normal 3.5 - 5.3 mmol /L [facility] Sodium [Moles/Vol] 137 mmol/L Normal 135 - 145 mmol/L [facility] Urea nitrogen [Mass/Vol] 19 mg/dL Normal 5 - 21 mg/dL [facility] Urea nitrogen/Creatinine [Mass ratio] 19 mg/mg Normal 10 - 20 [facility] HEMATOLOGYOrdered By: SYSTEM SYSTEM on 06-29-2021 Basophils/100 WBC (Bld) 1.0 % Normal 0.0 - 2.0 % [facility] Basophils/Leukocytes Auto (Bld) [Pure # fraction] 0.1 E9/L Normal 0.0 - 0.2 E9/L [facility] Eosinophils/100 WBC (Bld) 0.9 % Normal 0.0 - 8.0 % [facility] Eosinophils/Leukocyte s Auto (Bld) [Pure # fraction] 0.1 E9/L Normal 0.0 - 0.5 E9/L [facility] Lymphocytes/100 WBC (Bld) 21.8 % Normal 14.0 - 50.0 % [facility] Lymphocytes/Leukocyte s Auto (Bld) [Pure # fraction] 2.1 E9/L Normal 1.0 - 4.0 E9/L [facility] Monocytes/100 WBC (Bld) 7.3 % Normal 4.0 - 14.0 % [facility] Monocytes/Leukocytes Auto (Bld) [Pure # fraction] 0.7 E9/L Normal 0.2 - 1.0 E9/L [facility] Neutrophils/100 WBC (Bld) 69.0 % Normal 36.0 - 75.0 % [facility] Neutrophils/Leukocyte s Auto (Bld) [Pure # fraction] 6.6 E9/L Normal 2.0 - 7.5 E9/L [facility] HEMATOLOGYOrdered By: Yobany Emmanuel on 06-29-2021 Erythrocyte distribution width (RBC) [Ratio] 12.7 % Normal 10.9 - 14.2 % [facility] Hematocrit (Bld) [Volume fraction] 43.3 % Normal 37.7 - 49.0 % [facility] Hemoglobin (Bld) [Mass/Vol] 15.1 g/dL Normal 13.5 - 17.5 gm/dL [facility] MCH (RBC) [Entitic mass] 30.6 pg Normal 27.0 - 34.0 pg [facility] MCHC (RBC) [Mass/Vol] 34.9 g/dL Normal 31.4 - 36.0 gm /dL [facility] MCV (RBC) [Entitic vol] 87.7 fL Normal 80.0 - 100.0 fL [facility] Platelet mean volume (Bld) [Entitic vol] 8.4 fL Normal 6.4 - 10.8 fL [facility] Platelets (Bld) [#/Vol] 217.0 E9/L Normal 150.0 - 500.0 E9/L [facility] RBC (Bld) [#/Vol] 4.9 E12/L Normal 4.3 - 5.9 E12/L [facility] WBC corrected for nucl RBC Auto (Bld) [#/Vol] 9.6 E9/L Normal 4.0 - 11.0 E9/L [facility] URINALYSISOrdered By: Isadora Adam on 06-29-2021 Bacteria LM Ql (Urine sed) 1+ /HPF Invalid Interpretation Code Trace/HPF [facility] UA Auto SS Bilirubin Ql (U) 1+ *ABN* (06/29/21 7:30 AM) Invalid Interpretation Code Negative [facility] UA Auto SS Calcium oxalate crystals LM Ql (Urine sed) Present (06/29/21 7:30 AM) Normal [facility] UA Auto SS Clarity (U) Slightly Cloudy *ABN* (06/29/21 7:30 AM) Invalid Interpretation Code Clear [facility] UA Auto SS Color (U) Dark Yellow *ABN* (06/29/21 7:30 AM) Invalid Interpretation Code Yellow [facility] UA Auto SS Crystals LM Ql (Urine sed) Present (06/29/21 7:30 AM) Normal [facility] UA Auto SS Epithelial cells.squamous LM.HPF (Urine sed) [#/Area] 0-2 /HPF Normal 0-2/HPF [facility] UA Aut o SS Glucose Test strip (U) [Mass/Vol] Negative (06/29/21 7:30 AM) Normal Negative [facility] UA Auto SS Hemoglobin Ql (U) 3+ *ABN* (06/29/21 7:30 AM) Invalid Interpretation Code Negative [facility] UA Auto SS Ketones (U) [Mass/Vol] Negative (06/29/21 7:30 AM) Normal Negative [facility] UA Auto SS [place].plasma/Lith[place] m.RBC (Bld) [Mass ratio] >75 /HPF Invalid Interpretation Code 0-3/HPF [facility] UA Auto SS Mucus Ql (Urine sed) 1+ (06/29/21 7:30 AM) Normal [facility] UA Auto SS Nitrite Ql (U) Negative (06/29/21 7:30 AM) Normal Negative [facility] UA Auto SS pH (U) 5.5 *NA* (06/29/21 7:30 AM) Invalid Interpretation Code 5.0 - 9.0 [facility] UA Auto SS Protein (U) [Mass/Vol] 2+ *ABN* (06/29/21 7:30 AM) Invalid Interpretation Code Negative [facility] UA Auto SS Specific gravity (U) [Rel density] >=1.030 *NA* (06/29/21 7:30 AM) Invalid Interpretation Code 1.005 - 1.030 [facility] [place] UA Auto SS UA Spec Desc Clean Catch (06/29/21 7:30 AM) Normal [facility] [place] UA Auto SS Urobilinogen Qn (U) [id number] {Alexi'U}/dL Normal 0.0 - 1.0 EU/dL [facility] [place] UA Auto SS WBC Auto Ql (U) Trace *ABN* (06/29/21 7:30 AM) Invalid Interpretation Code Negative [facility] [place] UA Auto SS WBC LM.HPF (Urine sed) [#/Area] 6-15 /HPF Invalid Interpretation Code 0-5/HPF [facility] [place] UA Auto SS POINT OF CARE GLUCOSEon Glucose [Mass/Vol] 86 mg/dL Normal 74-[address] [facility] Comment on above: Performed By: #### P OCGLUC #### [facility] [address] [place] [address] Dannielle Brenner XR KUB 1 VIEWon 10-02-2020 XR KUB 1 VIEW EXAMINATION: XR KUB 1 VIEW HISTORY: Urolithiasis COMPARISON: No relevant comparison available. FINDINGS: KIDNEY/URETER - RIGHT: No visible renal or ureteral calcifications. KIDNEY/URETER - LEFT: 4 mm stone within the inferior pole. Suspect several smaller calcifications within superior pole. 12 mm density overlies the mid kidney and may represent overlying bowel content or a stone. Left ureteral stent appearing in good position. PELVIS: No visible ureteral stones. BOWEL: No abnormal dilation or deviation. BONES: No acute abnormality. OTHER: Negative. No abnormal gaseous collections. IMPRESSION: 1. Left nephrolithiasis and left ureteral stent. No comparison studies. Electronically authenticated by: YUDI MICHELLE Date: 2020-10-02 09:52 Normal [facility] PROTIMEon 09-30-2020 INR Coag (PPP) [Relative time] 1.10 {INR} Normal [facility] Comment on above: Performed By: #### P T, PTT #### [facility] [address] [address] Dannielle Brenner INR GUIDELINES SEE BELOW Normal [facility] Comment on above: Result Comment: ONELIA RED INR: 2.0 - 3.0 CONDITIONS NOT LISTED BELOW 2.5 - 3.5 FOR PROSTHETIC HEART VALVE REPLACEMENT 2.5 - 3.5 RECURRENT THROMBOSIS Performed By: #### P T, PTT #### [facility] [address], [place] [address] Dannielle Brenner PT Coag (PPP) [Time] 11.8 s Critically high 9.0-11.6 [facility] Comment on above: Performed By: #### P T, PTT #### [facility] [address], [place] [address] Dannielle Brenner PTTon 09-30-2020 aPTT Coag (Bld) [Time] 27.3 s Normal 22.3-36.2 [facility] Comment on above: Performed By: #### P T, PTT #### [facility] [address], [place] [address] Dannielle Brenner Vital Signs Date Time Vital Sign Value Performing Clinician Facility 08-24-2023 13:43-0400 Diastolic blood pressure 88 mm[Hg] Jimmy GASTON [facility] 08-24-2023 13:43-0400 Heart rate 78 /min Jimmy GASTON [facility] 08-24-2023 13:43-0400 Respiratory rate 18 /min Jimmy GASTON [facility] 08-24-2023 13:43-0400 Systolic blood pressure 132 mm[Hg] Jimmy GASTON [facility] 06-13-2023 09:45-0400 Blood Pressure Location Tawanna Bentley [facility] 06-13-2023 09:45-0400 Body temperature 97.52 [degF] Tawanna Bentley [facility] 06-13-2023 09:45-0400 Diastolic blood pressure 71 mm[Hg] Tawanna Bentley [facility] 06-13-2023 09:45-0400 Heart rate 76 /min Tawanna Missler [facility] 06-13-2023 09:45-0400 SaO2% (BldA) [Mass fraction] 98 % Tawanna Missler [facility] 06-13-2023 09:45-0400 Systolic blood pressure 120 mm[Hg] Tawanna Missler [facility] 06-06-2023 21:14-0400 Diastolic blood pressure 87 mm[Hg] Elie Hammad [facility] 06-06-2023 21:14-0400 Heart rate 82 /min Elie Hammad [facility] 06-06-2023 21:14-0400 Mean blood pressure 114 mm[Hg] Elie Hammad [facility] 06-06-2023 21:14-0400 Respiratory rate 14 /min Elie Hammad [facility] 06-06-2023 21:14-0400 SaO2% (BldA) [Mass fraction] 95 % Elie Hammad [facility] 06-06-2023 21:14-0400 Systolic blood pressure 169 mm[Hg] Elie Hammad [facility] 06-06-2023 20:44-0400 Diastolic blood pressure 82 mm[Hg] Elie Hammad [facility] 06-06-2023 20:44-0400 Heart rate 71 /min Elie Hammad [facility] 06-06-2023 20:44-0400 Mean blood pressure 106 mm[Hg] Elie Hammad [facility] 06-06-2023 20:44-0400 Respiratory rate 20 /min Elie Hammad [facility] 06-06-2023 20:44-0400 SaO2% (BldA) [Mass fraction] 100 % Elie Hammad [facility] 06-06-2023 20:44-0400 Systolic blood pressure 155 mm[Hg] Elie Hammad [facility] 06-06-2023 19:19-0400 Diastolic blood pressure 86 mm[Hg] Elie Hammad [facility] 06-06-2023 19:19-0400 Heart rate 85 /min Elie Hammad [facility] 06-06-2023 19:19-0400 Mean blood pressure 103 mm[Hg] Elie Hammad [facility] 06-06-2023 19:19-0400 Respiratory rate 17 /min Elie Hammad [facility] 06-06-2023 19:19-0400 SaO2% (BldA) [Mass fraction] 100 % Elie Hammad [facility] 06-06-2023 19:19-0400 Systolic blood pressure 136 mm[Hg] Elie Hammad [facility] 06-06-2023 18:53-0400 Body temperature 98.42 [degF] Elie Hammad [facility] 06-06-2023 18:53-0400 Heart rate 100 /min Elie Hammad [facility] 06-06-2023 18:53-0400 Respiratory rate 18 /min Elie Hammad [facility] 04-29-2023 13:56-0500 Diastolic blood pressure 83 mm[Hg] Carmen Andrew [facility] 04-29-2023 13:56-0500 Heart rate 83 /min Carmen Andrew [facility] 04-29-2023 13:56-0500 Mean blood pressure 100 mm[Hg] Carmen Andrew [facility] 04-29-2023 13:56-0500 Respiratory rate 16 /min Carmen Andrew [facility] 04-29-2023 13:56-0500 Systolic blood pressure 133 mm[Hg] Carmen Andrew [facility] 04-06-2023 09:00-0500 Diastolic blood pressure 99 mm[Hg] Rodrigo Gamboa [facility] 04-06-2023 09:00-0500 Heart rate 94 /min Rodrigo Gamboa [facility] 04-06-2023 09:00-0500 Mean blood pressure 118 mm[Hg] Rodrigo Gamboa [facility] 04-06-2023 09:00-0500 SaO2% (BldA) [Mass fraction] 95 % Rodrigo Gamboa [facility] 04-06-2023 09:00-0500 Systolic blood pressure 157 mm[Hg] oRdrigo Gamboa [facility] 04-06-2023 08:34-0500 Diastolic blood pressure 100 mm[Hg] Rodrigo Gamboa [facility] 04-06-2023 08:34-0500 Heart rate 97 /min Rodrigo Gamboa [facility] 04-06-2023 08:34-0500 Mean blood pressure 122 mm[Hg] Rodrigo Gamboa [facility] 04-06-2023 08:34-0500 Respiratory rate 18 /min Rodrigo Gamboa [facility] 04-06-2023 08:34-0500 SaO2% (BldA) [Mass fraction] 98 % Rodrigocarli Gamboa [facility] 04-06-2023 08:34-0500 Systolic blood pressure 167 mm[Hg] Rodrigo Gamboa [facility] 04-06-2023 07:30-0500 Diastolic blood pressure 106 mm[Hg] Rodrigo Gamboa [facility] 04-06-2023 07:30-0500 Heart rate 80 /min Rodrigo Gamboa [facility] 04-06-2023 07:30-0500 Mean blood pressure 127 mm[Hg] Rodrigo Gamboa [facility] 04-06-2023 07:30-0500 Respiratory rate 16 /min Rodrigocarli Gamboa [facility] 04-06-2023 07:30-0500 SaO2% (BldA) [Mass fraction] 98 % Rodrigocarli Gamboa [facility] 04-06-2023 07:30-0500 Systolic blood pressure 168 mm[Hg] Rodrigo Gamboa [facility] 04-06-2023 06:48-0500 Body temperature 97.16 [degF] Rodrigo Gamboa [facility] 04-06-2023 06:48-0500 Heart rate 88 /min Rodrigo Gamboa [facility] 03-22-2023 10:51-0500 Blood Pressure Location Jimmy GASTON [facility] 03-22-2023 10:51-0500 Diastolic blood pressure 84 mm[Hg] Jimmy GASTON [facility] 03-22-2023 10:51-0500 Systolic blood pressure 122 mm[Hg] Jimmy GASTON [facility] 03-16-2023 13:01-0500 Blood Pressure Location Tawanna Bentley [facility] 03-16-2023 13:01-0500 Body temperature 97.52 [degF] Tawanna Bentley [facility] 03-16-2023 13:01-0500 Diastolic blood pressure 72 mm[Hg] Tawanna Bentley [facility] 03-16-2023 13:01-0500 Heart rate 73 /min Tawanna Bentley [facility] 03-16-2023 13:01-0500 SaO2% (BldA) [Mass fraction] 98 % Tawanna Bentley [facility] 03-16-2023 13:01-0500 Systolic blood pressure 128 mm[Hg] Tawanna Bentley [facility] 03-09-2023 10:58-0500 Body temperature 97.52 [degF] Rodrigo Gamboa [facility] 03-09-2023 10:58-0500 Diastolic blood pressure 92 mm[Hg] Rodrigo Gamboa [facility] 03-09-2023 10:58-0500 Heart rate 89 /min Rodrigo Gamboa [facility] 03-09-2023 10:58-0500 Respiratory rate 16 /min Rodrigo Gamboa [facility] 03-09-2023 10:58-0500 SaO2% (BldA) [Mass fraction] 98 % Rodrigo Gamboa [facility] 03-09-2023 10:58-0500 Systolic blood pressure 153 mm[Hg] Rodrigo Gamboa [facility] 02-01-2023 12:51-0500 Diastolic blood pressure 62 mm[Hg] Geremias Guero [facility] 02-01-2023 12:51-0500 Heart rate 86 /min Geremias Guero [facility] 02-01-2023 12:51-0500 Mean blood pressure 76 mm[Hg] Geremias Guero [facility] 02-01-2023 12:51-0500 Respiratory rate 14 /min Geremias Guero [facility] 02-01-2023 12:51-0500 Systolic blood pressure 104 mm[Hg] Geremias Guero [facility] 01-11-2023 15:09-0500 Heart rate 86 /min Geremias Guero [facility] 01-11-2023 15:09-0500 SaO2% (BldA) [Mass fraction] 100 % Geremias Guero [facility] 01-11-2023 15:09-0500 Diastolic blood pressure 79 mm[Hg] Geremias Guero [facility] 01-11-2023 15:09-0500 Mean blood pressure 98 mm[Hg] Geremias Guero [facility] 01-11-2023 15:09-0500 Systolic blood pressure 136 mm[Hg] Geremias Guero [facility] 01-11-2023 15:09-0500 Respiratory rate 14 /min Geremias Guero [facility] 01-11-2023 15:06-0500 Diastolic blood pressure 70 mm[Hg] Geremias Jack [facility] 01-11-2023 15:06-0500 Heart rate 88 /min Geremias Jack [facility] 01-11-2023 15:06-0500 SaO2% (BldA) [Mass fraction] 97 % Geremias Jack [facility] 01-11-2023 15:06-0500 Systolic blood pressure 121 mm[Hg] Geremias Jack [facility] 12-20-2022 12:57-0400 Blood Pressure Location Tawanna Bentley [facility] 12-20-2022 12:57-0400 Body temperature 98.06 [degF] Tawanna Ewingler [facility] 12-20-2022 12:57-0400 Diastolic blood pressure 78 mm[Hg] Tawannaqamar Ewingler [facility] 12-20-2022 12:57-0400 Heart rate 87 /min Tawanna Ewingler [facility] 12-20-2022 12:57-0400 SaO2% (BldA) [Mass fraction] 97 % Tawanna Ewingler [facility] 12-20-2022 12:57-0400 Systolic blood pressure 130 mm[Hg] Tawannaqamar Ewingler [facility] 10-01-2022 14:02-0400 Diastolic blood pressure 64 mm[Hg] Carmen Andrew [facility] 10-01-2022 14:02-0400 Heart rate 87 /min Carmen Andrew [facility] 10-01-2022 14:02-0400 Mean blood pressure 78 mm[Hg] Carmen Andrew [facility] 10-01-2022 14:02-0400 Systolic blood pressure 105 mm[Hg] Carmen Andrew [facility] 09-14-2022 12:57-0400 Blood Pressure Location Tawnana Bentley [facility] 09-14-2022 12:57-0400 Body temperature 97.34 [degF] Tawanna Bentley [facility] 09-14-2022 12:57-0400 Diastolic blood pressure 68 mm[Hg] Tawanna Bentley [facility] 09-14-2022 12:57-0400 Heart rate 83 /min Tawanna Bentley [facility] 09-14-2022 12:57-0400 SaO2% (BldA) [Mass fraction] 99 % Tawanna Bentley [facility] 09-14-2022 12:57-0400 Systolic blood pressure 132 mm[Hg] Tawanna Bentley [facility] 08-27-2022 13:54-0400 Respiratory rate 14 /min Carmen Andrew [facility] 08-18-2022 13:11-0400 Blood Pressure Location Jimmy GASTON [facility] 08-18-2022 13:11-0400 Diastolic blood pressure 79 mm[Hg] Jimmy GASTON [facility] 08-18-2022 13:11-0400 Heart rate 74 /min Jimmy GASTON [facility] 08-18-2022 13:11-0400 Systolic blood pressure 124 mm[Hg] Jimmy GASTON [facility] 07-27-2022 13:37-0400 Heart rate 71 /min Geremias Guero [facility] 07-27-2022 13:37-0400 SaO2% (BldA) [Mass fraction] 98 % Geremias Guero [facility] 07-27-2022 13:37-0400 Diastolic blood pressure 71 mm[Hg] Geremias Guero [facility] 07-27-2022 13:37-0400 Mean blood pressure 85 mm[Hg] Geremias Guero [facility] 07-27-2022 13:37-0400 Systolic blood pressure 114 mm[Hg] Geremias Guero [facility] 07-27-2022 13:25-0400 Diastolic blood pressure 77 mm[Hg] Geremias Guero [facility] 07-27-2022 13:25-0400 Heart rate 70 /min Geremias Guero [facility] 07-27-2022 13:25-0400 Respiratory rate 14 /min Geremias Guero [facility] 07-27-2022 13:25-0400 SaO2% (BldA) [Mass fraction] 98 % Geremias Guero [facility] 07-27-2022 13:25-0400 Systolic blood pressure 114 mm[Hg] Geremias Guero [facility] 07-27-2022 12:50-0400 Heart rate 65 /min Geremias Jack [facility] 07-27-2022 12:50-0400 SaO2% (BldA) [Mass fraction] 98 % Geremias Jack [facility] 07-27-2022 12:50-0400 Diastolic blood pressure 74 mm[Hg] Geremias Jack [facility] 07-27-2022 12:50-0400 Mean blood pressure 88 mm[Hg] Geremias Jack [facility] 07-27-2022 12:50-0400 Systolic blood pressure 114 mm[Hg] Geremias Jack [facility] 07-27-2022 12:50-0400 Body temperature 98.06 [degF] Geremias Jack [facility] 07-27-2022 12:50-0400 Respiratory rate 14 /min Geremias Jack [facility] 07-02-2022 14:23-0400 Diastolic blood pressure 78 mm[Hg] Carmentanvi Andrew [facility] 07-02-2022 14:23-0400 Heart rate 66 /min Carmen Andrew [facility] 07-02-2022 14:23-0400 Mean blood pressure 87 mm[Hg] Carmen Andrew [facility] 07-02-2022 14:23-0400 Systolic blood pressure 104 mm[Hg] Carmen Andrew [facility] 05-07-2022 14:38-0500 Diastolic blood pressure 44 mm[Hg] Carmen Andrew [facility] 05-07-2022 14:38-0500 Heart rate 75 /min Carmen Andrew [facility] 05-07-2022 14:38-0500 Mean blood pressure 65 mm[Hg] Carmen Andrew [facility] 05-07-2022 14:38-0500 Respiratory rate 12 /min Carmen Andrew [facility] 05-07-2022 14:38-0500 Systolic blood pressure 106 mm[Hg] Carmen Andrew [facility] 03-22-2022 13:44-0500 Diastolic blood pressure 81 mm[Hg] Carmen Andrew [facility] 03-22-2022 13:44-0500 Heart rate 80 /min Carmen Andrew [facility] 03-22-2022 13:44-0500 Mean blood pressure 96 mm[Hg] Carmen Andrew [facility] 03-22-2022 13:44-0500 Respiratory rate 14 /min Carmen Andrew [facility] 03-22-2022 13:44-0500 Systolic blood pressure 127 mm[Hg] Carmen Andrew [facility] 03-17-2022 12:38-0500 Blood Pressure Location Elsy Cason [facility] 03-17-2022 12:38-0500 Body temperature 98.06 [degF] Elsy Cason [facility] 03-17-2022 12:38-0500 Diastolic blood pressure 72 mm[Hg] Elsy Cason [facility] 03-17-2022 12:38-0500 Heart rate 71 /min Elsy Cason [facility] 03-17-2022 12:38-0500 SaO2% (BldA) [Mass fraction] 98 % Elsy Valadezell [facility] 03-17-2022 12:38-0500 Systolic blood pressure 128 mm[Hg] Elsy Cason [facility] 03-09-2022 13:33-0500 Body temperature 98.24 [degF] Keegan Strong [facility] 03-09-2022 13:33-0500 Diastolic blood pressure 67 mm[Hg] Keegan Strong [facility] 03-09-2022 13:33-0500 Heart rate 81 /min Keegan Strong [facility] 03-09-2022 13:33-0500 Respiratory rate 18 /min Keegan Strong [facility] 03-09-2022 13:33-0500 SaO2% (BldA) [Mass fraction] 100 % Keegan Strong [facility] 03-09-2022 13:33-0500 Systolic blood pressure 110 mm[Hg] Keegan Strong [facility] 02-04-2022 14:43-0500 Blood Pressure Location Elsy Valadezell [facility] 02-04-2022 14:43-0500 Body temperature 98.06 [degF] Elsy Cason [facility] 02-04-2022 14:43-0500 Diastolic blood pressure 72 mm[Hg] Elsy Cason [facility] 02-04-2022 14:43-0500 Heart rate 69 /min Elsy Cason [facility] 02-04-2022 14:43-0500 SaO2% (BldA) [Mass fraction] 98 % Elsy Valadezell [facility] 02-04-2022 14:43-0500 Systolic blood pressure 128 mm[Hg] Elsy Cason [facility] 12-09-2021 13:51-0400 Blood Pressure Location Elsymelissa Valadezell [facility] 12-09-2021 13:51-0400 Body temperature 97.88 [degF] Elsy Cason [facility] 12-09-2021 13:51-0400 Diastolic blood pressure 62 mm[Hg] Elsy Cason [facility] 12-09-2021 13:51-0400 Heart rate 89 /min Elsy Cason [facility] 12-09-2021 13:51-0400 SaO2% (BldA) [Mass fraction] 100 % Elsymelissa Valadezell [facility] 12-09-2021 13:51-0400 Systolic blood pressure 126 mm[Hg] Elsy Cason [facility] 08-19-2021 14:32-0400 Blood Pressure Location Jimmy GASTON [facility] 08-19-2021 14:32-0400 Diastolic blood pressure 78 mm[Hg] Jimmy GASTON [facility] 08-19-2021 14:32-0400 Heart rate 71 /min Jimmy GASTON [facility] [place] 08-19-2021 14:32-0400 Systolic blood pressure 124 mm[Hg] Jimmy GASTON [facility] 06-29-2021 10:15-0400 Diastolic blood pressure 77 mm[Hg] Keegan Strong [facility] 06-29-2021 10:15-0400 Heart rate 60 /min Keegan Moe [facility] 06-29-2021 10:15-0400 Respiratory rate 18 /min Keegan Strong [facility] 06-29-2021 10:15-0400 SaO2% (BldA) [Mass fraction] 98 % Keegan Strong [facility] 06-29-2021 10:15-0400 Systolic blood pressure 129 mm[Hg] Keegan Moe [facility] 06-29-2021 09:09-0400 Diastolic blood pressure 78 mm[Hg] Keegan Strong [facility] 06-29-2021 09:09-0400 Heart rate 75 /min Keegan Strong [facility] 06-29-2021 09:09-0400 Mean blood pressure 95 mm[Hg] Keegan Moe [facility] 06-29-2021 09:09-0400 Respiratory rate 16 /min Keegan Moe [facility] 06-29-2021 09:09-0400 SaO2% (BldA) [Mass fraction] 96 % Keegan Moe [facility] 06-29-2021 09:09-0400 Systolic blood pressure 130 mm[Hg] Keegan Moe [facility] 06-29-2021 08:17-0400 Diastolic blood pressure 82 mm[Hg] Keegan Strong [facility] 06-29-2021 08:17-0400 Heart rate 75 /min Keegan Strong [facility] 06-29-2021 08:17-0400 Mean blood pressure 98 mm[Hg] Keegan Strong [facility] 06-29-2021 08:17-0400 Respiratory rate 16 /min Keegan Strong [facility] 06-29-2021 08:17-0400 Systolic blood pressure 129 mm[Hg] Keegan Strong [facility] 06-29-2021 07:24-0400 Body temperature 98.24 [degF] Keegan Strong [facility] 06-29-2021 07:24-0400 SaO2% (BldA) [Mass fraction] 99 % Keegan Strong [facility] 06-08-2021 13:43-0400 Blood Pressure Location Elsy Cason [facility] 06-08-2021 13:43-0400 Body temperature 98.06 [degF] Elsy Cason [facility] 06-08-2021 13:43-0400 Diastolic blood pressure 64 mm[Hg] Elsy Cason [facility] 06-08-2021 13:43-0400 Heart rate 86 /min Elsy Valadezell [facility] 06-08-2021 13:43-0400 SaO2% (BldA) [Mass fraction] 98 % Elsy Cason [facility] 06-08-2021 13:43-0400 Systolic blood pressure 122 mm[Hg] Elsy Cason [facility] Encounters Encounter Date Encounter Type Care Provider Facility Start: 10-06-2023 ambulatory Jimmy GASTON Facili ty:[id number] Start: 09-30-2023 End: 09-30-2023 ambulatory ALFA POCOS Not Available Start: 08-24-2023 End: 08-24-2023 ambulatory Jimmy GASTON Facility:[facility] Start: 08-24-2023 End: 08-24-2023 Patient encounter procedure Jimmy GASTON [facility] Start: 08-01-2023 End: 08-01-2023 ambulatory ALFA POCOS Not Available Start: 07-11-2023 End: 07-11-2023 ambulatory ALFA POCOS Not Available Start: 06-24-2023 End: 06-24-2023 ambulatory Jimmy GASTON Facility:[facility] [place] Start: 06-24-2023 End: 06-24-2023 Lab Drop off Jimmy GASTON [facility] Start: 06-23-2023 End: 06-23-2023 ambulatory Tawanna Melbarip Bentley Facility:[facility] [place] Start: 06-23-2023 End: 06-23-2023 Patient encounter procedure Tawannaqamar Ewinglivia [facility] Start: 06-14-2023 End: 06-14-2023 ambulatory Tawanna Cruzrip Bentley Facility:[facility] Start: 06-14-2023 End: 06-14-2023 Patient encounter procedure Tawanna Bentley [facility] Start: 06-13-2023 End: 06-13-2023 ambulatory Tawanna Bentley Facility:[facility] Start: 06-13-2023 End: 06-13-2023 Patient encounter procedure Tawanna Bentley [facility] Start: 06-06-2023 End: 06-06-2023 Emergency department patient visit Elie Berrios Hammad [facility] Start: 05-19-2023 End: 05-19-2023 ambulatory Alfa Pocos Facility:[facility] [place] Start: 05-19-2023 End: 05-19-2023 Patient encounter procedure Alfa Pocos [facility] Start: 05-18-2023 End: 05-18-2023 ambulatory ALFA POCOS Not Available Start: 04-29-2023 End: 04-29-2023 ambulatory Tawanna Bentley Facility:[facility] [place] Start: 04-29-2023 End: 04-29-2023 Pain Management Carmen Andrew [facility] Start: 04-28-2023 End: 06-28-2023 ambulatory Alfa Pocos Facility:[facility] [place] Start: 04-18-2023 End: 04-18-2023 ambulatory ALFA POCOS Not Available Start: 04-15-2023 End: 04-15-2023 Lab Drop off Cristina Fan [facility] Start: 04-15-2023 End: 04-15-2023 ambulatory Cristina Fan Facility:[facility] [place] Start: 04-15-2023 End: 04-15-2023 Patient encounter procedure Jimmy GASTON [facility] [place] Start: 04-06-2023 End: 04-06-2023 Emergency department patient visit Rodrigo Gamboa [facility] Start: 03-28-2023 End: 03-28-2023 ambulatory Tawannaqamar Bentley Facility:[facility] [place] Start: 03-22-2023 End: 03-22-2023 Lab Drop off Jimmy GASTON [facility] Start: 03-22-2023 End: 03-22-2023 ambulatory Jimmy GASTON Facility:[facility] [place] Start: 03-22-2023 End: 03-22-2023 Patient encounter procedure Jimmy GASTON [facility] Start: 03-16-2023 End: 03-16-2023 ambulatory ALFA POCOS Not Available Start: 03-16-2023 End: 03-16-2023 ambulatory Tawanna Bentley Facility:[facility] Start: 03-16-2023 End: 03-16-2023 Patient encounter procedure Tawanna Bentley [facility] Start: 03-15-2023 End: 03-15-2023 ambulatory Jimmy GASTON Facility:[facility] [place] Start: 03-15-2023 End: 03-15-2023 Patient encounter procedure Jimmy GASTON [facility] Start: 03-09-2023 End: 03-09-2023 Emergency department patient visit Rodrigo Gamboa [facility] Start: 03-02-2023 End: 03-02-2023 ambulatory Geremias Jack Facility:[facility] [place] Start: 03-02-2023 End: 03-02-2023 Patient encounter procedure Geremias Jack [facility] Start: 02-01-2023 End: 02-01-2023 ambulatory Tawanna Bentley Facility:[facility] [place] Start: 02-01-2023 End: 02-01-2023 Pain Management Geremias Jack [facility] Start: 01-11-2023 End: 01-11-2023 ambulatory MD Geremias Jack Facility:[facility] [place] Start: 01-11-2023 End: 01-11-2023 Pain Management Geremias Jack [facility] Start: 12-21-2022 End: 12-21-2022 ambulatory Tawanna Bentley Facility:[facility] [place] Start: 12-21-2022 End: 12-21-2022 Patient encounter procedure Tawanna Bentley [facility] Start: 12-20-2022 End: 12-20-2022 ambulatory Tawanna Bentley Facility:[facility] Start: 12-20-2022 End: 12-20-2022 Patient encounter procedure Tawanna Bentley [facility] Start: 12-06-2022 End: 12-06-2022 ambulatory Carmen Andrew Facility:[facility] [place] Start: 11-03-2022 End: 11-03-2022 ambulatory Carmen Andrew Facility:[facility] [place] Start: 11-03-2022 End: 11-03-2022 Patient encounter procedure Carmen Andrew [facility] Start: 10-01-2022 End: 10-01-2022 ambulatory Carmen Andrew Facility:[facility] [place] Start: 10-01-2022 End: 10-01-2022 Pain Management Carmen Andrew [facility] Start: 09-15-2022 End: 09-15-2022 ambulatory Tawanna Bentley Facility:[facility] [place] Start: 09-15-2022 End: 09-15-2022 Patient encounter procedure Tawanna Bentley [facility] Start: 09-14-2022 End: 09-14-2022 ambulatory Tawanna Bentley Facility:[facility] Start: 09-14-2022 End: 09-14-2022 Patient encounter procedure Tawanna Bentley [facility] Start: 09-14-2022 End: 09-14-2022 Well adult monitoring check done Tawanna Bentley [facility] Start: 09-03-2022 End: 10-28-2022 ambulatory Carmen Andrew Facility:[facility] [place] Start: 08-27-2022 End: 08-27-2022 Patient encounter procedure Carmen Andrew [facility] Start: 08-27-2022 End: 08-27-2022 Pain Management Carmen Andrew [facility] Start: 08-18-2022 End: 08-18-2022 Patient encounter procedure Jimmy GASTON [facility] [place] Start: 08-11-2022 End: 08-11-2022 Patient encounter procedure Jimmy GASTON [facility] Start: 07-27-2022 End: 07-27-2022 Pain Management Geremias Jack [facility] Start: 07-02-2022 End: 07-02-2022 Pain Management Carmen Andrew [facility] Start: 05-07-2022 End: 05-07-2022 Pain Management Carmen Andrew [facility] Start: 03-22-2022 End: 03-22-2022 Pain Management Carmen Andrew [facility] Start: 03-17-2022 End: 03-17-2022 Patient encounter procedure Elsy Cason [facility] Start: 03-09-2022 End: 03-09-2022 Emergency department patient visit Keegan Strong [facility] Start: 02-17-2022 End: 02-17-2022 Patient encounter procedure Elsy Cason [facility] Start: 02-04-2022 End: 02-04-2022 Patient encounter procedure Elsy Cason [facility] Start: 12-09-2021 End: 12-09-2021 Patient encounter procedure Elsy Cason [facility] Start: 12-09-2021 End: 12-09-2021 Patient encounter procedure Elsy Cason [facility] Start: 10-19-2021 End: 10-19-2021 Patient encounter procedure Jimmy GASTON [facility] Start: 08-19-2021 End: 08-19-2021 Patient encounter procedure Jimmy GASTON [facility] Start: 08-10-2021 End: 08-10-2021 Patient encounter procedure Jimmy GASTON [facility] Start: 06-29-2021 End: 06-29-2021 Emergency department patient visit Keegan Strong [facility] Start: 06-08-2021 End: 06-08-2021 Patient encounter procedure Elsy Cason [facility] Start: 10-06-2020 Encounter for preprocedural laboratory examination DR JIMMY GASTON [facility] Start: 10-02-2020 End: 10-02-[address] JIMMY GASTON Facility:[facility] Start: 09-30-2020 End: 10-01-[address] JIMMY GASTON Facility:[facility] Start: 09-30-2020 End: 10-01-2020 Encounter for preprocedural laboratory examination DR JIMMY GASTON Facility:[facility] Procedures Date Procedure Procedure Detail Performing Clinician Start: 01-11-2023 Epidural injection o f cervical spine using fluoroscopic guidance Geremias Jack Comment on above: C6-C7 80% relief x 3 days Start: 08-10-2022 Radiofrequency ablat ion of nerve root of lumbar spine using fluoroscopic guidance Carmen Andrew Comment on above: L4/5+L5/S1- 50% reli ef Start: 06-15-2022 Injection of facet j oint using fluoroscopic guidance Carmen [email or web address] Comment on above: b/l l4/5, l5/s1 mbb- 80% relief Start: 04-20-2022 Injection of facet j oint using fluoroscopic guidance Carmen [email or web address] Comment on above: B/L L4-5 L5-S1 90% R elief Start: 10-02-2020 Cystoscopy Elsy vallejo Start: 10-02-2020 Extracorporeal shock wave lithotripsy of calculus of kidney Jimmy GASTON Start: 09-23-2020 Cystoscopy Elsy vallejo Start: 12-28-2017 Cystoscopy Elsy vallejo Comment on above: CYSTOSCOPY, URETEROS COPY ,RETROGRADE, RIGHT STENT INSERTION AND RIGHT ESWL CYSTOSCOPY, URETEROS COPY ,RETROGRADE, RIGHT STENT INSERTION AND RIGHT ESWL Arthroscopy of shoulder Opal shay Cason Immunizations Immunization Date Immunization Notes Care Provider Brian flaherty 12-20-2022 influenza, injectabl e, quadrivalent, preservative free Tawanna Sheree [facility] 03-15-2022 hepatitis A and hepatitis B vaccine Elsy Cason [facility] 12-24-2021 influenza virus vaccine, unspecified formulation Elsy Cason [facility] 06-22-2021 hepatitis A and hepatitis B vaccine Elsy Cason [facility] 05-21-2021 hepatitis A and hepatitis B vaccine Elsy Cason [facility] 05-21-2021 pneumococcal 20-john nt conjugate vaccine Elsy Cason [facility] 01-11-2021 zoster vaccine recombinant Elsy Cason [facility] 11-21-2020 influenza virus vaccine, unspecified formulation Elsy Cason [facility] 10-10-2020 influenza virus vaccine, unspecified formulation Elsy Cason [facility] 10-10-2020 tetanus and diphther ia toxoids, adsorbed, preservative free, for adult use (2 Lf of tetanus toxoid and 2 Lf of diphtheria toxoid) Elsy Cason [facility] 10-10-2020 zoster vaccine recombinant Elsy Cason [facility] 03-15-2013 influenza virus vaccine, unspecified formulation Elsy Cason [facility] NEGATED: Highlighted row has not occurred!12-09-2021 influenza virus vaccine, unspecified formulation Elsy Cason [facility] NEGATED: Highlighted row has not occurred!08-19-2021 SARS-CoV-2 mRNA (tozinameran 5y-11y) vaccine Jimmy MARILIN [facility] Payers Date Payer Category Payer Unknown [id number] 2.16.84 [id number] 1969 Unknown [id number] 2.16.84 0.1.878681.3.579.2.593 1969 Unknown [id number] 2.16.8 40.1.260300.3.579.2.727 1969 Unknown [id number] 2.16.8 40.1.832570.3.579.2 1969 Unknown [id number] 2.16.8 40.1.525607.3.579.2 1969 Unknown [id number] 2.16.8 40.1.840617.3.579.2 1969 Unknown [id number] 2.16.8 40.1.653659.3.579.2 1969 Unknown [id number] 2.16.8 40.1.312415.3.579.2 1969 Unknown [id number] 2.16.8 40.1.944880.3.579.2 1969 Unknown [id number] 2.16.8 40.1.595989.3.579.2 1969 Unknown [id number] 2.16.8 40.1.258991.3.579.2 1969 Unknown [id number] 2.16.8 40.1.386668.3.579.2 1969 Unknown [id number] 2.16.8 40.1.312070.3.579.2 1969 Unknown [id number] 2.16.8 40.1.394182.3.579.2 1969 Unknown [id number] 2.16.8 40.1.200951.3.579.2 1969 Unknown [id number] 2.16.8 40.1.777722.3.579.2 1969 Unknown [id number] 2.16.8 40.1.184022.3.579.2 1969 Unknown [id number] 2.16.8 40.1.914654.3.579.2 1969 Unknown [id number] 2.16.8 40.1.456815.3.579.2 1969 Unknown [id number] 2.16.8 40.1.806555.3.579.2 1969 Unknown [id number] 2.16.8 40.1.118349.3.579.2 1969 Unknown [id number] 2.16.8 40.1.139231.3.579.2 1969 Unknown [id number] 2.16.8 40.1.178818.3.579.2 1969 Unknown [id number] 2.16.8 40.1.721581.3.579.2 1969 Unknown [id number] 2.16.8 40.1.005808.3.579.2 1969 Unknown [id number] 2.16.8 40.1.497046.3.579.2 1969 Unknown [id number] 2.16.8 40.1.680074.3.579.2 1969 Unknown [id number] 2.16.8 40.1.636184.3.579.2 1969 Unknown [id number] 2.16.8 40.1.813207.3.579.2 1969 Unknown [id number] 2.16.8 40.1.561189.3.579.2 1969 Unknown [id number] 2.16.8 40.1.782137.3.579.2 1969 Unknown [id number] 2.16.8 40.1.624768.3.579.2 1969 Unknown [id number] 2.16.8 40.1.477844.3.579.2 1969 Unknown [id number] 2.16.84 0.1.279943.3.579.2.1259 1969 Unknown [id number] 2.16.84 0.1.957897.3.579.2.1259 1969 Unknown [id number] 2.16.84 0.1.873140.3.579.2.1259 1969 Unknown [id number] 2.16.84 0.1.221989.3.579.2.9 1969 Unknown [id number] 2.16.84 0.1.806293.3.579.2.9 1969 Unknown [id number] 2.16.84 0.1.366512.3.579.2.9 1969 Unknown [id number] 2.16.84 0.1.683309.3.579.2.1259 1969 Unknown [id number] 2.16.84 0.1.707176.3.579.2.1259 1959 Unknown [id number] Social History Date Type Detail Facility Start: 06-08-2021 End: 08-24-2023 Tobacco smoking status Never smoked tobacco (finding) [facility] Tobacco smoking status Never [facility] Sex Assigned At Male [facility] Tobacco [facility] Comment on above: denies Tobacco smoking status No Smokin g Status Entered [facility] Medical Equipment Procedure Code Equipment Code Equipment Origin al Text Equipment Identifier Dates FDA Start: 09-23-2020 lancets, See Instructions, 100 EA, 11, use to test BS BID dx E11.65, [email or web address], Supply, 165, cm, 03/09/21 14:18:00 EST, Height/Length Dosing, 69.7, kg, 03/09/21 14:18:00 EST, Weight Dosing Start: 06-01-2021 test strips, See Instructions, 100 EA, 1, use to test BS BID dx E11.65, [email or web address], Supply, 165, cm, 03/09/21 14:18:00 EST, Height/Length Dosing, 69.7, kg, 03/09/21 14:18:00 EST, Weight Dosing Start: 04-27-2021 Test strips, Lancets, Test BID Disp: QS x30 days, Print Requisition, Supply Start: 09-24-2020 FDA Start: 09-23-2020 lancets, See Instructions, 100 EA, 11, use to test BS BID dx E11.65, [facility] 1985, Supply, 165, cm, 03/09/21 14:18:00 EST, Height/Length Dosing, 69.7, kg, 03/09/21 14:18:00 EST, Weight Dosing Start: 06-01-2021 test strips, See Instructions, 100 EA, 1, use to test BS BID dx E11.65, [facility] 1985, Supply, 165, cm, 03/09/21 14:18:00 EST, Height/Length Dosing, 69.7, kg, 03/09/21 14:18:00 EST, Weight Dosing Start: 04-27-2021 Test strips, Lancets, Test BID Disp: QS x30 days, Print Requisition, Supply Start: 09-24-2020 CYSTOSCOPY RETROGRADE STENT INSERTION Jimmy GASTON MD 09/23/20 Unknown Ureter L FDA Start: 09-23-2020 lancets, See Instructions, 100 EA, 11, use to test BS BID dx E11.65, [facility] 1985, Supply, 165, cm, 03/09/21 14:18:00 EST, Height/Length Dosing, 69.7, kg, 03/09/21 14:18:00 EST, Weight Dosing Start: 06-01-2021 test strips, See Instructions, 100 EA, 2, use to test BS BID dx E11.65, [facility], [facility], 165, cm, 06/29/21 7:25:00 EDT, Height/Length Dosing, 72, kg, 06/29/21 7:25:00 EDT, Weight Dosing Start: 07-22-2021 Test strips, Lancets, Test BID Disp: QS x30 days, Print Requisition, Supply Start: 09-24-2020 CYSTOSCOPY RETROGRADE STENT INSERTION Jimmy GASTON MD 09/23/20 Unknown Ureter L FDA Start: 09-23-2020 lancets, See Instructions, 100 EA, 11, use to test BS BID dx E11.65, [facility] 1985, Supply, 165, cm, 03/09/21 14:18:00 EST, Height/Length Dosing, 69.7, kg, 03/09/21 14:18:00 EST, Weight Dosing Start: 06-01-2021 test strips, See Instructions, 100 EA, 2, use to test BS BID dx E11.65, [facility] 1985, Supply, 165, cm, 06/29/21 7:25:00 EDT, Height/Length Dosing, 72, kg, 06/29/21 7:25:00 EDT, Weight Dosing Start: 07-22-2021 Test strips, Lancets, Test BID Disp: QS x30 days, Print Requisition, Supply Start: 09-24-2020 CYSTOSCOPY RETROGRADE STENT INSERTION Jimmy GASTON MD 09/23/20 Unknown Ureter L FDA Start: 09-23-2020 lancets, See Instructions, 100 EA, 11, use to test BS BID dx E11.65, [facility] 1985, Supply, 165, cm, 03/09/21 14:18:00 EST, Height/Length Dosing, 69.7, kg, 03/09/21 14:18:00 EST, Weight Dosing Start: 06-01-2021 test strips, See Instructions, 100 EA, 2, use to test BS BID dx E11.65, [facility] 1985, Supply, 165, cm, 06/29/21 7:25:00 EDT, Height/Length Dosing, 72, kg, 06/29/21 7:25:00 EDT, Weight Dosing Start: 07-22-2021 Test strips, Lancets, Test BID Disp: QS x30 days, Print Requisition, Supply Start: 09-24-2020 CYSTOSCOPY RETROGRADE STENT INSERTION Jimmy GASTON MD 09/23/20 Unknown Ureter L FDA Start: 09-23-2020 lancets, See Instructions, 100 EA, 11, use to test BS BID dx E11.65, [facility] 1985, Supply, 165, cm, 03/09/21 14:18:00 EST, Height/Length Dosing, 69.7, kg, 03/09/21 14:18:00 EST, Weight Dosing Start: 06-01-2021 test strips, See Instructions, 100 EA, 2, use to test BS BID dx E11.65, [facility] 1985, Supply, 165, cm, 06/29/21 7:25:00 EDT, Height/Length Dosing, 72, kg, 06/29/21 7:25:00 EDT, Weight Dosing Start: 07-22-2021 Test strips, Lancets, Test BID Disp: QS x30 days, Print Requisition, Supply Start: 09-24-2020 CYSTOSCOPY RETROGRADE STENT INSERTION Jimmy GASTON MD 09/23/20 Unknown Ureter L FDA Start: 09-23-2020 lancets, See Instructions, 100 EA, 11, use to test BS BID dx E11.65, [facility] 1985, Supply, 165, cm, 03/09/21 14:18:00 EST, Height/Length Dosing, 69.7, kg, 03/09/21 14:18:00 EST, Weight Dosing Start: 06-01-2021 test strips, See Instructions, 100 EA, 2, use to test BS BID dx E11.65, [facility] 1985, Supply, 165, cm, 06/29/21 7:25:00 EDT, Height/Length Dosing, 72, kg, 06/29/21 7:25:00 EDT, Weight Dosing Start: 07-22-2021 Test strips, Lancets, Test BID Disp: QS x30 days, Print Requisition, Supply Start: 09-24-2020 CYSTOSCOPY RETROGRADE STENT INSERTION Jimmy GASTON MD 09/23/20 Unknown Ureter L FDA Start: 09-23-2020 lancets, See Instructions, 100 EA, 11, use to test BS BID dx E11.65, [facility] 1985, Supply, 165, cm, 03/09/21 14:18:00 EST, Height/Length Dosing, 69.7, kg, 03/09/21 14:18:00 EST, Weight Dosing Start: 06-01-2021 test strips, See Instructions, 100 EA, 2, use to test BS BID dx E11.65, [facility] 1985, Supply, 165, cm, 06/29/21 7:25:00 EDT, Height/Length Dosing, 72, kg, 06/29/21 7:25:00 EDT, Weight Dosing Start: 07-22-2021 Test strips, Lancets, Test BID Disp: QS x30 days, Print Requisition, Supply Start: 09-24-2020 CYSTOSCOPY RETROGRADE STENT INSERTION Jimmy GASTON MD 09/23/20 Unknown Ureter L FDA Start: 09-23-2020 lancets, See Instructions, 100 EA, 11, use to test BS BID dx E11.65, [facility] 1985, Supply, 165, cm, 03/09/21 14:18:00 EST, Height/Length Dosing, 69.7, kg, 03/09/21 14:18:00 EST, Weight Dosing Start: 06-01-2021 test strips, See Instructions, 100 EA, 2, use to test BS BID dx E11.65, [facility] 1985, Supply, 165, cm, 06/29/21 7:25:00 EDT, Height/Length Dosing, 72, kg, 06/29/21 7:25:00 EDT, Weight Dosing Start: 07-22-2021 Test strips, Lancets, Test BID Disp: QS x30 days, Print Requisition, Supply Start: 09-24-2020 CYSTOSCOPY RETROGRADE STENT INSERTION Jimmy GASTON MD 09/23/20 Unknown Ureter L FDA Start: 09-23-2020 lancets, See Instructions, 100 EA, 11, use to test BS BID dx E11.65, [facility], Supply, 165, cm, 03/09/21 14:18:00 EST, Height/Length Dosing, 69.7, kg, 03/09/21 14:18:00 EST, Weight Dosing Start: 06-01-2021 test strips, See Instructions, 100 EA, 2, use to test BS BID dx E11.65, [facility] 1985, Supply, 165, cm, 06/29/21 7:25:00 EDT, Height/Length Dosing, 72, kg, 06/29/21 7:25:00 EDT, Weight Dosing Start: 07-22-2021 Test strips, Lancets, Test BID Disp: QS x30 days, Print Requisition, Supply Start: 09-24-2020 CYSTOSCOPY RETROGRADE STENT INSERTION Jimmy GASTON MD 09/23/20 Unknown Ureter L FDA Start: 09-23-2020 lancets, See Instructions, 100 EA, 11, use to test BS BID dx E11.65, [facility] 1985, Supply, 165, cm, 03/09/21 14:18:00 EST, Height/Length Dosing, 69.7, kg, 03/09/21 14:18:00 EST, Weight Dosing Start: 06-01-2021 test strips, See Instructions, 100 EA, 2, use to test BS BID dx E11.65, [facility] 1985, Supply, 165, cm, 03/09/22 13:48:00 EST, Height/Length Dosing, 69, kg, 03/09/22 13:48:00 EST, Weight Dosing Start: 03-15-2022 Test strips, Lancets, Test BID Disp: QS x30 days, Print Requisition, Supply Start: 09-24-2020 CYSTOSCOPY RETROGRADE STENT INSERTION Jimmy GASTON MD 09/23/20 Unknown Ureter L FDA Start: 09-23-2020 lancets, See Instructions, 100 EA, 11, use to test BS BID dx E11.65, [facility] 1985, Supply, 165, cm, 03/09/21 14:18:00 EST, Height/Length Dosing, 69.7, kg, 03/09/21 14:18:00 EST, Weight Dosing Start: 06-01-2021 test strips, See Instructions, 100 EA, 2, use to test BS BID dx E11.65, [facility] 1985, Supply, 165, cm, 03/09/22 13:48:00 EST, Height/Length Dosing, 69, kg, 03/09/22 13:48:00 EST, Weight Dosing Start: 03-15-2022 Test strips, Lancets, Test BID Disp: QS x30 days, Print Requisition, Supply Start: 09-24-2020 CYSTOSCOPY RETROGRADE STENT INSERTION Jimmy GASTON MD 09/23/20 Unknown Ureter L FDA Start: 09-23-2020 lancets, See Instructions, 100 EA, 11, use to test BS BID dx E11.65, [facility] 1985, Supply, 165, cm, 03/09/21 14:18:00 EST, Height/Length Dosing, 69.7, kg, 03/09/21 14:18:00 EST, Weight Dosing Start: 06-01-2021 test strips, See Instructions, 100 EA, 2, use to test BS BID dx E11.65, [facility] 1985, Supply, 165, cm, 03/09/22 13:48:00 EST, Height/Length Dosing, 69, kg, 03/09/22 13:48:00 EST, Weight Dosing Start: 03-15-2022 Test strips, Lancets, Test BID Disp: QS x30 days, Print Requisition, Supply Start: 09-24-2020 CYSTOSCOPY RETROGRADE STENT INSERTION Jimmy GASTON MD 09/23/20 Unknown Ureter L FDA Start: 09-23-2020 lancets, See Instructions, 100 EA, 11, use to test BS BID dx E11.65, [facility] 1985, Supply, 165, cm, 03/09/21 14:18:00 EST, Height/Length Dosing, 69.7, kg, 03/09/21 14:18:00 EST, Weight Dosing Start: 06-01-2021 test strips, See Instructions, 100 EA, 2, use to test BS BID dx E11.65, [facility] 1985, Supply, 165, cm, 03/09/22 13:48:00 EST, Height/Length Dosing, 69, kg, 03/09/22 13:48:00 EST, Weight Dosing Start: 03-15-2022 Test strips, Lancets, Test BID Disp: QS x30 days, Print Requisition, Supply Start: 09-24-2020 CYSTOSCOPY RETROGRADE STENT INSERTION Jimmy GASTON MD 09/23/20 Unknown Ureter L FDA Start: 09-23-2020 lancets, See Instructions, 100 EA, 11, use to test BS BID dx E11.65, [facility] 1985, Supply, 165, cm, 03/09/21 14:18:00 EST, Height/Length Dosing, 69.7, kg, 03/09/21 14:18:00 EST, Weight Dosing Start: 06-01-2021 test strips, See Instructions, 100 EA, 2, use to test BS BID dx E11.65, [facility] 1985, Supply, 165, cm, 07/02/22 14:33:00 EDT, Height/Length Dosing, 68.2, kg, 07/02/22 14:33:00 EDT, Weight Dosing Start: 07-23-2022 Test strips, Lancets, Test BID Disp: QS x30 days, Print Requisition, Supply Start: 09-24-2020 CYSTOSCOPY RETROGRADE STENT INSERTION Jimmy GASTON MD 09/23/20 Unknown Ureter L FDA Start: 09-23-2020 lancets, See Instructions, 100 EA, 11, use to test BS BID dx E11.65, [facility] 1985, Supply, 165, cm, 03/09/21 14:18:00 EST, Height/Length Dosing, 69.7, kg, 03/09/21 14:18:00 EST, Weight Dosing Start: 06-01-2021 test strips, See Instructions, 100 EA, 2, use to test BS BID dx E11.65, [facility] 1985, Supply, 165, cm, 07/02/22 14:33:00 EDT, Height/Length Dosing, 68.2, kg, 07/02/22 14:33:00 EDT, Weight Dosing Start: 07-23-2022 Test strips, Lancets, Test BID Disp: QS x30 days, Print Requisition, Supply Start: 09-24-2020 CYSTOSCOPY RETROGRADE STENT INSERTION Jimmy GASTON MD 09/23/20 Unknown Ureter L FDA Start: 09-23-2020 lancets, See Instructions, 100 EA, 11, use to test BS BID dx E11.65, [facility] 1985, Supply, 165, cm, 03/09/21 14:18:00 EST, Height/Length Dosing, 69.7, kg, 03/09/21 14:18:00 EST, Weight Dosing Start: 06-01-2021 test strips, See Instructions, 100 EA, 2, use to test BS BID dx E11.65, [facility] 1985, Supply, 165, cm, 07/02/22 14:33:00 EDT, Height/Length Dosing, 68.2, kg, 07/02/22 14:33:00 EDT, Weight Dosing Start: 07-23-2022 Test strips, Lancets, Test BID Disp: QS x30 days, Print Requisition, Supply Start: 09-24-2020 CYSTOSCOPY RETROGRADE STENT INSERTION Jimmy GASTON MD 09/23/20 Unknown Ureter L FDA Start: 09-23-2020 lancets, See Instructions, 200 EA, 3, use to test BS BID dx E11.65, [facility] 1985, Supply, 165, cm, 08/18/22 13:25:00 EDT, Height/Length Dosing, 67.5, kg, 08/18/22 13:25:00 EDT, Weight Dosing Start: 08-26-2022 test strips, See Instructions, 100 EA, 2, use to test BS BID dx E11.65, [facility] 1985, Supply, 165, cm, 07/02/22 14:33:00 EDT, Height/Length Dosing, 68.2, kg, 07/02/22 14:33:00 EDT, Weight Dosing Start: 07-23-2022 CYSTOSCOPY RETROGRADE STENT INSERTION Jimmy GASTON MD 09/23/20 Unknown Ureter L FDA Start: 09-23-2020 lancets, See Instructions, 200 EA, 3, use to test BS BID dx E11.65, [facility] 1985, Supply, 165, cm, 08/18/22 13:25:00 EDT, Height/Length Dosing, 67.5, kg, 08/18/22 13:25:00 EDT, Weight Dosing Start: 08-26-2022 test strips, See Instructions, 100 EA, 2, use to test BS BID dx E11.65, [facility] 1985, Supply, 165, cm, 07/02/22 14:33:00 EDT, Height/Length Dosing, 68.2, kg, 07/02/22 14:33:00 EDT, Weight Dosing Start: 07-23-2022 CYSTOSCOPY RETROGRADE STENT INSERTION Jimmy GASTON MD 09/23/20 Unknown Ureter L FDA Start: 09-23-2020 lancets, See Instructions, 200 EA, 3, use to test BS BID dx E11.65, [facility] 1985, Supply, 165, cm, 08/18/22 13:25:00 EDT, Height/Length Dosing, 67.5, kg, 08/18/22 13:25:00 EDT, Weight Dosing Start: 08-26-2022 test strips, See Instructions, 100 EA, 2, use to test BS BID dx E11.65, [facility], Supply, 165, cm, 07/02/22 14:33:00 EDT, Height/Length Dosing, 68.2, kg, 07/02/22 14:33:00 EDT, Weight Dosing Start: 07-23-2022 CYSTOSCOPY RETROGRADE STENT INSERTION Jimmy GASTON MD 09/23/20 Unknown Ureter L FDA Start: 09-23-2020 lancets, See Instructions, 200 EA, 3, use to test BS BID dx E11.65, [facility], Supply, 165, cm, 08/18/22 13:25:00 EDT, Height/Length Dosing, 67.5, kg, 08/18/22 13:25:00 EDT, Weight Dosing Start: 08-26-2022 test strips, See Instructions, 100 EA, 2, use to test BS BID dx E11.65, [facility] 1985, Supply, 165, cm, 07/02/22 14:33:00 EDT, Height/Length Dosing, 68.2, kg, 07/02/22 14:33:00 EDT, Weight Dosing Start: 07-23-2022 CYSTOSCOPY RETROGRADE STENT INSERTION Jimmy GASTON MD 09/23/20 Unknown Ureter L FDA Start: 09-23-2020 lancets, See Instructions, 200 EA, 3, use to test BS BID dx E11.65, [facility] 1985, Supply, 165, cm, 08/18/22 13:25:00 EDT, Height/Length Dosing, 67.5, kg, 08/18/22 13:25:00 EDT, Weight Dosing Start: 08-26-2022 test strips, See Instructions, 100 EA, 2, use to test BS BID dx E11.65, [facility] 1985, Supply, 165, cm, 07/02/22 14:33:00 EDT, Height/Length Dosing, 68.2, kg, 07/02/22 14:33:00 EDT, Weight Dosing Start: 07-23-2022 CYSTOSCOPY RETROGRADE STENT INSERTION Jimmy GASTON MD 09/23/20 Unknown Ureter L FDA Start: 09-23-2020 lancets, See Instructions, 200 EA, 3, use to test BS BID dx E11.65, [facility] 1985, Supply, 165, cm, 08/18/22 13:25:00 EDT, Height/Length Dosing, 67.5, kg, 08/18/22 13:25:00 EDT, Weight Dosing Start: 08-26-2022 test strips, See Instructions, 100 EA, 2, use to test BS BID dx E11.65, [facility] 1985, Supply, 165, cm, 07/02/22 14:33:00 EDT, Height/Length Dosing, 68.2, kg, 07/02/22 14:33:00 EDT, Weight Dosing Start: 07-23-2022 CYSTOSCOPY RETROGRADE STENT INSERTION Jimmy GASTON MD 09/23/20 Unknown Ureter L FDA Start: 09-23-2020 lancets, See Instructions, 200 EA, 3, use to test BS BID dx E11.65, [facility] 1985, Supply, 165, cm, 08/18/22 13:25:00 EDT, Height/Length Dosing, 67.5, kg, 08/18/22 13:25:00 EDT, Weight Dosing Start: 08-26-2022 test strips, See Instructions, 100 EA, 2, use to test BS BID dx E11.65, [facility] 1985, Supply, 165, cm, 10/01/22 14:13:00 EDT, Height/Length Dosing, 67.5, kg, 10/01/22 14:13:00 EDT, Weight Dosing Start: 11-30-2022 CYSTOSCOPY RETROGRADE STENT INSERTION Jimmy GASTON MD 09/23/20 Unknown Ureter L FDA Start: 09-23-2020 lancets, See Instructions, 200 EA, 3, use to test BS BID dx E11.65, [facility] 1985, Supply, 165, cm, 08/18/22 13:25:00 EDT, Height/Length Dosing, 67.5, kg, 08/18/22 13:25:00 EDT, Weight Dosing Start: 08-26-2022 test strips, See Instructions, 100 EA, 2, use to test BS BID dx E11.65, [facility] 1985, Supply, 165, cm, 10/01/22 14:13:00 EDT, Height/Length Dosing, 67.5, kg, 10/01/22 14:13:00 EDT, Weight Dosing Start: 11-30-2022 CYSTOSCOPY RETROGRADE STENT INSERTION Jimmy GASTON MD 09/23/20 Unknown Ureter L FDA Start: 09-23-2020 lancets, See Instructions, 200 EA, 3, use to test BS BID dx E11.65, [facility] 1985, Supply, 165, cm, 08/18/22 13:25:00 EDT, Height/Length Dosing, 67.5, kg, 08/18/22 13:25:00 EDT, Weight Dosing Start: 08-26-2022 test strips, See Instructions, 100 EA, 2, use to test BS BID dx E11.65, [facility] 1985, Supply, 165, cm, 10/01/22 14:13:00 EDT, Height/Length Dosing, 67.5, kg, 10/01/22 14:13:00 EDT, Weight Dosing Start: 11-30-2022 CYSTOSCOPY RETROGRADE STENT INSERTION Jimmy GASTON MD 09/23/20 Unknown Ureter L FDA Start: 09-23-2020 lancets, See Instructions, 200 EA, 3, use to test BS BID dx E11.65, [facility] 1985, Supply, 165, cm, 08/18/22 13:25:00 EDT, Height/Length Dosing, 67.5, kg, 08/18/22 13:25:00 EDT, Weight Dosing Start: 08-26-2022 test strips, See Instructions, 100 EA, 2, use to test BS BID dx E11.65, [facility] 1985, Supply, 165, cm, 10/01/22 14:13:00 EDT, Height/Length Dosing, 67.5, kg, 10/01/22 14:13:00 EDT, Weight Dosing Start: 11-30-2022 CYSTOSCOPY RETROGRADE STENT INSERTION Jimmy GASTON MD 09/23/20 Unknown Ureter L FDA Start: 09-23-2020 lancets, See Instructions, 200 EA, 3, use to test BS BID dx E11.65, [facility] 1985, Supply, 165, cm, 08/18/22 13:25:00 EDT, Height/Length Dosing, 67.5, kg, 08/18/22 13:25:00 EDT, Weight Dosing Start: 08-26-2022 test strips, See Instructions, 100 EA, 2, use to test BS BID dx E11.65, [facility] 1985, Supply, 165, cm, 10/01/22 14:13:00 EDT, Height/Length Dosing, 67.5, kg, 10/01/22 14:13:00 EDT, Weight Dosing Start: 11-30-2022 CYSTOSCOPY RETROGRADE STENT INSERTION Jimmy GASTON MD 09/23/20 Unknown Ureter L FDA Start: 09-23-2020 lancets, See Instructions, 200 EA, 3, use to test BS BID dx E11.65, [facility] 1985, Supply, 165, cm, 08/18/22 13:25:00 EDT, Height/Length Dosing, 67.5, kg, 08/18/22 13:25:00 EDT, Weight Dosing Start: 08-26-2022 test strips, See Instructions, 100 EA, 2, use to test BS BID dx E11.65, [facility] 1985, Supply, 165, cm, 10/01/22 14:13:00 EDT, Height/Length Dosing, 67.5, kg, 10/01/22 14:13:00 EDT, Weight Dosing Start: 11-30-2022 CYSTOSCOPY RETROGRADE STENT INSERTION Jimmy GASTON MD 09/23/20 Unknown Ureter L FDA Start: 09-23-2020 lancets, See Instructions, 200 EA, 3, use to test BS BID dx E11.65, [facility] 1985, Supply, 165, cm, 08/18/22 13:25:00 EDT, Height/Length Dosing, 67.5, kg, 08/18/22 13:25:00 EDT, Weight Dosing Start: 08-26-2022 test strips, See Instructions, 100 EA, 2, use to test BS BID dx E11.65, [facility] 1985, Supply, 165, cm, 10/01/22 14:13:00 EDT, Height/Length Dosing, 67.5, kg, 10/01/22 14:13:00 EDT, Weight Dosing Start: 11-30-2022 CYSTOSCOPY RETROGRADE STENT INSERTION Jimmy GASTON MD 09/23/20 Unknown Ureter L FDA Start: 09-23-2020 lancets, See Instructions, 200 EA, 3, use to test BS BID dx E11.65, [facility] 1985, Supply, 165, cm, 08/18/22 13:25:00 EDT, Height/Length Dosing, 67.5, kg, 08/18/22 13:25:00 EDT, Weight Dosing Start: 08-26-2022 test strips, See Instructions, 100 EA, 2, use to test BS BID dx E11.65, [facility] 1985, Supply, 165, cm, 10/01/22 14:13:00 EDT, Height/Length Dosing, 67.5, kg, 10/01/22 14:13:00 EDT, Weight Dosing Start: 11-30-2022 CYSTOSCOPY RETROGRADE STENT INSERTION Jimmy GASTON MD 09/23/20 Unknown Ureter L FDA Start: 09-23-2020 lancets, See Instructions, 200 EA, 3, use to test BS BID dx E11.65, [email or web address], Supply, 165, cm, 08/18/22 13:25:00 EDT, Height/Length Dosing, 67.5, kg, 08/18/22 13:25:00 EDT, Weight Dosing Start: 08-26-2022 test strips, See Instructions, 100 EA, 2, use to test BS BID dx E11.65, [facility], Supply, 165, cm, 10/01/22 14:13:00 EDT, Height/Length Dosing, 67.5, kg, 10/01/22 14:13:00 EDT, Weight Dosing Start: 11-30-2022 CYSTOSCOPY RETROGRADE STENT INSERTION Jimmy GASTON MD 09/23/20 Unknown Ureter L FDA Start: 09-23-2020 lancets, See Instructions, 200 EA, 3, use to test BS BID dx E11.65, [facility], Supply, 165, cm, 08/18/22 13:25:00 EDT, Height/Length Dosing, 67.5, kg, 08/18/22 13:25:00 EDT, Weight Dosing Start: 08-26-2022 test strips, See Instructions, 100 EA, 2, use to test BS BID dx E11.65, [facility] 1985, Supply, 165, cm, 10/01/22 14:13:00 EDT, Height/Length Dosing, 67.5, kg, 10/01/22 14:13:00 EDT, Weight Dosing Start: 11-30-2022 CYSTOSCOPY RETROGRADE STENT INSERTION Jimmy GASTON MD 09/23/20 Unknown Ureter L FDA Start: 09-23-2020 lancets, See Instructions, 200 EA, 3, use to test BS BID dx E11.65, [facility], Supply, 165, cm, 08/18/22 13:25:00 EDT, Height/Length Dosing, 67.5, kg, 08/18/22 13:25:00 EDT, Weight Dosing Start: 08-26-2022 test strips, See Instructions, 100 EA, 2, use to test BS BID dx E11.65, [facility], Supply, 165, cm, 10/01/22 14:13:00 EDT, Height/Length Dosing, 67.5, kg, 10/01/22 14:13:00 EDT, Weight Dosing Start: 11-30-2022 CYSTOSCOPY RETROGRADE STENT INSERTION Jimmy GASTON MD 09/23/20 Unknown Ureter L FDA Start: 09-23-2020 lancets, See Instructions, 200 EA, 3, use to test BS BID dx E11.65, [facility], Supply, 165, cm, 08/18/22 13:25:00 EDT, Height/Length Dosing, 67.5, kg, 08/18/22 13:25:00 EDT, Weight Dosing Start: 08-26-2022 test strips, See Instructions, 100 EA, 2, use to test BS BID dx E11.65, [facility], Supply, 165, cm, 10/01/22 14:13:00 EDT, Height/Length Dosing, 67.5, kg, 10/01/22 14:13:00 EDT, Weight Dosing Start: 11-30-2022 CYSTOSCOPY RETROGRADE STENT INSERTION Jimmy GASTON MD 09/23/20 Unknown Ureter L FDA Start: 09-23-2020 lancets, See Instructions, 200 EA, 3, use to test BS BID dx E11.65, [facility], Supply, 165, cm, 08/18/22 13:25:00 EDT, Height/Length Dosing, 67.5, kg, 08/18/22 13:25:00 EDT, Weight Dosing Start: 08-26-2022 test strips, See Instructions, 100 EA, 2, use to test BS BID dx E11.65, [facility], Supply, 165, cm, 10/01/22 14:13:00 EDT, Height/Length Dosing, 67.5, kg, 10/01/22 14:13:00 EDT, Weight Dosing Start: 11-30-2022 CYSTOSCOPY RETROGRADE STENT INSERTION Jimmy GASTON MD 09/23/20 Unknown Ureter L FDA Start: 09-23-2020 lancets, See Instructions, 200 EA, 3, use to test BS BID dx E11.65, [facility], Supply, 165, cm, 08/18/22 13:25:00 EDT, Height/Length Dosing, 67.5, kg, 08/18/22 13:25:00 EDT, Weight Dosing Start: 08-26-2022 test strips, See Instructions, 100 EA, 2, use to test BS BID dx E11.65, [facility], Supply, 165, cm, 04/06/23 6:51:00 EST, Height/Length Dosing, 67.4, kg, 04/06/23 6:51:00 EST, Weight Dosing Start: 04-27-2023 CYSTOSCOPY RETROGRADE STENT INSERTION Jimmy GASTON MD 09/23/20 Unknown Ureter L FDA Start: 09-23-2020 lancets, See Instructions, 200 EA, 3, use to test BS BID dx E11.65, [facility], Supply, 165, cm, 08/18/22 13:25:00 EDT, Height/Length Dosing, 67.5, kg, 08/18/22 13:25:00 EDT, Weight Dosing Start: 08-26-2022 test strips, See Instructions, 100 EA, 2, use to test BS BID dx E11.65, [facility], Supply, 165, cm, 04/06/23 6:51:00 EST, Height/Length Dosing, 67.4, kg, 04/06/23 6:51:00 EST, Weight Dosing Start: 04-27-2023 CYSTOSCOPY RETROGRADE STENT INSERTION Jimmy GASTON MD 09/23/20 Unknown Ureter L FDA Start: 09-23-2020 lancets, See Instructions, 200 EA, 3, use to test BS BID dx E11.65, [facility], Supply, 165, cm, 08/18/22 13:25:00 EDT, Height/Length Dosing, 67.5, kg, 08/18/22 13:25:00 EDT, Weight Dosing Start: 08-26-2022 test strips, See Instructions, 100 EA, 2, use to test BS BID dx E11.65, [facility], Supply, 165, cm, 04/06/23 6:51:00 EST, Height/Length Dosing, 67.4, kg, 04/06/23 6:51:00 EST, Weight Dosing Start: 04-27-2023 CYSTOSCOPY RETROGRADE STENT INSERTION Jimmy GASTON MD 09/23/20 Unknown Ureter L FDA Start: 09-23-2020 lancets, See Instructions, 200 EA, 3, use to test BS BID dx E11.65, [facility], Supply, 165, cm, 08/18/22 13:25:00 EDT, Height/Length Dosing, 67.5, kg, 08/18/22 13:25:00 EDT, Weight Dosing Start: 08-26-2022 test strips, See Instructions, 100 EA, 2, use to test BS BID dx E11.65, [facility], Supply, 165, cm, 04/06/23 6:51:00 EST, Height/Length Dosing, 67.4, kg, 04/06/23 6:51:00 EST, Weight Dosing Start: 04-27-2023 CYSTOSCOPY RETROGRADE STENT INSERTION Jimmy GASTON MD 09/23/20 Unknown Ureter L FDA Start: 09-23-2020 lancets, See Instructions, 200 EA, 3, use to test BS BID dx E11.65, [facility], Supply, 165, cm, 08/18/22 13:25:00 EDT, Height/Length Dosing, 67.5, kg, 08/18/22 13:25:00 EDT, Weight Dosing Start: 08-26-2022 test strips, See Instructions, 100 EA, 2, use to test BS BID dx E11.65, [facility], Supply, 165, cm, 04/06/23 6:51:00 EST, Height/Length Dosing, 67.4, kg, 04/06/23 6:51:00 EST, Weight Dosing Start: 04-27-2023 CYSTOSCOPY RETROGRADE STENT INSERTION Jimmy GASTON MD 09/23/20 Unknown Ureter L FDA Start: 09-23-2020 lancets, See Instructions, 200 EA, 3, use to test BS BID dx E11.65, [facility], Supply, 165, cm, 08/18/22 13:25:00 EDT, Height/Length Dosing, 67.5, kg, 08/18/22 13:25:00 EDT, Weight Dosing Start: 08-26-2022 test strips, See Instructions, 100 EA, 2, use to test BS BID dx E11.65, [facility], Supply, 165, cm, 04/06/23 6:51:00 EST, Height/Length Dosing, 67.4, kg, 04/06/23 6:51:00 EST, Weight Dosing Start: 04-27-2023 CYSTOSCOPY RETROGRADE STENT INSERTION Jimmy GASTON MD 09/23/20 Unknown Ureter L FDA Start: 09-23-2020 lancets, See Instructions, 200 EA, 3, use to test BS BID dx E11.65, [facility], Supply, 165, cm, 08/18/22 13:25:00 EDT, Height/Length Dosing, 67.5, kg, 08/18/22 13:25:00 EDT, Weight Dosing Start: 08-26-2022 test strips, See Instructions, 100 EA, 2, use to test BS BID dx E11.65, [facility], Supply, 165, cm, 04/06/23 6:51:00 EST, Height/Length Dosing, 67.4, kg, 04/06/23 6:51:00 EST, Weight Dosing Start: 04-27-2023 CYSTOSCOPY RETROGRADE STENT INSERTION Jimmy GASTON MD 09/23/20 Unknown Ureter L FDA Start: 09-23-2020 lancets, See Instructions, 200 EA, 3, use to test BS BID dx E11.65, [facility], Supply, 165, cm, 08/18/22 13:25:00 EDT, Height/Length Dosing, 67.5, kg, 08/18/22 13:25:00 EDT, Weight Dosing Start: 08-26-2022 test strips, See Instructions, 100 EA, 2, use to test BS BID dx E11.65, [facility], Supply, 165, cm, 04/06/23 6:51:00 EST, Height/Length Dosing, 67.4, kg, 04/06/23 6:51:00 EST, Weight Dosing Start: 04-27-2023 CYSTOSCOPY RETROGRADE STENT INSERTION Jimmy GASTON MD 09/23/20 Unknown Ureter L FDA Start: 09-23-2020 lancets, See Instructions, 200 EA, 3, use to test BS BID dx E11.65, [email or web address], Supply, 165, cm, 08/18/22 13:25:00 EDT, Height/Length Dosing, 67.5, kg, 08/18/22 13:25:00 EDT, Weight Dosing Start: 08-26-2022 test strips, See Instructions, 100 EA, 2, use to test BS BID dx E11.65, [email or web address], Supply, 165, cm, 04/06/23 6:51:00 EST, Height/Length Dosing, 67.4, kg, 04/06/23 6:51:00 EST, Weight Dosing Start: 04-27-2023 Functional Status Date Assessment Result Facility 08-24-2023 Functional Status N/A [facility] 06-13-2023 Functional Status N/A [facility] 06-06-2023 Functional Status N/A [facility] 04-29-2023 Functional Status N/A [facility] 04-06-2023 Functional Status N/A [facility] 03-22-2023 Functional Status N/A [facility] 03-16-2023 Functional Status N/A [facility] 03-09-2023 Functional Status N/A [facility] 02-01-2023 Functional Status N/A [facility] 01-11-2023 Functional Status N/A [facility] 12-20-2022 Functional Status N/A [facility] 10-01-2022 Functional Status N/A [facility] 09-14-2022 Functional Status N/A [facility] 08-27-2022 Functional Status N/A [facility] 08-18-2022 Functional Status N/A [facility] 07-02-2022 Functional Status N/A [facility] 05-07-2022 Functional Status N/A [facility] 03-22-2022 Functional Status N/A [facility] 03-17-2022 Functional Status N/A [facility] 03-09-2022 Functional Status N/A [facility] 02-04-2022 Functional Status N/A [facility] 12-09-2021 Functional Status N/A [facility] 08-19-2021 Functional Status N/A [facility] Clinical Notes 06-08-2021 to 06-13-2023 Note Date & Type Note Facility 06-13-2023 Hospital Discharg e instructions Patient Education 06/13/2023 10:08:43 Blood Glucose Monitoring, Adult Blood Glucose Monitoring, Adult Monitoring your blood sugar (glucose) is an important part of managing your diabetes. Blood glucose monitoring involves checking your blood glucose as often as directed and keeping a log or record of your results over time. Checking your blood glucose regularly and keeping a blood glucose log can: Help you and your health care provider adjust your diabetes management plan as needed, including your medicines or insulin. Help you understand how food, exercise, illnesses, and medicines affect your blood glucose. Let you know what your blood glucose is at any time. You can quickly find out if you have low blood glucose (hypoglycemia) or high blood glucose (hyperglycemia). Your health care provider will set individualized treatment goals for you. Your goals will be based on your age, other medical conditions you have, and how you respond to diabetes treatment. Generally, the goal of treatment is to maintain the following blood glucose levels: Before meals (preprandial): 80 130 mg/dL (4.4 7.2 mmol/L). After meals (postprandial): below 180 mg/dL (10 mmol/L). A1C level: less than 7%. Supplies needed: Blood glucose meter. Test strips for your meter. Each meter has its own strips. You must use the strips that came with your meter. A needle to prick your finger (lancet). Do not use a lancet more than one time. A device that holds the lancet (lancing device). A journal or log book to write down your results. How to check your blood glucose Checking your blood glucose 1.Wash your hands for at least 20 seconds with soap and water. 2.Prick the side of your finger (not the tip) with the lancet. Do not use the same finger consecutively. 3.Gently rub the finger until a small drop of blood appears. 4.Follow instructions that come with your meter for inserting the test strip, applying blood to the strip, and using your blood glucose meter. 5.Write down your result and any notes in your log. Using alternative sites Some meters allow you to use areas of your body other than your finger (alternative sites) to test your blood. The most common alternative sites are the forearm, the thigh, and the palm of your hand. Alternative sites may not be as accurate as the fingers because blood flow is slower in those areas. This means that the result you get may be delayed, and it may be different from the result that you would get from your finger. Use the finger only, and do not use alternative sites, if: You think you have hypoglycemia. You sometimes do not know that your blood glucose is getting low (hypoglycemia unawareness). General tips and recommendations Blood glucose log Every time you check your blood glucose, write down your result. Also write down any notes about things that may be affecting your blood glucose, such as your diet and exercise for the day. This information can help you and your health care provider: ?Look for patterns in your blood glucose over time. ?Adjust your diabetes management plan as needed. Check if your meter allows you to download your records to a computer or if there is an amor for the meter. Most glucose meters store a record of glucose readings in the meter. If you have type 1 diabetes: Check your blood glucose 4 or more times a day if you are on intensive insulin therapy with multiple daily injections (MDI) or if you are using an insulin pump. Check your blood glucose: ?Before every meal and snack. ?Before bedtime. Also check your blood glucose: ?If you have symptoms of hypoglycemia. ?After treating low blood glucose. ?Before doing activities that create a risk for injury, like driving or using machinery. ?Before and after exercise. ?Two hours after a meal. ?Occasionally between 2:00 a.m. and 3:00 a.m., as directed. You may need to check your blood glucose more often, 6 10 times per day, if: ?You have diabetes that is not well controlled. ?You are ill. ?You have a history of severe hypoglycemia. ?You have hypoglycemia unawareness. If you have type 2 diabetes: Check your blood glucose 2 or more times a day if you take insulin or other diabetes medicines. Check your blood glucose 4 or more times a day if you are on intensive insulin therapy. Occasionally, you may also need to check your glucose between 2:00 a.m. and 3:00 a.m., as directed. Also check your blood glucose: ?Before and after exercise. ?Before doing activities that create a risk for injury, like driving or using machinery. You may need to check your blood glucose more often if: ?Your medicine is being adjusted. ?Your diabetes is not well controlled. ?You are ill. General tips Make sure you always have your supplies with you. After you use a few boxes of test strips, adjust (calibrate) your blood glucose meter by following instructions that came with your meter. If you have questions or need help, all blood glucose meters have a 24-hour hotline phone number available that you can call. Also contact your health care provider with questions or concerns you may have. Where to find more information The [place] [employer]: www.diabetes.org The [employer]: www.diabeteseducator.org Contact a health care provider if: Your blood glucose is at or above 240 mg/dL (13.3 mmol/L) for 2 days in a row. You have been sick or have had a fever for 2 days or longer, and you are not getting better. You have any of the following problems for more than 6 hours: ?You cannot eat or drink. ?You have nausea or vomiting. ?You have diarrhea. Get help right away if: Your blood glucose is lower than 54 mg/dL (3 mmol/L). You become confused, or you have trouble thinking clearly. You have difficulty breathing. You have moderate or large ketone levels in your urine. These symptoms may represent a serious problem that is an emergency. Do not wait to see if the symptoms will go away. Get medical help right away. Call your local emergency services (911 in the [place] Do not drive yourself to the hospital. Summary Monitoring your blood glucose is an important part of managing your diabetes. Blood glucose monitoring involves checking your blood glucose as often as directed and keeping a log or record of your results over time. Your health care provider will set individualized treatment goals for you. Your goals will be based on your age, other medical conditions you have, and how you respond to diabetes treatment. Every time you check your blood glucose, write down your result. Also, write down any notes about things that may be affecting your blood glucose, such as your diet and exercise for the day. This information is not intended to replace advice given to you by your health care provider. Make sure you discuss any questions you have with your health care provider. Document Revised: 11/12/2020 Document Reviewed: 11/12/2020 [employer] Patient Education 2022 [employer]. 06/13/2023 10:08:41 Diabetes Mellitus and Exercise Diabetes Mellitus and Exercise Exercising regularly is important for overall health, especially for people who have diabetes mellitus. Exercising is not only about losing weight. It has many other health benefits, such as increasing muscle strength and bone density and reducing body fat and stress. This leads to improved fitness, flexibility, and endurance, all of which result in better overall health. What are the benefits of exercise if I have diabetes? Exercise has many benefits for people with diabetes. They include: Helping to lower and control blood sugar (glucose). Helping the body to respond better to the hormone insulin by improving insulin sensitivity. Reducing how much insulin the body needs. Lowering the risk for heart disease by: ?Lowering bad cholesterol and triglyceride levels. ?Increasing good cholesterol levels. ?Lowering blood pressure. ?Lowering blood glucose levels. What is my activity plan? Your health care provider or certified medical assistant can help you make a plan for the type and frequency of exercise that works for you. This is called your activity plan. Be sure to: Get at least 150 minutes of medium-intensity or high-intensity exercise each week. Exercises may include brisk walking, biking, or water aerobics. Do stretching and strengthening exercises, such as yoga or weight lifting, at least 2 times a week. Spread out your activity over at least 3 days of the week. Get some form of physical activity each day. ?Do not go more than 2 days in a row without some kind of physical activity. ?Avoid being inactive for more than 90 minutes at a time. Take frequent breaks to walk or stretch. Choose exercises or activities that you enjoy. Set realistic goals. Start slowly and gradually increase your exercise intensity over time. How do I manage my diabetes during exercise? Monitor your blood glucose Check your blood glucose before and after exercising. If your blood glucose is: ?240 mg/dL (13.3 mmol/L) or higher before you exercise, check your urine for ketones. These are chemicals created by the liver. If you have ketones in your urine, do not exercise until your blood glucose returns to normal. ?100 mg/dL (5.6 mmol/L) or lower, eat a snack containing 15 20 grams of carbohydrate. Check your blood glucose 15 minutes after the snack to make sure that your glucose level is above 100 mg/dL (5.6 mmol/L) before you start your exercise. Know the symptoms of low blood glucose (hypoglycemia) and how to treat it. Your risk for hypoglycemia increases during and after exercise. Follow these tips and your health care provider's instructions Keep a carbohydrate snack that is fast-acting for use before, during, and after exercise to help prevent or treat hypoglycemia. Avoid injecting insulin into areas of the body that are going to be exercised. For example, avoid injecting insulin into: ?Your arms, when you are about to play tennis. ?Your legs, when you are about to go jogging. Keep records of your exercise habits. Doing this can help you and your health care provider adjust your diabetes management plan as needed. Write down: ?Food that you eat before and after you exercise. ?Blood glucose levels before and after you exercise. ?The type and amount of exercise you have done. Work with your health care provider when you start a new exercise or activity. He or she may need to: ?Make sure that the activity is safe for you. ?Adjust your insulin, other medicines, and food that you eat. Drink plenty of water while you exercise. This prevents loss of water (dehydration) and problems caused by a lot of heat in the body (heat stroke). Where to find more information [place] [employer]: www.diabetes.org Summary Exercising regularly is important for overall health, especially for people who have diabetes mellitus. Exercising has many health benefits. It increases muscle strength and bone density and reduces body fat and stress. It also lowers and controls blood glucose. Your health care provider or certified medical assistant can help you make an activity plan for the type and frequency of exercise that works for you. Work with your health care provider to make sure any new activity is safe for you. Also work with your health care provider to adjust your insulin, other medicines, and the food you eat. This information is not intended to replace advice given to you by your health care provider. Make sure you discuss any questions you have with your health care provider. Document Revised: 11/12/2019 Document Reviewed: 11/12/2019 [employer] Patient Education 2022 [employer]. 06/12/2023 13:45:46 Upper Gastrointestinal Series Upper Gastrointestinal Series An upper gastrointestinal (GI) series is a medical test in which X-rays are taken to check for problems in the upper GI tract. The upper GI tract includes: The part of your body that moves food and liquid from your mouth to your stomach (esophagus). Your stomach. The first part of your small intestine (duodenum). An upper GI series may be done to check for various problems, such as: Inflammation. Sores (ulcers). Abnormal growths. Narrowing. Blockages. Your health care provider may recommend this procedure to help make a diagnosis if you have any of these symptoms: Heartburn. Reflux, which is a backward flow of stomach contents into the esophagus. Upper abdominal pain. Swallowing problems. Tell a health care provider about: Any allergies you have, especially allergies to substances that are used in certain imaging tests (contrast materials). All medicines you are taking, including vitamins, herbs, eye drops, creams, and [id number] medicines. Any bleeding problems you have. Any surgeries you have had. Any medical conditions you have. Whether you are or may be . Whether you are . What are the risks? Generally, this is a safe procedure. However, problems may occur, including: Nausea after drinking the barium. Cramps or constipation. Fecal impaction. This is when hardened stool (feces) gets stuck in the large intestine (colon) or rectum. Exposure to radiation (a very small amount). Allergic reaction to the barium. This is rare. What happens before the procedure? Follow instructions from your health care provider about eating or drinking restrictions. Ask your health care provider about: ?Changing or stopping your regular medicines. This is especially important if you are taking diabetes medicines or blood thinners. ?Taking medicines such as aspirin and ibuprofen. These medicines can thin your blood. Do not take these medicines unless your health care provider tells you to take them. ?Taking [id number]-slyqsqt medicines, vitamins, herbs, and supplements. What happens during the procedure? You will drink the liquid barium, which looks like a light-colored milkshake. You will probably drink the barium through a straw. You may also be asked to swallow a powdered substance, tablet, or carbonated beverage that causes air to build up in your stomach. Your health care provider will watch the flow of barium as it moves through your esophagus, stomach, and duodenum. He or she will do this using a type of X-ray that allows images to be viewed on a monitor in a movie-like sequence (fluoroscopy). X-ray images will also be stored for later viewing. You may need to change positions several times, such as standing up or lying on a table. The table may move or tilt. You may need to turn from side to side. These position changes will allow the health care provider to view your entire upper GI tract. The procedure may vary among health care providers and hospitals. What can I expect after the procedure? Your stool may be white or childs for 2 3 days until all the barium has passed out of your body in your stool. It is up to you to get the results of your procedure. Ask your health care provider, or the department that is doing the procedure, when your results will be ready. Talk with your health care provider about what your results mean. Follow these instructions at home: Return to your normal activities and your normal diet as told by your health care provider. Check your stools to make sure that they return to normal color within a few days. Follow instructions from your health care provider about how to prevent constipation and how to help remove the barium from your body. Your health care provider may recommend that you: ?Drink enough fluid to keep your urine pale yellow. ?Take bacv-dnq-oklwlvw or prescription medicines. ?Eat foods that are high in fiber, such as beans, whole grains, and fresh fruits and vegetables. ?Limit foods that are high in fat and processed sugars, such as fried or sweet foods. Contact a health care provider if you: Cannot pass gas. Are constipated for more than 2 days. Have stools that still look white or chalky after 3 days. Have cramps, pain, or diarrhea. Have swelling of your abdomen. Feel nauseous or you vomit. Have a fever. Get help right away if you: Notice that your throat swells. Have trouble breathing. Develop red, itchy hives on your skin. Have a very hard and bloated (distended) abdomen. Have abdominal pain that gets worse. These symptoms may be an emergency. Get help right away. Call 911. Do not wait to see if the symptoms will go away. Do not drive yourself to the hospital. Summary An upper GI series is a medical test in which X-rays are taken to check for problems in the upper GI tract. For this test, you will swallow a white, chalky liquid called barium. Your health care provider will watch the flow of barium as it moves through your esophagus, stomach, and duodenum. After the procedure, your stool may be white or childs for 2 3 days until all the barium has passed out of your body in your stool. This information is not intended to replace advice given to you by your health care provider. Make sure you discuss any questions you have with your health care provider. Document Revised: 10/28/2021 Document Reviewed: 10/23/2021 [employer] Patient Education 2022 [employer]. 06/12/2023 13:45:45 Gastritis, Adult Gastritis, Adult Gastritis is inflammation of the stomach. There are two kinds of gastritis: Acute gastritis. This kind develops suddenly. Chronic gastritis. This kind is much more common. It develops slowly and lasts for a long time. Gastritis happens when the lining of the stomach becomes weak or gets damaged. Without treatment, gastritis can lead to stomach bleeding and ulcers. What are the causes? This condition may be caused by: An infection. Drinking too much alcohol. Certain medicines. These include steroids, antibiotics, and some ttmu-nzt-qpjvdse medicines, such as aspirin or ibuprofen. Having too much acid in the stomach. Having a disease of the stomach. Other causes may include: An allergic reaction. Some cancer treatments (radiation). Smoking cigarettes or the use of products that contain nicotine or tobacco. In some cases, the cause of this condition is not known. What increases the risk? Having a disease of the intestines. Having a disease in which the body's immune system attacks the body (autoimmune disease), such as Crohn's disease. Using aspirin or ibuprofen and other NSAIDs to treat other conditions, such as heart disease or chronic pain. Stress. What are the signs or symptoms? Symptoms of this condition include: Pain or a burning sensation in the upper abdomen. Nausea. Vomiting. An uncomfortable feeling of fullness after eating. Weight loss. Bad breath. Blood in your vomit or stool (feces). In some cases, there are no symptoms. How is this diagnosed? This condition may be diagnosed based on your medical history, a physical exam, and tests. Tests may include: Your medical history and a description of your symptoms. A physical exam. Tests. These can include: ?Blood tests. ?Stool tests. ?A test in which a thin, flexible instrument with a light and a camera is passed down the esophagus and into the stomach (upper endoscopy). ?A test in which a tissue sample is removed to look at it under a microscope (biopsy). How is this treated? This condition may be treated with medicines. The medicines that are used vary depending on the cause of the gastritis. If the condition is caused by a bacterial infection, you may be given antibiotic medicines. If the condition is caused by too much acid in the stomach, you may be given medicines called H2 blockers, proton pump inhibitors, or antacids. Treatment may also involve stopping the use of certain medicines such as aspirin or ibuprofen and other NSAIDs. Follow these instructions at home: Medicines Take fdvd-mph-oxelqca and prescription medicines only as told by your health care provider. If you were prescribed an antibiotic medicine, take it as told by your health care provider. Do not stop taking the antibiotic even if you start to feel better. Alcohol use Do not drink alcohol if: ?Your health care provider tells you not to drink. ?You are , may be , or are planning to become . If you drink alcohol: ?Limit your use to: ?0 1 drink a day for women. ?0 2 drinks a day for men. ?Know how much alcohol is in your drink. In the [place] one drink equals one 12 oz bottle of beer (355 mL), one 5 oz glass of wine (148 mL), or one 1 oz glass of hard liquor (44 mL). General instructions Eat small, frequent meals instead of large meals. Avoid foods and drinks that make your symptoms worse. Talk with your health care provider about ways to manage stress, such as getting regular exercise or practicing deep breathing, meditation, or yoga. Do not use any products that contain nicotine or tobacco. These products include cigarettes, chewing tobacco, and vaping devices, such as e-cigarettes. If you need help quitting, ask your health care provider. Drink enough fluid to keep your urine pale yellow. Keep all follow-up visits. This is important. Contact a health care provider if: Your symptoms get worse. Your abdominal pain gets worse. Your symptoms return after treatment. You have a fever. Get help right away if: You vomit blood or a substance that looks like coffee grounds. You have black or dark red stools. You are unable to keep fluids down. These symptoms may represent a serious problem that is an emergency. Do not wait to see if the symptoms will go away. Get medical help right away. Call your local emergency services (911 in the [place] Do not drive yourself to the hospital. Summary Gastritis is inflammation of the lining of the stomach that can occur suddenly (acute) or develop slowly over time (chronic). This condition is diagnosed with a medical history, a physical exam, or tests. This condition may be treated with medicines to treat infection or medicines to reduce the amount of acid in your stomach. Follow your health care provider's instructions about taking medicines, making changes to your diet, and knowing when to call for help. This information is not intended to replace advice given to you by your health care provider. Make sure you discuss any questions you have with your health care provider. Document Revised: 06/20/2021 Document Reviewed: 06/20/2021 [employer] Patient Education 2022 Soundtracker. Follow Up Care 06/07/2023 12:48:39 With:Tawanna Rapp Address: [address], [facility] [place] [address]- When:Within 3 Month(s) Comments:f/u [facility] 06-06-2023 Hospital Discharg e instructions Patient Education 06/06/2023 21:29:06 Nausea and Vomiting, Adult Nausea and Vomiting, Adult Nausea is the feeling that you have an upset stomach or that you are about to vomit. As nausea gets worse, it can lead to vomiting. Vomiting is when stomach contents forcefully come out of your mouth as a result of nausea. Vomiting can make you feel weak and cause you to become dehydrated. Dehydration can make you feel tired and thirsty, cause you to have a dry mouth, and decrease how often you urinate. Older adults and people with other diseases or a weak disease-fighting system (immune system) are at higher risk for dehydration. It is important to treat your nausea and vomiting as told by your health care provider. Follow these instructions at home: Watch your symptoms for any changes. Tell your health care provider about them. Eating and drinking Take an oral rehydration solution (ORS). This is a drink that is sold at pharmacies and retail stores. Drink clear fluids slowly and in small amounts as you are able. Clear fluids include water, ice chips, low-calorie sports drinks, and fruit juice that has water added (diluted fruit juice). Eat bland, jjvw-up-trmman foods in small amounts as you are able. These foods include bananas, applesauce, rice, lean meats, toast, and crackers. Avoid fluids that contain a lot of sugar or caffeine, such as energy drinks, sports drinks, and soda. Avoid alcohol. Avoid spicy or fatty foods. General instructions Take xpgu-pqw-mjctjom and prescription medicines only as told by your health care provider. Drink enough fluid to keep your urine pale yellow. Wash your hands often using soap and water for at least 20 seconds. If soap and water are not available, use hand communications programmer. Make sure that everyone in your household washes their hands well and often. Rest at home while you recover. Watch your condition for any changes. Take slow and deep breaths when you feel nauseous. Keep all follow-up visits. This is important. Contact a health care provider if: Your symptoms get worse. You have new symptoms. You have a fever. You cannot drink fluids without vomiting. Your nausea does not go away after 2 days. You feel light-headed or dizzy. You have a headache. You have muscle cramps. You have a rash. You have pain while urinating. Get help right away if: You have pain in your chest, neck, arm, or jaw. You feel extremely weak or you faint. You have persistent vomiting. You have vomit that is bright red or looks like black coffee grounds. You have bloody or black stools (feces) or stools that look like tar. You have a severe headache, a stiff neck, or both. You have severe pain, cramping, or bloating in your abdomen. You have difficulty breathing, or you are breathing very quickly. Your heart is beating very quickly. Your skin feels cold and clammy. You feel confused. You have signs of dehydration, such as: ?Dark urine, very little urine, or no urine. ?Cracked lips. ?Dry mouth. ?Sunken eyes. ?Sleepiness. ?Weakness. These symptoms may be an emergency. Get help right away. Call 911. Do not wait to see if the symptoms will go away. Do not drive yourself to the hospital. Summary Nausea is the feeling that you have an upset stomach or that you are about to vomit. As nausea gets worse, it can lead to vomiting. Vomiting can make you feel weak and cause you to become dehydrated. Follow instructions from your health care provider about eating and drinking to prevent dehydration. Take zyxk-jqv-imhwtnx and prescription medicines only as told by your health care provider. Contact your health care provider if your symptoms get worse, or you have new symptoms. Keep all follow-up visits. This is important. This information is not intended to replace advice given to you by your health care provider. Make sure you discuss any questions you have with your health care provider. Document Revised: 08/21/2021 Document Reviewed: 08/21/2021 [employer] Patient Education 2022 [employer]er. 06/06/2023 21:29:06 Abdominal Pain, Adult Abdominal Pain, Adult Pain in the abdomen (abdominal pain) can be caused by many things. Often, abdominal pain is not serious and it gets better with no treatment or by being treated at home. However, sometimes abdominal pain is serious. Your health care provider will ask questions about your medical history and do a physical exam to try to determine the cause of your abdominal pain. Follow these instructions at home: Medicines Take uzfa-fkp-lphhzzr and prescription medicines only as told by your health care provider. Do not take a laxative unless told by your health care provider. General instructions Watch your condition for any changes. Drink enough fluid to keep your urine pale yellow. Keep all follow-up visits as told by your health care provider. This is important. Contact a health care provider if: Your abdominal pain changes or gets worse. You are not hungry or you lose weight without trying. You are constipated or have diarrhea for more than 2 3 days. You have pain when you urinate or have a bowel movement. Your abdominal pain wakes you up at night. Your pain gets worse with meals, after eating, or with certain foods. You are vomiting and cannot keep anything down. You have a fever. You have blood in your urine. Get help right away if: Your pain does not go away as soon as your health care provider told you to expect. You cannot stop vomiting. Your pain is only in areas of the abdomen, such as the right side or the left lower portion of the abdomen. Pain on the right side could be caused by appendicitis. You have bloody or black stools, or stools that look like tar. You have severe pain, cramping, or bloating in your abdomen. You have signs of dehydration, such as: ?Dark urine, very little urine, or no urine. ?Cracked lips. ?Dry mouth. ?Sunken eyes. ?Sleepiness. ?Weakness. You have trouble breathing or chest pain. Summary Often, abdominal pain is not serious and it gets better with no treatment or by being treated at home. However, sometimes abdominal pain is serious. Watch your condition for any changes. Take bxeo-rkf-xttjsso and prescription medicines only as told by your health care provider. Contact a health care provider if your abdominal pain changes or gets worse. Get help right away if you have severe pain, cramping, or bloating in your abdomen. This information is not intended to replace advice given to you by your health care provider. Make sure you discuss any questions you have with your health care provider. Document Revised: 04/04/2020 Document Reviewed: 06/25/2019 [employer] Patient Education 2022 Soundtracker. Follow Up Care 06/06/2023 18:49:19 With:Tawanna livia Address: [address] [place] [address] [address] [place] [phone] Business (1) When:Within 3 Day(s) [facility] 06-06-2023 Evaluation + Plan note Extrac blanquita from: Title:ED Note Author:Elie Cueva DO Date :06/06/23 Abdominal pain, epigastric ( R10.13: Epigastric pain) N&V (nausea and vomiting) (R11.2: Nausea with vomiting, unspecified) Orders: Al hydroxide/Mg hydroxide/simethicone, 30 mL, Susp-Oral, Oral, Once, Stop date 06/06/23 20:05:00 EDT, STAT, Start date 06/06/23 20:05:00 EDT famotidine, 20 mg = 1 tab(s), Oral, BID, X 14 day(s), # 28 tab(s), Refills(s) 0, Pharmacy: [facility], 165, cm, 06/06/23 18:57:00 EDT, Height/Length Dosing, 64.8, kg, 06/06/23 18:57:00 EDT, Weight Dosing famotidine, 20 mg = 2 mL, Soln-IV, IV Push, Once, Stop date 06/06/23 19:12:00 EDT, STAT, Start date 06/06/23 19:12:00 EDT, 06/06/23 19:12:00 EDT ketorolac, 15 mg = 1 mL, Injection, IV Push, Once, Stop date 06/06/23 20:05:00 EDT, STAT, Start date 06/06/23 20:05:00 EDT, 06/06/23 20:05:00 EDT lidocaine topical, 200 mg, 10 mL, Soln-Oral, Oral, Once, Stop date 06/06/23 20:05:00 EDT, STAT, Start date 06/06/23 20:05:00 EDT ondansetron, 4 mg = 1 tab(s), Oral, q8hr, PRN Nausea/Vomiting, # 20 tab(s), Refills(s) 0, Pharmacy: [facility], 165, cm, 06/06/23 18:57:00 EDT, Height/Length Dosing, 64.8, kg, 06/06/23 18:57:00 EDT, Weight Dosing ondansetron, 4 mg = 2 mL, Injection, IV Push, Once, Stop date 06/06/23 18:59:00 EDT, STAT, Start date 06/06/23 18:59:00 EDT, 06/06/23 18:59:00 EDT Sodium Chloride 0.9% intravenous solution, 1,000 mL, Soln-IV, IV, Once, Stop date 06/06/23 18:59:00 EDT, STAT, Start date 06/06/23 18:59:00 EDT, Infuse over 61, minute(s) Sodium Chloride 0.9% intravenous solution 500 mL, 500 mL, IV, 500 mL/hr, STAT, Start date 06/06/23 19:36:00 EDT, 1 hour(s), Total volume (mL): 500, Bolus Dose: 500 mL, 64.8 kg, 1.72, m2 Basic Metabolic Panel CBC w/ Auto Diff CT Abdomen/Pelvis w/ Contrast eGFR Extra Blue Tube Extra SST Tube Hepatic Function Panel Lipase Level Saline Lock Insert Troponin 0 Hr. UA with Cult Rflx Future Appointments Appointment Date:06/14/2023 02:00:00 PM Scheduled Provider:Tawanna Rpap Location:[facility] Appointment Type:FM Acute Appointment Date:08/24/2023 01:45:00 PM Scheduled Provider:Jimmy GASTON MD Location:[facility] – [place] Appointment Type:URO Office Visit Future Scheduled Tests Laboratory* HgbA1c 09/15/22 * Lipid Panel 03/16/23 Radiology* XR Abdomen 1 View 07/19/22 [facility]04-08-2024 Hospital Discharge instructions Patient Education 06/06/2023 08:55:08 Diabetes Mellitus and Foot Care Diabetes Mellitus and Foot Care Foot care is an important part of your health, especially when you have diabetes. Diabetes may cause you to have problems because of poor blood flow (circulation) to your feet and legs, which can cause your skin to: Become thinner and drier and pulverizer tender. Break more easily. Heal more slowly. Peel and crack. You may also have nerve damage (neuropathy) in your legs and feet, causing decreased feeling in them. This means that you may not notice minor injuries to your feet that could lead to more serious problems. Noticing and addressing any potential problems early is the best way to prevent future foot problems. How to care for your feet Foot hygiene Wash your feet daily with warm water and mild soap. Do not use hot water. Then, pat your feet and the areas between your toes until they are completely dry. Do not soak your feet as this can dry yourskin. Trim your toenails straight across. Do not dig under them or around the cuticle. File the edges of your nails with an emery board or nail file. Apply a moisturizing lotion or petroleum jelly to the skin on your feet and to dry, brittle toenails. Use lotion that does not contain alcohol and is unscented. Do not apply lotion between your toes. Shoes and socks Wear clean socks or stockings every day. Make sure they are not too tight. Do not wear knee-high stockings since they may decrease blood flow to your legs. Wear shoes that fit properly and have enough cushioning. Always look in your shoes before you put them on to be sure there are no objects inside. To break in new shoes, wear them for just a few hours a day. This prevents injuries on your feet. Wounds, scrapes, corns, and calluses Check your feet daily for blisters, cuts, bruises, sores, and redness. If you cannot see the bottomof your feet, use a mirror or ask someone for help. Do not cut corns or calluses or try to remove them with medicine. If you find a minor scrape, cut, or break in the skin on your feet, keep it and the skin around it clean and dry. You may clean these areas with mild soap and water. Do not clean the area with peroxide, alcohol, or iodine. If you have a wound, scrape, corn, or callus on your foot, look at it several times a day to make sure it is healing and not infected. Check for: ?Redness, swelling, or pain. ?Fluid or blood. ?Warmth. ?Pus or a bad smell. General tips Do not cross your legs. This may decrease blood flow to your feet. Do not use heating pads or hot water bottles on your feet. They may burn your skin. If you have lost feeling in your feet or legs, you may not know this is happening until it is too late. Protect your feet from hot and cold by wearing shoes, such as at the beach or on hot pavement. Schedule a complete foot exam at least once a year (annually) or more often if you have foot problems. Report any cuts, sores, or bruises to your health care provider immediately. Where to find more information [place] [employer]: www.diabetes.org Association of Diabetes [employer] Education Specialists: www.diabeteseducator.org Contact a health care provider if: You have a medical condition that increases your risk of infection and you have any cuts, sores, orbruises on your feet. You have an injury that is not healing. You have redness on your legs or feet. You feel burning or tingling in your legs or feet. You have pain or cramps in your legs and feet. Your legs or feet are numb. Your feet always feel cold. You have pain around any toenails. Get help right away if: You have a wound, scrape, corn, or callus on your foot and: ?You have pain, swelling, or redness that gets worse. ?You have fluid or blood coming from the wound, scrape, corn, or callus. ?Your wound, scrape, corn, or callus feels warm to the touch. ?You have pus or a bad smell coming from the wound, scrape, corn, or callus. ?You have a fever. ?You have a red line going up your leg. Summary Check your feet every day for blisters, cuts, bruises, sores, and redness. Apply a moisturizing lotion or petroleum jelly to the skin on your feet and to dry, brittle toenails. Wear shoes that fit properly and have enough cushioning. If you have foot problems, report any cuts, sores, or bruises to your health care provider immediately. Schedule a complete foot exam at least once a year (annually) or more often if you have foot problems. This information is not intended to replace advice given to you by your health care provider. Make sure you discuss any questions you have with your health care provider. Document Revised: 09/04/2020 Document Reviewed: 09/04/2020 [employer] Patient Education 2022 Soundtracker. 06/06/2023 08:55:06 Diabetes Mellitus and Sick Day Management Diabetes Mellitus and Sick Day Management Blood sugar (glucose) can be difficult to control when you are sick. Common illnesses that can cause problems for people with diabetes (diabetes mellitus) include colds, fever, flu (influenza), nausea, vomiting, and diarrhea. These illnesses can cause stress and loss of body fluids (dehydration), and those issues can cause blood glucose levels to increase. Because of this, it is very important totake your insulin and diabetes medicines and eat some form of carbohydrate when you are sick. You should make a plan for days when you are sick (sick day plan) as part of your diabetes management plan. You and your health care provider should make this plan in advance. The following guidelines are intended to help you manage an illness that lasts for about 24 hours or less. Your health careprovider may also give you more specific instructions. How to manage your blood glucose Check your blood glucose every 2 4 hours, or as often as told by your health care provider. If you use insulin, take your usual dose. If your blood glucose continues to be too high, you may need to take an additional insulin dose as told by your health care provider. Know your sick day treatment goals. Your target blood glucose levels may be different when you are sick. If you use oral diabetes medicine, continue to take your medicines. Have a plan with your health care provider for these medicines while you are sick. If you use injectable hormone medicines other than insulin to control your diabetes, have a plan with your health care provider for these medicines while you are sick. Follow these instructions at home Check your ketones If you have type 1 diabetes, check your urine ketones every 4 hours. If you have type 2 diabetes, check your urine ketones as often as told by your health care provider. Eating and drinking Drink enough fluid to keep your urine pale yellow. This is especially important if you have a fever, vomiting, or diarrhea. Those symptoms can lead to dehydration. Follow instructions from your health care provider about beverages to avoid. Do not drink alcohol, caffeine, or drinks that contain a lot of sugar. You need to eat some form of carbohydrates when you are sick. Eat 45 50 grams (45 50 g) of carbohydrates every 3 4 hours until you feel better. All of the food choices below contain about 15 g of carbohydrates. Plan ahead and keep some of these foods around so you have them if you get sick. ?4 6 oz (120 177 mL) carbonated beverage that contains sugar, such as regular (not diet) soda. You may be able to drink carbonated beverages more easily if you open the beverage and let it sit at room temperature for a few minutes before drinking. ? of a twin frozen ice pop. ?4 oz (120 g) regular gelatin. ?4 oz (120 mL) fruit juice. ?4 oz (120 g) ice cream or frozen yogurt. ?2 oz (60 g) sherbet. ?1 slice bread or toast. ?6 saltine crackers. ?5 vanilla wafers. Medicines Ryfb-mmlg-qdt-counter and prescription medicines only as told by your health care provider. Check medicine labels for added sugars. Some medicines may contain sugar or types of sugars that can raise your blood glucose level. Questions to ask your health care provider Should I adjust my diabetes medicines? How often do I need to check my blood glucose? What supplies do I need to manage my diabetes at home when I am sick? What number can I call if I have questions? What foods and drinks should I avoid? Contact a health care provider if: You have been sick or have had a fever for 2 days or longer and you are not getting better. Your blood glucose is at or above 240 mg/dl (13.3 mmol/L), even after you take an additional insulin dose. You are unable to drink fluids without vomiting. You have any of the following for more than 6 hours: ?Nausea. ?Vomiting. ?Diarrhea. Get help right away if: You have difficulty breathing. You have moderate or high ketone levels in your urine. You have a change in how you think, feel, or act (mental status). You develop symptoms of diabetic ketoacidosis. These include: ?Nausea. ?Vomiting. ?Excessive thirst. ?Excessive urination. ?Fruity or sweet smelling breath. ?Rapid breathing. ?Pain in the abdomen. Your blood glucose is lower than 54mg/dl (3.0 mmol/L). You used emergency glucagon to treat low blood glucose. These symptoms may represent a serious problem that is an emergency. Do not wait to see if the symptoms will go away. Get medical help right away. Call your local emergency services (911 in the [place] Do not drive yourself to the hospital. Summary Blood sugar (glucose) can be difficult to control when you are sick. Common illnesses that can cause problems for people with diabetes (diabetes mellitus) include colds, fever, flu (influenza), nausea, vomiting, and diarrhea. Illnesses can cause stress and loss of body fluids (dehydration), and those issues can cause blood glucose levels to increase. Make a plan for days when you are sick (sick day plan) as part of your diabetes management plan. You and your health care provider should make this plan in advance. It is very important to take your insulin and diabetes medicines and to eat some form of carbohydrate when you are sick. Contact your health care provider if have problems managing your blood glucose levels when you are sick, or if you have been sick or had a fever for 2 days or longer and are not getting better. This information is not intended to replace advice given to you by your health care provider. Make sure you discuss any questions you have with your health care provider. Document Revised: 03/06/2020 Document Reviewed: 03/06/2020 [employer] Patient Education 2022 Sound[employer]. 06/06/2023 08:55:04 Diabetes Mellitus and Exercise Diabetes Mellitus and Exercise Exercising regularly is important for overall health, especially for people who have diabetes mellitus. Exercising is not only about losing weight. It has many other health benefits, such as increasing muscle strength and bone density and reducing body fat and stress. This leads to improved fitness, flexibility, and endurance, all of which result in better overall health. What are the benefits of exercise if I have diabetes? Exercise has many benefits for people with diabetes. They include: Helping to lower and control blood sugar (glucose). Helping the body to respond better to the hormone insulin by improving insulin sensitivity. Reducing how much insulin the body needs. Lowering the risk for heart disease by: ?Lowering bad cholesterol and triglyceride levels. ?Increasing good cholesterol levels. ?Lowering blood pressure. ?Lowering blood glucose levels. What is my activity plan? Your health care provider or certified medical assistant can help you make a plan for the type and frequency of exercise that works for you. This is called your activity plan. Be sure to: Get at least 150 minutes of medium-intensity or high-intensity exercise each week. Exercises may include brisk walking, biking, or water aerobics. Do stretching and strengthening exercises, such as yoga or weight lifting, at least 2 times a week. Spread out your activity over at least 3 days of the week. Get some form of physical activity each day. ?Do not go more than 2 days in a row without some kind of physical activity. ?Avoid being inactive for more than 90 minutes at a time. Take frequent breaks to walk or stretch. Choose exercises or activities that you enjoy. Set realistic goals. Start slowly and gradually increase your exercise intensity over time. How do I manage my diabetes during exercise? Monitor your blood glucose Check your blood glucose before and after exercising. If your blood glucose is: ?240 mg/dL (13.3 mmol/L) or higher before you exercise, check your urine for ketones. These are chemicals created by the liver. If you have ketones in your urine, do not exercise until your blood glucose returns to normal. ?100 mg/dL (5.6 mmol/L) or lower, eat a snack containing 15 20 grams of carbohydrate. Check your blood glucose 15 minutes after the snack to make sure that your glucose level is above 100 mg/dL (5.6 mmol/L) before you start your exercise. Know the symptoms of low blood glucose (hypoglycemia) and how to treat it. Your risk for hypoglycemia increases during and after exercise. Follow these tips and your health care provider's instructions Keep a carbohydrate snack that is fast-acting for use before, during, and after exercise to help prevent or treat hypoglycemia. Avoid injecting insulin into areas of the body that are going to be exercised. For example, avoid injecting insulin into: ?Your arms, when you are about to play tennis. ?Your legs, when you are about to go jogging. Keep records of your exercise habits. Doing this can help you and your health care provider adjust your diabetes management plan as needed. Write down: ?Food that you eat before and after you exercise. ?Blood glucose levels before and after you exercise. ?The type and amount of exercise you have done. Work with your health care provider when you start a new exercise or activity. He or she may need to: ?Make sure that the activity is safe for you. ?Adjust your insulin, other medicines, and food that you eat. Drink plenty of water while you exercise. This prevents loss of water (dehydration) and problems caused by a lot of heat in the body (heat stroke). Where to find more information [place] [employer]: www.diabetes.org Summary Exercising regularly is important for overall health, especially for people who have diabetes mellitus. Exercising has many health benefits. It increases muscle strength and bone density and reduces bodyfat and stress. It also lowers and controls blood glucose. Your health care provider or certified medical assistant can help you make an activity plan for thetype and frequency of exercise that works for you. Work with your health care provider to make sure any new activity is safe for you. Also work with your health care provider to adjust your insulin, other medicines, and the food you eat. This information is not intended to replace advice given to you by your health care provider. Make sure you discuss any questions you have with your health care provider. Document Revised: 11/12/2019 Document Reviewed: 11/12/2019 [employer] Patient Education 2022 Soundtracker. 06/06/2023 08:55:03 Blood Glucose Monitoring, Adult Blood Glucose Monitoring, Adult Monitoring your blood sugar (glucose) is an important part of managing your diabetes. Blood glucosemonitoring involves checking your blood glucose as often as directed and keeping a log or record ofyour results over time. Checking your blood glucose regularly and keeping a blood glucose log can: Help you and your health care provider adjust your diabetes management plan as needed, including your medicines or insulin. Help you understand how food, exercise, illnesses, and medicines affect your blood glucose. Let you know what your blood glucose is at any time. You can quickly find out if you have low bloodglucose (hypoglycemia) or high blood glucose (hyperglycemia). Your health care provider will set individualized treatment goals for you. Your goals will be basedon your age, other medical conditions you have, and how you respond to diabetes treatment. Generally, the goal of treatment is to maintain the following blood glucose levels: Before meals (preprandial): 80 130 mg/dL (4.4 7.2 mmol/L). After meals (postprandial): below 180 mg/dL (10 mmol/L). A1C level: less than 7%. Supplies needed: Blood glucose meter. Test strips for your meter. Each meter has its own strips. You must use the strips that came with your meter. A needle to prick your finger (lancet). Do not use a lancet more than one time. A device that holds the lancet (lancing device). A journal or log book to write down your results. How to check your blood glucose Checking your blood glucose 1.Wash your hands for at least 20 seconds with soap and water. 2.Prick the side of your finger (not the tip) with the lancet. Do not use the same finger consecutively. 3.Gently rub the finger until a small drop of blood appears. 4.Follow instructions that come with your meter for inserting the test strip, applying blood to thestrip, and using your blood glucose meter. 5.Write down your result and any notes in your log. Using alternative sites Some meters allow you to use areas of your body other than your finger (alternative sites) to test your blood. The most common alternative sites are the forearm, the thigh, and the palm of your hand. Alternative sites may not be as accurate as the fingers because blood flow is slower in those areas. This means that the result you get may be delayed, and it may be different from the result that you would get from your finger. Use the finger only, and do not use alternative sites, if: You think you have hypoglycemia. You sometimes do not know that your blood glucose is getting low (hypoglycemia unawareness). General tips and recommendations Blood glucose log Every time you check your blood glucose, write down your result. Also write down any notes about things that may be affecting your blood glucose, such as your diet and exercise for the day. This information can help you and your health care provider: ?Look for patterns in your blood glucose over time. ?Adjust your diabetes management plan as needed. Check if your meter allows you to download your records to a computer or if there is an amor for [employer]. Most glucose meters store a record of glucose readings in the meter. If you have type 1 diabetes: Check your blood glucose 4 or more times a day if you are on intensive insulin therapy with multiple daily injections (MDI) or if you are using an insulin pump. Check your blood glucose: ?Before every meal and snack. ?Before bedtime. Also check your blood glucose: ?If you have symptoms of hypoglycemia. ?After treating low blood glucose. ?Before doing activities that create a risk for injury, like driving or using machinery. ?Before and after exercise. ?Two hours after a meal. ?Occasionally between 2:00 a.m. and 3:00 a.m., as directed. You may need to check your blood glucose more often, 6 10 times per day, if: ?You have diabetes that is not well controlled. ?You are ill. ?You have a history of severe hypoglycemia. ?You have hypoglycemia unawareness. If you have type 2 diabetes: Check your blood glucose 2 or more times a day if you take insulin or other diabetes medicines. Check your blood glucose 4 or more times a day if you are on intensive insulin therapy. Occasionally, you may also need to check your glucose between 2:00 a.m. and 3:00 a.m., as directed. Also check your blood glucose: ?Before and after exercise. ?Before doing activities that create a risk for injury, like driving or using machinery. You may need to check your blood glucose more often if: ?Your medicine is being adjusted. ?Your diabetes is not well controlled. ?You are ill. General tips Make sure you always have your supplies with you. After you use a few boxes of test strips, adjust (calibrate) your blood glucose meter by following instructions that came with your meter. If you have questions or need help, all blood glucose meters have a 24-hour hotline phone number available that you can call. Also contact your health care provider with questions or concerns you mayhave. Where to find more information The [place] [employer]: www.diabetes.org The Association of [employer] Education Specialists: www.diabeteseducator.org Contact a health care provider if: Your blood glucose is at or above 240 mg/dL (13.3 mmol/L) for 2 days in a row. You have been sick or have had a fever for 2 days or longer, and you are not getting better. You have any of the following problems for more than 6 hours: ?You cannot eat or drink. ?You have nausea or vomiting. ?You have diarrhea. Get help right away if: Your blood glucose is lower than 54 mg/dL (3 mmol/L). You become confused, or you have trouble thinking clearly. You have difficulty breathing. You have moderate or large ketone levels in your urine. These symptoms may represent a serious problem that is an emergency. Do not wait to see if the symptoms will go away. Get medical help right away. Call your local emergency services (911 in the [place] Do not drive yourself to the hospital. Summary Monitoring your blood glucose is an important part of managing your diabetes. Blood glucose monitoring involves checking your blood glucose as often as directed and keeping a log or record of your results over time. Your health care provider will set individualized treatment goals for you. Your goals will be basedon your age, other medical conditions you have, and how you respond to diabetes treatment. Every time you check your blood glucose, write down your result. Also, write down any notes about things that may be affecting your blood glucose, such as your diet and exercise for the day. This information is not intended to replace advice given to you by your health care provider. Make sure you discuss any questions you have with your health care provider. Document Revised: 11/12/2020 Document Reviewed: 11/12/2020 [employer] Patient Education 2022 Soundtracker. Follow Up Care 04/18/2023 16:41:53 With:Tawanna Rapp Address: [address], [facility] [place] [id number]- When:Within 3 Month(s) Comments:f/u [facility] 03-01-2024 Evaluation + Plan noteExtracted from: Title:Pain Managment Follow up Author:Carmen Figueroa Date:04/29/23 Patient: CHRIS FREEMAN Age: 53 years Sex: Male : 1970 Associated Diagnoses: None Author: Carmen Andrew PA-C Subjective Chief complaint 04/29/2023 13:56 EST low back pain . Patient is a 53-year-old male. He has a past medical history significant for shoulder pain, cervical neuritis, chronic pain, and lumbar spondylosis. At this time, patient has pain in multiple places. He rates it a 5/10 but he is somewhat confused today about his medications. He states that he does have some new medications and he cannot member the names any Member when he supposed to take him and he is not sure if he is taking the gabapentin. He originally stated he was not sure if he was taking it at all. Then he stated he was taking it twice a day. Then he said that maybe he is taking it 3 times a day. He states that he has a list at home and he forgot it today. At this time, he jackson his neck, mid back, lower back and hands on his visual analog scale. He did start some therapy for his shoulder and has an upcoming appointment with Ortho as well as his primary care but he is not sure when these are either. Health Status Allergies: Allergic Reactions (Selected) No Known Allergies, Allergies (1) ActiveSeverityReaction No Known AllergiesNone Documented Current medications: (Selected) Prescriptions Prescribed Flomax 0.4 mg Cap: 0.4 mg = 1 cap(s), Oral, Daily, # 30 cap(s), Refills(s) 0, Pharmacy: [facility], 165, cm, 04/06/23 6:51:00 EST, Height/Length Dosing, 67.4, kg, 04/06/23 6:51:00 EST, Weight Dosing Glucometer: Glucometer, Print Requisition, Supply K-Effervescent 25 mEq oral tablet, effervescent: 25 mEq = 1 tab(s), Oral, BID, X 90 day(s), # 180 tab(s), Refills(s) 3, Pharmacy: [place] [address], 165, cm, 08/18/22 13:25:00 EDT, Height/Length Dosing, 67.5, kg, 08/18/22 13:25:00 EDT, Weight Dosing Zofran ODT 4 mg Tab-Dis: 4 mg = 1 tab(s), Oral, q8hr, PRN Nausea/Vomiting, # 12 tab(s), Refills(s) 0, Pharmacy: [place] [address], 165, cm, 04/06/23 6:51:00 EST, Height/Length Dosing, 67.4, kg, 04/06/23 6:51:00 EST, Weight Dosing amitriptyline 50 mg Tab: 50 mg = 1 tab(s), Oral, Once a day (at bedtime), # 30 tab(s), Refills(s) 5, Pharmacy: [place] [address], 165, cm, 03/09/23 11:01:00 EST, Height/Length Dosing, 60.8, kg, 03/09/23 11:01:00 EST, Weight Dosing atorvastatin 20 mg Tab: 20 mg = 1 tab(s), Oral, Bedtime, # 90 tab(s), Refills(s) 1, Pharmacy: [place] [address], 165, cm, 02/01/23 12:59:00 EST, Height/Length Dosing, 60.8, kg, 12/20/22 13:03:00 EDT, Weight Dosing cyclobenzaprine 10 mg Tab: 10 mg = 1 tab(s), Oral, TID, PRN Spasm, If makes drowsy, cut in half and take 5 mg[address] or work around heavy equipment nor ladders nor bathe if drowsy, # 30 tab(s), Refills(s) 0, Pharmacy: [place] [address], 165, cm, 03/28/23 13:42:0... gabapentin 600 mg Tab: 1,200 mg = 2 tab(s), Oral, TID, increase as per titraton schedule given to pt, X 30 day(s), # 180 tab(s), Refills(s) 1, Pharmacy: [facility], 165, cm, 03/28/23 13:42:00 EST, Height/Length Dosing, 63.8, kg, 03/28/23 13:42:00 EST, Weight Dosing... ibuprofen 600 mg Tab: 600 mg = 1 tab(s), Oral, q6hr, # 40 tab(s), Refills(s) 0, Pharmacy: [place] [address], 165, cm, 10/01/22 14:13:00 EDT, Height/Length Dosing, 67.5, kg, 10/01/22 14:13:00 EDT, Weight Dosing lancets: lancets, See Instructions, 200 EA, 3, use to test BS BID dx E11.65, [place] [address], Supply, 165, cm, 08/18/22 13:25:00 EDT, Height/Length Dosing, 67.5, kg, 08/18/22 13:25:00 EDT, Weight Dosing metformin 1000 mg Tab: 1,000 mg = 1 tab(s), Oral, BID, # 180 tab(s), Refills(s) 3, Pharmacy: [facility], 165, cm, 09/14/22 13:03:00 EDT, Height/Length Dosing, 66.7, kg, 09/14/22 13:03:00 EDT, Weight Dosing naproxen 500 mg Tab: 500 mg = 1 tab(s), Oral, BID, PRN Pain, with food, # 20 tab(s), Refills(s) 0, Pharmacy: [facility], 165, cm, 03/09/23 11:01:00 EST, Height/Length Dosing, 60.8, kg, 03/09/23 11:01:00 EST, Weight Dosing test strips: test strips, See Instructions, 100 EA, 2, use to test BS BID dx E11.65, [facility], Supply, 165, cm, 04/06/23 6:51:00 EST, Height/Length Dosing, 67.4, kg, 04/06/23 6:51:00 EST, Weight Dosing Documented Medications Documented Excedrin Migraine: 2 tab(s), Oral, q8hr Headache, Refill(s) 0 meloxicam: Refills(s) 0 multivitamin: See Instructions, Refill(s) 0, mens one a day Problem list: All Problems Migraines / SNOMED CT 36863775 / Confirmed DM type 2 with diabetic mixed hyperlipidemia / SNOMED CT 3889875691 / Confirmed Non-smoker / SNOMED CT 58459212 / Confirmed Type 2 diabetes mellitus with diabetic neuropathy, without long-term current use of insulin / SNOMED CT 186030197 / Confirmed Lumbar radiculopathy / SNOMED CT 579765791 / Confirmed Rheumatoid arthritis / SNOMED CT 948811373 / Confirmed Mixed hyperlipidemia / SNOMED CT 690515780 / Confirmed Bilateral carpal tunnel syndrome / SNOMED CT [id number] / Confirmed BPH with urinary obstruction / SNOMED CT 3314149026 / Confirmed BMI 24.0-24.9, adult / SNOMED CT 9901365834 / Confirmed Kidney stones / SNOMED CT 591528151 / Confirmed 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 Canceled: Kidney stone / SNOMED CT [id number] Canceled: Frequency of urination / SNOMED CT 020687730 Canceled: Urgency of urination / SNOMED CT 109011067 Canceled: Nocturia / SNOMED CT 422317782 Canceled: Kidney stone / SNOMED CT 372743981 Canceled: Asymptomatic microscopic hematuria / SNOMED CT 0246794016 Canceled: Prostate cancer screening / SNOMED CT 160511362 Canceled: Diabetes mellitus with hyperglycemia / SNOMED CT 552134408 Canceled: Combined hyperlipidemia / SNOMED CT 317260369 Canceled: BMI 26.0-26.9,adult / SNOMED CT 0029046249 Canceled: Diabetes mellitus with diabetic polyneuropathy / SNOMED CT 664660807 Canceled: Overweight with body mass index (BMI) of 25 to 25.9 in adult / SNOMED CT 9216318876 Canceled: Screening for cardiovascular condition / SNOMED CT 466900067 Canceled: BMI 24.0-24.9, adult / SNOMED CT 8585837826 Canceled: BPH without urinary obstruction / SNOMED CT 1816169022 Canceled: HLD (hyperlipidemia) / SNOMED CT 15200577 Canceled: BMI 25.0-25.9,adult / SNOMED CT 3453616113 Canceled: Overweight with body mass index (BMI) 25.0-29.9 / SNOMED CT 8760062497 Canceled: Nonsmoker / SNOMED CT 66061898 Canceled: Overweight with body mass index (BMI) of 26 to 26.9 in adult / SNOMED CT 3253393324 Canceled: Back pain / SNOMED CT 700784441 Canceled: BMI 25.0-25.9,adult / SNOMED CT 3382699718 Canceled: Over weight / SNOMED CT 251251359 Canceled: DM neuropathy, type II diabetes mellitus / SNOMED CT 5924869381 Canceled: Lumbar spine strain / SNOMED CT 097872595 Canceled: Acid reflux / SNOMED CT 623230300 Canceled: Numbness / SNOMED CT 29915005 Canceled: Lower back pain / SNOMED CT 623902465 Canceled: Rheumatoid arthritis / SNOMED CT 901396675 Canceled: Overweight in adulthood with body mass index of 25 or more but less than 30 / SNOMED CT 3891366098 Canceled: Migraine / SNOMED CT 94878902 Canceled: Lower back injury / SNOMED CT 639142250 Canceled: Kidney stone / SNOMED CT 959666600 Canceled: Increased frequency of urination / SNOMED CT 658085139 Canceled: Gastroesophageal reflux disease / SNOMED CT 120880544 Canceled: Complication due to diabetes mellitus / SNOMED CT 5083860212 Canceled: Diabetes mellitus / SNOMED CT 797541688 Canceled: Body mass index 20-24 - normal / SNOMED CT 0128941425 Canceled: Benign prostatic hyperplasia without outflow obstruction / SNOMED CT 2765690257 Canceled: Asymptomatic microscopic hematuria / SNOMED CT 1993108560 Canceled: Kidney stones / SNOMED CT 854148168 Canceled: Hypocitraturia / SNOMED CT 644886254 Canceled: Prostate cancer screening / SNOMED CT 575977502 Canceled: Routine check-up / SNOMED CT 874953872 Canceled: BMI 24.0-24.9, adult / SNOMED CT 8579264754 Canceled: BMI 22.0-22.9, adult / SNOMED CT 1584798067 Canceled: Influenza vaccine administered / SNOMED CT 9263209631 Canceled: Ureteral stone / SNOMED CT 17881439 Objective Vital Signs 04/29/2023 13:56 EST Peripheral Pulse Rate 83 bpm Respiratory Rate 16 br/min Systolic Blood Pressure 133 mmHg Diastolic Blood Pressure 83 mmHg Mean Arterial Pressure, Cuff 100 mmHg General: Alert and oriented, No acute distress. Eye: Normal conjunctiva. HENT: Normocephalic, Normal hearing. Cardiovascular: No edema. Musculoskeletal Normal range of motion. Normal strength. 5/5 strength throughout Integumentary: Warm, Dry, [place]. Neurologic: Alert, Oriented. Psychiatric: Cooperative, Appropriate mood & affect. Impression and Plan Patient is a 53-year-old male with a past medical history significant for neck pain, low back pain, lumbar spondylosis, cervical neuritis, and essentially multi focal joint pain. We had a long stretch out his medications but at this time he is very unclear as to what he is taking when. It looks as though he may be taking multiple anti-inflammatory medications and is not sure about the gabapentin. I would like him to go home and get his medication list and call us. He states that he has a medication list at home but he forgot it today. I would like him to call with the medication list and we can further make decisions from there. I asked him if he noticed any memory changes regarding the gabapentin he is not sure. We may want to consider discontinuing this and trialing Lyrica but at this time, with how confused he is about his meds I would like him to share his medication list with us and then if we did switch him we may want to consider disposing of the gabapentin. He will call and we will formulate a plan of care from there. OARRS reviewed STEPHANIE score: 46% Addendum by Jacinta Andrew PA-C on April 29, 2023 14:59 EST 14 point review of systems was negative unless otherwise noted. Future Appointments Appointment Date:05/06/2023 02:00:00 PM Scheduled Provider: Location:[facility] [place] Appointment Type:PT 45 (FT) Appointment Date:05/09/2023 12:00:00 PM Scheduled Provider: Location:[facility] [place] Appointment Type:PT 30 (FT) Appointment Date:05/13/2023 12:00:00 PM Scheduled Provider: Location:[facility] [place] Appointment Type:PT 30 (FT) Appointment Date:05/17/2023 12:30:00 PM Scheduled Provider: Location:[facility] [place] Appointment Type:PT 45 (FT) Appointment Date:05/19/2023 12:30:00 PM Scheduled Provider: Location:[facility] [place] Appointment Type:PT 45 (FT) Appointment Date:05/25/2023 12:30:00 PM Scheduled Provider: Location:[facility] [place] Appointment Type:PT 45 (FT) Appointment Date:05/27/2023 02:00:00 PM Scheduled Provider: Location:[facility] [place] Appointment Type:PT Re-Eval 30 (FT) Appointment Date:06/14/2023 02:00:00 PM Scheduled Provider:Tawanna Rapp Location:[facility] Appointment Type:FM Acute Appointment Date:08/24/2023 01:45:00 PM Scheduled Provider:Jimmy GASTON MD Location:[facility] [place] Appointment Type:URO Office Visit Future Scheduled Tests Laboratory* HgbA1c 09/15/22 * Lipid Panel 03/16/23 Radiology* XR Abdomen 1 View 07/19/22 [facility]02-07-2024 Evaluation + Plan noteExtracted from: Title:ED Note Author:Rodrigo Gamboa DO Date: Colic, ureteral (N23: Unspec ified renal colic) Ordered: acetaminophen-hydrocodone, 1 tab(s), Oral, q6hr for pain for 3 day(s), 12 tab(s), Refill(s) 0, [facility], 165, cm, 04/06/23 6:51:00 EST, Height/Length Dosing, 67.4, kg, 04/06/23 6:51:00 EST, Weight Dosing Kidney stone on right side (N20.0: Calculus of kidney) Orders: ketorolac, 30 mg = 1 mL, Injection, IV Push, Once, Stop date 04/06/23 7:11:00 EST, STAT, Start date 04/06/23 7:11:00 EST, 04/06/23 7:11:00 EST ondansetron, 4 mg = 2 mL, Injection, IV Push, Once, Stop date 04/06/23 7:11:00 EST, STAT, Start date 04/06/23 7:11:00 EST, 04/06/23 7:11:00 EST ondansetron, 4 mg = 1 tab(s), Oral, q8hr, PRN Nausea/Vomiting, # 12 tab(s), Refills(s) 0, Pharmacy: [email or web address], 165, cm, 04/06/23 6:51:00 EST, Height/Length Dosing, 67.4, kg, 04/06/23 6:51:00 EST, Weight Dosing Sodium Chloride 0.9% intravenous solution, 1,000 mL, Soln-IV, IV, Once, Stop date 04/06/23 7:11:00 EST, STAT, Start date 04/06/23 7:11:00 EST, Infuse over 61, minute(s) tamsulosin, 0.4 mg = 1 cap(s), Oral, Daily, # 30 cap(s), Refills(s) 0, Pharmacy: [facility], 165, cm, 04/06/23 6:51:00 EST, Height/Length Dosing, 67.4, kg, 04/06/23 6:51:00 EST, Weight Dosing Basic Metabolic Panel CBC w/ Auto Diff CT Abdomen/Pelvis w/o Contrast eGFR Extra Blue Tube Extra SST Tube Hepatic Function Panel Lipase Level Saline Lock Insert UA With Cult Reflex Urine Strainer to go Future Appointments Appointment Date:04/29/2023 01:45:00 PM Scheduled Provider:Carmen Andrew PA-C [facility] Appoint[facility] Type:Pain Management - Follow Up (FT) Appointment Date:08/24/2023 01:45:00 PM Scheduled Provider:Jimmy GASTON MD Location:[facility] – [place] Appointment Type:URO Office Visit Future Scheduled Tests Laboratory* HgbA1c 09/15/22 * Lipid Panel 03/16/23 Radiology* XR Abdomen 1 View 07/19/22 [facility]02-07-2024 Hospital Discharge instructions Patient Education 04/06/2023 09:22:28 Renal Colic Renal Colic Renal colic is pain that is caused by passing a kidney stone. The pain can be sharp and severe. It may be felt in the back, abdomen, side (flank), or groin. It can cause nausea. Renal colic can come and go. Follow these instructions at home: Watch your condition for any changes. The following actions may help to lessen any discomfort that you are feeling: Medicines Take hxas-gow-pjmguxb and prescription medicines only as told by your health care provider. Do not drive or use heavy machinery while taking prescription pain medicine. Eating and drinking Drink enough fluid to keep your urine pale yellow. You may be instructed to drink at least 8 10 glasses of water each day. Follow instructions from your health care provider. If directed, change your diet. This may include: ?Limiting how much sodium you eat. You may need to eat less than 2 grams (2,000 mg) per day. ?Eating more fruits and vegetables. ?Limiting how much animal protein, such as red meat, poultry, fish, and eggs, you eat. ?Avoiding foods such as spinach, rhubarb, sweet potatoes, and nuts. These make kidney stones more likely to form. Follow instructions from your health care provider about eating or drinking restrictions. General instructions Keep all follow-up visits as told by your health care provider. This is important. Collect urine samples as told by your health care provider. You may need to collect a urine sample: ?24 hours after you pass the stone. ?8 12 weeks after passing the kidney stone, and every 6 12 months after that. Strain your urine every time you urinate, for as long as directed. Use the strainer that your health care provider recommends. Do not throw out the kidney stone after passing it. Keep the stone so it can be tested by your health care provider. Testing the makeup of your kidney stone may help understand how to prevent you from getting kidney stones in the future. Contact a health care provider if: You have a fever or chills. Your urine smells bad or looks cloudy. You have pain or burning when you pass urine. Get help right away if: Your flank pain or groin pain suddenly worsens. You become confused or disoriented or you lose consciousness. Summary Renal colic is pain that is caused by passing a kidney stone. Take pgrw-prw-ivxjjcz and prescription medicines only as told by your health care provider. Drink enough fluid to keep your urine pale yellow. You may be instructed to drink at least 8 10 glasses of water each day. Follow instructions from your health care provider. Strain your urine every time you urinate, for as long as directed. Use the strainer that your health care provider recommends. Do not throw out the kidney stone after passing it. Keep the stone so it can be tested by your health care provider. This information is not intended to replace advice given to you by your health care provider. Make sure you discuss any questions you have with your health care provider. Document Revised: 10/19/2021 Document Reviewed: 10/19/2021 [employer] Patient Education 2022 [employer]er. Follow Up Care 04/06/2023 06:41:14 With:Jimmy GASTON Address: [facility] [address] [place] [address]- Business (1) When:04/09/2023 09:20:48 Comments:Call for diagnosis based follow up With:Tawanna Bentley Address: [facility] [address], [facility] [place] [address] Business (1) When:04/09/2023 09:19:31 Comments:Call the office of your primary care doctor to arrange for follow-up within the above-stated timeframe. Follow-up with your primary care doctor about this ED visit. You should review your labs, imaging, and diagnoses from this ED visit with your primary care physician. There are occasionally non-emergent findings that require additional follow-up after your ED visit. If you were prescribed medications you should discuss possible side-effects and drug interactions with your pharmacist. Call 911 or go to the nearest Emergency Department if you develop any new or worsening symptoms.Seek immediate medical attention if you develop:worsening abdominal pain, new or worsening nausea, new or worsening vomiting, new or worsening diarrhea, chest pain, shortness of breath, pain with urination, problems urinating, fever, chills, weakness, or any new or worsening symptoms. [facility]01-23-2024 Hospital Discharge instructions Patient Education 03/22/2023 11:40:55 Dietary Guidelines to Help Prevent Kidney Stones Dietary Guidelines to Help Prevent Kidney Stones Kidney stones are deposits of minerals and salts that form inside your kidneys. Your risk of developing kidney stones may be greater depending on your diet, your lifestyle, the medicines you take, and whether you have certain medical conditions. Most people can lower their risks of developing kidney stones by following these dietary guidelines. Your dietitian may give you more specific instructions depending on your overall health and the type of kidney stones you tend to develop. What are tips for following this plan? Reading food labels Choose foods with no salt added or low-salt labels. Limit your salt (sodium) intake to less than 1,500 mg a day. Choose foods with calcium for each meal and snack. Try to eat about 300 mg of calcium at each meal.Foods that contain 200 500 mg of calcium a serving include: ?8 oz (237 mL) of milk, uympanz-qtdxyzxsowjo-flsgx milk, and calcium- fortifiedfruit juice. Calcium-fortified means that calcium has been added to these drinks. ?8 oz (237 mL) of kefir, yogurt, and soy yogurt. ?4 oz (114 g) of tofu. ?1 oz (28 g) of cheese. ?1 cup (150 g) of dried figs. ?1 cup (91 g) of cooked broccoli. ?One 3 oz (85 g) can of sardines or mackerel. Most people need 1,000 1,500 mg of calcium a day. Talk to your dietitian about how much calcium is recommended for you. Shopping Buy plenty of fresh fruits and vegetables. Most people do not need to avoid fruits and vegetables, even if these foods contain nutrients that may contribute to kidney stones. When shopping for convenience foods, choose: ?Whole pieces of fruit. ?Pre-made salads with dressing on the side. ?Low-fat fruit and yogurt smoothies. Avoid buying frozen meals or prepared deli foods. These can be high in sodium. Look for foods with live cultures, such as yogurt and kefir. Choose high-fiber grains, such as whole-wheat breads, oat bran, and wheat cereals. Cooking Do not add salt to food when cooking. Place a salt shaker on the table and allow each person to addtheir own salt to taste. Use vegetable protein, such as beans, textured vegetable protein (TVP), or tofu, instead of meat inpasta, casseroles, and soups. Meal planning Eat less salt, if told by your dietitian. To do this: ?Avoid eating processed or pre-made food. ?Avoid eating fast food. Eat less animal protein, including cheese, meat, poultry, or fish, if told by your dietitian. To dothis: ?Limit the number of times you have meat, poultry, fish, or cheese each week. Eat a diet free of meat at least 2 days a week. ?Eat only one serving each day of meat, poultry, fish, or seafood. ?When you prepare animal proteins, cut pieces into small portion sizes. For most meat and fish, oneserving is about the size of the palm of your hand. Eat at least five servings of fresh fruits and vegetables each day. To do this: ?Keep fruits and vegetables on hand for snacks. ?Eat one piece of fruit or a handful of berries with breakfast. ?Have a salad and fruit at lunch. ?Have two kinds of vegetables at dinner. You may be told to limit foods that are high in a substance called oxalate. These include: ?Spinach (cooked), rhubarb, beets, sweet potatoes, and German chard. ?Peanuts. ?Potato chips, zambian fries, and baked potatoes with skin on. ?Nuts and nut products. ?Chocolate. If you regularly take a diuretic medicine, make sure to eat at least 1 or 2 servings of fruits or vegetables that are high in potassium each day. These include: ?Avocado. ?Banana. ?Zapata, prune, carrot, or tomato juice. ?Baked potato. ?Cabbage. ?Beans and split peas. Lifestyle Drink enough fluid to keep your urine pale yellow. This is the most important thing you can do. Spread your fluid intake throughout the day. If you drink alcohol: ?Limit how much you have to: ?0 1 drink a day for women who are not . ?0 2 drinks a day for men. ?Know how much alcohol is in your drink. In the [place] one drink equals one 12 oz bottle of beer (355 mL), one 5 oz glass of wine (148 mL), or one 1 oz glass of hard liquor (44 mL). Lose weight if told by your health care provider. Work with your dietitian to find an eating plan and weight loss strategies that work best for you. General information Talk to your health care provider and dietitian about taking daily supplements. Depending on your health and the cause of your kidney stones, you may be told: ?Do not take high-dose supplements of vitamin C (1,000 mg a day or more). ?To take a calcium supplement. ?To take a daily probiotic supplement. ?To take other supplements such as magnesium, fish oil, or vitamin B6. Take ywdx-ynk-reblgfm and prescription medicines only as told by your health care provider. These include supplements. What foods should I limit? Limit your intake of the following foods, or eat them as told by your dietitian. Vegetables Spinach. Rhubarb. Beets. Canned vegetables. Pickles. Olives. Baked potatoes with skin. Grains Wheat bran. Baked goods. Salted crackers. Cereals high in sugar. Meats and other proteins Nuts. Nut butters. Large portions of meat, poultry, or fish. Salted, precooked, or cured meats, such as sausages, meat loaves, and hot dogs. Dairy Cheeses. Beverages Regular soft drinks. Regular vegetable juice. Seasonings and condiments Seasoning blends with salt. Salad dressings. Soy sauce. Ketchup. Barbecue sauce. Other foods Canned soups. Canned pasta sauce. Casseroles. Pizza. Lasagna. Frozen meals. Potato chips. Guamanian fries. The items listed above may not be a complete list of foods and beverages you should limit. Contact a dietitian for more information. What foods should I avoid? Talk to your dietitian about specific foods you should avoid based on the type of kidney stones youhave and your overall health. Fruits Grapefruit. The item listed above may not be a complete list of foods and beverages you should avoid. Contact adietitian for more information. Summary Kidney stones are deposits of minerals and salts that form inside your kidneys. You can lower your risk of kidney stones by making changes to your diet. The most important thing you can do is drink enough fluid. Drink enough fluid to keep your urine pale yellow. Talk to your dietitian about how much calcium you should have each day, and eat less salt and animal protein as told by your dietitian. This information is not intended to replace advice given to you by your health care provider. Make sure you discuss any questions you have with your health care provider. Document Revised: 05/27/2022 Document Reviewed: 05/27/2022 Elsevier Patient Education 2022 Soundtracker. Follow Up Care 03/14/2023 14:20:29 With:MARILIN HINES, Jimmy Coyle, URL Address: [facility] [address] [place] [phone] When: Unknown Comments:f/u scheduled 08/24/23 w/ PSA, metabolic workup, and KUB [facility] 01-13-2024 Hospital Discharge instructions Patient Education 03/12/2023 16:17:47 Dyslipidemia Dyslipidemia Dyslipidemia is an imbalance of waxy, fat-like substances (lipids) in the blood. The body needs lipids in small amounts. Dyslipidemia often involves a high level of cholesterol or triglycerides, which are types of lipids. Common forms of dyslipidemia include: High levels of LDL cholesterol. LDL is the type of cholesterol that causes fatty deposits (plaques)to build up in the blood vessels that carry blood away from the heart (arteries). Low levels of HDL cholesterol. HDL cholesterol is the type of cholesterol that protects against heart disease. High levels of HDL remove the LDL buildup from arteries. High levels of triglycerides. Triglycerides are a fatty substance in the blood that is linked to a buildup of plaques in the arteries. What are the causes? There are two main types of dyslipidemia: primary and secondary. Primary dyslipidemia is caused by changes (mutations) in genes that are passed down through families (inherited). These mutations cause several types of dyslipidemia. Secondary dyslipidemia may be caused by various risk factors that can lead to the disease, such as lifestyle choices and certain medical conditions. What increases the risk? You are more likely to develop this condition if you are an older man or if you are a woman who hasgone through menopause. Other risk factors include: Having a family history of dyslipidemia. Taking certain medicines, including control pills, steroids, some diuretics, and beta-blockers. Eating a diet high in saturated fat. Smoking cigarettes or excessive alcohol intake. Having certain medical conditions such as diabetes, polycystic ovary syndrome (PCOS), kidney disease, liver disease, or hypothyroidism. Not exercising regularly. Being overweight or obese with too much belly fat. What are the signs or symptoms? In most cases, dyslipidemia does not usually cause any symptoms. In severe cases, very high lipid levels can cause: Fatty bumps under the skin (xanthomas). A white or childs ring around the black center (pupil) of the eye. Very high triglyceride levels can cause inflammation of the pancreas (pancreatitis). How is this diagnosed? Your health care provider may diagnose dyslipidemia based on a routine blood test (fasting blood test). Because most people do not have symptoms of the condition, this blood testing (lipid profile) is done on adults age 20 and older and is repeated every 4-6 years. This test checks: Total cholesterol. This measures the total amount of cholesterol in your blood, including LDL cholesterol, HDL cholesterol, and triglycerides. A healthy number is below 200 mg/dL (5.17 mmol/L). LDL cholesterol. The target number for LDL cholesterol is different for each person, depending on individual risk factors. A healthy number is usually below 100 mg/dL (2.59 mmol/L). Ask your health care provider what your LDL cholesterol should be. HDL cholesterol. An HDL level of 60 mg/dL (1.55 mmol/L) or higher is best because it helps to protect against heart disease. A number below 40 mg/dL (1.03 mmol/L) for men or below 50 mg/dL (1.29 mmol/L) for women increases the risk for heart disease. Triglycerides. A healthy triglyceride number is below 150 mg/dL (1.69 mmol/L). If your lipid profile is abnormal, your health care provider may do other blood tests. How is this treated? Treatment depends on the type of dyslipidemia that you have and your other risk factors for heart disease and stroke. Your health care provider will have a target range for your lipid levels based onthis information. Treatment for dyslipidemia starts with lifestyle changes, such as diet and exercise. Your health care provider may recommend that you: Get regular exercise. Make changes to your diet. Quit smoking if you smoke. Limit your alcohol intake. If diet changes and exercise do not help you reach your goals, your health care provider may also prescribe medicine to lower lipids. The most commonly prescribed type of medicine lowers your LDL cholesterol (statin drug). If you have a high triglyceride level, your provider may prescribe another type of drug (fibrate) or an omega-3 fish oil supplement, or both. Follow these instructions at home: Eating and drinking Follow instructions from your health care provider or dietitian about eating or drinking restrictions. Eat a healthy diet as told by your health care provider. This can help you reach and maintain a healthy weight, lower your LDL cholesterol, and raise your HDL cholesterol. This may include: ?Limiting your calories, if you are overweight. ?Eating more fruits, vegetables, whole grains, fish, and lean meats. ?Limiting saturated fat, trans fat, and cholesterol. Do not drink alcohol if: ?Your health care provider tells you not to drink. ?You are , may be , or are planning to become . If you drink alcohol: ?Limit how much you have to: ?0 1 drink a day for women. ? 0 2 drinks a day for men. ?Know how much alcohol is in your drink. In the [place] one drink equals one 12 oz bottle of beer (355 mL), one 5 oz glass of wine (148 mL), or one 1 oz glass of hard liquor (44 mL). Activity Get regular exercise. Start an exercise and strength training program as told by your health care provider. Ask your health care provider what activities are safe for you. Your health care provider may recommend: ?30 minutes of aerobic activity 4 6 days a week. Brisk walking is an example of aerobic activity. ?Strength training 2 days a week. General instructions Do not use any products that contain nicotine or tobacco. These products include cigarettes, chewing tobacco, and vaping devices, such as e-cigarettes. If you need help quitting, ask your health careprovider. Take aioa-cpa-xgnicyg and prescription medicines only as told by your health care provider. This includes supplements. Keep all follow-up visits. This is important. Contact a health care provider if: You are having trouble sticking to your exercise or diet plan. You are struggling to quit smoking or to control your use of alcohol. Summary Dyslipidemia often involves a high level of cholesterol or triglycerides, which are types of lipids. Treatment depends on the type of dyslipidemia that you have and your other risk factors for heart disease and stroke. Treatment for dyslipidemia starts with lifestyle changes, such as diet and exercise. Your health care provider may prescribe medicine to lower lipids. This information is not intended to replace advice given to you by your health care provider. Make sure you discuss any questions you have with your health care provider. Document Revised: 04/20/2021 Document Reviewed: 04/20/2021 [employer] Patient Education 2022 Soundtracker. 03/12/2023 16:17:46 Blood Glucose Monitoring, Adult Blood Glucose Monitoring, Adult Monitoring your blood sugar (glucose) is an important part of managing your diabetes. Blood glucosemonitoring involves checking your blood glucose as often as directed and keeping a log or record ofyour results over time. Checking your blood glucose regularly and keeping a blood glucose log can: Help you and your health care provider adjust your diabetes management plan as needed, including your medicines or insulin. Help you understand how food, exercise, illnesses, and medicines affect your blood glucose. Let you know what your blood glucose is at any time. You can quickly find out if you have low bloodglucose (hypoglycemia) or high blood glucose (hyperglycemia). Your health care provider will set individualized treatment goals for you. Your goals will be basedon your age, other medical conditions you have, and how you respond to diabetes treatment. Generally, the goal of treatment is to maintain the following blood glucose levels: Before meals (preprandial): 80 130 mg/dL (4.4 7.2 mmol/L). After meals (postprandial): below 180 mg/dL (10 mmol/L). A1C level: less than 7%. Supplies needed: Blood glucose meter. Test strips for your meter. Each meter has its own strips. You must use the strips that came with your meter. A needle to prick your finger (lancet). Do not use a lancet more than one time. A device that holds the lancet (lancing device). A journal or log book to write down your results. How to check your blood glucose Checking your blood glucose 1.Wash your hands for at least 20 seconds with soap and water. 2.Prick the side of your finger (not the tip) with the lancet. Do not use the same finger consecutively. 3.Gently rub the finger until a small drop of blood appears. 4.Follow instructions that come with your meter for inserting the test strip, applying blood to thestrip, and using your blood glucose meter. 5.Write down your result and any notes in your log. Using alternative sites Some meters allow you to use areas of your body other than your finger (alternative sites) to test your blood. The most common alternative sites are the forearm, the thigh, and the palm of your hand. Alternative sites may not be as accurate as the fingers because blood flow is slower in those areas. This means that the result you get may be delayed, and it may be different from the result that you would get from your finger. Use the finger only, and do not use alternative sites, if: You think you have hypoglycemia. You sometimes do not know that your blood glucose is getting low (hypoglycemia unawareness). General tips and recommendations Blood glucose log Every time you check your blood glucose, write down your result. Also write down any notes about things that may be affecting your blood glucose, such as your diet and exercise for the day. This information can help you and your health care provider: ?Look for patterns in your blood glucose over time. ?Adjust your diabetes management plan as needed. Check if your meter allows you to download your records to a computer or if there is an amor for [employer]. Most glucose meters store a record of glucose readings in the meter. If you have type 1 diabetes: Check your blood glucose 4 or more times a day if you are on intensive insulin therapy with multiple daily injections (MDI) or if you are using an insulin pump. Check your blood glucose: ?Before every meal and snack. ?Before bedtime. Also check your blood glucose: ?If you have symptoms of hypoglycemia. ?After treating low blood glucose. ?Before doing activities that create a risk for injury, like driving or using machinery. ?Before and after exercise. ?Two hours after a meal. ?Occasionally between 2:00 a.m. and 3:00 a.m., as directed. You may need to check your blood glucose more often, 6 10 times per day, if: ?You have diabetes that is not well controlled. ?You are ill. ?You have a history of severe hypoglycemia. ?You have hypoglycemia unawareness. If you have type 2 diabetes: Check your blood glucose 2 or more times a day if you take insulin or other diabetes medicines. Check your blood glucose 4 or more times a day if you are on intensive insulin therapy. Occasionally, you may also need to check your glucose between 2:00 a.m. and 3:00 a.m., as directed. Also check your blood glucose: ?Before and after exercise. ?Before doing activities that create a risk for injury, like driving or using machinery. You may need to check your blood glucose more often if: ?Your medicine is being adjusted. ?Your diabetes is not well controlled. ?You are ill. General tips Make sure you always have your supplies with you. After you use a few boxes of test strips, adjust (calibrate) your blood glucose meter by following instructions that came with your meter. If you have questions or need help, all blood glucose meters have a 24-hour hotline phone number available that you can call. Also contact your health care provider with questions or concerns you mayhave. Where to find more information The [place] [employer]: www.diabetes.org The Association of Diabetes [employer] Education Specialists: www.diabeteseducator.org Contact a health care provider if: Your blood glucose is at or above 240 mg/dL (13.3 mmol/L) for 2 days in a row. You have been sick or have had a fever for 2 days or longer, and you are not getting better. You have any of the following problems for more than 6 hours: ?You cannot eat or drink. ?You have nausea or vomiting. ?You have diarrhea. Get help right away if: Your blood glucose is lower than 54 mg/dL (3 mmol/L). You become confused, or you have trouble thinking clearly. You have difficulty breathing. You have moderate or large ketone levels in your urine. These symptoms may represent a serious problem that is an emergency. Do not wait to see if the symptoms will go away. Get medical help right away. Call your local emergency services (911 in the [place] Do not drive yourself to the hospital. Summary Monitoring your blood glucose is an important part of managing your diabetes. Blood glucose monitoring involves checking your blood glucose as often as directed and keeping a log or record of your results over time. Your health care provider will set individualized treatment goals for you. Your goals will be basedon your age, other medical conditions you have, and how you respond to diabetes treatment. Every time you check your blood glucose, write down your result. Also, write down any notes about things that may be affecting your blood glucose, such as your diet and exercise for the day. This information is not intended to replace advice given to you by your health care provider. Make sure you discuss any questions you have with your health care provider. Document Revised: 11/12/2020 Document Reviewed: 11/12/2020 [employer] Patient Education 2022 [employer]. Follow Up Care 09/14/2022 13:23:30 With:Tawanna Rapp Address: [facility] [address], [place] [address]- When:Within 3 Month(s) Comments:f/u DM [facility] 01-10-2024 Hospital Discharge instructions Patient Education 03/09/2023 13:20:42 Urosepsis, Adult Urosepsis, Adult Urosepsis is a type of sepsis. Sepsis is a severe bodily reaction to an infection. Urosepsis is caused by a bacterial infection that starts in the urinary tract and spreads to the blood. The urinary tract is the system where urine is made, stored, and passed out of the body. It includes the kidneys, ureters, bladder, and urethra. This may also be called the urinary system. In severe cases, sepsis can lead to septic shock. Septic shock can weaken your heart and cause yourblood pressure to drop. This can make the body's central nervous system and other organs stop working. Urosepsis is a medical emergency that requires immediate treatment in a hospital. What are the causes? Common causes of this condition include: A urinary tract infection (UTI) that spreads to your blood. A urinary tract blockage due to kidney stones. Swelling and inflammation of the prostate (prostatitis) or prostate infection, in males. What increases the risk? You are more likely to develop this condition if you: Are female, especially if you are sexually active. Are age 65 or older. Have a long-term disease, such as kidney disease or diabetes. Have a weak disease-fighting system (immune system). Have a condition that lessens or changes urine flow, such as a kidney or bladder stone, prostate disease, or a tumor in the urinary tract. Have had surgery in an area of the urinary tract. Have a small, thin tube in your urethra that drains urine from your bladder for a period of time (indwelling urinary catheter). Have lost feeling below the waist or are in a wheelchair. What are the signs or symptoms? Early symptoms of this condition are similar to symptoms of a severe UTI. They include: Pain in your side, back, or lower abdomen. Fever and chills. Nausea and vomiting. Frequent need to pass urine. Burning pain when passing urine. Bloody or cloudy urine. Bad-smelling urine. Trouble passing urine or not being able to pass urine at all. Fatigue. Once the infection has spread to the blood and a sepsis reaction starts, symptoms may include: Chills with shaking. Cold and clammy skin. A fever of 101.3 F (38.5 C) or higher. Low body temperature of 96.8 F (36 C) or lower. Fast breathing or trouble breathing. Fast heartbeat. Severe pain in the abdomen. Muscle aches. Anxiety or confusion. Problems staying awake. Fainting. How is this diagnosed? This condition is diagnosed based on your symptoms, your medical history, and a physical exam. You may also have: Urine tests or blood tests to check kidney function and to look for infection. Imaging tests such as a CT scan or ultrasound to check for blockages in the urinary system. How is this treated? This condition is a medical emergency that needs to be treated right away in the hospital. This condition may be treated with: An IV so that you can quickly receive: ?Antibiotic medicines. ?Fluids. ?Medicines to support your blood pressure. Oxygen and breathing support, if needed. Removing a urinary catheter, if you have one, if it is the source of the infection, if this applies. Filtering your blood with a machine (dialysis). This process cleans your blood if your kidneys havefailed. Surgery to drain infected areas or restore urine flow. This is rare. Follow these instructions at home: Medicines Take kefh-gxw-ioijawc and prescription medicines only as told by your health care provider. If you were prescribed an antibiotic medicine, take it as told by your health care provider. Do notstop using the antibiotic even if you start to feel better. General instructions Drink enough fluid to keep your urine pale yellow. Return to your normal activities as told by your health care provider. Ask your health care provider what activities are safe for you. Keep all follow-up visits. This is important. Contact a health care provider if: You have symptoms that get worse or do not get better with treatment. You have new UTI symptoms. Get help right away if: You have new or continued symptoms of sepsis after hospitalization, such as: ?A fever of 101.3 F (38.5 C) or higher. ?Low body temperature of 96.8 F (36 C) or lower. ?Chills. ?Severe pain. ?Difficulty breathing. ?Confusion. ?Sleepiness. ?Nausea and vomiting. These symptoms may represent a serious problem that is an emergency. Do not wait to see if the symptoms will go away. Get medical help right away. Call your local emergency services (911 in the [place] Do not drive yourself to the hospital. Summary Urosepsis is a type of sepsis. Sepsis is a severe bodily reaction to an infection. Urosepsis is a medical emergency that requires immediate treatment in a hospital. Possible causes of urosepsis include a urinary tract infection that spreads to your blood, blockagefrom kidney stones, and prostate swelling or infection in males. This condition may be treated with an IV so that you can quickly receive antibiotic medicines, fluids, and medicines to support your blood pressure. Other treatments may be used as well. Get help right away if you have new or continued symptoms of sepsis after hospitalization. This information is not intended to replace advice given to you by your health care provider. Make sure you discuss any questions you have with your health care provider. Document Revised: 12/29/2020 Document Reviewed: 12/29/2020 [employer] Patient Education 2022 [employer]. 03/09/2023 13:20:42 Urinary Tract Infection, Adult, Lmxz-wx-Iyxh Urinary Tract Infection, Adult A urinary tract infection (UTI) is an infection of any part of the urinary tract. The urinary tractincludes: The kidneys. The ureters. The bladder. The urethra. These organs make, store, and get rid of pee (urine) in the body. What are the causes? This infection is caused by germs (bacteria) in your genital area. These germs grow and cause swelling (inflammation) of your urinary tract. What increases the risk? The following factors may make you more likely to develop this condition: Using a small, thin tube (catheter) to drain pee. Not being able to control when you pee or poop (incontinence). Being female. If you are female, these things can increase the risk: ?Using these methods to prevent : ?A medicine that kills sperm (spermicide). ?A device that blocks sperm (diaphragm). ?Having low levels of a female hormone (estrogen). ?Being . You are more likely to develop this condition if: You have genes that add to your risk. You are sexually active. You take antibiotic medicines. You have trouble peeing because of: ?A prostate that is bigger than normal, if you are male. ?A blockage in the part of your body that drains pee from the bladder. ?A kidney stone. ?A nerve condition that affects your bladder. ?Not getting enough to drink. ?Not peeing often enough. You have other conditions, such as: ?Diabetes. ?A weak disease-fighting system (immune system). ?Sickle cell disease. ?Gout. ?Injury of the spine. What are the signs or symptoms? Symptoms of this condition include: Needing to pee right away. Peeing small amounts often. Pain or burning when peeing. Blood in the pee. Pee that smells bad or not like normal. Trouble peeing. Pee that is cloudy. Fluid coming from the vagina, if you are female. Pain in the belly or lower back. Other symptoms include: Vomiting. Not feeling hungry. Feeling mixed up (confused). This may be the first symptom in older adults. Being tired and grouchy (irritable). A fever. Watery poop (diarrhea). How is this treated? Taking antibiotic medicine. Taking other medicines. Drinking enough water. In some cases, you may need to see a specialist. Follow these instructions at home: Medicines Take rzbw-jxz-mrqdpbh and prescription medicines only as told by your doctor. If you were prescribed an antibiotic medicine, take it as told by your doctor. Do not stop taking it even if you start to feel better. General instructions Make sure you: ?Pee until your bladder is empty. ?Do not hold pee for a long time. ?Empty your bladder after sex. ?Wipe from front to back after peeing or pooping if you are a female. Use each tissue one time whenyou wipe. Drink enough fluid to keep your pee pale yellow. Keep all follow-up visits. Contact a doctor if: You do not get better after 1 2 days. Your symptoms go away and then come back. Get help right away if: You have very bad back pain. You have very bad pain in your lower belly. You have a fever. You have chills. You feeling like you will vomit or you vomit. Summary A urinary tract infection (UTI) is an infection of any part of the urinary tract. This condition is caused by germs in your genital area. There are many risk factors for a UTI. Treatment includes antibiotic medicines. Drink enough fluid to keep your pee pale yellow. This information is not intended to replace advice given to you by your health care provider. Make sure you discuss any questions you have with your health care provider. Document Revised: 09/26/2020 Document Reviewed: 09/26/2020 [employer] Patient Education 2022 [employer]. 03/09/2023 13:20:42 Kidney Stones, Gvas-wg-Rifu Kidney Stones Kidney stones are rock-like masses that form inside of the kidneys. Kidneys are organs that make pee (urine). A kidney stone may move into other parts of the urinary tract, including: The tubes that connect the kidneys to the bladder (ureters). The bladder. The tube that carries urine out of the body (urethra). Kidney stones can cause very bad pain and can block the flow of pee. The stone usually leaves your body (passes) through your pee. You may need to have a doctor take out the stone. What are the causes? Kidney stones may be caused by: A condition in which certain glands make too much parathyroid hormone (primary hyperparathyroidism). A buildup of a type of crystals in the bladder made of a chemical called uric acid. The body makes uric acid when you eat certain foods. Narrowing (stricture) of one or both of the ureters. A kidney blockage that you were born with. Past surgery on the kidney or the ureters, such as gastric bypass surgery. What increases the risk? You are more likely to develop this condition if: You have had a kidney stone in the past. You have a family history of kidney stones. You do not drink enough water. You eat a diet that is high in protein, salt (sodium), or sugar. You are overweight or very overweight (obese). What are the signs or symptoms? Symptoms of a kidney stone may include: Pain in the side of the belly, right below the ribs (flank pain). Pain usually spreads (radiates) to the groin. Needing to pee often or right away (urgently). Pain when going pee (urinating). Blood in your pee (hematuria). Feeling like you may vomit (nauseous). Vomiting. Fever and chills. How is this treated? Treatment depends on the size, location, and makeup of the kidney stones. The stones will often pass out of the body through peeing. You may need to: Drink more fluid to help pass the stone. In some cases, you may be given fluids through an IV tube put into one of your veins at the hospital. Take medicine for pain. Make changes in your diet to help keep kidney stones from coming back. Sometimes, medical procedures are needed to remove a kidney stone. This may involve: A procedure to break up kidney stones using a beam of light (laser) or shock waves. Surgery to remove the kidney stones. Follow these instructions at home: Medicines Take nimh-tms-iycbhof and prescription medicines only as told by your doctor. Ask your doctor if the medicine prescribed to you requires you to avoid driving or using heavy machinery. Eating and drinking Drink enough fluid to keep your pee pale yellow. You may be told to drink at least 8 10 glasses of water each day. This will help you pass the stone. If told by your doctor, change your diet. This may include: ?Limiting how much salt you eat. ?Eating more fruits and vegetables. ?Limiting how much meat, poultry, fish, and eggs you eat. Follow instructions from your doctor about eating or drinking restrictions. General instructions Collect pee samples as told by your doctor. You may need to collect a pee sample: ?24 hours after a stone comes out. ?8 12 weeks after a stone comes out, and every 6 12 months after that. Strain your pee every time you pee (urinate), for as long as told. Use the strainer that your doctor recommends. Do not throw out the stone. Keep it so that it can be tested by your doctor. Keep all follow-up visits as told by your doctor. This is important. You may need follow-up tests. How is this prevented? To prevent another kidney stone: Drink enough fluid to keep your pee pale yellow. This is the best way to prevent kidney stones. Eat healthy foods. Avoid certain foods as told by your doctor. You may be told to eat less protein. Stay at a healthy weight. Where to find more information National Kidney Foundation (NKF): www.kidney.org [facility] (UCF): www.urologyhealth.org Contact a doctor if: You have pain that gets worse or does not get better with medicine. Get help right away if: You have a fever or chills. You get very bad pain. You get new pain in your belly (abdomen). You pass out (faint). You cannot pee. Summary Kidney stones are rock-like masses that form inside of the kidneys. Kidney stones can cause very bad pain and can block the flow of pee. The stones will often pass out of the body through peeing. Drink enough fluid to keep your pee pale yellow. This information is not intended to replace advice given to you by your health care provider. Make sure you discuss any questions you have with your health care provider. Document Revised: 10/19/2021 Document Reviewed: 10/19/2021 [employer] Patient Education 2022 [employer]. Follow Up Care 03/09/2023 10:56:13 With:Jimmy GASTON Address: [address] [facility] [address] [facility] [address] [place] [address] Business (1) [facility] [address] [place] [address] Business (1) When:03/12/2023 12:18:25 Comments:Follow-up immediately with urology for further evaluation of your kidney stones. With:Tawanna Bentley Address: [address] [place] [address] Business (1) When:03/12/2023 12:18:14 Comments:Follow-up with your primary care provider in 3 to 5 days. If symptoms worsen, do not improve, or new symptoms arise please report back to emergency department for further evaluation. [facility]01-10-2024 Evaluation + Plan noteExtracted from: Title:ED Note Author:Jemal PERRY, Tono Cheatham te:03/09/23 Kidney stone on left side (N 20.0: Calculus of kidney) UTI (urinary tract infection) (N39.0: Urinary tract infection, site not specified) Orders: ceftriaxone + Sodium Chloride 0.9% intravenous solution 50 mL, 1,000 mg = 1 EA, IV Piggyback, Once, Stop date 03/09/23 12:16:00 EST, STAT, Start date 03/09/23 12:16:00 EST, 100 mL/hr, Infuse over 30 minute(s), 03/09/23 12:16:00 EST cephalexin, 500 mg = 1 cap(s), Oral, q6hr, X 7 day(s), # 28 cap(s), Refills(s) 0, Pharmacy: [facility], 165, cm, 03/09/23 11:01:00 EST, Height/Length Dosing, 60.8, kg, 03/09/23 11:01:00 EST, Weight Dosing ketorolac, 30 mg = 1 mL, Injection, IV Push, Once, Stop date 03/09/23 11:12:00 EST, STAT, Start date 03/09/23 11:12:00 EST, 03/09/23 11:12:00 EST naproxen, 500 mg = 1 tab(s), Oral, BID, PRN Pain, with food, # 20 tab(s), Refills(s) 0, Pharmacy: [facility], 165, cm, 03/09/23 11:01:00 EST, Height/Length Dosing, 60.8, kg, 03/09/23 11:01:00 EST, Weight Dosing ondansetron, 4 mg = 1 tab(s), Oral, q8hr, PRN Nausea/Vomiting, # 20 tab(s), Refills(s) 0, Pharmacy: [facility], 165, cm, 03/09/23 11:01:00 EST, Height/Length Dosing, 60.8, kg, 03/09/23 11:01:00 EST, Weight Dosing ondansetron, 4 mg = 2 mL, Injection, IV Push, Once, Stop date 03/09/23 11:12:00 EST, STAT, Start date 03/09/23 11:12:00 EST, 03/09/23 11:12:00 EST Sodium Chloride 0.9% intravenous solution, 1,000 mL, Soln-IV, IV, Once, Stop date 03/09/23 11:12:00 EST, STAT, Start date 03/09/23 11:12:00 EST, Infuse over 61, minute(s) tamsulosin, 0.4 mg = 1 cap(s), Oral, Daily, # 10 cap(s), Refills(s) 0, Pharmacy: [facility], 165, cm, 03/09/23 11:01:00 EST, Height/Length Dosing, 60.8, kg, 03/09/23 11:01:00 EST, Weight Dosing Automated Diff Basic Metabolic Panel CBC w/ Auto Diff CT Abdomen/Pelvis w/o Contrast eGFR Extra Blue Tube Extra SST Tube Hepatic Function Panel Lipase Level UA With Cult Reflex Urine Culture Future Appointments Appointment Date:03/16/2023 01:20:00 PM Scheduled Provider:Tawanna Rapp Location:[facility] Appointment Type: Open Appointment Date:03/28/2023 01:15:00 PM Scheduled Provider:Carmen Andrew PA-C Location:[facility] Appointment Type:Pain Management - Follow Up (FT) Appointment Date:08/24/2023 01:45:00 PM Scheduled Provider:Jimmy GASTON MD Location:[facility] Appointment Type:URO Office Visit Diagnostic Tests Pending * Urine Culture 03/09/23 Future Scheduled Tests Laboratory* HgbA1c 09/15/22 Radiology* XR Abdomen 1 View 07/19/22 [facility]12-05-2023 Evaluation + Plan noteExtracted from: Title:FUV Author:Guero HINES, Geremias Mosquera Date :02/01/23 Impression and Plan 53-year-old gentleman with severe left-sided shoulder pain, likely rotator cuff related based on physical exam and history. I recommend an MRI of the left shoulder considering the pain has not responded to physical therapy and regular use of NSAIDs. The patient agrees. He will follow-up after that left shoulder MRI has been performed. Future Appointments Appointment Date:03/16/2023 01:20:00 PM Scheduled Provider:Tawanna Rapp Location:[facility] Appointment Type: Open Appointment Date:08/24/2023 01:45:00 PM Scheduled Provider:Jimmy GASTON MD Location:[facility] Appointment Type:URO Office Visit Future Scheduled Tests Laboratory* HgbA1c 09/15/22 Radiology* XR Abdomen 1 View 07/19/22 [facility]11-14-2023 Note [id number] Evaluation + Plan noteExtracted from: Title:Cervical Epidural- Guero Author:Geremias Jack MD Date:01/11/23 Impression and Plan Future Appointments Appointment Date:02/01/2023 01:00:00 PM Scheduled Provider:Geremias Jack MD Location:[facility] Appointment Type:Pain Management - Follow Up (FT) Appointment Date:03/18/2023 01:40:00 PM Scheduled Provider:Tawanna Rapp Location:[facility] Appointment Type:FM Open Appointment Date:08/24/2023 01:45:00 PM Scheduled Provider:Jimmy GASTON MD Location:[facility] [place] [place] [place] Appointment Type:URO Office Visit Future Scheduled Tests Laboratory* HgbA1c 09/15/22 Radiology* XR Abdomen 1 View 07/19/22 [facility]10-17-2023 Hospital Discharge instructions Patient Education 12/14/2022 19:38:48 Diabetes Mellitus and Nutrition, Adult Diabetes Mellitus and Nutrition, Adult When you have diabetes, or diabetes mellitus, it is very important to have healthy eating habits because your blood sugar (glucose) levels are greatly affected by what you eat and drink. Eating healthy foods in the right amounts, at about the same times every day, can help you: Manage your blood glucose. Lower your risk of heart disease. Improve your blood pressure. Reach or maintain a healthy weight. What can affect my meal plan? Every person with diabetes is different, and each person has different needs for a meal plan. Your health care provider may recommend that you work with a dietitian to make a meal plan that is best for you. Your meal plan may vary depending on factors such as: The calories you need. The medicines you take. Your weight. Your blood glucose, blood pressure, and cholesterol levels. Your activity level. Other health conditions you have, such as heart or kidney disease. How do carbohydrates affect me? Carbohydrates, also called carbs, affect your blood glucose level more than any other type of food.Eating carbs raises the amount of glucose in your blood. It is important to know how many carbs you can safely have in each meal. This is different for every person. Your dietitian can help you calculate how many carbs you should have at each meal and for each snack. How does alcohol affect me? Alcohol can cause a decrease in blood glucose (hypoglycemia), especially if you use insulin or takecertain diabetes medicines by mouth. Hypoglycemia can be a life-threatening condition. Symptoms of hypoglycemia, such as sleepiness, dizziness, and confusion, are similar to symptoms of having too much alcohol. Do not drink alcohol if: ?Your health care provider tells you not to drink. ?You are , may be , or are planning to become . If you drink alcohol: ?Limit how much you have to: ?0 1 drink a day for women. ?0 2 drinks a day for men. ?Know how much alcohol is in your drink. In the [place] one drink equals one 12 oz bottle of beer (355 mL), one 5 oz glass of wine (148 mL), or one 1 oz glass of hard liquor (44 mL). ?Keep yourself hydrated with water, diet soda, or unsweetened iced tea. Keep in mind that regular soda, juice, and other mixers may contain a lot of sugar and must be counted as carbs. What are tips for following this plan? Reading food labels Start by checking the serving size on the Nutrition Facts label of packaged foods and drinks. The number of calories and the amount of carbs, fats, and other nutrients listed on the label are based on one serving of the item. Many items contain more than one serving per package. Check the total grams (g) of carbs in one serving. Check the number of grams of saturated fats and trans fats in one serving. Choose foods that have alow amount or none of these fats. Check the number of milligrams (mg) of salt (sodium) in one serving. Most people should limit totalsodium intake to less than 2,300 mg per day. Always check the nutrition information of foods labeled as low-fat or nonfat. These foods may be higher in added sugar or refined carbs and should be avoided. Talk to your dietitian to identify your daily goals for nutrients listed on the label. Shopping Avoid buying canned, pre-made, or processed foods. These foods tend to be high in fat, sodium, and added sugar. Shop around the outside edge of the grocery store. This is where you will most often find fresh fruits and vegetables, bulk grains, fresh meats, and fresh dairy products. Cooking Use low-heat cooking methods, such as baking, instead of high-heat cooking methods, such as deep frying. Cook using healthy oils, such as olive, canola, or sunflower oil. Avoid cooking with butter, cream, or high-fat meats. Meal planning Eat meals and snacks regularly, preferably at the same times every day. Avoid going long periods oftime without eating. Eat foods that are high in fiber, such as fresh fruits, vegetables, beans, and whole grains. Eat 4 6 oz (112 168 g) of lean protein each day, such as lean meat, chicken, fish, eggs, or tofu. One ounce (oz) (28 g) of lean protein is equal to: ?1 oz (28 g) of meat, chicken, or fish. ?1 egg. ? cup (62 g) of tofu. Eat some foods each day that contain healthy fats, such as avocado, nuts, seeds, and fish. What foods should I eat? Fruits Berries. Apples. Oranges. Peaches. Apricots. Plums. Grapes. Mangoes. Papayas. Pomegranates. Kiwi. Cherries. Vegetables Leafy greens, including lettuce, spinach, kale, chard, pete greens, mustard greens, and cabbage.Beets. Cauliflower. Broccoli. Carrots. Green beans. Tomatoes. Peppers. Onions. Cucumbers. [place] sprouts. Grains Whole grains, such as whole-wheat or whole-grain bread, crackers, tortillas, cereal, and pasta. Unsweetened oatmeal. Quinoa. Brown or wild rice. Meats and other proteins Seafood. Poultry without skin. Lean cuts of poultry and beef. Tofu. Nuts. Seeds. Dairy Low-fat or fat-free dairy products such as milk, yogurt, and cheese. The items listed above may not be a complete list of foods and beverages you can eat and drink. Contact a dietitian for more information. What foods should I avoid? Fruits Fruits canned with syrup. Vegetables Canned vegetables. Frozen vegetables with butter or cream sauce. Grains Refined white flour and flour products such as bread, pasta, snack foods, and cereals. Avoid all processed foods. Meats and other proteins Fatty cuts of meat. Poultry with skin. Breaded or fried meats. Processed meat. Avoid saturated fats. Dairy Full-fat yogurt, cheese, or milk. Beverages Sweetened drinks, such as soda or iced tea. The items listed above may not be a complete list of foods and beverages you should avoid. Contact a dietitian for more information. Questions to ask a health care provider Do I need to meet with a certified diabetes care and college of education dean? Do I need to meet with a dietitian? What number can I call if I have questions? When are the best times to check my blood glucose? Where to find more information: [place] [employer] Association: diabetes.org Academy of Nutrition and Dietetics: eatright.org National [place] of Diabetes and Digestive and Kidney Diseases: niddk.nih.gov Association of Diabetes Care & Education Specialists: diabeteseducator.org Summary It is important to have healthy eating habits because your blood sugar (glucose) levels are greatlyaffected by what you eat and drink. It is important to use alcohol carefully. A healthy meal plan will help you manage your blood glucose and lower your risk of heart disease. Your health care provider may recommend that you work with a dietitian to make a meal plan that is best for you. This information is not intended to replace advice given to you by your health care provider. Make sure you discuss any questions you have with your health care provider. Document Revised: 09/17/2020 Document Reviewed: 09/17/2020 [employer] Patient Education 2022 [employer]. 12/14/2022 19:38:48 Diabetes Mellitus and Exercise Diabetes Mellitus and Exercise Exercising regularly is important for overall health, especially for people who have diabetes mellitus. Exercising is not only about losing weight. It has many other health benefits, such as increasing muscle strength and bone density and reducing body fat and stress. This leads to improved fitness, flexibility, and endurance, all of which result in better overall health. What are the benefits of exercise if I have diabetes? Exercise has many benefits for people with diabetes. They include: Helping to lower and control blood sugar (glucose). Helping the body to respond better to the hormone insulin by improving insulin sensitivity. Reducing how much insulin the body needs. Lowering the risk for heart disease by: ?Lowering bad cholesterol and triglyceride levels. ?Increasing good cholesterol levels. ?Lowering blood pressure. ?Lowering blood glucose levels. What is my activity plan? Your health care provider or certified medical assistant can help you make a plan for the type and frequency of exercise that works for you. This is called your activity plan. Be sure to: Get at least 150 minutes of medium-intensity or high-intensity exercise each week. Exercises may include brisk walking, biking, or water aerobics. Do stretching and strengthening exercises, such as yoga or weight lifting, at least 2 times a week. Spread out your activity over at least 3 days of the week. Get some form of physical activity each day. ?Do not go more than 2 days in a row without some kind of physical activity. ?Avoid being inactive for more than 90 minutes at a time. Take frequent breaks to walk or stretch. Choose exercises or activities that you enjoy. Set realistic goals. Start slowly and gradually increase your exercise intensity over time. How do I manage my diabetes during exercise? Monitor your blood glucose Check your blood glucose before and after exercising. If your blood glucose is: ?240 mg/dL (13.3 mmol/L) or higher before you exercise, check your urine for ketones. These are chemicals created by the liver. If you have ketones in your urine, do not exercise until your blood glucose returns to normal. ?100 mg/dL (5.6 mmol/L) or lower, eat a snack containing 15 20 grams of carbohydrate. Check your blood glucose 15 minutes after the snack to make sure that your glucose level is above 100 mg/dL (5.6 mmol/L) before you start your exercise. Know the symptoms of low blood glucose (hypoglycemia) and how to treat it. Your risk for hypoglycemia increases during and after exercise. Follow these tips and your health care provider's instructions Keep a carbohydrate snack that is fast-acting for use before, during, and after exercise to help prevent or treat hypoglycemia. Avoid injecting insulin into areas of the body that are going to be exercised. For example, avoid injecting insulin into: ?Your arms, when you are about to play tennis. ?Your legs, when you are about to go jogging. Keep records of your exercise habits. Doing this can help you and your health care provider adjust your diabetes management plan as needed. Write down: ?Food that you eat before and after you exercise. ?Blood glucose levels before and after you exercise. ?The type and amount of exercise you have done. Work with your health care provider when you start a new exercise or activity. He or she may need to: ?Make sure that the activity is safe for you. ?Adjust your insulin, other medicines, and food that you eat. Drink plenty of water while you exercise. This prevents loss of water (dehydration) and problems caused by a lot of heat in the body (heat stroke). Where to find more information [place] Diabetes Association: www.diabetes.org Summary Exercising regularly is important for overall health, especially for people who have diabetes mellitus. Exercising has many health benefits. It increases muscle strength and bone density and reduces bodyfat and stress. It also lowers and controls blood glucose. Your health care provider or certified medical assistant can help you make an activity plan for thetype and frequency of exercise that works for you. Work with your health care provider to make sure any new activity is safe for you. Also work with your health care provider to adjust your insulin, other medicines, and the food you eat. This information is not intended to replace advice given to you by your health care provider. Make sure you discuss any questions you have with your health care provider. Document Revised: 11/12/2019 Document Reviewed: 11/12/2019 [employer] Patient Education 2022 Soundtracker. 12/14/2022 19:38:47 Blood Glucose Monitoring, Adult Blood Glucose Monitoring, Adult Monitoring your blood sugar (glucose) is an important part of managing your diabetes. Blood glucosemonitoring involves checking your blood glucose as often as directed and keeping a log or record ofyour results over time. Checking your blood glucose regularly and keeping a blood glucose log can: Help you and your health care provider adjust your diabetes management plan as needed, including your medicines or insulin. Help you understand how food, exercise, illnesses, and medicines affect your blood glucose. Let you know what your blood glucose is at any time. You can quickly find out if you have low bloodglucose (hypoglycemia) or high blood glucose (hyperglycemia). Your health care provider will set individualized treatment goals for you. Your goals will be basedon your age, other medical conditions you have, and how you respond to diabetes treatment. Generally, the goal of treatment is to maintain the following blood glucose levels: Before meals (preprandial): 80 130 mg/dL (4.4 7.2 mmol/L). After meals (postprandial): below 180 mg/dL (10 mmol/L). A1C level: less than 7%. Supplies needed: Blood glucose meter. Test strips for your meter. Each meter has its own strips. You must use the strips that came with your meter. A needle to prick your finger (lancet). Do not use a lancet more than one time. A device that holds the lancet (lancing device). A journal or log book to write down your results. How to check your blood glucose Checking your blood glucose 1.Wash your hands for at least 20 seconds with soap and water. 2.Prick the side of your finger (not the tip) with the lancet. Do not use the same finger consecutively. 3.Gently rub the finger until a small drop of blood appears. 4.Follow instructions that come with your meter for inserting the test strip, applying blood to thestrip, and using your blood glucose meter. 5.Write down your result and any notes in your log. Using alternative sites Some meters allow you to use areas of your body other than your finger (alternative sites) to test your blood. The most common alternative sites are the forearm, the thigh, and the palm of your hand. Alternative sites may not be as accurate as the fingers because blood flow is slower in those areas. This means that the result you get may be delayed, and it may be different from the result that you would get from your finger. Use the finger only, and do not use alternative sites, if: You think you have hypoglycemia. You sometimes do not know that your blood glucose is getting low (hypoglycemia unawareness). General tips and recommendations Blood glucose log Every time you check your blood glucose, write down your result. Also write down any notes about things that may be affecting your blood glucose, such as your diet and exercise for the day. This information can help you and your health care provider: ?Look for patterns in your blood glucose over time. ?Adjust your diabetes management plan as needed. Check if your meter allows you to download your records to a computer or if there is an amor for [employer]. Most glucose meters store a record of glucose readings in the meter. If you have type 1 diabetes: Check your blood glucose 4 or more times a day if you are on intensive insulin therapy with multiple daily injections (MDI) or if you are using an insulin pump. Check your blood glucose: ?Before every meal and snack. ?Before bedtime. Also check your blood glucose: ?If you have symptoms of hypoglycemia. ?After treating low blood glucose. ?Before doing activities that create a risk for injury, like driving or using machinery. ?Before and after exercise. ?Two hours after a meal. ?Occasionally between 2:00 a.m. and 3:00 a.m., as directed. You may need to check your blood glucose more often, 6 10 times per day, if: ?You have diabetes that is not well controlled. ?You are ill. ?You have a history of severe hypoglycemia. ?You have hypoglycemia unawareness. If you have type 2 diabetes: Check your blood glucose 2 or more times a day if you take insulin or other diabetes medicines. Check your blood glucose 4 or more times a day if you are on intensive insulin therapy. Occasionally, you may also need to check your glucose between 2:00 a.m. and 3:00 a.m., as directed. Also check your blood glucose: ?Before and after exercise. ?Before doing activities that create a risk for injury, like driving or using machinery. You may need to check your blood glucose more often if: ?Your medicine is being adjusted. ?Your diabetes is not well controlled. ?You are ill. General tips Make sure you always have your supplies with you. After you use a few boxes of test strips, adjust (calibrate) your blood glucose meter by following instructions that came with your meter. If you have questions or need help, all blood glucose meters have a 24-hour hotline phone number available that you can call. Also contact your health care provider with questions or concerns you mayhave. Where to find more information The [place] Diabetes Association: www.diabetes.org The Association of Diabetes Care & Education Specialists: www.diabeteseducator.org Contact a health care provider if: Your blood glucose is at or above 240 mg/dL (13.3 mmol/L) for 2 days in a row. You have been sick or have had a fever for 2 days or longer, and you are not getting better. You have any of the following problems for more than 6 hours: ?You cannot eat or drink. ?You have nausea or vomiting. ?You have diarrhea. Get help right away if: Your blood glucose is lower than 54 mg/dL (3 mmol/L). You become confused, or you have trouble thinking clearly. You have difficulty breathing. You have moderate or large ketone levels in your urine. These symptoms may represent a serious problem that is an emergency. Do not wait to see if the symptoms will go away. Get medical help right away. Call your local emergency services (911 in the [place] Do not drive yourself to the hospital. Summary Monitoring your blood glucose is an important part of managing your diabetes. Blood glucose monitoring involves checking your blood glucose as often as directed and keeping a log or record of your results over time. Your health care provider will set individualized treatment goals for you. Your goals will be basedon your age, other medical conditions you have, and how you respond to diabetes treatment. Every time you check your blood glucose, write down your result. Also, write down any notes about things that may be affecting your blood glucose, such as your diet and exercise for the day. This information is not intended to replace advice given to you by your health care provider. Make sure you discuss any questions you have with your health care provider. Document Revised: 11/12/2020 Document Reviewed: 11/12/2020 [employer] Patient Education 2022 Soundtracker. Follow Up Care 09/15/2022 14:54:34 With:Tawanna Rapp Address: [address] [place] [address] [place] [address]- When:Within 3 Month(s) Comments:f/u DM, HLD [facility] 08-04-2023 Evaluation + Plan noteExtracted from: Title:Pain Managment Follow up Author:Carmen Figueroa Date:10/01/22 Impression and Plan Patient is a 52-year-old male with a past medical history significant for lumbar spondylosis, myalgia, left shoulder pain and cervical neuritis. Previous lumbar RFA did give him some improvement but he still continues have intermittent spasms in his lower back. It has last appointment he was told to switch from tizanidine to baclofen. He has been using the baclofen during the day and the tizanidine at night. I told him that he should only be using 1 and I would recommend him to increase the baclofen to 10 mg but only use this. Discontinue the tizanidine. In regards to his neck and left shoulder pain we had a long discussion about the x-rays. We had a long discussion about the options. He has undergone therapy without improvement. He rates the discomfort a 10/10 and wonders what he is going to do to try to get some relief. Based on his pain pattern and his x-ray findings I would recommend a cervical MRI for possible injection options versus surgical consultation depend on the results. Patient is agreeable. He will follow-up after the imaging for reevaluation. Call the clinic sooner if necessary. STEPHANIE score: 44% Future Appointments Appointment Date:10/04/2022 01:00:00 PM Scheduled Provider: Location:.[facility] [place] Appointment Type:PT Re-Eval 30 () Appointment Date:12/20/2022 01:00:00 PM Scheduled Provider:Tawanna Rapp Location:[facility] Appointment Type: Open Appointment Date:03/18/2023 01:40:00 PM Scheduled Provider:Tawanna Rapp Location:[facility] Appointment Type: Open Appointment Date:08/24/2023 01:45:00 PM Scheduled Provider:Jimmy GASTON MD Location:[facility] [place] Appointment Type:URO Office Visit Future Scheduled Tests Laboratory* HgbA1c 09/15/22 Radiology* XR Abdomen 1 View 07/19/22 [facility]07-11-2023 Hospital Discharge instructions Patient Education 09/07/2022 15:44:07 Health Maintenance, Male Health Maintenance, Male Adopting a healthy lifestyle and getting preventive care are important in promoting health and wellness. Ask your health care provider about: The right schedule for you to have regular tests and exams. Things you can do on your own to prevent diseases and keep yourself healthy. What should I know about diet, weight, and exercise? Eat a healthy diet Eat a diet that includes plenty of vegetables, fruits, low-fat dairy products, and lean protein. Do not eat a lot of foods that are high in solid fats, added sugars, or sodium. Maintain a healthy weight Body mass index (BMI) is a measurement that can be used to identify possible weight problems. It estimates body fat based on height and weight. Your health care provider can help determine your BMI and help you achieve or maintain a healthy weight. Get regular exercise Get regular exercise. This is one of the most important things you can do for your health. Most adults should: Exercise for at least 150 minutes each week. The exercise should increase your heart rate and make you sweat (moderate-intensity exercise). Do strengthening exercises at least twice a week. This is in addition to the moderate-intensity exercise. Spend less time sitting. Even light physical activity can be beneficial. Watch cholesterol and blood lipids Have your blood tested for lipids and cholesterol at 20 years of age, then have this test every 5 years. You may need to have your cholesterol levels checked more often if: Your lipid or cholesterol levels are high. You are older than 40 years of age. You are at high risk for heart disease. What should I know about cancer screening? Many types of cancers can be detected early and may often be prevented. Depending on your health history and family history, you may need to have cancer screening at various ages. This may include screening for: Colorectal cancer. Prostate cancer. Skin cancer. Lung cancer. What should I know about heart disease, diabetes, and high blood pressure? Blood pressure and heart disease High blood pressure causes heart disease and increases the risk of stroke. This is more likely to develop in people who have high blood pressure readings or are overweight. Talk with your health care provider about your target blood pressure readings. Have your blood pressure checked: ?Every 3 5 years if you are 18 39 years of age. ?Every year if you are 40 years old or older. If you are between the ages of 65 and 75 and are a current or former smoker, ask your health care provider if you should have a one-time screening for abdominal aortic aneurysm (AAA). Diabetes Have regular diabetes screenings. This checks your fasting blood sugar level. Have the screening done: Once every three years after age 45 if you are at a normal weight and have a low risk for diabetes. More often and at a younger age if you are overweight or have a high risk for diabetes. What should I know about preventing infection? Hepatitis B If you have a higher risk for hepatitis B, you should be screened for this virus. Talk with your health care provider to find out if you are at risk for hepatitis B infection. Hepatitis C Blood testing is recommended for: Everyone born from 1945 through 1965. Anyone with known risk factors for hepatitis C. Sexually transmitted infections (STIs) You should be screened each year for STIs, including gonorrhea and chlamydia, if: ?You are sexually active and are younger than 24 years of age. ?You are older than 24 years of age and your health care provider tells you that you are at risk for this type of infection. ?Your sexual activity has changed since you were last screened, and you are at increased risk for chlamydia or gonorrhea. Ask your health care provider if you are at risk. Ask your health care provider about whether you are at high risk for HIV. Your health care providermay recommend a prescription medicine to help prevent HIV infection. If you choose to take medicineto prevent HIV, you should first get tested for HIV. You should then be tested every 3 months for as long as you are taking the medicine. Follow these instructions at home: Alcohol use Do not drink alcohol if your health care provider tells you not to drink. If you drink alcohol: ?Limit how much you have to 0-2 drinks a day. ?Know how much alcohol is in your drink. In the [place] one drink equals one 12 oz bottle of beer (355 mL), one 5 oz glass of wine (148 mL), or one 1 oz glass of hard liquor (44 mL). Lifestyle Do not use any products that contain nicotine or tobacco. These products include cigarettes, chewing tobacco, and vaping devices, such as e-cigarettes. If you need help quitting, ask your health careprovider. Do not use street drugs. Do not share needles. Ask your health care provider for help if you need support or information about quitting drugs. General instructions Schedule regular health, dental, and eye exams. Stay current with your vaccines. Tell your health care provider if: ?You often feel depressed. ?You have ever been abused or do not feel safe at home. Summary Adopting a healthy lifestyle and getting preventive care are important in promoting health and wellness. Follow your health care provider's instructions about healthy diet, exercising, and getting tested or screened for diseases. Follow your health care provider's instructions on monitoring your cholesterol and blood pressure. This information is not intended to replace advice given to you by your health care provider. Make sure you discuss any questions you have with your health care provider. Document Revised: 07/06/2021 Document Reviewed: 07/06/2021 [employer] Patient Education 2022 Soundtracker. 09/07/2022 15:44:04 Diabetes Mellitus and Nutrition, Adult Diabetes Mellitus and Nutrition, Adult When you have diabetes, or diabetes mellitus, it is very important to have healthy eating habits because your blood sugar (glucose) levels are greatly affected by what you eat and drink. Eating healthy foods in the right amounts, at about the same times every day, can help you: Manage your blood glucose. Lower your risk of heart disease. Improve your blood pressure. Reach or maintain a healthy weight. What can affect my meal plan? Every person with diabetes is different, and each person has different needs for a meal plan. Your health care provider may recommend that you work with a dietitian to make a meal plan that is best for you. Your meal plan may vary depending on factors such as: The calories you need. The medicines you take. Your weight. Your blood glucose, blood pressure, and cholesterol levels. Your activity level. Other health conditions you have, such as heart or kidney disease. How do carbohydrates affect me? Carbohydrates, also called carbs, affect your blood glucose level more than any other type of food.Eating carbs raises the amount of glucose in your blood. It is important to know how many carbs you can safely have in each meal. This is different for every person. Your dietitian can help you calculate how many carbs you should have at each meal and for each snack. How does alcohol affect me? Alcohol can cause a decrease in blood glucose (hypoglycemia), especially if you use insulin or takecertain diabetes medicines by mouth. Hypoglycemia can be a life-threatening condition. Symptoms of hypoglycemia, such as sleepiness, dizziness, and confusion, are similar to symptoms of having too much alcohol. Do not drink alcohol if: ?Your health care provider tells you not to drink. ?You are , may be , or are planning to become . If you drink alcohol: ?Limit how much you have to: ?0 1 drink a day for women. ?0 2 drinks a day for men. ?Know how much alcohol is in your drink. In the [place] one drink equals one 12 oz bottle of beer (355 mL), one 5 oz glass of wine (148 mL), or one 1 oz glass of hard liquor (44 mL). ?Keep yourself hydrated with water, diet soda, or unsweetened iced tea. Keep in mind that regular soda, juice, and other mixers may contain a lot of sugar and must be counted as carbs. What are tips for following this plan? Reading food labels Start by checking the serving size on the Nutrition Facts label of packaged foods and drinks. The number of calories and the amount of carbs, fats, and other nutrients listed on the label are based on one serving of the item. Many items contain more than one serving per package. Check the total grams (g) of carbs in one serving. Check the number of grams of saturated fats and trans fats in one serving. Choose foods that have alow amount or none of these fats. Check the number of milligrams (mg) of salt (sodium) in one serving. Most people should limit totalsodium intake to less than 2,300 mg per day. Always check the nutrition information of foods labeled as low-fat or nonfat. These foods may be higher in added sugar or refined carbs and should be avoided. Talk to your dietitian to identify your daily goals for nutrients listed on the label. Shopping Avoid buying canned, pre-made, or processed foods. These foods tend to be high in fat, sodium, and added sugar. Shop around the outside edge of the grocery store. This is where you will most often find fresh fruits and vegetables, bulk grains, fresh meats, and fresh dairy products. Cooking Use low-heat cooking methods, such as baking, instead of high-heat cooking methods, such as deep frying. Cook using healthy oils, such as olive, canola, or sunflower oil. Avoid cooking with butter, cream, or high-fat meats. Meal planning Eat meals and snacks regularly, preferably at the same times every day. Avoid going long periods oftime without eating. Eat foods that are high in fiber, such as fresh fruits, vegetables, beans, and whole grains. Eat 4 6 oz (112 168 g) of lean protein each day, such as lean meat, chicken, fish, eggs, or tofu. One ounce (oz) (28 g) of lean protein is equal to: ?1 oz (28 g) of meat, chicken, or fish. ?1 egg. ? cup (62 g) of tofu. Eat some foods each day that contain healthy fats, such as avocado, nuts, seeds, and fish. What foods should I eat? Fruits Berries. Apples. Oranges. Peaches. Apricots. Plums. Grapes. Mangoes. Papayas. Pomegranates. Kiwi. Cherries. Vegetables Leafy greens, including lettuce, spinach, kale, chard, pete greens, mustard greens, and cabbage.Beets. Cauliflower. Broccoli. Carrots. Green beans. Tomatoes. Peppers. Onions. Cucumbers. [place] sprouts. Grains Whole grains, such as whole-wheat or whole-grain bread, crackers, tortillas, cereal, and pasta. Unsweetened oatmeal. Quinoa. Brown or wild rice. Meats and other proteins Seafood. Poultry without skin. Lean cuts of poultry and beef. Tofu. Nuts. Seeds. Dairy Low-fat or fat-free dairy products such as milk, yogurt, and cheese. The items listed above may not be a complete list of foods and beverages you can eat and drink. Contact a dietitian for more information. What foods should I avoid? Fruits Fruits canned with syrup. Vegetables Canned vegetables. Frozen vegetables with butter or cream sauce. Grains Refined white flour and flour products such as bread, pasta, snack foods, and cereals. Avoid all processed foods. Meats and other proteins Fatty cuts of meat. Poultry with skin. Breaded or fried meats. Processed meat. Avoid saturated fats. Dairy Full-fat yogurt, cheese, or milk. Beverages Sweetened drinks, such as soda or iced tea. The items listed above may not be a complete list of foods and beverages you should avoid. Contact a dietitian for more information. Questions to ask a health care provider Do I need to meet with a certified diabetes care and college of education dean? Do I need to meet with a dietitian? What number can I call if I have questions? When are the best times to check my blood glucose? Where to find more information: [place] [employer]: diabetes.org Academy of Nutrition and Dietetics: eatright.org National [place] of Diabetes and Digestive and Kidney Diseases: niddk.nih.gov Association of Diabetes Care & Education Specialists: diabeteseducator.org Summary It is important to have healthy eating habits because your blood sugar (glucose) levels are greatlyaffected by what you eat and drink. It is important to use alcohol carefully. A healthy meal plan will help you manage your blood glucose and lower your risk of heart disease. Your health care provider may recommend that you work with a dietitian to make a meal plan that is best for you. This information is not intended to replace advice given to you by your health care provider. Make sure you discuss any questions you have with your health care provider. Document Revised: 09/17/2020 Document Reviewed: 09/17/2020 [employer] Patient Education 2022 Soundtracker. 09/07/2022 15:44:04 Diabetes Mellitus and Exercise Diabetes Mellitus and Exercise Exercising regularly is important for overall health, especially for people who have diabetes mellitus. Exercising is not only about losing weight. It has many other health benefits, such as increasing muscle strength and bone density and reducing body fat and stress. This leads to improved fitness, flexibility, and endurance, all of which result in better overall health. What are the benefits of exercise if I have diabetes? Exercise has many benefits for people with diabetes. They include: Helping to lower and control blood sugar (glucose). Helping the body to respond better to the hormone insulin by improving insulin sensitivity. Reducing how much insulin the body needs. Lowering the risk for heart disease by: ?Lowering bad cholesterol and triglyceride levels. ?Increasing good cholesterol levels. ?Lowering blood pressure. ?Lowering blood glucose levels. What is my activity plan? Your health care provider or certified medical assistant can help you make a plan for the type and frequency of exercise that works for you. This is called your activity plan. Be sure to: Get at least 150 minutes of medium-intensity or high-intensity exercise each week. Exercises may include brisk walking, biking, or water aerobics. Do stretching and strengthening exercises, such as yoga or weight lifting, at least 2 times a week. Spread out your activity over at least 3 days of the week. Get some form of physical activity each day. ?Do not go more than 2 days in a row without some kind of physical activity. ?Avoid being inactive for more than 90 minutes at a time. Take frequent breaks to walk or stretch. Choose exercises or activities that you enjoy. Set realistic goals. Start slowly and gradually increase your exercise intensity over time. How do I manage my diabetes during exercise? Monitor your blood glucose Check your blood glucose before and after exercising. If your blood glucose is: ?240 mg/dL (13.3 mmol/L) or higher before you exercise, check your urine for ketones. These are chemicals created by the liver. If you have ketones in your urine, do not exercise until your blood glucose returns to normal. ?100 mg/dL (5.6 mmol/L) or lower, eat a snack containing 15 20 grams of carbohydrate. Check your blood glucose 15 minutes after the snack to make sure that your glucose level is above 100 mg/dL (5.6 mmol/L) before you start your exercise. Know the symptoms of low blood glucose (hypoglycemia) and how to treat it. Your risk for hypoglycemia increases during and after exercise. Follow these tips and your health care provider's instructions Keep a carbohydrate snack that is fast-acting for use before, during, and after exercise to help prevent or treat hypoglycemia. Avoid injecting insulin into areas of the body that are going to be exercised. For example, avoid injecting insulin into: ?Your arms, when you are about to play tennis. ?Your legs, when you are about to go jogging. Keep records of your exercise habits. Doing this can help you and your health care provider adjust your diabetes management plan as needed. Write down: ?Food that you eat before and after you exercise. ?Blood glucose levels before and after you exercise. ?The type and amount of exercise you have done. Work with your health care provider when you start a new exercise or activity. He or she may need to: ?Make sure that the activity is safe for you. ?Adjust your insulin, other medicines, and food that you eat. Drink plenty of water while you exercise. This prevents loss of water (dehydration) and problems caused by a lot of heat in the body (heat stroke). Where to find more information [place] Diabetes Association: www.diabetes.org Summary Exercising regularly is important for overall health, especially for people who have diabetes mellitus. Exercising has many health benefits. It increases muscle strength and bone density and reduces bodyfat and stress. It also lowers and controls blood glucose. Your health care provider or certified medical assistant can help you make an activity plan for thetype and frequency of exercise that works for you. Work with your health care provider to make sure any new activity is safe for you. Also work with your health care provider to adjust your insulin, other medicines, and the food you eat. This information is not intended to replace advice given to you by your health care provider. Make sure you discuss any questions you have with your health care provider. Document Revised: 11/12/2019 Document Reviewed: 11/12/2019 [employer] Patient Education 2022 Soundtracker. 09/07/2022 15:44:03 Blood Glucose Monitoring, Adult Blood Glucose Monitoring, Adult Monitoring your blood sugar (glucose) is an important part of managing your diabetes. Blood glucosemonitoring involves checking your blood glucose as often as directed and keeping a log or record ofyour results over time. Checking your blood glucose regularly and keeping a blood glucose log can: Help you and your health care provider adjust your diabetes management plan as needed, including your medicines or insulin. Help you understand how food, exercise, illnesses, and medicines affect your blood glucose. Let you know what your blood glucose is at any time. You can quickly find out if you have low bloodglucose (hypoglycemia) or high blood glucose (hyperglycemia). Your health care provider will set individualized treatment goals for you. Your goals will be basedon your age, other medical conditions you have, and how you respond to diabetes treatment. Generally, the goal of treatment is to maintain the following blood glucose levels: Before meals (preprandial): 80 130 mg/dL (4.4 7.2 mmol/L). After meals (postprandial): below 180 mg/dL (10 mmol/L). A1C level: less than 7%. Supplies needed: Blood glucose meter. Test strips for your meter. Each meter has its own strips. You must use the strips that came with your meter. A needle to prick your finger (lancet). Do not use a lancet more than one time. A device that holds the lancet (lancing device). A journal or log book to write down your results. How to check your blood glucose Checking your blood glucose 1.Wash your hands for at least 20 seconds with soap and water. 2.Prick the side of your finger (not the tip) with the lancet. Do not use the same finger consecutively. 3.Gently rub the finger until a small drop of blood appears. 4.Follow instructions that come with your meter for inserting the test strip, applying blood to thestrip, and using your blood glucose meter. 5.Write down your result and any notes in your log. Using alternative sites Some meters allow you to use areas of your body other than your finger (alternative sites) to test your blood. The most common alternative sites are the forearm, the thigh, and the palm of your hand. Alternative sites may not be as accurate as the fingers because blood flow is slower in those areas. This means that the result you get may be delayed, and it may be different from the result that you would get from your finger. Use the finger only, and do not use alternative sites, if: You think you have hypoglycemia. You sometimes do not know that your blood glucose is getting low (hypoglycemia unawareness). General tips and recommendations Blood glucose log Every time you check your blood glucose, write down your result. Also write down any notes about things that may be affecting your blood glucose, such as your diet and exercise for the day. This information can help you and your health care provider: ?Look for patterns in your blood glucose over time. ?Adjust your diabetes management plan as needed. Check if your meter allows you to download your records to a computer or if there is an amor for [employer]. Most glucose meters store a record of glucose readings in the meter. If you have type 1 diabetes: Check your blood glucose 4 or more times a day if you are on intensive insulin therapy with multiple daily injections (MDI) or if you are using an insulin pump. Check your blood glucose: ?Before every meal and snack. ?Before bedtime. Also check your blood glucose: ?If you have symptoms of hypoglycemia. ?After treating low blood glucose. ?Before doing activities that create a risk for injury, like driving or using machinery. ?Before and after exercise. ?Two hours after a meal. ?Occasionally between 2:00 a.m. and 3:00 a.m., as directed. You may need to check your blood glucose more often, 6 10 times per day, if: ?You have diabetes that is not well controlled. ?You are ill. ?You have a history of severe hypoglycemia. ?You have hypoglycemia unawareness. If you have type 2 diabetes: Check your blood glucose 2 or more times a day if you take insulin or other diabetes medicines. Check your blood glucose 4 or more times a day if you are on intensive insulin therapy. Occasionally, you may also need to check your glucose between 2:00 a.m. and 3:00 a.m., as directed. Also check your blood glucose: ?Before and after exercise. ?Before doing activities that create a risk for injury, like driving or using machinery. You may need to check your blood glucose more often if: ?Your medicine is being adjusted. ?Your diabetes is not well controlled. ?You are ill. General tips Make sure you always have your supplies with you. After you use a few boxes of test strips, adjust (calibrate) your blood glucose meter by following instructions that came with your meter. If you have questions or need help, all blood glucose meters have a 24-hour hotline phone number available that you can call. Also contact your health care provider with questions or concerns you mayhave. Where to find more information The [place] Diabetes Association: www.diabetes.org The Association of Diabetes Care & Education Specialists: www.diabeteseducator.org Contact a health care provider if: Your blood glucose is at or above 240 mg/dL (13.3 mmol/L) for 2 days in a row. You have been sick or have had a fever for 2 days or longer, and you are not getting better. You have any of the following problems for more than 6 hours: ?You cannot eat or drink. ?You have nausea or vomiting. ?You have diarrhea. Get help right away if: Your blood glucose is lower than 54 mg/dL (3 mmol/L). You become confused, or you have trouble thinking clearly. You have difficulty breathing. You have moderate or large ketone levels in your urine. These symptoms may represent a serious problem that is an emergency. Do not wait to see if the symptoms will go away. Get medical help right away. Call your local emergency services (911 in the [place] Do not drive yourself to the hospital. Summary Monitoring your blood glucose is an important part of managing your diabetes. Blood glucose monitoring involves checking your blood glucose as often as directed and keeping a log or record of your results over time. Your health care provider will set individualized treatment goals for you. Your goals will be basedon your age, other medical conditions you have, and how you respond to diabetes treatment. Every time you check your blood glucose, write down your result. Also, write down any notes about things that may be affecting your blood glucose, such as your diet and exercise for the day. This information is not intended to replace advice given to you by your health care provider. Make sure you discuss any questions you have with your health care provider. Document Revised: 11/12/2020 Document Reviewed: 11/12/2020 [employer] Patient Education 2022 Soundtracker. Follow Up Care 03/17/2022 13:00:04 With:Tawanna Rapp Address: [address] [place] [address], [facility] [place] [address]- When:Within 6 Month(s) Comments:f/u [facility] 06-30-2023 Evaluation + Plan noteExtracted from: Title:Pain Managment Follow up Author:Carmen Figueroa Date:08/27/22 Impression and Plan Patient is a 52-year-old male with a past medical history significant for lumbar spondylosis, myalgia, left shoulder pain and some intermittent left neck pain. Patient underwent recent bilateral L4-S1 facet RFA. This was done on 07/27/2022 and has given him 50% relief. We had a long discussion with the RFA process. He voiced understanding but wonders what we can do to help with the muscle spasms. He uses Flexeril at bedtime only because it makes him tired. I would recommend him to hold this and trial baclofen. Patient side effects were discussed. Patient is agreeable. Patient then states that he is having this intermittent left bicep stabbing type discomfort that happens intermittently when he moves his arm a certain way. He states that when he tries to reach out for something it is present. He also intermittently has neck pain. He wonders what we are going to do about this. I recommended a left shoulder x-ray as well as a cervical x-ray and pursuing a full course of physical therapy. Patient voiced understanding. He is going to follow-up in 4-6 weeks. Call clinic sooner if necessary. STEPHANIE score: 40% Future Appointments Appointment Date:09/03/2022 01:00:00 PM Scheduled Provider: Location:.[place]ICAL [place] Appointment Type:PT [place] () Appointment Date:09/14/2022 01:00:00 PM Scheduled Provider:Tawanna Rapp Location:[facility] Appointment Type:FM Open Appointment Date:10/01/2022 02:15:00 PM Scheduled Provider:Carmen Andrew PA-C Location:[facility] Appointment Type:Pain Management - Follow Up (FT) Appointment Date:08/24/2023 01:45:00 PM Scheduled Provider:Jimmy GASTON MD Location:[facility] Appointment Type:URO Office Visit Future Scheduled Tests Radiology* XR Abdomen 1 View 07/19/22 [facility]06-[facility]2023 Hospital Discharge instructions Follow Up Care 08/18/2022 14:06:09 With:MARILIN HINES, Jimmy Coyle, URL Address: [facility] [address], [place] [address]- When: Unknown [facility] 06-21-2023 Hospital Discharge instructions Patient Education 08/18/2022 14:02:08 Dietary Guidelines to Help Prevent Kidney Stones Dietary Guidelines to Help Prevent Kidney Stones Kidney stones are deposits of minerals and salts that form inside your kidneys. Your risk of developing kidney stones may be greater depending on your diet, your lifestyle, the medicines you take, and whether you have certain medical conditions. Most people can lower their chances of developing kidney stones by following the instructions below. Your dietitian may give you more specific instructions depending on your overall health and the type of kidney stones you tend to develop. What are tips for following this plan? Reading food labels Choose foods with no salt added or low-salt labels. Limit your salt (sodium) intake to less than 1,500 mg a day. Choose foods with calcium for each meal and snack. Try to eat about 300 mg of calcium at each meal.Foods that contain 200 500 mg of calcium a serving include: ?8 oz (237 mL) of milk, xupladu-nwhzytwiqdmi-qtvfo milk, and calcium- fortifiedfruit juice. Calcium-fortified means that calcium has been added to these drinks. ?8 oz (237 mL) of kefir, yogurt, and soy yogurt. ?4 oz (114 g) of tofu. ?1 oz (28 g) of cheese. ?1 cup (150 g) of dried figs. ?1 cup (91 g) of cooked broccoli. ?One 3 oz (85 g) can of sardines or mackerel. Most people need 1,000 1,500 mg of calcium a day. Talk to your dietitian about how much calcium is recommended for you. Shopping Buy plenty of fresh fruits and vegetables. Most people do not need to avoid fruits and vegetables, even if these foods contain nutrients that may contribute to kidney stones. When shopping for convenience foods, choose: ?Whole pieces of fruit. ?Pre-made salads with dressing on the side. ?Low-fat fruit and yogurt smoothies. Avoid buying frozen meals or prepared deli foods. These can be high in sodium. Look for foods with live cultures, such as yogurt and kefir. Choose high-fiber grains, such as whole-wheat breads, oat bran, and wheat cereals. Cooking Do not add salt to food when cooking. Place a salt shaker on the table and allow each person to addhis or her own salt to taste. Use vegetable protein, such as beans, textured vegetable protein (TVP), or tofu, instead of meat inpasta, casseroles, and soups. Meal planning Eat less salt, if told by your dietitian. To do this: ?Avoid eating processed or pre-made food. ?Avoid eating fast food. Eat less animal protein, including cheese, meat, poultry, or fish, if told by your dietitian. To dothis: ?Limit the number of times you have meat, poultry, fish, or cheese each week. Eat a diet free of meat at least 2 days a week. ?Eat only one serving each day of meat, poultry, fish, or seafood. ?When you prepare animal protein, cut pieces into small portion sizes. For most meat and fish, one serving is about the size of the palm of your hand. Eat at least five servings of fresh fruits and vegetables each day. To do this: ?Keep fruits and vegetables on hand for snacks. ?Eat one piece of fruit or a handful of berries with breakfast. ?Have a salad and fruit at lunch. ?Have two kinds of vegetables at dinner. Limit foods that are high in a substance called oxalate. These include: ?Spinach (cooked), rhubarb, beets, sweet potatoes, and German chard. ?Peanuts. ?Potato chips, zambian fries, and baked potatoes with skin on. ?Nuts and nut products. ?Chocolate. If you regularly take a diuretic medicine, make sure to eat at least 1 or 2 servings of fruits or vegetables that are high in potassium each day. These include: ?Avocado. ?Banana. ?Zapata, prune, carrot, or tomato juice. ?Baked potato. ?Cabbage. ?Beans and split peas. Lifestyle Drink enough fluid to keep your urine pale yellow. This is the most important thing you can do. Spread your fluid intake throughout the day. If you drink alcohol: ?Limit how much you use to: ?0 1 drink a day for women who are not . ?0 2 drinks a day for men. ?Be aware of how much alcohol is in your drink. In the [place] one drink equals one 12 oz bottle of beer (355 mL), one 5 oz glass of wine (148 mL), or one 1 oz glass of hard liquor (44 mL). Lose weight if told by your health care provider. Work with your dietitian to find an eating plan and weight loss strategies that work best for you. General information Talk to your health care provider and dietitian about taking daily supplements. You may be told thefollowing depending on your health and the cause of your kidney stones: ?Not to take supplements with vitamin C. ?To take a calcium supplement. ?To take a daily probiotic supplement. ?To take other supplements such as magnesium, fish oil, or vitamin B6. Take djzu-fmc-xcwujjd and prescription medicines only as told by your health care provider. These include supplements. What foods should I limit? Limit your intake of the following foods, or eat them as told by your dietitian. Vegetables Spinach. Rhubarb. Beets. Canned vegetables. Pickles. Olives. Baked potatoes with skin. Grains Wheat bran. Baked goods. Salted crackers. Cereals high in sugar. Meats and other proteins Nuts. Nut butters. Large portions of meat, poultry, or fish. Salted, precooked, or cured meats, such as sausages, meat loaves, and hot dogs. Dairy Cheese. Beverages Regular soft drinks. Regular vegetable juice. Seasonings and condiments Seasoning blends with salt. Salad dressings. Soy sauce. Ketchup. Barbecue sauce. Other foods Canned soups. Canned pasta sauce. Casseroles. Pizza. Lasagna. Frozen meals. Potato chips. Guamanian fries. The items listed above may not be a complete list of foods and beverages you should limit. Contact a dietitian for more information. What foods should I avoid? Talk to your dietitian about specific foods you should avoid based on the type of kidney stones youhave and your overall health. Fruits Grapefruit. The item listed above may not be a complete list of foods and beverages you should avoid. Contact adietitian for more information. Summary Kidney stones are deposits of minerals and salts that form inside your kidneys. You can lower your risk of kidney stones by making changes to your diet. The most important thing you can do is drink enough fluid. Drink enough fluid to keep your urine pale yellow. Talk to your dietitian about how much calcium you should have each day, and eat less salt and animal protein as told by your dietitian. This information is not intended to replace advice given to you by your health care provider. Make sure you discuss any questions you have with your health care provider. Document Revised: 10/26/2021 Document Reviewed: 10/26/2021 [employer] Patient Education 2022 [employer]. Follow Up Care 08/19/2021 15:34:48 With:MARILIN HINES, Jimmy Coyle, URL Address: [facility] [address] , [place] [address]- When: Unknown [facility] 05-05-2023 Evaluation + Plan noteExtracted from: Title:Pain Managment Follow up Author:Carmen Figueroa Date:07/02/22 Impression and Plan Patient is a 52-year-old male with a past medical history significant for lumbar spondylosis and chronic lower back pain. Patient underwent his second bilateral L4-5 and L5-S1 facet medial branch block on 06/15/2022 and had 80% relief for 4 hours. He was better able to do things. He states that he was able to do laundry without any significant pain. Unfortunate, the next day his pain then returned and went back to baseline. It is an 8/10 in the lower back. No radiculopathy. He has now undergone 2 medial branch blocks both with significant short-term relief. Since he did well with both of these I discussed with patient pursuing bilateral L4-5 and L5-S1 facet RFA. Procedure was discussed. Risks and benefits were discussed. Patient is agreeable. He will follow-up 3 to 4 weeks after the RFA for reevaluation. Call the clinic sooner if necessary. STEPHANIE score: 51% Future Appointments Appointment Date:08/18/2022 01:15:00 PM Scheduled Provider:Jimmy GASTON MD Location:[facility] Appointment Type:URO Office Visit Appointment Date:09/14/2022 01:00:00 PM Scheduled Provider:Tawanna Rapp Location:[facility] Appointment Type:FM Open Future Scheduled Tests Radiology* XR Abdomen 1 View 07/19/22 [facility]03-10-2023 Evaluation + Plan noteExtracted from: Title:Pain Managment Follow up Author:Carmen Figueroa Date:05/07/22 Impression and Plan Patient is a 52-year-old male with a past medical history significant for lumbar spondylosis. Patient underwent bilateral L4-5 and L5-S1 facet medial branch block done on 04/20/2022 that gave him 90% relief for 5 hours. He states that things were better. Unfortunate, after that 5 hours his pain returned back to baseline. It is a 5/10 in his lower back. Bending, walking, twisting, turning, and performing certain activities make it worse. Resting does make it better but not quite enough. The most improvement he has gotten has been from the medial branch block and he would like to get this amount of pain relief long-term. I would recommend once again repeating the bilateral L4-5 and L5-S1 facet medial branch block for diagnostic purposes. If he once again gets significant short-term relief he may be a future candidate for RFA. Procedure was discussed. Risks and benefits were discussed. Patient is agreeable. He will follow-up 2 weeks after the injection for reevaluation. Call the clinic sooner if necessary. STEPHANIE score: 28 Future Appointments Appointment Date:08/18/2022 01:15:00 PM Scheduled Provider:Jimmy GASTON MD Location:[facility] Appointment Type:URO Office Visit Appointment Date:09/14/2022 01:00:00 PM Scheduled Provider:Tawanna Rapp Location:[facility] Appointment Type: Open Future Scheduled Tests Laboratory* HgbA1c 06/08/21 * Microalbumin Level Urine 06/08/21 * Comprehensive Metabolic Panel 06/08/21 * Lipid Panel 06/08/21 Radiology* XR Abdomen 1 View 07/19/22 [facility]01-23-2023 Evaluation + Plan noteExtracted from: Title:Pain Managment H&P Author:Jacinta Andrew PA-C Date:03/22/22 Impression and Plan Patient is a 52-year-old male with a past medical history significant for lumbosacral spondylosis and lumbar degenerative disease. We reviewed the MRI scan and x-rays that he had in the past. He has trialed a multitude of treatments including Medrol Dosepak, OTC anti-inflammatory medications, physical therapy, aquatic therapy, and massage therapy. Unfortunately, nothing has given him the long-term relief he is looking for. He has a lot of lower back pain that affects his ambulatory status. This affects his quality of life and activities of daily. Affects his ability to do the things he wants to do. We reviewed his MRI scan. We reviewed his x-rays. Based on his pain pattern, his physical exam findings, his failure to improve with conservative treatments I recommended bilateral L4-5 and L5-S1 facet medial branch block for diagnostic purposes. If he gets significant short-term relief he may be a future candidate for RFA. Procedure was discussed. Risk and benefits were discussed. Patient is agreeable. He will follow-up 2 weeks after the injection for reevaluation. Call the clinic sooner if necessary. STEPHANIE score:33 Future Appointments Appointment Date:08/18/2022 01:15:00 PM Scheduled Provider:Jimmy GASTON MD Location:[facility] Appointment Type:URO Office Visit Appointment Date:09/14/2022 01:00:00 PM Scheduled Provider:Tawanna Rapp Location:[facility] Appointment Type:FM Open Future Scheduled Tests Laboratory* HgbA1c 06/08/21 * Microalbumin Level Urine 06/08/21 * Comprehensive Metabolic Panel 06/08/21 * Lipid Panel 06/08/21 Radiology* XR Abdomen 1 View 07/19/22 [facility]01-18-2023 Hospital Discharge instructions Patient Education 03/17/2022 12:59:45 Preventing Diabetes Mellitus Complications Preventing Diabetes Mellitus Complications You can take action to prevent or slow down problems that are caused by diabetes (diabetes mellitus). Following your diabetes plan and taking care of yourself can reduce your risk of serious or life-threatening complications. What actions can I take to prevent diabetes complications? Manage your diabetes Follow instructions from your health care providers about managing your diabetes. Your diabetes maybe managed by a team of health care providers who can teach you how to care for yourself and can answer questions that you have. Educate yourself about your condition so you can make healthy choices about eating and physical activity. Check your blood sugar (glucose) levels as often as directed. Your health care provider will help you decide how often to check your blood glucose level depending on your treatment goals and how wellyou are meeting them. Ask your health care provider if you should take low-dose aspirin daily and what dose is recommended for you. Taking low-dose aspirin daily is recommended to help prevent cardiovascular disease. Do not use nicotine or tobacco Do not use any products that contain nicotine or tobacco, such as cigarettes and e-cigarettes. If you need help quitting, ask your health care provider. Nicotine raises your risk for diabetes problems. If you quit using nicotine: You will lower your risk for heart attack, stroke, nerve disease, and kidney disease. Your cholesterol and blood pressure may improve. Your blood circulation will improve. Keep your blood pressure under control Your personal target blood pressure is determined based on: Your age. Your medicines. How long you have had diabetes. Any other medical conditions you have. To control your blood pressure: Follow instructions from your health care provider about meal planning, exercise, and medicines. Make sure your health care provider checks your blood pressure at every medical visit. Monitor your blood pressure at home as told by your health care provider. Keep your cholesterol under control To control your cholesterol: Follow instructions from your health care provider about meal planning, exercise, and medicines. Have your cholesterol checked at least once a year. You may be prescribed medicine to lower cholesterol (statin). If you are not taking a statin, ask your health care provider if you should be. Controlling your cholesterol may: Help prevent heart disease and stroke. These are the most common health problems for people with diabetes. Improve your blood flow. Schedule and keep yearly physical exams and eye exams Your health care provider will tell you how often you need medical visits depending on your diabetes management plan. Keep all follow-up visits as directed. This is important so possible problems canbe identified early and complications can be avoided or treated. Every visit with your health care provider should include measuring your: ?Weight. ?Blood pressure. ?Blood glucose control. Your A1c (hemoglobin A1c) level should be checked: ?At least 2 times a year, if you are meeting your treatment goals. ?4 times a year, if you are not meeting treatment goals or if your treatment goals have changed. Your blood lipids (lipid profile) should be checked yearly. You should also be checked yearly for protein in your urine (urine microalbumin). If you have type 1 diabetes, get an eye exam 3 5 years after you are diagnosed, and then once a year after your first exam. If you have type 2 diabetes, get an eye exam as soon as you are diagnosed, and then once a year after your first exam. Keep your vaccines current It is recommended that you receive: A flu (influenza) vaccine every year. A pneumonia (pneumococcal) vaccine and a hepatitis B vaccine. If you are age 65 or older, you may get the pneumonia vaccine as a series of two separate shots. Ask your health care provider which other vaccines may be recommended. Take care of your feet Diabetes may cause you to have poor blood circulation to your legs and feet. Because of this, taking care of your feet is very important. Diabetes can cause: The skin on the feet to get thinner, break more easily, and heal more slowly. Nerve damage in your legs and feet, which results in decreased feeling. You may not notice minor injuries that could lead to serious problems. To avoid foot problems: Check your skin and feet every day for cuts, bruises, redness, blisters, or sores. Schedule a foot exam with your health care provider once every year. This exam includes: ?Inspecting of the structure and skin of your feet. ?Checking the pulses and sensation in your feet. Make sure that your health care provider performs a visual foot exam at every medical visit. Take care of your teeth People with poorly controlled diabetes are more likely to have gum (periodontal) disease. Diabetes can make periodontal diseases harder to control. If not treated, periodontal diseases can lead to tooth loss. To prevent this: [place] your teeth twice a day. Floss at least once a day. Visit your dentist 2 times a year. Drink responsibly Limit alcohol intake to no more than 1 drink a day for non women and 2 drinks a day for men. One drink equals 12 oz of beer, 5 oz of wine, or 1 oz of hard liquor. It is important to eat food when you drink alcohol to avoid low blood glucose (hypoglycemia). Avoidalcohol if you: Have a history of alcohol abuse or dependence. Are . Have liver disease, pancreatitis, advanced neuropathy, or severe hypertriglyceridemia. Lessen stress Living with diabetes can be stressful. When you are experiencing stress, your blood glucose may be affected in two ways: Stress hormones may cause your blood glucose to rise. You may be distracted from taking good care of yourself. Be aware of your stress level and make changes to help you manage challenging situations. To lower your stress levels: Consider joining a support group. Do planned relaxation or meditation. Do a hobby that you enjoy. Maintain healthy relationships. Exercise regularly. Work with your health care provider or a mental health professional. Summary You can take action to prevent or slow down problems that are caused by diabetes (diabetes mellitus). Following your diabetes plan and taking care of yourself can reduce your risk of serious or life-threatening complications. Follow instructions from your health care providers about managing your diabetes. Your diabetes maybe managed by a team of health care providers who can teach you how to care for yourself and can answer questions that you have. Your health care provider will tell you how often you need medical visits depending on your diabetes management plan. Keep all follow-up visits as directed. This is important so possible problems canbe identified early and complications can be avoided or treated. This information is not intended to replace advice given to you by your health care provider. Make sure you discuss any questions you have with your health care provider. Document Released: 11/02/2011 Document Revised: 05/15/2018 Document Reviewed: 11/13/2016 [employer] Patient Education 2020 [employer]. 03/17/2022 12:59:40 BMI for Adults BMI for Adults Body mass index (BMI) is a number that is calculated from a person's weight and height. BMI may help to estimate how much of a person's weight is composed of fat. BMI can help identify those who may be at higher risk for certain medical problems. How is BMI used with adults? BMI is used as a screening tool to identify possible weight problems. It is used to check whether aperson is obese, overweight, healthy weight, or underweight. How is BMI calculated? BMI measures your weight and compares it to your height. This can be done either in [place] ([place] or metric measurements. Note that charts are available to help you find your BMI quickly and easily without having to do these calculations yourself. To calculate your BMI in [place] measurements, your health care provider will: 1.Measure your weight in pounds (lb). 2.Multiply the number of pounds by 703. For example, for a person who weighs 180 lb, multiply that number by 703, which equals 126,540. 3.Measure your height in inches (in). Then multiply that number by itself to get a measurement called inches squared. For example, for a person who is 70 in tall, the inches squared measurement is 70 in x 70 in, which equals 4900 inches squared. 4.Divide the total from Step 2 (number of lb x 703) by the total from Step 3 (inches squared): 126,540 4900 = 25.8. This is your BMI. To calculate your BMI in metric measurements, your health care provider will: 1.Measure your weight in kilograms (kg). 2.Measure your height in meters (m). Then multiply that number by itself to get a measurement called meters squared. For example, for a person who is 1.75 m tall, the meters squared measurement is 1.75 m x 1.75 m, which is equal to 3.1 meters squared. 3.Divide the number of kilograms (your weight) by the meters squared number. In this example: 70 3.1 = 22.6. This is your BMI. How is BMI interpreted? To interpret your results, your health care provider will use BMI charts to identify whether you are underweight, normal weight, overweight, or obese. The following guidelines will be used: Underweight: BMI less than 18.5. Normal weight: BMI between 18.5 and 24.9. Overweight: BMI between 25 and 29.9. Obese: BMI of 30 and above. Please note: Weight includes both fat and muscle, so someone with a muscular build, such as an athlete, may havea BMI that is higher than 24.9. In cases like these, BMI is not an accurate measure of body fat. To determine if excess body fat is the cause of a BMI of 25 or higher, further assessments may needto be done by a health care provider. BMI is usually interpreted in the same way for men and women. Why is BMI a useful tool? BMI is useful in two ways: Identifying a weight problem that may be related to a medical condition, or that may increase the risk for medical problems. Promoting lifestyle and diet changes in order to reach a healthy weight. Summary Body mass index (BMI) is a number that is calculated from a person's weight and height. BMI may help to estimate how much of a person's weight is composed of fat. BMI can help identify those who may be at higher risk for certain medical problems. BMI can be measured using Guamanian measurements or metric measurements. To interpret your results, your health care provider will use BMI charts to identify whether you are underweight, normal weight, overweight, or obese. This information is not intended to replace advice given to you by your health care provider. Make sure you discuss any questions you have with your health care provider. Document Released: 10/26/2004 Document Revised: 01/27/2018 Document Reviewed: 12/28/2017 [employer] Patient Education 2020 [employer]. 03/17/2022 12:59:37 Lumbosacral Strain Lumbosacral Strain Lumbosacral strain is an injury that causes pain in the lower back (lumbosacral spine). This injuryusually happens from overstretching the muscles or ligaments along your spine. Ligaments are cord-like tissues that connect bones to other bones. A strain can affect one or more muscles or ligaments. What are the causes? This condition may be caused by: A hard, direct hit to the back. Overstretching the lower back muscles. This may result from: ?A fall. ?Lifting something heavy. ?Repetitive movements such as bending or crouching. What increases the risk? The following factors may make you more likely to develop this condition: Participating in sports or activities that involve: ?A sudden twist of the back. ?Pushing or pulling motions. Being overweight or obese. Having poor strength and flexibility, especially tight hamstrings or weak muscles in the back or abdomen. Having too much of a curve in the lower back. Having a pelvis that is tilted forward. What are the signs or symptoms? The main symptom of this condition is pain in the lower back, at the site of the strain. Pain may also be felt down one or both legs. How is this diagnosed? This condition is diagnosed based on your symptoms, your medical history, and a physical exam. During the physical exam, your health care provider may push on certain areas of your back to find the source of your pain. You may be asked to bend forward, backward, and side to side to check your pain and range of motion. You may also have imaging tests, such as X-rays and an MRI. How is this treated? This condition may be treated by: Applying heat and cold on the affected area. Taking medicines to help relieve pain and relax your muscles. Taking NSAIDs, such as ibuprofen, to help reduce swelling and discomfort. Doing stretching and strengthening exercises for your lower back. Symptoms usually improve within several weeks of treatment. However, recovery time varies. When your symptoms improve, gradually return to your normal routine as soon as possible to reduce pain, avoid stiffness, and keep muscle strength. Follow these instructions at home: Medicines Take jltm-shu-lnxyaga and prescription medicines only as told by your health care provider. Ask your health care provider if the medicine prescribed to you: ?Requires you to avoid driving or using heavy machinery. ?Can cause constipation. You may need to take these actions to prevent or treat constipation: ?Drink enough fluid to keep your urine pale yellow. ?Take tftr-jwq-izzhhvc or prescription medicines. ?Eat foods that are high in fiber, such as beans, whole grains, and fresh fruits and vegetables. ?Limit foods that are high in fat and processed sugars, such as fried or sweet foods. Managing pain, stiffness, and swelling If directed, put ice on the injured area. To do this: ?Put ice in a plastic bag. ?Place a towel between your skin and the bag. ?Leave the ice on for 20 minutes, 2 3 times a day. If directed, apply heat on the affected area as often as told by your health care provider. Use theheat source that your health care provider recommends, such as a moist heat pack or a heating pad. ?Place a towel between your skin and the heat source. ?Leave the heat on for 20 30 minutes. ?Remove the heat if your skin turns bright red. This is especially important if you are unable to feel pain, heat, or cold. You may have a greater risk of getting burned. Activity Rest as told by your health care provider. Do not stay in bed. Staying in bed for more than 1 2 days can delay your recovery. Return to your normal activities as told by your health care provider. Ask your health care provider what activities are safe for you. Avoid activities that take a lot of energy for as long as told by your health care provider. Do exercises as told by your health care provider. This includes stretching and strengthening exercises. General instructions Sit up and stand up straight. Avoid leaning forward when you sit, or hunching over when you stand. Do not use any products that contain nicotine or tobacco, such as cigarettes, e- cigarettes, and chewing tobacco. If you need help quitting, ask your health care provider. Keep all follow-up visits as told by your health care provider. This is important. How is this prevented? Use correct form when playing sports and lifting heavy objects. Use good posture when sitting and standing. Maintain a healthy weight. Sleep on a mattress with medium firmness to support your back. Do at least 150 minutes of moderate-intensity exercise each week, such as brisk walking or water aerobics. Try a form of exercise that takes stress off your back, such as swimming or stationary cycling. Maintain physical fitness, including: ?Strength. ?Flexibility. Contact a health care provider if: Your back pain does not improve after several weeks of treatment. Your symptoms get worse. Get help right away if: Your back pain is severe. You cannot stand or walk. You have difficulty controlling when you urinate or when you have a bowel movement. You feel nauseous or you vomit. Your feet or legs get very cold, turn pale, or look blue. You have numbness, tingling, weakness, or problems using your arms or legs. You develop any of the following: ?Shortness of breath. ?Dizziness. ?Pain in your legs. ?Weakness in your buttocks or legs. Summary Lumbosacral strain is an injury that causes pain in the lower back (lumbosacral spine). This injury usually happens from overstretching the muscles or ligaments along your spine. This condition may be caused by a direct hit to the lower back or by overstretching the lower back muscles. Symptoms usually improve within several weeks of treatment. This information is not intended to replace advice given to you by your health care provider. Make sure you discuss any questions you have with your health care provider. Document Released: 11/24/2005 Document Revised: 07/10/2019 Document Reviewed: 07/10/2019 [employer] Patient Education 2019 [employer]. Follow Up Care 03/12/2022 09:30:24 With:Elsy Cason CNP Address: [facility] [place] [address]- [phone] When:6 months [facility] 01-10-2023 Hospital Discharge instructions Patient Education 03/09/2022 15:33:08 Muscle Strain, Vfcv-ti-Sepj Muscle Strain A muscle strain is an injury that happens when a muscle is stretched longer than normal. This can happen during a fall, sports, or lifting. This can tear some muscle fibers. Usually, recovery from muscle strain takes 1 2 weeks. Complete healing normally takes 5 6 weeks. This condition is first treated with BARAKAT therapy. This involves: Protecting your muscle from being injured again. Resting your injured muscle. Icing your injured muscle. Applying pressure (compression) to your injured muscle. This may be done with a splint or elastic bandage. Raising (elevating) your injured muscle. Your doctor may also recommend medicine for pain. Follow these instructions at home: If you have a splint: Wear the splint as told by your doctor. Take it off only as told by your doctor. Loosen the splint if your fingers or toes tingle, get numb, or turn cold and blue. Keep the splint clean. If the splint is not waterproof: ?Do not let it get wet. ?Cover it with a watertight covering when you take a bath or a shower. Managing pain, stiffness, and swelling If directed, put ice on your injured area. ?If you have a removable splint, take it off as told by your doctor. ?Put ice in a plastic bag. ?Place a towel between your skin and the bag. ?Leave the ice on for 20 minutes, 2 3 times a day. Move your fingers or toes often. This helps to avoid stiffness and lessen swelling. Raise your injured area above the level of your heart while you are sitting or lying down. Wear an elastic bandage as told by your doctor. Make sure it is not too tight. General instructions Take yxbn-bab-ysxtqwi and prescription medicines only as told by your doctor. Limit your activity. Rest your injured muscle as told by your doctor. Your doctor may say that gentle movements are okay. If physical therapy was prescribed, do exercises as told by your doctor. Do not put pressure on any part of the splint until it is fully hardened. This may take many hours. Do not use any products that contain nicotine or tobacco, such as cigarettes and e-cigarettes. These can delay bone healing. If you need help quitting, ask your doctor. Warm up before you exercise. This helps to prevent more muscle strains. Ask your doctor when it is safe to drive if you have a splint. Keep all follow-up visits as told by your doctor. This is important. Contact a doctor if: You have more pain or swelling in your injured area. Get help right away if: You have any of these problems in your injured area: ?You have numbness. ?You have tingling. ?You lose a lot of strength. Summary A muscle strain is an injury that happens when a muscle is stretched longer than normal. This condition is first treated with BARAKAT therapy. This includes protecting, resting, icing, adding pressure, and raising your injury. Limit your activity. Rest your injured muscle as told by your doctor. Your doctor may say that gentle movements are okay. Warm up before you exercise. This helps to prevent more muscle strains. This information is not intended to replace advice given to you by your health care provider. Make sure you discuss any questions you have with your health care provider. Document Released: 11/23/2008 Document Revised: 04/12/2019 Document Reviewed: 03/23/2017 [employer] Patient Education 2020 [employer] 03/09/2022 15:33:08 Lumbosacral Strain Lumbosacral Strain Lumbosacral strain is an injury that causes pain in the lower back (lumbosacral spine). This injuryusually happens from overstretching the muscles or ligaments along your spine. Ligaments are cord-like tissues that connect bones to other bones. A strain can affect one or more muscles or ligaments. What are the causes? This condition may be caused by: A hard, direct hit to the back. Overstretching the lower back muscles. This may result from: ?A fall. ?Lifting something heavy. ?Repetitive movements such as bending or crouching. What increases the risk? The following factors may make you more likely to develop this condition: Participating in sports or activities that involve: ?A sudden twist of the back. ?Pushing or pulling motions. Being overweight or obese. Having poor strength and flexibility, especially tight hamstrings or weak muscles in the back or abdomen. Having too much of a curve in the lower back. Having a pelvis that is tilted forward. What are the signs or symptoms? The main symptom of this condition is pain in the lower back, at the site of the strain. Pain may also be felt down one or both legs. How is this diagnosed? This condition is diagnosed based on your symptoms, your medical history, and a physical exam. During the physical exam, your health care provider may push on certain areas of your back to find the source of your pain. You may be asked to bend forward, backward, and side to side to check your pain and range of motion. You may also have imaging tests, such as X-rays and an MRI. How is this treated? This condition may be treated by: Applying heat and cold on the affected area. Taking medicines to help relieve pain and relax your muscles. Taking NSAIDs, such as ibuprofen, to help reduce swelling and discomfort. Doing stretching and strengthening exercises for your lower back. Symptoms usually improve within several weeks of treatment. However, recovery time varies. When your symptoms improve, gradually return to your normal routine as soon as possible to reduce pain, avoid stiffness, and keep muscle strength. Follow these instructions at home: Medicines Take vbjo-uga-ujspkgh and prescription medicines only as told by your health care provider. Ask your health care provider if the medicine prescribed to you: ?Requires you to avoid driving or using heavy machinery. ?Can cause constipation. You may need to take these actions to prevent or treat constipation: ?Drink enough fluid to keep your urine pale yellow. ?Take meuq-kzu-vwcdpmr or prescription medicines. ?Eat foods that are high in fiber, such as beans, whole grains, and fresh fruits and vegetables. ?Limit foods that are high in fat and processed sugars, such as fried or sweet foods. Managing pain, stiffness, and swelling If directed, put ice on the injured area. To do this: ?Put ice in a plastic bag. ?Place a towel between your skin and the bag. ?Leave the ice on for 20 minutes, 2 3 times a day. If directed, apply heat on the affected area as often as told by your health care provider. Use theheat source that your health care provider recommends, such as a moist heat pack or a heating pad. ?Place a towel between your skin and the heat source. ?Leave the heat on for 20 30 minutes. ?Remove the heat if your skin turns bright red. This is especially important if you are unable to feel pain, heat, or cold. You may have a greater risk of getting burned. Activity Rest as told by your health care provider. Do not stay in bed. Staying in bed for more than 1 2 days can delay your recovery. Return to your normal activities as told by your health care provider. Ask your health care provider what activities are safe for you. Avoid activities that take a lot of energy for as long as told by your health care provider. Do exercises as told by your health care provider. This includes stretching and strengthening exercises. General instructions Sit up and stand up straight. Avoid leaning forward when you sit, or hunching over when you stand. Do not use any products that contain nicotine or tobacco, such as cigarettes, e- cigarettes, and chewing tobacco. If you need help quitting, ask your health care provider. Keep all follow-up visits as told by your health care provider. This is important. How is this prevented? Use correct form when playing sports and lifting heavy objects. Use good posture when sitting and standing. Maintain a healthy weight. Sleep on a mattress with medium firmness to support your back. Do at least 150 minutes of moderate-intensity exercise each week, such as brisk walking or water aerobics. Try a form of exercise that takes stress off your back, such as swimming or stationary cycling. Maintain physical fitness, including: ?Strength. ?Flexibility. Contact a health care provider if: Your back pain does not improve after several weeks of treatment. Your symptoms get worse. Get help right away if: Your back pain is severe. You cannot stand or walk. You have difficulty controlling when you urinate or when you have a bowel movement. You feel nauseous or you vomit. Your feet or legs get very cold, turn pale, or look blue. You have numbness, tingling, weakness, or problems using your arms or legs. You develop any of the following: ?Shortness of breath. ?Dizziness. ?Pain in your legs. ?Weakness in your buttocks or legs. Summary Lumbosacral strain is an injury that causes pain in the lower back (lumbosacral spine). This injury usually happens from overstretching the muscles or ligaments along your spine. This condition may be caused by a direct hit to the lower back or by overstretching the lower back muscles. Symptoms usually improve within several weeks of treatment. This information is not intended to replace advice given to you by your health care provider. Make sure you discuss any questions you have with your health care provider. Document Released: 11/24/2005 Document Revised: 07/10/2019 Document Reviewed: 07/10/2019 [employer] Patient Education 2020 [employer]. 03/09/2022 15:33:08 Back Injury Prevention, Jrhu-ux-Skwn Back Injury Prevention Back injuries can be very painful. They can also be difficult to heal. After having one back injury, you are more likely to have another one again. It is important to learn how to avoid injuring or re-injuring your back. The following tips can help you to prevent a back injury. What actions can I take to prevent back injuries? Changes in your diet Talk with your doctor about what to eat. Some foods can make the bones strong. Talk with your doctor about how much calcium and vitamin D you need each day. These nutrients help to prevent weakening of the bones (osteoporosis). Eat foods that have calcium. These include: ?Dairy products. ?Green leafy vegetables. ?Food and drinks that have had calcium added to them (fortified). Eat foods that have vitamin D. These include: ?Milk. ?Food and drinks that have had vitamin D added to them. Take other supplements and vitamins only as told by your doctor. Physical fitness Physical fitness makes your bones and muscles strong. It also improves your balance and strength. Exercise for 30 minutes per day on most days of the week, or as told by your doctor. Make sure to: ?Do aerobic exercises, such as walking, jogging, biking, or swimming. ?Do exercises that increase balance and strength, such as shakeel chi and yoga. ?Do stretching exercises. This helps with flexibility. ?Develop strong belly (abdominal) muscles. Your belly muscles help to support your back. Stay at a healthy weight. This lowers your risk of a back injury. Good posture Prevent back injuries by developing and maintaining a good posture. To do this: Sit up straight and stand up straight. Avoid leaning forward when you sit or hunching over when youstand. Choose chairs that have good low-back (lumbar) support. If you work at a desk: ?Sit close to it so you do not need to lean over. ?Keep your chin tucked in. ?Keep your neck drawn back. ?Keep your elbows bent so that your arms make a corner (right angle). When you drive: ?Sit high and close to the steering wheel. Add a low-back support to your car seat, if needed. ?Take breaks every hour if you are driving for long periods of time. Avoid sitting or standing in one position for very long. Take breaks to get up, stretch, and walk around at least once every hour. Sleep on your side with your knees slightly bent, or sleep on your back with a pillow under your knees. Lifting, twisting, and reaching Heavy lifting ?Avoid heavy lifting, especially lifting over and over again. If you must do heavy lifting: ?Stretch before lifting. ?Work slowly. ?Rest between lifts. ?Use a tool such as a cart or a dank to move objects if one is available. ?Make several small trips instead of carrying one heavy load. ?Ask for help when you need it, especially when moving big objects. ?Follow these steps when lifting: ?Stand with your feet shoulder-width apart. ?Get as close to the object as you can. Do not miner pick a heavy object that is far from your body. ?Use handles or lifting straps if they are available. ?Bend at your knees. Squat down, but keep your heels off the floor. ?Keep your shoulders back. Keep your chin tucked in. Keep your back straight. ?Lift the object slowly while you tighten the muscles in your legs, belly, and bottom. Keep the object as close to the center of your body as possible. ?Follow these steps when putting down a heavy load: ?Stand with your feet shoulder-width apart. ?Lower the object slowly while you tighten the muscles in your legs, belly, and bottom. Keep the object as close to the center of your body as possible. ?Keep your shoulders back. Keep your chin tucked in. Keep your back straight. ?Bend at your knees. Squat down, but keep your heels off the floor. ?Use handles or lifting straps if they are available. Twisting and reaching ?Avoid lifting heavy objects above your waist. ?Do not twist at your waist while you are lifting or carrying a load. If you need to turn, move your feet. ?Do not bend over without bending at your knees. ?Avoid reaching over your head, across a table, or for an object on a high surface. Other things to do Avoid wet floors and icy ground. Keep sidewalks clear of ice to prevent falls. Do not sleep on a mattress that is too soft or too hard. Store heavier objects on shelves at waist level. Store structures mechanic objects on lower or higher shelves. Find ways to lower your stress, such as: ?Exercise. ?Massage. ?Relaxation techniques. Talk with your doctor if you feel anxious or depressed. These conditions can make back pain worse. Wear flat heel shoes with cushioned soles. Use both shoulder straps when carrying a backpack. Do not use any products that contain nicotine or tobacco, such as cigarettes and e-cigarettes. If you need help quitting, ask your doctor. Summary Back injuries can be very painful and difficult to heal. You can keep your back healthy by making certain changes. These include eating foods that make bones strong, working on being physically fit, developing a good posture, and lifting heavy objects in asafe way. This information is not intended to replace advice given to you by your health care provider. Make sure you discuss any questions you have with your health care provider. Document Released: 08/02/2008 Document Revised: 04/07/2018 Document Reviewed: 04/07/2018 [employer] Patient Education 2020 [employer]. Follow Up Care 03/09/2022 13:21:47 With:[facility] [place] [phone] Address:Unknown When:03/12/2022 15:03:54 With:Elsy Cason Address:Unknown When:03/12/2022 15:03:51 [facility]10-12-2022 Hospital Discharge instructions Patient Education 12/09/2021 14:51:54 Chronic Back Pain Chronic Back Pain When back pain lasts longer than 3 months, it is called chronic back pain. The cause of your back pain may not be known. Some common causes include: Wear and tear (degenerative disease) of the bones, ligaments, or disks in your back. Inflammation and stiffness in your back (arthritis). People who have chronic back pain often go through certain periods in which the pain is more intense (flare-ups). Many people can learn to manage the pain with home care. Follow these instructions at home: Pay attention to any changes in your symptoms. Take these actions to help with your pain: Activity Avoid bending and other activities that make the problem worse. Maintain a proper position when standing or sitting: ?When standing, keep your upper back and neck straight, with your shoulders pulled back. Avoid slouching. ?When sitting, keep your back straight and relax your shoulders. Do not round your shoulders or pull them backward. Do not sit or tube drawing supervisor one place for long periods of time. Take brief periods of rest throughout the day. This will reduce your pain. Resting in a lying or standing position is usually better than sitting to rest. When you are resting for longer periods, mix in some mild activity or stretching between periods ofrest. This will help to prevent stiffness and pain. Get regular exercise. Ask your health care provider what activities are safe for you. Do not lift anything that is heavier than 10 lb (4.5 kg). Always use proper lifting technique, which includes: ?Bending your knees. ?Keeping the load close to your body. ?Avoiding twisting. Sleep on a firm mattress in a comfortable position. Try lying on your side with your knees slightlybent. If you lie on your back, put a pillow under your knees. Managing pain If directed, apply ice to the painful area. Your health care provider may recommend applying ice during the first 24 48 hours after a flare-up begins. ?Put ice in a plastic bag. ?Place a towel between your skin and the bag. ?Leave the ice on for 20 minutes, 2 3 times per day. If directed, apply heat to the affected area as often as told by your health care provider. Use theheat source that your health care provider recommends, such as a moist heat pack or a heating pad. ?Place a towel between your skin and the heat source. ?Leave the heat on for 20 30 minutes. ?Remove the heat if your skin turns bright red. This is especially important if you are unable to feel pain, heat, or cold. You may have a greater risk of getting burned. Try soaking in a warm tub. Take zzuk-cne-rupqhez and prescription medicines only as told by your health care provider. Keep all follow-up visits as told by your health care provider. This is important. Contact a health care provider if: You have pain that is not relieved with rest or medicine. Get help right away if: You have weakness or numbness in one or both of your legs or feet. You have trouble controlling your bladder or your bowels. You have nausea or vomiting. You have pain in your abdomen. You have shortness of breath or you faint. This information is not intended to replace advice given to you by your health care provider. Make sure you discuss any questions you have with your health care provider. Document Released: 03/24/2005 Document Revised: 06/07/2019 Document Reviewed: 08/24/2017 [employer] Patient Education 2020 [employer]. 12/09/2021 14:51:48 Preventing Diabetes Mellitus Complications Preventing Diabetes Mellitus Complications You can take action to prevent or slow down problems that are caused by diabetes (diabetes mellitus). Following your diabetes plan and taking care of yourself can reduce your risk of serious or life-threatening complications. What actions can I take to prevent diabetes complications? Manage your diabetes Follow instructions from your health care providers about managing your diabetes. Your diabetes maybe managed by a team of health care providers who can teach you how to care for yourself and can answer questions that you have. Educate yourself about your condition so you can make healthy choices about eating and physical activity. Check your blood sugar (glucose) levels as often as directed. Your health care provider will help you decide how often to check your blood glucose level depending on your treatment goals and how wellyou are meeting them. Ask your health care provider if you should take low-dose aspirin daily and what dose is recommended for you. Taking low-dose aspirin daily is recommended to help prevent cardiovascular disease. Do not use nicotine or tobacco Do not use any products that contain nicotine or tobacco, such as cigarettes and e-cigarettes. If you need help quitting, ask your health care provider. Nicotine raises your risk for diabetes problems. If you quit using nicotine: You will lower your risk for heart attack, stroke, nerve disease, and kidney disease. Your cholesterol and blood pressure may improve. Your blood circulation will improve. Keep your blood pressure under control Your personal target blood pressure is determined based on: Your age. Your medicines. How long you have had diabetes. Any other medical conditions you have. To control your blood pressure: Follow instructions from your health care provider about meal planning, exercise, and medicines. Make sure your health care provider checks your blood pressure at every medical visit. Monitor your blood pressure at home as told by your health care provider. Keep your cholesterol under control To control your cholesterol: Follow instructions from your health care provider about meal planning, exercise, and medicines. Have your cholesterol checked at least once a year. You may be prescribed medicine to lower cholesterol (statin). If you are not taking a statin, ask your health care provider if you should be. Controlling your cholesterol may: Help prevent heart disease and stroke. These are the most common health problems for people with diabetes. Improve your blood flow. Schedule and keep yearly physical exams and eye exams Your health care provider will tell you how often you need medical visits depending on your diabetes management plan. Keep all follow-up visits as directed. This is important so possible problems canbe identified early and complications can be avoided or treated. Every visit with your health care provider should include measuring your: ?Weight. ?Blood pressure. ?Blood glucose control. Your A1c (hemoglobin A1c) level should be checked: ?At least 2 times a year, if you are meeting your treatment goals. ?4 times a year, if you are not meeting treatment goals or if your treatment goals have changed. Your blood lipids (lipid profile) should be checked yearly. You should also be checked yearly for protein in your urine (urine microalbumin). If you have type 1 diabetes, get an eye exam 3 5 years after you are diagnosed, and then once a year after your first exam. If you have type 2 diabetes, get an eye exam as soon as you are diagnosed, and then once a year after your first exam. Keep your vaccines current It is recommended that you receive: A flu (influenza) vaccine every year. A pneumonia (pneumococcal) vaccine and a hepatitis B vaccine. If you are age 65 or older, you may get the pneumonia vaccine as a series of two separate shots. Ask your health care provider which other vaccines may be recommended. Take care of your feet Diabetes may cause you to have poor blood circulation to your legs and feet. Because of this, taking care of your feet is very important. Diabetes can cause: The skin on the feet to get thinner, break more easily, and heal more slowly. Nerve damage in your legs and feet, which results in decreased feeling. You may not notice minor injuries that could lead to serious problems. To avoid foot problems: Check your skin and feet every day for cuts, bruises, redness, blisters, or sores. Schedule a foot exam with your health care provider once every year. This exam includes: ?Inspecting of the structure and skin of your feet. ?Checking the pulses and sensation in your feet. Make sure that your health care provider performs a visual foot exam at every medical visit. Take care of your teeth People with poorly controlled diabetes are more likely to have gum (periodontal) disease. Diabetes can make periodontal diseases harder to control. If not treated, periodontal diseases can lead to tooth loss. To prevent this: [place] your teeth twice a day. Floss at least once a day. Visit your dentist 2 times a year. Drink responsibly Limit alcohol intake to no more than 1 drink a day for non women and 2 drinks a day for men. One drink equals 12 oz of beer, 5 oz of wine, or 1 oz of hard liquor. It is important to eat food when you drink alcohol to avoid low blood glucose (hypoglycemia). Avoidalcohol if you: Have a history of alcohol abuse or dependence. Are . Have liver disease, pancreatitis, advanced neuropathy, or severe hypertriglyceridemia. Lessen stress Living with diabetes can be stressful. When you are experiencing stress, your blood glucose may be affected in two ways: Stress hormones may cause your blood glucose to rise. You may be distracted from taking good care of yourself. Be aware of your stress level and make changes to help you manage challenging situations. To lower your stress levels: Consider joining a support group. Do planned relaxation or meditation. Do a hobby that you enjoy. Maintain healthy relationships. Exercise regularly. Work with your health care provider or a mental health professional. Summary You can take action to prevent or slow down problems that are caused by diabetes (diabetes mellitus). Following your diabetes plan and taking care of yourself can reduce your risk of serious or life-threatening complications. Follow instructions from your health care providers about managing your diabetes. Your diabetes maybe managed by a team of health care providers who can teach you how to care for yourself and can answer questions that you have. Your health care provider will tell you how often you need medical visits depending on your diabetes management plan. Keep all follow-up visits as directed. This is important so possible problems canbe identified early and complications can be avoided or treated. This information is not intended to replace advice given to you by your health care provider. Make sure you discuss any questions you have with your health care provider. Document Released: 11/02/2011 Document Revised: 05/15/2018 Document Reviewed: 11/13/2016 [employer] Patient Education [employer] Follow Up Care 06/08/2021 14:05:58 With:Elsy Cason CNP Address: [address] [place] [address]- [phone] When:1 month [facility] 10-12-2022 Hospital Discharge instructions Follow Up Care 12/09/2021 14:50:01 With:Elsy Caosn CNP Address: [address] [place] [address]- [phone] When:1 year [facility] 06-22-2022 Hospital Discharge instructions Patient Education 08/19/2021 15:31:39 Benign Prostatic Hyperplasia Benign Prostatic Hyperplasia Benign prostatic hyperplasia (BPH) is an enlarged prostate gland that is caused by the normal agingprocess and not by cancer. The prostate is a walnut-sized gland that is involved in the production of semen. It is located in front of the rectum and below the bladder. The bladder stores urine and the urethra is the tube that carries the urine out of the body. The prostate may get bigger as a man gets older. An enlarged prostate can press on the urethra. This can make it harder to pass urine. The build-up of urine in the bladder can cause infection. Back pressure and infection may progress to bladder damage and kidney (renal) failure. What are the causes? This condition is part of a normal aging process. However, not all men develop problems from this condition. If the prostate enlarges away from the urethra, urine flow will not be blocked. If it enlarges toward the urethra and compresses it, there will be problems passing urine. What increases the risk? This condition is more likely to develop in men over the age of 50 years. What are the signs or symptoms? Symptoms of this condition include: Getting up often during the night to urinate. Needing to urinate frequently during the day. Difficulty starting urine flow. Decrease in size and strength of your urine stream. Leaking (dribbling) after urinating. Inability to pass urine. This needs immediate treatment. Inability to completely empty your bladder. Pain when you pass urine. This is more common if there is also an infection. Urinary tract infection (UTI). How is this diagnosed? This condition is diagnosed based on your medical history, a physical exam, and your symptoms. Tests will also be done, such as: A post-void bladder scan. This measures any amount of urine that may remain in your bladder after you finish urinating. A digital rectal exam. In a rectal exam, your health care provider checks your prostate by putting a lubricated, gloved finger into your rectum to feel the back of your prostate gland. This exam detects the size of your gland and any abnormal lumps or growths. An exam of your urine (urinalysis). A prostate specific antigen (PSA) screening. This is a blood test used to screen for prostate cancer. An ultrasound. This test uses sound waves to electronically produce a picture of your prostate gland. Your health care provider may refer you to a specialist in kidney and prostate diseases (urologist). How is this treated? Once symptoms begin, your health care provider will monitor your condition (active surveillance or watchful waiting). Treatment for this condition will depend on the severity of your condition. Treatment may include: Observation and yearly exams. This may be the only treatment needed if your condition and symptoms are mild. Medicines to relieve your symptoms, including: ?Medicines to shrink the prostate. ?Medicines to relax the muscle of the prostate. Surgery in severe cases. Surgery may include: ?Prostatectomy. In this procedure, the prostate tissue is removed completely through an open incision or with a laparoscope or robotics. ?Transurethral resection of the prostate (TURP). In this procedure, a tool is inserted through the opening at the tip of the penis (urethra). It is used to cut away tissue of the inner core of the prostate. The pieces are removed through the same opening of the penis. This removes the blockage. ?Transurethral incision (TUIP). In this procedure, small cuts are made in the prostate. This lessens the prostate's pressure on the urethra. ?Transurethral microwave thermotherapy (TUMT). This procedure uses microwaves to create heat. The heat destroys and removes a small amount of prostate tissue. ?Transurethral needle ablation (TUNA). This procedure uses radio frequencies to destroy and remove a small amount of prostate tissue. ?Interstitial laser coagulation (ILC). This procedure uses a laser to destroy and remove a small amount of prostate tissue. ?Transurethral electrovaporization (TUVP). This procedure uses electrodes to destroy and remove a small amount of prostate tissue. ?Prostatic urethral lift. This procedure inserts an implant to push the lobes of the prostate away from the urethra. Follow these instructions at home: Take [id number] and prescription medicines only as told by your health care provider. Monitor your symptoms for any changes. Contact your health care provider with any changes. Avoid drinking large amounts of liquid before going to bed or out in public. Avoid or reduce how much caffeine or alcohol you drink. Give yourself time when you urinate. Keep all follow-up visits as told by your health care provider. This is important. Contact a health care provider if: You have unexplained back pain. Your symptoms do not get better with treatment. You develop side effects from the medicine you are taking. Your urine becomes very dark or has a bad smell. Your lower abdomen becomes distended and you have trouble passing your urine. Get help right away if: You have a fever or chills. You suddenly cannot urinate. You feel lightheaded, or very dizzy, or you faint. There are large amounts of blood or clots in the urine. Your urinary problems become hard to manage. You develop moderate to severe low back or flank pain. The flank is the side of your body between the ribs and the hip. These symptoms may represent a serious problem that is an emergency. Do not wait to see if the symptoms will go away. Get medical help right away. Call your local emergency services (911 in the [place] Do not drive yourself to the hospital. Summary Benign prostatic hyperplasia (BPH) is an enlarged prostate that is caused by the normal aging process and not by cancer. An enlarged prostate can press on the urethra. This can make it hard to pass urine. This condition is part of a normal aging process and is more likely to develop in men over the age of 50 years. Get help right away if you suddenly cannot urinate. This information is not intended to replace advice given to you by your health care provider. Make sure you discuss any questions you have with your health care provider. Document Released: 02/14/2006 Document Revised: 01/09/2019 Document Reviewed: 03/21/2017 [employer] Patient Education 2020 [employer]. 08/19/2021 15:31:38 Kidney Stones, [id number] Kidney Stones Kidney stones are rock-like masses that form inside of the kidneys. Kidneys are organs that make pee (urine). A kidney stone may move into other parts of the urinary tract, including: The tubes that connect the kidneys to the bladder (ureters). The bladder. The tube that carries urine out of the body (urethra). Kidney stones can cause very bad pain and can block the flow of pee. The stone usually leaves your body (passes) through your pee. You may need to have a doctor take out the stone. What are the causes? Kidney stones may be caused by: A condition in which certain glands make too much parathyroid hormone (primary hyperparathyroidism). A buildup of a type of crystals in the bladder made of a chemical called uric acid. The body makes uric acid when you eat certain foods. Narrowing (stricture) of one or both of the ureters. A kidney blockage that you were born with. Past surgery on the kidney or the ureters, such as gastric bypass surgery. What increases the risk? You are more likely to develop this condition if: You have had a kidney stone in the past. You have a family history of kidney stones. You do not drink enough water. You eat a diet that is high in protein, salt (sodium), or sugar. You are overweight or very overweight (obese). What are the signs or symptoms? Symptoms of a kidney stone may include: Pain in the side of the belly, right below the ribs (flank pain). Pain usually spreads (radiates) to the groin. Needing to pee often or right away (urgently). Pain when going pee (urinating). Blood in your pee (hematuria). Feeling like you may vomit (nauseous). Vomiting. Fever and chills. How is this treated? Treatment depends on the size, location, and makeup of the kidney stones. The stones will often pass out of the body through peeing. You may need to: Drink more fluid to help pass the stone. In some cases, you may be given fluids through an IV tube put into one of your veins at the hospital. Take medicine for pain. Make changes in your diet to help keep kidney stones from coming back. Sometimes, medical procedures are needed to remove a kidney stone. This may involve: A procedure to break up kidney stones using a beam of light (laser) or shock waves. Surgery to remove the kidney stones. Follow these instructions at home: Medicines Take jfku-uao-dqvyded and prescription medicines only as told by your doctor. Ask your doctor if the medicine prescribed to you requires you to avoid driving or using heavy machinery. Eating and drinking Drink enough fluid to keep your pee pale yellow. You may be told to drink at least 8 10 glasses of water each day. This will help you pass the stone. If told by your doctor, change your diet. This may include: ?Limiting how much salt you eat. ?Eating more fruits and vegetables. ?Limiting how much meat, poultry, fish, and eggs you eat. Follow instructions from your doctor about eating or drinking restrictions. General instructions Collect pee samples as told by your doctor. You may need to collect a pee sample: ?24 hours after a stone comes out. ?8 12 weeks after a stone comes out, and every 6 12 months after that. Strain your pee every time you pee (urinate), for as long as told. Use the strainer that your doctor recommends. Do not throw out the stone. Keep it so that it can be tested by your doctor. Keep all follow-up visits as told by your doctor. This is important. You may need follow-up tests. How is this prevented? To prevent another kidney stone: Drink enough fluid to keep your pee pale yellow. This is the best way to prevent kidney stones. Eat healthy foods. Avoid certain foods as told by your doctor. You may be told to eat less protein. Stay at a healthy weight. Where to find more information National Kidney Foundation (NKF): www.kidney.org [facility] (UCF): www.urologyhealth.org Contact a doctor if: You have pain that gets worse or does not get better with medicine. Get help right away if: You have a fever or chills. You get very bad pain. You get new pain in your belly (abdomen). You pass out (faint). You cannot pee. Summary Kidney stones are rock-like masses that form inside of the kidneys. Kidney stones can cause very bad pain and can block the flow of pee. The stones will often pass out of the body through peeing. Drink enough fluid to keep your pee pale yellow. This information is not intended to replace advice given to you by your health care provider. Make sure you discuss any questions you have with your health care provider. Document Released: 08/02/2008 Document Revised: 07/03/2019 Document Reviewed: 07/03/2019 [employer] Patient Education 2019 [employer]. Follow Up Care 02/18/2021 15:30:36 With:MARILIN HINES, ABAD KendallL Address: [address] [place] [id number] Business (1) When:Within 1 Year(s) Comments:sabina/RORY [facility] 05-02-2022 Hospital Discharge instructions Patient Education 06/29/2021 10:25:50 Kidney Stones Kidney Stones Kidney stones are solid, rock-like deposits that form inside of the kidneys. The kidneys are a pairof organs that make urine. A kidney stone may form in a kidney and move into other parts of the urinary tract, including the tubes that connect the kidneys to the bladder (ureters), the bladder, and the tube that carries urine out of the body (urethra). As the stone moves through these areas, it can cause intense pain and block the flow of urine. Kidney stones are created when high levels of certain minerals are found in the urine. The stones are usually passed out of the body through urination, but in some cases, medical treatment may be needed to remove them. What are the causes? Kidney stones may be caused by: A condition in which certain glands produce too much parathyroid hormone (primary hyperparathyroidism), which causes too much calcium buildup in the blood. A buildup of uric acid crystals in the bladder (hyperuricosuria). Uric acid is a chemical that the body produces when you eat certain foods. It usually exits the body in the urine. Narrowing (stricture) of one or both of the ureters. A kidney blockage that is present at (congenital obstruction). Past surgery on the kidney or the ureters, such as gastric bypass surgery. What increases the risk? The following factors may make you more likely to develop this condition: Having had a kidney stone in the past. Having a family history of kidney stones. Not drinking enough water. Eating a diet that is high in protein, salt (sodium), or sugar. Being overweight or obese. What are the signs or symptoms? Symptoms of a kidney stone may include: Pain in the side of the abdomen, right below the ribs (flank pain). Pain usually spreads (radiates)to the groin. Needing to urinate frequently or urgently. Painful urination. Blood in the urine (hematuria). Nausea. Vomiting. Fever and chills. How is this diagnosed? This condition may be diagnosed based on: Your symptoms and medical history. A physical exam. Blood tests. Urine tests. These may be done before and after the stone passes out of your body through urination. Imaging tests, such as a CT scan, abdominal X-ray, or ultrasound. A procedure to examine the inside of the bladder (cystoscopy). How is this treated? Treatment for kidney stones depends on the size, location, and makeup of the stones. Kidney stones will often pass out of the body through urination. You may need to: Increase your fluid intake to help pass the stone. In some cases, you may be given fluids through an IV and may need to be monitored at the hospital. Take medicine for pain. Make changes in your diet to help prevent kidney stones from coming back. Sometimes, medical procedures are needed to remove a kidney stone. This may involve: A procedure to break up kidney stones using: ?A focused beam of light (laser therapy). ?Shock waves (extracorporeal shock wave lithotripsy). Surgery to remove kidney stones. This may be needed if you have severe pain or have stones that block your urinary tract. Follow these instructions at home: Medicines Take rubi-ozc-mxylaqj and prescription medicines only as told by your health care provider. Ask your health care provider if the medicine prescribed to you requires you to avoid driving or using heavy machinery. Eating and drinking Drink enough fluid to keep your urine pale yellow. You may be instructed to drink at least 8 10 glasses of water each day. This will help you pass the kidney stone. If directed, change your diet. This may include: ?Limiting how much sodium you eat. ?Eating more fruits and vegetables. ?Limiting how much animal protein such as red meat, poultry, fish, and eggs you eat. Follow instructions from your health care provider about eating or drinking restrictions. General instructions Collect urine samples as told by your health care provider. You may need to collect a urine sample: ?24 hours after you pass the stone. ?8 12 weeks after passing the kidney stone, and every 6 12 months after that. Strain your urine every time you urinate, for as long as directed. Use the strainer that your health care provider recommends. Do not throw out the kidney stone after passing it. Keep the stone so it can be tested by your health care provider. Testing the makeup of your kidney stone may help prevent you from getting kidney stones in the future. Keep all follow-up visits as told by your health care provider. This is important. You may need follow-up X-rays or ultrasounds to make sure that your stone has passed. How is this prevented? To prevent another kidney stone: Drink enough fluid to keep your urine pale yellow. This is the best way to prevent kidney stones. Eat a healthy diet and follow recommendations from your health care provider about foods to avoid. You may be instructed to eat a low-protein diet. Recommendations vary depending on the type of kidney stone that you have. Maintain a healthy weight. Where to find more information National Kidney Foundation (NKF): www.kidney.org [facility] (UCF): www.urologyhealth.org Contact a health care provider if: You have pain that gets worse or does not get better with medicine. Get help right away if: You have a fever or chills. You develop severe pain. You develop new abdominal pain. You faint. You are unable to urinate. Summary Kidney stones are solid, rock-like deposits that form inside of the kidneys. Kidney stones can cause nausea, vomiting, blood in the urine, abdominal pain, and the urge to urinate frequently. Treatment for kidney stones depends on the size, location, and makeup of the stones. Kidney stones will often pass out of the body through urination. Kidney stones can be prevented by drinking enough fluids, eating a healthy diet, and maintaining a healthy weight. This information is not intended to replace advice given to you by your health care provider. Make sure you discuss any questions you have with your health care provider. Document Released: 02/14/2006 Document Revised: 07/03/2019 Document Reviewed: 07/03/2019 [employer] Patient Education 2019 [employer]. Follow Up Care 06/29/2021 07:22:51 With:Jimmy GASTON Address: [address] [facility] [address] [place] [address]- Business (1) [facility] [address] [place] [address]- Business (1) When:07/02/2021 10:06:26 [facility]04-11-2022 Hospital Discharge instructions Patient Education 06/08/2021 14:04:53 BMI for Adults BMI for Adults Body mass index (BMI) is a number that is calculated from a person's weight and height. BMI may help to estimate how much of a person's weight is composed of fat. BMI can help identify those who may be at higher risk for certain medical problems. How is BMI used with adults? BMI is used as a screening tool to identify possible weight problems. It is used to check whether aperson is obese, overweight, healthy weight, or underweight. How is BMI calculated? BMI measures your weight and compares it to your height. This can be done either in [place] or metric measurements. Note that charts are available to help you find your BMI quickly and easily without having to do these calculations yourself. To calculate your BMI in [place] measurements, your health care provider will: 1.Measure your weight in pounds (lb). 2.Multiply the number of pounds by 703. For example, for a person who weighs 180 lb, multiply that number by 703, which equals 126,540. 3.Measure your height in inches (in). Then multiply that number by itself to get a measurement called inches squared. For example, for a person who is 70 in tall, the inches squared measurement is 70 in x 70 in, which equals 4900 inches squared. 4.Divide the total from Step 2 (number of lb x 703) by the total from Step 3 (inches squared): 126,540 4900 = 25.8. This is your BMI. To calculate your BMI in metric measurements, your health care provider will: 1.Measure your weight in kilograms (kg). 2.Measure your height in meters (m). Then multiply that number by itself to get a measurement called meters squared. For example, for a person who is 1.75 m tall, the meters squared measurement is 1.75 m x 1.75 m, which is equal to 3.1 meters squared. 3.Divide the number of kilograms (your weight) by the meters squared number. In this example: 70 3.1 = 22.6. This is your BMI. How is BMI interpreted? To interpret your results, your health care provider will use BMI charts to identify whether you are underweight, normal weight, overweight, or obese. The following guidelines will be used: Underweight: BMI less than 18.5. Normal weight: BMI between 18.5 and 24.9. Overweight: BMI between 25 and 29.9. Obese: BMI of 30 and above. Please note: Weight includes both fat and muscle, so someone with a muscular build, such as an athlete, may havea BMI that is higher than 24.9. In cases like these, BMI is not an accurate measure of body fat. To determine if excess body fat is the cause of a BMI of 25 or higher, further assessments may needto be done by a health care provider. BMI is usually interpreted in the same way for men and women. Why is BMI a useful tool? BMI is useful in two ways: Identifying a weight problem that may be related to a medical condition, or that may increase the risk for medical problems. Promoting lifestyle and diet changes in order to reach a healthy weight. Summary Body mass index (BMI) is a number that is calculated from a person's weight and height. BMI may help to estimate how much of a person's weight is composed of fat. BMI can help identify those who may be at higher risk for certain medical problems. BMI can be measured using [place]ian measurements or metric measurements. To interpret your results, your health care provider will use BMI charts to identify whether you are underweight, normal weight, overweight, or obese. This information is not intended to replace advice given to you by your health care provider. Make sure you discuss any questions you have with your health care provider. Document Released: 10/26/2004 Document Revised: 01/27/2018 Document Reviewed: 12/28/2017 Elsevier Patient Education 2020 [employer] 06/08/2021 14:04:50 Peripheral Neuropathy Peripheral Neuropathy Peripheral neuropathy is a type of nerve damage. It affects nerves that carry signals between the spinal cord and the arms, legs, and the rest of the body (peripheral nerves). It does not affect nerves in the spinal cord or brain. In peripheral neuropathy, one nerve or a group of nerves may be damaged. Peripheral neuropathy is a broad category that includes many specific nerve disorders, like diabetic neuropathy, hereditary neuropathy, and carpal tunnel syndrome. What are the causes? This condition may be caused by: Diabetes. This is the most common cause of peripheral neuropathy. Nerve injury. Pressure or stress on a nerve that lasts a long time. Lack (deficiency) of B vitamins. This can result from alcoholism, poor diet, or a restricted diet. Infections. Autoimmune diseases, such as rheumatoid arthritis and systemic lupus erythematosus. Nerve diseases that are passed from parent to child (inherited). Some medicines, such as cancer medicines (chemotherapy). Poisonous (toxic) substances, such as lead and mercury. Too little blood flowing to the legs. Kidney disease. Thyroid disease. In some cases, the cause of this condition is not known. What are the signs or symptoms? Symptoms of this condition depend on which of your nerves is damaged. Common symptoms include: Loss of feeling (numbness) in the feet, hands, or both. Tingling in the feet, hands, or both. Burning pain. Very sensitive skin. Weakness. Not being able to move a part of the body (paralysis). Muscle twitching. Clumsiness or poor coordination. Loss of balance. Not being able to control your bladder. Feeling dizzy. Sexual problems. How is this diagnosed? Diagnosing and finding the cause of peripheral neuropathy can be difficult. Your health care provider will take your medical history and do a physical exam. A neurological exam will also be done. This involves checking things that are affected by your brain, spinal cord, and nerves (nervous system). For example, your health care provider will check your reflexes, how you move, and what you can feel. You may have other tests, such as: Blood tests. Electromyogram (EMG) and nerve conduction tests. These tests check nerve function and how well the nerves are controlling the muscles. Imaging tests, such as CT scans or MRI to rule out other causes of your symptoms. Removing a small piece of nerve to be examined in a lab (nerve biopsy). This is rare. Removing and examining a small amount of the fluid that surrounds the brain and spinal cord (lumbarpuncture). This is rare. How is this treated? Treatment for this condition may involve: Treating the underlying cause of the neuropathy, such as diabetes, kidney disease, or vitamin deficiencies. Stopping medicines that can cause neuropathy, such as chemotherapy. Medicine to relieve pain. Medicines may include: ?Prescription or ipsp-gju-pexarzv pain medicine. ?Antiseizure medicine. ?Antidepressants. ?Pain-relieving patches that are applied to painful areas of skin. Surgery to relieve pressure on a nerve or to destroy a nerve that is causing pain. Physical therapy to help improve movement and balance. Devices to help you move around (assistive devices). Follow these instructions at home: Medicines Take kdhi-qwc-ixjiyyo and prescription medicines only as told by your health care provider. Do not take any other medicines without first asking your health care provider. Do not drive or use heavy machinery while taking prescription pain medicine. Lifestyle Do not use any products that contain nicotine or tobacco, such as cigarettes and e-cigarettes. Smoking keeps blood from reaching damaged nerves. If you need help quitting, ask your health care provider. Avoid or limit alcohol. Too much alcohol can cause a vitamin B deficiency, and vitamin B is needed for healthy nerves. Eat a healthy diet. This includes: ?Eating foods that are high in fiber, such as fresh fruits and vegetables, whole grains, and beans. ?Limiting foods that are high in fat and processed sugars, such as fried or sweet foods. General instructions If you have diabetes, work closely with your health care provider to keep your blood sugar under control. If you have numbness in your feet: ?Check every day for signs of injury or infection. Watch for redness, warmth, and swelling. ?Wear padded socks and comfortable shoes. These help protect your feet. Develop a good support system. Living with peripheral neuropathy can be stressful. Consider talkingwith a mental health specialist or joining a support group. Use assistive devices and attend physical therapy as told by your health care provider. This may include using a walker or a cane. Keep all follow-up visits as told by your health care provider. This is important. Contact a health care provider if: You have new signs or symptoms of peripheral neuropathy. You are struggling emotionally from dealing with peripheral neuropathy. Your pain is not well-controlled. Get help right away if: You have an injury or infection that is not healing normally. You develop new weakness in an arm or leg. You fall frequently. Summary Peripheral neuropathy is when the nerves in the arms, or legs are damaged, resulting in numbness, weakness, or pain. There are many causes of peripheral neuropathy, including diabetes, pinched nerves, vitamin deficiencies, autoimmune disease, and hereditary conditions. Diagnosing and finding the cause of peripheral neuropathy can be difficult. Your health care provider will take your medical history, do a physical exam, and do tests, including blood tests and nervefunction tests. Treatment involves treating the underlying cause of the neuropathy and taking medicines to help control pain. Physical therapy and assistive devices may also help. This information is not intended to replace advice given to you by your health care provider. Make sure you discuss any questions you have with your health care provider. Document Released: 02/04/2003 Document Revised: 01/27/2018 Document Reviewed: 04/25/2017 [employer] Patient Education 2020 [employer]. 06/08/2021 14:04:46 Preventing Diabetes Mellitus Complications Preventing Diabetes Mellitus Complications You can take action to prevent or slow down problems that are caused by diabetes (diabetes mellitus). Following your diabetes plan and taking care of yourself can reduce your risk of serious or life-threatening complications. What actions can I take to prevent diabetes complications? Manage your diabetes Follow instructions from your health care providers about managing your diabetes. Your diabetes maybe managed by a team of health care providers who can teach you how to care for yourself and can answer questions that you have. Educate yourself about your condition so you can make healthy choices about eating and physical activity. Check your blood sugar (glucose) levels as often as directed. Your health care provider will help you decide how often to check your blood glucose level depending on your treatment goals and how wellyou are meeting them. Ask your health care provider if you should take low-dose aspirin daily and what dose is recommended for you. Taking low-dose aspirin daily is recommended to help prevent cardiovascular disease. Do not use nicotine or tobacco Do not use any products that contain nicotine or tobacco, such as cigarettes and e-cigarettes. If you need help quitting, ask your health care provider. Nicotine raises your risk for diabetes problems. If you quit using nicotine: You will lower your risk for heart attack, stroke, nerve disease, and kidney disease. Your cholesterol and blood pressure may improve. Your blood circulation will improve. Keep your blood pressure under control Your personal target blood pressure is determined based on: Your age. Your medicines. How long you have had diabetes. Any other medical conditions you have. To control your blood pressure: Follow instructions from your health care provider about meal planning, exercise, and medicines. Make sure your health care provider checks your blood pressure at every medical visit. Monitor your blood pressure at home as told by your health care provider. Keep your cholesterol under control To control your cholesterol: Follow instructions from your health care provider about meal planning, exercise, and medicines. Have your cholesterol checked at least once a year. You may be prescribed medicine to lower cholesterol (statin). If you are not taking a statin, ask your health care provider if you should be. Controlling your cholesterol may: Help prevent heart disease and stroke. These are the most common health problems for people with diabetes. Improve your blood flow. Schedule and keep yearly physical exams and eye exams Your health care provider will tell you how often you need medical visits depending on your diabetes management plan. Keep all follow-up visits as directed. This is important so possible problems canbe identified early and complications can be avoided or treated. Every visit with your health care provider should include measuring your: ?Weight. ?Blood pressure. ?Blood glucose control. Your A1c (hemoglobin A1c) level should be checked: ?At least 2 times a year, if you are meeting your treatment goals. ?4 times a year, if you are not meeting treatment goals or if your treatment goals have changed. Your blood lipids (lipid profile) should be checked yearly. You should also be checked yearly for protein in your urine (urine microalbumin). If you have type 1 diabetes, get an eye exam 3 5 years after you are diagnosed, and then once a year after your first exam. If you have type 2 diabetes, get an eye exam as soon as you are diagnosed, and then once a year after your first exam. Keep your vaccines current It is recommended that you receive: A flu (influenza) vaccine every year. A pneumonia (pneumococcal) vaccine and a hepatitis B vaccine. If you are age 65 or older, you may get the pneumonia vaccine as a series of two separate shots. Ask your health care provider which other vaccines may be recommended. Take care of your feet Diabetes may cause you to have poor blood circulation to your legs and feet. Because of this, taking care of your feet is very important. Diabetes can cause: The skin on the feet to get thinner, break more easily, and heal more slowly. Nerve damage in your legs and feet, which results in decreased feeling. You may not notice minor injuries that could lead to serious problems. To avoid foot problems: Check your skin and feet every day for cuts, bruises, redness, blisters, or sores. Schedule a foot exam with your health care provider once every year. This exam includes: ?Inspecting of the structure and skin of your feet. ?Checking the pulses and sensation in your feet. Make sure that your health care provider performs a visual foot exam at every medical visit. Take care of your teeth People with poorly controlled diabetes are more likely to have gum (periodontal) disease. Diabetes can make periodontal diseases harder to control. If not treated, periodontal diseases can lead to tooth loss. To prevent this: [place] your teeth twice a day. Floss at least once a day. Visit your dentist 2 times a year. Drink responsibly Limit alcohol intake to no more than 1 drink a day for non women and 2 drinks a day for men. One drink equals 12 oz of beer, 5 oz of wine, or 1 oz of hard liquor. It is important to eat food when you drink alcohol to avoid low blood glucose (hypoglycemia). Avoidalcohol if you: Have a history of alcohol abuse or dependence. Are . Have liver disease, pancreatitis, advanced neuropathy, or severe hypertriglyceridemia. Lessen stress Living with diabetes can be stressful. When you are experiencing stress, your blood glucose may be affected in two ways: Stress hormones may cause your blood glucose to rise. You may be distracted from taking good care of yourself. Be aware of your stress level and make changes to help you manage challenging situations. To lower your stress levels: Consider joining a support group. Do planned relaxation or meditation. Do a hobby that you enjoy. Maintain healthy relationships. Exercise regularly. Work with your health care provider or a mental health professional. Summary You can take action to prevent or slow down problems that are caused by diabetes (diabetes mellitus). Following your diabetes plan and taking care of yourself can reduce your risk of serious or life-threatening complications. Follow instructions from your health care providers about managing your diabetes. Your diabetes maybe managed by a team of health care providers who can teach you how to care for yourself and can answer questions that you have. Your health care provider will tell you how often you need medical visits depending on your diabetes management plan. Keep all follow-up visits as directed. This is important so possible problems canbe identified early and complications can be avoided or treated. This information is not intended to replace advice given to you by your health care provider. Make sure you discuss any questions you have with your health care provider. Document Released: 11/02/2011 Document Revised: 05/15/2018 Document Reviewed: 11/13/2016 [employer] Patient Education 2020 [employer]. 06/08/2021 14:04:45 Diabetes Mellitus and Exercise Diabetes Mellitus and Exercise Exercising regularly is important for your overall health, especially when you have diabetes (diabetes mellitus). Exercising is not only about losing weight. It has many other health benefits, such as increasing muscle strength and bone density and reducing body fat and stress. This leads to improved fitness, flexibility, and endurance, all of which result in better overall health. Exercise has additional benefits for people with diabetes, including: Reducing appetite. Helping to lower and control blood glucose. Lowering blood pressure. Helping to control amounts of fatty substances (lipids) in the blood, such as cholesterol and triglycerides. Helping the body to respond better to insulin (improving insulin sensitivity). Reducing how much insulin the body needs. Decreasing the risk for heart disease by: ?Lowering cholesterol and triglyceride levels. ?Increasing the levels of good cholesterol. ?Lowering blood glucose levels. What is my activity plan? Your health care provider or certified medical assistant can help you make a plan for the type and frequency of exercise (activity plan) that works for you. Make sure that you: Do at least 150 minutes of moderate-intensity or vigorous-intensity exercise each week. This could be brisk walking, biking, or water aerobics. ?Do stretching and strength exercises, such as yoga or weightlifting, at least 2 times a week. ?Spread out your activity over at least 3 days of the week. Get some form of physical activity every day. ?Do not go more than 2 days in a row without some kind of physical activity. ?Avoid being inactive for more than 30 minutes at a time. Take frequent breaks to walk or stretch. Choose a type of exercise or activity that you enjoy, and set realistic goals. Start slowly, and gradually increase the intensity of your exercise over time. What do I need to know about managing my diabetes? Check your blood glucose before and after exercising. ?If your blood glucose is 240 mg/dL (13.3 mmol/L) or higher before you exercise, check your urine for ketones. If you have ketones in your urine, do not exercise until your blood glucose returns to normal. ?If your blood glucose is 100 mg/dL (5.6 mmol/L) or lower, eat a snack containing 15 20 grams of carbohydrate. Check your blood glucose 15 minutes after the snack to make sure that your level is above 100 mg/dL (5.6 mmol/L) before you start your exercise. Know the symptoms of low blood glucose (hypoglycemia) and how to treat it. Your risk for hypoglycemia increases during and after exercise. Common symptoms of hypoglycemia can include: ?Hunger. ?Anxiety. ?Sweating and feeling clammy. ?Confusion. ?Dizziness or feeling light-headed. ?Increased heart rate or palpitations. ?Blurry vision. ?Tingling or numbness around the mouth, lips, or tongue. ?Tremors or shakes. ?Irritability. Keep a rapid-acting carbohydrate snack available before, during, and after exercise to help preventor treat hypoglycemia. Avoid injecting insulin into areas of the body that are going to be exercised. For example, avoid injecting insulin into: ?The arms, when playing tennis. ?The legs, when jogging. Keep records of your exercise habits. Doing this can help you and your health care provider adjust your diabetes management plan as needed. Write down: ?Food that you eat before and after you exercise. ?Blood glucose levels before and after you exercise. ?The type and amount of exercise you have done. ?When your insulin is expected to peak, if you use insulin. Avoid exercising at times when your insulin is peaking. When you start a new exercise or activity, work with your health care provider to make sure the activity is safe for you, and to adjust your insulin, medicines, or food intake as needed. Drink plenty of water while you exercise to prevent dehydration or heat stroke. Drink enough fluid to keep your urine clear or pale yellow. Summary Exercising regularly is important for your overall health, especially when you have diabetes (diabetes mellitus). Exercising has many health benefits, such as increasing muscle strength and bone density and reducing body fat and stress. Your health care provider or certified medical assistant can help you make a plan for the type and frequency of exercise (activity plan) that works for you. When you start a new exercise or activity, work with your health care provider to make sure the activity is safe for you, and to adjust your insulin, medicines, or food intake as needed. This information is not intended to replace advice given to you by your health care provider. Make sure you discuss any questions you have with your health care provider. Document Released: 05/06/2004 Document Revised: 09/08/2017 Document Reviewed: 07/26/2016 [employer] Patient Education 2020 [employer]. Follow Up Care 03/09/2021 14:48:34 With:Elsy Cason CNP Address: When:6 months Comments:with fasting labs done 1 week prior to appt. [facility] Primary Care Evaluation + Plan note Future Appointments Appointment Date:08/19/2021 02:15:00 PM Scheduled Provider:Jimmy GASTON MD Location:[facility] – [place] Appointment Type:URO Office Visit Appointment Date:12/09/2021 02:00:00 PM Scheduled Provider:Elsy Cason CNP Location:[facility] Appointment Type:FM Open Future Scheduled Tests Laboratory* HgbA1c 06/08/21 * Microalbumin Level Urine 06/08/21 * Microalbumin Level Urine 09/28/20 * Comprehensive Metabolic Panel 06/08/21 * Lipid Panel 06/08/21 Radiology* XR Abdomen 1 View 07/29/20 * XR Abdomen 1 View 10/16/20 [facility] Primary Care Evaluation + Plan note Future Appointments Appointment Date:08/19/2021 02:15:00 PM Scheduled Provider:Jimmy GASTON MD Location:[facility] – [place] Appointment Type:URO Office Visit Appointment Date:12/09/2021 02:00:00 PM Scheduled Provider:Elsy Cason CNP [facility] Type:FM Open Diagnostic Tests Pending * Urine Culture 06/29/21 Future Scheduled Tests Laboratory* HgbA1c 06/08/21 * Microalbumin Level Urine 06/08/21 * Microalbumin Level Urine 09/28/20 * Comprehensive Metabolic Panel 06/08/21 * Lipid Panel 06/08/21 Radiology* XR Abdomen 1 View 07/29/20 * [facility] Appointment Date:08/19/2021 02:15:00 PM Scheduled Provider:Jimmy GASTON MD Location:[facility] Appointment Type:URO Office Visit Appointment Date:12/09/2021 02:00:00 PM Scheduled Provider:Elsy Cason CNP Location:[facility] Appointment Type: Open Future Scheduled Tests Laboratory* HgbA1c 06/08/21 * Microalbumin Level Urine 06/08/21 * Microalbumin Level Urine 09/28/20 * Comprehensive Metabolic Panel 06/08/21 * Lipid [facility] Appointment Date:12/09/2021 02:00:00 PM Scheduled Provider:Elsy Cason CNP Location:[facility] Appointment Type:FM Open Appointment Date:08/18/2022 01:15:00 PM Scheduled Provider:Jimmy GASTON MD Location:[facility] Appointment Type:URO Office Visit Future Scheduled Tests Laboratory* HgbA1c 06/08/21 * Microalbumin Level Urine 06/08/21 * Microalbumin Level Urine 09/28/20 * Calculi Analysis Urinary 08/19/21 * Electrolyte Panel 08/19/21 * Comprehensive Metabolic Panel 06/08/21 * Lipid Panel 06/08/21 Radiology* XR Abdomen 1 View 07/19/22 [facility] Evaluation + Plan note Future Appointments Appointment Date:12/09/2021 02:00:00 PM Scheduled Provider:Elsy Cason CNP Location:[facility] Appointment Type:FM Open Appointment Date:08/18/2022 01:15:00 PM Scheduled Provider:Jimmy GASTON MD Location:[facility] Appointment Type:URO Office Visit Diagnostic Tests Pending * Calculi Analysis Urinary 09/08/21 Future Scheduled Tests Laboratory* HgbA1c 06/08/21 * Microalbumin Level Urine 06/08/21 * Microalbumin Level Urine 09/28/20 * Comprehensive Metabolic Panel 06/08/21 * Lipid Panel 06/08/21 Radiology* XR Abdomen 1 [facility]ments Appointment Date:01/14/2022 02:40:00 PM Scheduled Provider:Elsy Cason CNP Location:[facility] Appointment Type:FM Open Appointment Date:08/18/2022 01:15:00 PM Scheduled Provider:Jimmy GASTON MD Location:[facility] Appointment Type:URO Office Visit Future Scheduled Tests Laboratory* HgbA1c 06/08/21 * Microalbumin Level Urine 06/08/21 * Comprehensive Metabolic Panel 06/08/21 * Lipid Panel 06/08/21 Radiology* XR Abdomen 1 View 07/19/22 [facility] Primary Care Evaluation + Plan note Future Appointments Appointment Date:02/08/2022 01:00:00 PM Scheduled Provider: Location:[facility] Appointment Type:PT Re-Eval 45 () Appointment Date:08/18/2022 01:15:00 PM Scheduled Provider:Jimmy GASTON MD Location:[facility] Appointment Type:URO Office Visit Future Scheduled Tests Laboratory* HgbA1c 06/08/21 * Microalbumin Level Urine 06/08/21 * Comprehensive Metabolic Panel 06/08/21 * Lipid Panel 06/08/21 Radiology* XR Abdomen 1 View 07/19/22 * MRI Spine Lumbar w/o Contrast 02/04/22 [facility] Primary Care Evaluation + Plan note Future Appointments Appointment Date:08/18/2022 01:15:00 PM Scheduled Provider:Jimmy GASTON MD Location:[facility] Appointment Type:URO Office Visit Future Scheduled Tests Laboratory* HgbA1c 06/08/21 * Microalbumin Level Urine 06/08/21 * Comprehensive Metabolic Panel 06/08/21 * Lipid Panel 06/08/21 Radiology* XR Abdomen 1 View 07/19/22 [facility] App[facility]ments Appointment Date:03/22/2022 02:15:00 PM Scheduled Provider:Carmen Andrew PA-C [facility] Type:Pain Management - New (FT) Appointment Date:08/18/2022 01:15:00 PM Scheduled Provider:Jimmy GASTON MD Location:[facility] Appointment Type:URO Office Visit Future Scheduled Tests Laboratory* HgbA1c 06/08/21 * Microalbumin Level Urine 06/08/21 * Comprehensive Metabolic Panel 06/08/21 * Lipid Panel 06/08/21 Radiology* XR Abdomen 1 View 07/19/22 [facility] Future App[facility]ments Appointment Date:03/22/2022 02:15:00 PM Scheduled Provider:Carmen Andrew PA-C [facility] Type:Pain Management - New (FT) Appointment Date:08/18/2022 01:15:00 PM Scheduled Provider:Jimmy GASTON MD Location:[facility] Appointment Type:URO Office Visit Appointment Date:09/14/2022 01:00:00 PM Scheduled Provider:Tawanna Rapp Location:[facility] Appointment Type:FM Open Future Scheduled Tests Laboratory* HgbA1c 06/08/21 * Microalbumin Level Urine 06/08/21 * Comprehensive Metabolic Panel 06/08/21 * Lipid Panel 06/08/21 Radiology* XR Abdomen 1 View 07/19/22 [facility] Primary Care Evaluation + Plan note Future Appointments Appointment Date:08/18/2022 01:15:00 PM Scheduled Provider:Jimmy GASTON MD Location:[facility] Appointment Type:URO Office Visit Appointment Date:08/27/2022 02:00:00 PM Scheduled Provider:Carmen Andrew PA-C [facility] Type:Pain Management - Follow Up (FT) Appointment Date:09/14/2022 01:00:00 PM Scheduled Provider:Tawanna Rapp Location:[facility] Appointment Type:FM Open Future Scheduled Tests Radiology* XR Abdomen 1 View 07/19/22 [facility] Future Appointments Appointment Date:08/27/2022 02:00:00 PM Scheduled Provider:Carmen Andrew PA-C [facility] [place] Appointment Type:Pain Management - Follow Up (FT) Appointment Date:09/14/2022 01:00:00 PM Scheduled Provider:Tawanna Rapp Location:[facility] Appointment Type:FM Open Appointment Date:08/24/2023 01:45:00 PM Scheduled Provider:Jimmy GASTON MD Location:[facility] Appointment Type:URO Office Visit Diagnostic Tests Pending * PSA Total 08/18/22 Future Scheduled Tests Radiology* XR Abdomen 1 View 07/19/22 [facility] Evaluation + Plan note Future Appointments Appointment Date:09/03/2022 01:00:00 PM Scheduled Provider: Location[facility] [place] Appointment Type:PT Eval (FT) Appointment Date:09/14/2022 01:00:00 PM Scheduled Provider:Tawanna Rapp Location:[facility] Appointment Type:FM Open Appointment Date:10/01/2022 02:15:00 PM Scheduled Provider:Carmen Andrew PA-C [facility] [place] Appointment Type:Pain Management - Follow Up (FT) Appointment Date:08/24/2023 01:45:00 PM Scheduled Provider:Jimmy GASTON MD Location:[facility] Appointment Type:URO Office Visit Future Scheduled Tests Radiology* XR Abdomen 1 View 07/19/22 [facility] Future Appointments Appointment Date:09/16/2022 02:00:00 PM Scheduled Provider: Location:[facility] [place] Appointment Type:PT 45 (FT) Appointment Date:09/21/2022 12:15:00 PM Scheduled Provider: Location:[facility] [place] Appointment Type:PT 45 (FT) Appointment Date:09/23/2022 01:30:00 PM Scheduled Provider: Location:[facility] [place] Appointment Type:PT 45 (FT) Appointment Date:09/27/2022 01:30:00 PM Scheduled Provider: Location:[facility] [place] Appointment Type:PT 45 (FT) Appointment Date:09/30/2022 02:15:00 PM Scheduled Provider: Location:[facility] [place] Appointment Type:PT 45 (FT) Appointment Date:10/01/2022 02:15:00 PM Scheduled Provider:Carmen Andrew PA-C [facility] Type:Pain Management - Follow Up (FT) Appointment Date:10/04/2022 01:00:00 PM Scheduled Provider: Location[facility] [place] Appointment Type:PT Re-Eval 30 (FT) Appointment Date:03/18/2023 01:40:00 PM Scheduled Provider:Tawanna Rapp Location:[facility] Appointment Type:FM Open Appointment Date:08/24/2023 01:45:00 PM Scheduled Provider:Jimmy GASTON MD Location:[facility] [place] [place] Appointment Type:URO Office Visit Future Scheduled Tests Laboratory* U Protein/Creat Ratio 09/14/22 * HgbA1c 09/14/22 * Microalbumin Level Urine 09/14/22 * TSH With T4fr Reflex 09/14/22 * CBC w/ Auto Diff 09/14/22 * Comprehensive Metabolic Panel 09/14/22 * Lipid Panel 09/14/22 Radiology* XR Abdomen 1 View 07/19/22 [facility] Primary Care Evaluation + Plan note Future Appointments Appointment Date:09/16/2022 02:00:00 PM Scheduled Provider: Location[facility] [place] Appointment Type:PT 45 (FT) Appointment Date:09/21/2022 12:15:00 PM Scheduled Provider: Location[facility] [place] Appointment Type:PT 45 (FT) Appointment Date:09/23/2022 01:30:00 PM Scheduled Provider: Location[facility] Appointment Type:PT 45 (FT) Appointment Date:09/27/2022 01:30:00 PM Scheduled Provider: Location[facility] [place] Appointment Type:PT 45 (FT) Appointment Date:09/30/2022 02:15:00 PM Scheduled Provider: Location[facility] [place] Appointment Type:PT 45 (FT) Appointment Date:10/01/2022 02:15:00 PM Scheduled Provider:Carmen Andrew PA-C [facility] Type:Pain Management - Follow Up (FT) Appointment Date:10/04/2022 01:00:00 PM Scheduled Provider: [facility] Type:PT Re-Eval 30 (FT) Appointment Date:12/20/2022 01:00:00 PM Scheduled Provider:Tawanna Rapp Location:[facility] Appointment Type:FM Open Appointment Date:03/18/2023 01:40:00 PM Scheduled Provider:Tawanna Rapp Location:[facility] Appointment Type:FM Open Appointment Date:08/24/2023 01:45:00 PM Scheduled Provider:Jimmy GASTON MD Location:[facility] Appointment Type:URO Office Visit Future Scheduled Tests Laboratory* HgbA1c 09/15/22 Radiology* XR Abdomen 1 View 07/19/22 [facility] Future Appointments Appointment Date:12/20/2022 01:00:00 PM Scheduled Provider:Tawanna Rapp Location:[facility] Appointment Type:FM Open Appointment Date:03/18/2023 01:40:00 PM Scheduled Provider:Tawanna Rapp Location:[facility] Appointment Type:FM Open Appointment Date:08/24/2023 01:45:00 PM Scheduled Provider:[facility] Type:URO Office Visit Future Scheduled Tests Laboratory* HgbA1c 09/15/22 Radiology* XR Abdomen 1 View 07/19/22 [facility] Future Appointments Appointment Date:01/11/2023 03:30:00 PM Scheduled Provider: Location:[facility] Appointment Type:Surgery FT Appointment Date:02/01/2023 01:00:00 PM Scheduled Provider:Geremias Jack MD Location:[facility] Appointment Type:Pain Management - Follow Up (FT) Appointment Date:03/18/2023 01:40:00 PM Scheduled Provider:Tawanna Rapp Location:[facility] Appointment Type:FM Open Appointment Date:08/24/2023 01:45:00 PM Scheduled Provider:Jimmy GASTON MD Location:[facility] Appointment Type:URO Office Visit Future Scheduled Tests Laboratory* HgbA1c 12/20/22 * HgbA1c 09/15/22 * Comprehensive Metabolic Panel 12/20/22 * Lipid Panel 12/20/22 Radiology* XR Abdomen 1 View 07/19/22 [facility] Primary Care Evaluation + Plan note Future Appointments Appointment Date:01/11/2023 03:30:00 PM Scheduled Provider: Location:[facility] Appointment Type:Surgery FT Appointment Date:02/01/2023 01:00:00 PM Scheduled Provider:Geremias Jack MD Location:[facility] Appointment Type:Pain Management - Follow Up (FT) Appointment Date:03/18/2023 01:40:00 PM Scheduled Provider:Tawanan Rapp Location:[facility] Appointment Type:FM Open Appointment Date:08/24/2023 01:45:00 PM Scheduled Provider:Jimmy GASTON MD Location:[facility] Appointment Type:URO Office Visit Future Scheduled Tests Laboratory* HgbA1c 09/15/22 Radiology* XR Abdomen 1 View 07/19/22 [facility] Future Appointments Appointment Date:03/16/2023 01:20:00 PM Scheduled Provider:Tawanna Rapp Location:[facility] Appointment Type:FM Open Appointment Date:03/28/2023 01:15:00 PM Scheduled Provider:Carmen Andrew PA-C Location:[facility] Appointment Type:Pain Management - Follow Up (FT) Appointment Date:08/24/2023 01:45:00 PM Scheduled Provider:Jimmy GASTON MD Location:[facility] Appointment Type:URO Office Visit Future Scheduled Tests Laboratory* HgbA1c 09/15/22 Radiology* XR Abdomen 1 View 07/19/22 [facility] Future Appointments Appointment Date:03/16/2023 01:20:00 PM Scheduled Provider:Tawanna Rapp Location:[facility] Appointment Type:FM Open Appointment Date:03/22/2023 10:30:00 AM Scheduled Provider:Jimmy GASTON MD Location:[facility] Appointment Type:URO Office Visit Appointment Date:03/28/2023 01:15:00 PM Scheduled Provider:Carmen Andrew PA-C Location:[facility] Appointment Type:Pain Management - Follow Up (FT) Appointment Date:08/24/2023 01:45:00 PM Scheduled Provider:Jimmy GASTON MD Location:[facility] Appointment Type:URO Office Visit Future Scheduled Tests Laboratory* HgbA1c 09/15/22 Radiology* XR Abdomen 1 View 07/19/22 [facility] Future Appointments Appointment Date:03/22/2023 10:30:00 AM Scheduled Provider:Jimmy GASTON MD Location:[facility] Appointment Type:URO Office Visit Appointment Date:03/28/2023 01:15:00 PM Scheduled Provider:Carmen Andrew PA-C Location:[facility] Appointment Type:Pain Management - Follow Up (FT) Appointment Date:08/24/2023 01:45:00 PM Scheduled Provider:Jimmy GASTON MD Location:[facility] Appointment Type:URO Office Visit Future Scheduled Tests Laboratory* HgbA1c 09/15/22 * Lipid Panel 03/16/23 Radiology* XR Abdomen 1 View 07/19/22 [facility] Primary Care Evaluation + Plan note Future Appointments Appointment Date:03/28/2023 01:15:00 PM Scheduled Provider:Carmen Andrew PA-C Location:[facility] Appointment Type:Pain Management - Follow Up (FT) Appointment Date:08/24/2023 01:45:00 PM Scheduled Provider:Jimmy GASTON MD Location:[facility] Appointment Type:URO Office Visit Future Scheduled Tests Laboratory* HgbA1c 09/15/22 * Lipid Panel 03/16/23 Radiology* XR Abdomen 1 View 07/19/22 [facility] Evaluation + Plan note Future Appointments Appointment Date:03/28/2023 01:15:00 PM Scheduled Provider:Carmen Andrew PA-C Location:[facility] Appointment Type:Pain Management - Follow Up (FT) Appointment Date:08/24/2023 01:45:00 PM Scheduled Provider:Jimmy GASTON MD Location:[facility] Appointment Type:URO Office Visit Diagnostic Tests Pending * Calculi Analysis Urinary 03/22/23 Future Scheduled Tests Laboratory* HgbA1c 09/15/22 * Lipid Panel 03/16/23 Radiology* XR Abdomen 1 View 07/19/22 [facility] Future App[facility]ments Appointment Date:04/29/2023 01:45:00 PM Scheduled Provider:Carmen Andrew PA-C [facility] Type:Pain Management - Follow Up (FT) Appointment Date:08/24/2023 01:45:00 PM Scheduled Provider:Jimmy GASTON MD Location:[facility] Appointment Type:URO Office Visit Diagnostic Tests Pending * Calculi Analysis Urinary 04/15/23 Future Scheduled Tests Laboratory* HgbA1c 09/15/22 * Lipid Panel 03/16/23 Radiology* XR Abdomen 1 View 07/19/22 [facility] Future Appointments Appointment Date:04/29/2023 01:45:00 PM Scheduled Provider:Carmen Andrew PA-C [facility] Type:Pain Management - Follow Up (FT) Appointment Date:08/24/2023 01:45:00 PM Scheduled Provider:Jimmy GASTON MD Location:[facility] Appointment Type:URO Office Visit Future Scheduled Tests Laboratory* HgbA1c 09/15/22 * Lipid Panel 03/16/23 Radiology* XR Abdomen 1 View 07/19/22 [facility] Evaluation + Plan note Future Appointments Appointment Date:05/25/2023 12:30:00 PM Scheduled Provider: Location:[place] Appointment Type:PT 45 (FT) Appointment Date:05/27/2023 02:00:00 PM Scheduled Provider: Location:[facility] [place] Appointment Type:PT Re-Eval 30 (FT) Appointment Date:06/14/2023 02:00:00 PM Scheduled Provider:Tawanna Rapp Location:[facility] Appointment Type:FM Acute Appointment Date:08/24/2023 01:45:00 PM Scheduled Provider:[facility]ASTON MD [facility] Type:URO Office Visit Diagnostic Tests Pending * Rheumatoid Factor Quantitative 05/19/23 * JHON w/Reflex if POS 05/19/23 Future Scheduled Tests Laboratory* HgbA1c 09/15/22 * Lipid Panel 03/16/23 Radiology* XR Abdomen 1 View 07/19/22 [facility] Future App[facility]ments Appointment Date:06/14/2023 02:00:00 PM Scheduled Provider:Tawanna Rapp Location:[facility] Appointment Type:FM Acute Appointment Date:08/24/2023 01:45:00 PM Scheduled Provider:Jimmy GASTON MD Location:[facility] Appointment Type:URO Office Visit Future Scheduled Tests Laboratory* HgbA1c 09/15/22 * HgbA1c 09/12/23 * Lipid Panel 03/16/23 Radiology* XR Abdomen 1 View 07/19/22 [facility] Primary Care Evaluation + Plan note Future Appointments Appointment Date:08/24/2023 01:45:00 PM Scheduled Provider:Jimmy GASTON MD Location:[facility] Appointment Type:URO Office Visit Future Scheduled Tests Laboratory* HgbA1c 09/15/22 * HgbA1c 09/12/23 * Lipid Panel 03/16/23 Radiology* XR Abdomen 1 View 07/19/22 [facility] Primary Care Evaluation + Plan note Future Appointments Appointment Date:08/24/2023 01:45:00 PM Scheduled Provider:Jimmy GASTON MD Location:[facility] Appointment Type:URO Office Visit Future Scheduled Tests Laboratory* HgbA1c 09/12/23 Radiology* XR Abdomen 1 View 07/19/22 [facility] Future Appointments Appointment Date:08/24/2023 01:45:00 PM Scheduled Provider:Jimmy GASTON MD Location:[facility] Appointment Type:URO Office Visit Diagnostic Tests Pending * PTH Intact 06/23/23 Future Scheduled Tests Laboratory* HgbA1c 09/12/23 Radiology* XR Abdomen 1 View 07/19/22 [facility] Future Appointments Appointment Date:08/24/2023 01:45:00 PM Scheduled Provider:Jimmy GASTON MD Location:[facility] Appointment Type:URO Office Visit Diagnostic Tests Pending * Phosphorus Level 24 Hour Urine 06/24/23 * Calcium Level 24 Hour Urine 06/24/23 * Uric Acid 24 Hour Urine 06/24/23 * Citrate Level 24 Hour Urine 06/24/23 * Magnesium Level 24 Hour Urine 06/24/23 * Oxalate 24 Hour Urine 06/24/23 Future Scheduled Tests Laboratory* HgbA1c 09/12/23 Radiology* XR Abdomen 1 View 07/19/22 [facility] Future Scheduled Tests Laboratory* HgbA1c 09/12/23 [facility] Hospital course Narrative No data available for this section [facility] Hospital Discharge instructions No data available for this section [facility] No data available for this section [facility] (narrative) Referred by: Tawanna Rapp [facility] Primary Care Summary Purpose Family History No Family History Records Found No data available for this section No data available for this section No data available for this section No data available for this section No data available for this section No data available for this section No data available for this section No data available for this section No data available for this section No data available for this section No data available for this section No data available for this section No data available for this section No data available for this section No data available for this section No data available for this section No data available for this section No data available for this section No data available for this section No data available for this section No data available for this section No data available for this section No Family History Records FoundNo Family History Records Found Advance Directives No Advanced Directives Records FoundNo Advanced Directives Records FoundNo Advanced Directives Records Found Additional Source Comments (unrecognized sect ion and content) No Status Records FoundNo Status Records FoundNo Status Records Found INFORMATION SOURCE (unrecogn ized section and content) DATE CREATED AUTHOR 10/06/2020 [facility] DATE CREATED AUTHOR AUTHOR'S ORGANIZ ATION 08/30/2023 [facility] DATE CREATED AUTHOR AUTHOR'S ORGANIZ ATION 10/05/2023 [facility] EPIC Care Team (unrecognized sect ion and content) Personnel Name: Elsy Cason CNP Address: [address] [place] [address] Personnel Name: Elsy Cason CNP Address: [address] [place] [address] Personnel Name: Elsy Cason CNP Address: [address] [place] [address] Personnel Name: Elsy Cason CNP Address: Address: [address] [place] [address] Personnel Name: Elsy Cason CNP Address: Address: [address] [place] [address] Personnel Name: Elsy Cason CNP Address: Address: [address] [place] [address] Personnel Name: Elsy Cason CNP Address: Address: [address] [place] [address] Personnel Name: Elsy Cason CNP Address: Address: [address] [place] [address] Personnel Name: Elsy Cason CNP Address: Address: [address] [place] [address] Personnel Name: Elsy Cason CNP Address: Address: [address] [place] [address] Personnel Name: Elsy Cason CNP Address: Address: [address] [place] [address] Personnel Name: Tawanna Rapp Address: Address: [address] [place] [address], [facility] [address] Personnel Name: Sheree SCIENCE AND OPERATIONS OFFICER-C, Tawanna Reilly Address: Address: [address], [address] [place] [id number]- Personnel Name: Sheree OJEDAC, Tawanna Reilly Address: Address: [address] [place] [id number]- Personnel Name: Sheree SCIENCE AND OPERATIONS OFFICER-C, Tawanna Reilly Address: Address: [address], [address] [place] [id number] Personnel Name: Sheree SCIENCE AND OPERATIONS OFFICER-C, Tawanna Reilly Address: Address: [address] [place] [id number]- Personnel Name: Sheree SCIENCE AND OPERATIONS OFFICER-C, Tawanna Reilly Address: Address: [address], [facility] [place] [id number]- Personnel Name: Sheree SCIENCE AND OPERATIONS OFFICER-C, Tawanna Reilly Address: Address: [address], [facility] [place] [id number] Personnel Name: Sheree SCIENCE AND OPERATIONS OFFICER-C, Tawanna Reilly Address: Address: [address] [place] [id number]- Personnel Name: Sheree SCIENCE AND OPERATIONS OFFICER-C, Tawanna Reilly Address: Address: [address] [place] [id number]- Personnel Name: Sheree SCIENCE AND OPERATIONS OFFICER-C, Tawanna Reilly Address: Address: [address], [facility] [place] [address]- Personnel Name: Sheree SCIENCE AND OPERATIONS OFFICER-C, Tawanna Reilly Address: Address: [address] [place] [id number]- Personnel Name: Sheree SCIENCE AND OPERATIONS OFFICER-C, Tawanna Reilly Address: Address: [address] [place] [address]- Personnel Name: Sheree SCIENCE AND OPERATIONS OFFICER-CTawanna Address: Address: [address], [facility] [place] [id number]- Personnel Name: Sheree SCIENCE AND OPERATIONS OFFICER-C, Tawanna Reilly Address: Address: [address], [facility] [place] [id number]- Personnel Name: Sheree SCIENCE AND OPERATIONS OFFICER-CTawanna Address: Address: [address] [place] [address]- Personnel Name: Sheree OJEDAC, Tawanna Reilly Address: Address: [address] [place] [id number]- Personnel Name: Sheree OJEDAC, Tawanna Reilly Address: Address: [address] [place] [id number]- Personnel Name: Sheree OJEDAC, Tawanna Reilly Address: Address: [address] [place] [id number]- Personnel Name: Sheree SCIENCE AND OPERATIONS OFFICER-C, Tawanna Reilly Address: Address: [address] [place] [id number]- Personnel Name: [employer] OFF[employer]ER-C, Tawanna Reilly Address: Address: [address] [place] [id number] Personnel Name: [employer] OFFICER-C, Tawanna Reilly Address: Address: [address] [place] [id number]- Personnel Name: [employer] OFFICER-C, Tawanna Reilly Address: Address: [address] [place] [id number]- Personnel Name: [employer]ree [employer] OFFICER-C, Tawanna Reilly Address: Address: [address] [place] [id number]- Personnel Name: [employer] OFFICER-C, Tawanna Reilly Address: Address: [address] [place] [id number]- Personnel Name: [employer]ree [employer] OFFICER-C, Tawanna Reilly Address: Address: [address] [place] [address]- Personnel Name: [employer] OFFICER-C, Tawanna Reilly Address: Address: [address] [place] [id number]- Personnel Name: Sheree [employer]PER[employer] OFFICER-C, Tawanna Reilly Address: Address: [address], [facility] [address] [place] [id number]- Personnel Name: livia VARNERP-C, Tawanna Reilly Address: Address: [address], [address] Personnel Name: Tawanna Rapp Address: Address: [facility] [place] [facility] [place] [address] Personnel Name: Tawanna Rapp Address: Address: [place] [facility] [place] [address] Personnel Name: Tawanna Rapp Address: Address: [facility] T[place] [facility] [place] [address] Personnel Name: Tawanna Rapp Address: Address: [place] [facility] [place] [address] FOR RECORDS PERTAINING TO PATIENTS WHO ARE OR HAVE BEEN ENROLLED IN A CHEMICAL DEPENDENCY/SUBSTANCEABUSE PROGRAM, SOME INFORMATION MAY BE OMITTED. This clinical summary was aggregated from multiple sources. Caution should be exercised in using it in the provision of clinical care. This summary normalizes information from multiple sources, and as a consequence, information in this document may materially change the coding, format and clinical context of patient data. In addition, data may be omitted in some cases. CLINICAL DECISIONS SHOULD BE BASED ON THE PRIMARY CLINICAL RECORDS. [facility] [employer] [facility]. provides no warranty or guarantee of the accuracy or completeness of information in this document.
--- NOTE | 2023-10-06 06:45 | XR_ITS ---
[address] [address] Patient Name: CHRIS FREEMAN MRN: [id number] date: 1970 Sex: M Assigned Patient Location: [facility] Current Patient Location: Accession/Order Number: [id number] Exam Date: 10/06/2023 06:10 Report Date: 10/10/2023 13:38 At the request of: JIMMY GASTON Procedure: XR abdomen 1V EXAMINATION: XR abdomen 1V HISTORY: kidney stones COMPARISON: No relevant comparison available. FINDINGS: KIDNEY/URETER - RIGHT: No visible renal or ureteral calcifications. KIDNEY/URETER - LEFT: 5 mm nephrolith lower pole PELVIS: No visible ureteral calcifications. Any visible calcifications favor phleboliths. BOWEL: No abnormal dilation or deviation. BONES: No acute abnormality. Bilateral hip osteoarthritis OTHER: Vascular calcifications. XR/XR abdomen 1V IMPRESSION: 5 mm left nephrolith Electronically authenticated by: SHIRLEY RESENDIZ Date: 10/10/2023 13:38
[2023-10-06 07:15] LABS: Glucometer 131 mg/dL (74-106)
[2023-10-06] MEDS: LACTATED RINGER'S SOLUTION 1,000 ML 50 ML IV (07:42)
[2023-10-06] MEDS: CEFAZOLIN SODIUM/DEXTROSE,ISO 1 GM/50 ML IV.SOLN IV (07:53)
--- NOTE | 2023-10-06 08:32 | P.URON_ITS ---
Urology Surgery Operative Note Operative Note Procedure Date: 10/06/23 Time Out Performed: yes Pre-op Diagnosis: Left nephrolithiasis Post-op Diagnosis: same as pre-op Procedures performed: 1. Left ESWL. Anesthesia: General-LMA Primary Surgeon: Leonardo Carbajal Complications: None Estimated blood loss (mL): 0 Findings: Left nephrolithiasis Specimens: None Drains: None Indications for Procedures: This gentleman has recurrent nephrolithiasis. He now presents for left ESWL. He has signed an informed consent after risks were explained. Some of these risks include bleeding, perinephric hematoma, infection and anesthesia to name a few. Detailed description of Procedure: The patient was brought to the Operating Room and placed on Siemens electromagnetic lithotripsy treatment table in the supine position. SCDs were placed on their lower extremities and turned on and functioning during the enti re case. Timeout was done by all parties in the room. We all agreed upon the patient's identification and the planned procedures for this patient. General Anesthesia was then administered via LMA. Treatment head was then brought to the patient's correct side. While using flourscopy the left sided stone was identified and lined up into the crosshairs. We then began applying shocks on the left side at a power level 2.0 and increased to maximum power level of 3.5. Intermittent fluoroscopy revealed that the stone was quick to fragment. We applied a total of 1500 shocks. The stone entirely fragmented. There was only gravel and dust remaining. The procedure was then terminated. He was then transferred to a [facility] bed and wheeled to PACU in stable condition.
[2023-10-06] MEDS: LACTATED RINGER'S SOLUTION 1,000 ML 75 ML IV (09:09)
--- NOTE | 2023-10-06 11:04 | PC.NURSE ---
Up to bathroom and voided clear watermelon colored urine; strained and negative for calculi
== END 2023-10-06 10:25 | disposition home or self-care (01) ==
PROVIDERS: PCP Nurse Practitioner Family; Visit Provider Urology
PROC: (CPT 873; principal; 2023-10-06 08:00)
DX: N20.0 Calculus of kidney (principal); M06.9 Rheumatoid arthritis, unspecified; E78.5 Hyperlipidemia, unspecified; R31.9 Hematuria, unspecified; E11.9 Type 2 diabetes mellitus without complications; K21.9 Gastro-esophageal reflux disease without esophagitis; Z79.84 Long term (current) use of oral hypoglycemic drugs; N40.0 Benign prostatic hyperplasia without lower urinary tract symptoms
CPT/HCPCS: 50590; 36415; 74018; 82948; J0690; J2250; J2405; J2704